=== PATIENT | female | born 1960 ===

== ENCOUNTER 2017-10-04 09:36 | Observation (INO) | payer OTHER ==
--- NOTE | 2017-10-04 10:01 | ED PDOC ---
Arrival/HPI - General Time Seen by Provider: 10/04/17 09:41 Historian: Patient - History of Present Illness Narrative History of Present Illness (Text): 10/04/17 09:56 57 year old female, whose past medical history includes angina, multiple sclerosis, fibromyalgia, diabetes, hyperlipidemia, who presents complaining of intermittent midsternal chest pain associated with nausea, vomiting that began a week ago. She reports the pain radiates to her back and is similar to her past angina symptoms. Patient states she is visiting from [place] and traveled on 09/13/2017. She reports she has relief when taking her nitroglycerin, but did not have any with her at the time. She also states she her Hgb was 7 and missed an Iron treatment. Intermittent cough. Patient reports a fever at 100, but denies any chills, shortness of breath, diarrhea, urinary symptoms, neck pain, headache, dizziness, or any other complaints. PMD: Dr. Cast in [place] Time/Duration: 1 week Symptom Onset: Gradual Symptom Course: Intermittent Activities at Onset: Light Context: Home Past Medical History - Provider Review Nursing Documentation Reviewed: Yes - Travel History Have you recently traveled outside US w/in the past 3 mons?: Yes If Yes, travel location?: From [facility] to [place] (09/13/2017) Family/Social History - Physician Review Nursing Documentation Reviewed: Yes Family/Social History: Other (Cardiac history: Brother recent open heart surgery ) Allergies/Home Meds Allergies/Adverse Reactions: Allergies levofloxacin [From Levaquin] Allergy (Verified 10/04/17 09:59) RASH iv dye Allergy (Uncoded 10/04/17 10:00) RASH Home Medications: Home Meds Medication Instructions Recorded Confirmed Aspirin [Ecotrin] 81 mg PO DAILY 10/04/17 10/04/17 Atropine/Diphenoxylate [Lonox 1 tab PO DAILY PRN 10/04/17 10/04/17 0.025 MG-2.5 MG] Clonazepam [Klonopin] 1 mg PO Q8 PRN 10/04/17 10/04/17 Insulin Human (NPH)/Regular 0 units SC AC PRN 10/04/17 10/04/17 [Novolin 70/30 (70/30 units/ml) 10 ml] Losartan/Hydrochlorothiazide 1 tab PO BID 10/04/17 10/04/17 [Losartan-Hctz 100-12.5 mg Tab] Meloxicam [Mobic] 15 mg PO DAILY 10/04/17 10/04/17 Oxycodone HCl/Acetaminophen 1 tab PO Q6 PRN 10/04/17 10/04/17 [Percocet 10-325 mg Tablet] Pantoprazole [Protonix] 40 mg PO DAILY 10/04/17 10/04/17 amLODIPine [Norvasc] 10 mg PO DAILY 10/04/17 10/04/17 Review of Systems - Physician Review All systems were reviewed & negative as marked: Yes - Review of Systems Constitutional: Fevers. absent: Other (Chills) Respiratory: Cough. absent: SOB Cardiovascular: Chest Pain Gastrointestinal: Nausea, Vomiting. absent: Diarrhea Genitourinary Female: absent: Dysuria, Frequency, Hematuria Musculoskeletal: Back Pain. absent: Neck Pain, Other (lower extremities edema) Physical Exam Vital Signs Reviewed: Yes Vital Signs Temp Pulse Resp BP Pulse Ox 10/04/17 11:36 88 18 141/98 H 98 10/04/17 09:36 98.2 F 63 18 146/76 98 Temperature: Afebrile Blood Pressure: Normal Pulse: Regular Respiratory Rate: Normal Appearance: Positive for: Well-Appearing, Non-Toxic, Comfortable Pain Distress: None Mental Status: Positive for: Alert and Oriented X 3 - Systems Exam Head: Present: Atraumatic, Normocephalic Pupils: Present: PERRL Extroacular Muscles: Present: EOMI Conjunctiva: Present: Normal Mouth: Present: Moist Mucous Membranes Neck: Present: Normal Range of Motion Respiratory/Chest: Present: Clear to Auscultation, Good Air Exchange, Other ( Right Chest wall port). No: Respiratory Distress, Accessory Muscle Use Cardiovascular: Present: Regular Rate and Rhythm, Normal S1, S2. No: Murmurs Abdomen: Present: Normal Bowel Sounds. No: Tenderness, Distention, Peritoneal Signs Back: Present: Normal Inspection Upper Extremity: Present: Normal Inspection. No: Cyanosis, Edema Lower Extremity: Present: Normal Inspection. No: Edema Neurological: Present: GCS=15, CN II-XII Intact, Speech Normal Skin: Present: Warm, Dry, Normal Color. No: Rashes Psychiatric: Present: Alert, Oriented x 3, Normal Insight, Normal Concentration Medical Decision Making ED Course and Treatment: 10/04/17 09:56 Impression: 57 year old female presents complaining of midsternal chest pain that radiates to the back associated with nausea, vomiting, and cough for the past week. Differential Diagnosis included but are not limited to: R/O ACS. Lower probability for PE Plan: -- EKG -- Labs -- Chest X-ray -- Urinalysis -- Reassess and disposition Progress Notes: EKG shows NSR at 61 BPM with low voltage. Otherwise with normal. Interpreted by me. 10/04/17 10:21 CXR Impression: As read by me, NAD. Chest pain has improved. Nitrostat and Aspirin was given on the field. PROCEDURE: Chest X-ray Dictator : Erasto Perez MD Report Date : 10/04/2017 10:55:46 IMPRESSION: No acute consolidation. There may be some minimal linear scarring left lateral lower lung field. 10/04/17 14:16 CXR nl. EKG NSR. Chest pain resolved. Case discussed with Dr. [place] who will place the patient under her service. - Lab Interpretations Lab Results: 10/04/17 10:10 10/04/17 10:10 Lab Results 10/04/17 11:25: Urine Color Yellow, Urine Appearance Slight-cloudy, Urine pH 6.0 , Ur Specific [place] 1.020, Urine Protein Trace H, Urine Glucose (UA) Negative , Urine Ketones Negative, Urine Blood Negative, Urine Nitrate Positive H, Urine Bilirubin Negative, Urine Urobilinogen 1.0 H, Ur Leukocyte Esterase Small H, Urine RBC 0 - 2, Urine WBC 5 - 10, Ur Epithelial Cells 3 - 4, Urine Bacteria Many 10/04/17 10:10: Sodium 141, Potassium 3.5 L, Chloride 107, Carbon Dioxide 26, Anion Gap 12, BUN 14, Creatinine 0.8, Est GFR ( Amer) > 60, Est GFR (Non- Af Amer) > 60, Random Glucose 81, Calcium 8.8, Magnesium 1.5 L, Total Bilirubin 0.3, AST 24, ALT 30, Alkaline Phosphatase 84, Lactate Dehydrogenase 381, Total Creatine Kinase 34 L, Troponin I < 0.01, NT-Pro-B Natriuret Pep 526 H, Total Protein 6.5, Albumin 3.3, Globulin 3.3, Albumin/Globulin Ratio 1.0 L 10/04/17 10:10: PT 12.6 H, INR 1.14 H, APTT 33.7, D-Dimer, Quantitative 856 H 10/04/17 10:10: WBC 3.3 L, RBC 3.04 L, Hgb 9.5 L, Hct 30.4 L, MCV 100.0, MCH 31.3, MCHC 31.3, RDW 14.1, Plt Count 185, MPV 11.0, Gran % 67.0, Lymph % (Auto) 24.0, [place] % (Auto) 7.8 H, Eos % (Auto) 0.9 L, Baso % (Auto) 0.3, Gran # 2.24, Lymph # 0.8 L, [place] # 0.3, Eos # 0.0, Baso # 0.01 I have reviewed the lab results: Yes - RAD Interpretation Radiology Orders: 10/04/17 10:01 CHEST PORTABLE [RAD] Stat 10/04/17 11:09 ANGIO CHEST PE PROTOCOL [CT] Stat - EKG Interpretation Interpreted by ED Physician: Yes Type: 12 lead EKG - Medication Orders Current Medication Orders: Discontinued Medications Acetaminophen (Tylenol 325mg Tab) 975 mg PO STAT STA Stop: 10/04/17 10:20 Last Admin: 10/04/17 10:36 Dose: 975 mg MAR Pain/Vitals Document 10/04/17 10:36 EWO (Rec: 10/04/17 10:36 [facility] [id number]) Pain Reassessment Is This A Pain ReAssessment? No Sleep Is patient sleeping during reassessment? No Presence of Pain Presence of Pain Yes Pain Scale Used Pain Scale Used Numeric Location Pain Location Body Risk Consulting Treasury Director Description Constant Pressure Intensity 4 Scale Used Numeric Aspirin (Aspirin) 325 mg PO STAT STA Stop: 10/04/17 10:01 Last Admin: 10/04/17 10:33 Dose: Diphenhydramine HCl (Benadryl) 50 mg IVP STAT STA Stop: 10/04/17 11:17 Last Admin: 10/04/17 12:10 Dose: 50 mg IVP Administration Document 10/04/17 12:10 EWO (Rec: 10/04/17 12:11 [facility] [id number]) Charges for Administration # of IVP Administrations 1 Ketorolac Tromethamine (Toradol) 30 mg IVP STAT STA Stop: 10/04/17 11:10 Last Admin: 10/04/17 12:10 Dose: 30 mg MAR Pain Assessment Document 10/04/17 12:10 EWO (Rec: 10/04/17 12:10 [facility] [id number]) Pain Reassessment Is this a pain reassessment? Yes Sleep Is patient sleeping during reassessment? No Presence of Pain Presence of Pain Yes Pain Scale Used Pain Scale Used Numeric Location Pain Location Body Risk Consulting Treasury Director IVP Administration Document 10/04/17 12:10 EWO (Rec: 10/04/17 12:10 [facility] [id number]) Charges for Administration # of IVP Administrations 1 Magnesium Oxide (Mag-Ox) 400 mg PO STAT STA Stop: 10/04/17 10:56 Last Admin: 10/04/17 12:09 Dose: 400 mg Nitroglycerin (Nitro-Bid 2% Oint) 1 ea TOP STAT STA Stop: 10/04/17 10:20 Last Admin: 10/04/17 10:36 Dose: 1 ea Ondansetron HCl (Zofran Inj) 4 mg IVP STAT STA Stop: 10/04/17 10:49 Last Admin: 10/04/17 12:10 Dose: 4 mg IVP Administration Document 10/04/17 12:10 EWO (Rec: 10/04/17 12:10 [facility] [id number]) Charges for Administration # of IVP Administrations 1 Potassium Chloride (K-Dur 20 Meq Er Tab) 40 meq PO STAT STA Stop: 10/04/17 10:56 Last Admin: 10/04/17 12:09 Dose: 40 meq - Scribe Statement The provider has reviewed the documentation as recorded by the Serafin Nunez Provider Scribe Attestation: All medical record entries made by the Serafin were at my direction and personally dictated by me. I have reviewed the chart and agree that the record accurately reflects my personal performance of the history, physical exam, medical decision making, and the department course for this patient. I have also personally directed, reviewed, and agree with the discharge instructions and disposition. Disposition/Present on Arrival - Present on Arrival Any Indicators Present on Arrival: No - Disposition Have Diagnosis and Disposition been Completed?: Yes Diagnosis: Chest pain Disposition Time: 14:17 Patient Plan: Observation Condition: FAIR Discharge Instructions (ExitCare): Chest Pain (ED) Referrals: Estelita Ignacio, [Primary Care Provider] - Follow up with primary
[2017-10-04] MEDS ORDERED: Nitroglycerin 2% Ointment Foilpak UD TOP STA (10:19)
[2017-10-04 10:28] LABS: BASO # 0.01 K/mm3 (0.0-2.0); BASO % 0.3 % (0.0-3.0); EOS % 0.9 % (1.5-5.0); GRAN # 2.24 (1.4-6.5); HEMATOCRIT 30.4 % (36.0-48.0); LYMPH # 0.8 (1.2-3.4); MEAN CORPUSCULAR HEMOGLOBIN 31.3 pg (25.0-35.0); MEAN CORPUSCULAR HGB CONC 31.3 g/dl (31.0-37.0); MONO # 0.3 (0.1-0.6); MONO % 7.8 % (1.0-6.0); RED CELL DISTRIBUTION WIDTH 14.1 % (11.5-14.5); WHITE BLOOD COUNT 3.3 10^3/ul (4.5-11.0)
[2017-10-04 10:39] LABS: INR 1.14 (0.93-1.08)
[2017-10-04 10:40] LABS: PARTIAL THROMBOPLASTIN TIME 33.7 Seconds (25.1-36.5)
[2017-10-04 10:54] LABS: ALKALINE PHOSPHATASE 84 U/L (38-126); ALT/SGPT 30 U/L (7-56); AST/SGOT 24 U/L (14-36); BILIRUBIN,TOTAL 0.3 mg/dL (0.2-1.3); BLOOD UREA NITROGEN 14 mg/dL (7-21); CALCIUM 8.8 mg/dL (8.4-10.5); CARBON DIOXIDE 26 mmol/L (21-33); CHLORIDE 107 mmol/L (98-107); GFR AFRICAN-AMERICAN > 60; GLUCOSE,RANDOM 81 mg/dL (70-110); MAGNESIUM 1.5 mg/dL (1.7-2.2); POTASSIUM 3.5 mmol/L (3.6-5.0); SODIUM 141 mmol/L (132-148); TOTAL PROTEIN 6.5 g/dL (5.8-8.3)
[2017-10-04] MEDS ORDERED: Potassium Chloride 20 mEq ER Tab PO STA (10:55)
[2017-10-04] MEDS ORDERED: Magnesium Oxide 400 mg Tab UD PO STA (10:55)
--- NOTE | 2017-10-04 10:57 | RAD ---
HISTORY: chest pain COMPARISON: No prior study available for comparison FINDINGS: Right IJ MediPort tip in the SVC. LUNGS: Lung wooten are free of focal consolidation though there may be some minimal linear scarring in the left lateral lower lung field. PLEURA: No significant pleural effusion identified, no pneumothorax apparent. CARDIOVASCULAR: Heart is enlarged. In situ bipolar pacemaker OSSEOUS STRUCTURES: No significant abnormalities. VISUALIZED UPPER ABDOMEN: Normal. OTHER FINDINGS: None. IMPRESSION: No acute consolidation. There may be some minimal linear scarring left lateral lower lung field.
[2017-10-04 11:06] LABS: TROPONIN I < 0.01 ng/mL
[2017-10-04] MEDS ORDERED: DiphenhydrAMINE 50 mg/ml Inj IVP STA (11:16)
[2017-10-04 11:32] LABS: URINE BILIRUBIN NEGATIVE (NEGATIVE); URINE BLOOD NEGATIVE (NEGATIVE); URINE GLUCOSE (UA) NEGATIVE (NEGATIVE); URINE KETONE NEGATIVE (NEGATIVE); URINE LEUKOCYTE ESTERASE SMALL Leu/uL (NEGATIVE); URINE PROTEIN TRACE mg/dL (<30 mg/dL)
[2017-10-04] MEDS ORDERED: Iodixanol 320 MG/ML 100 ML BOTTLE IV ONE (11:38)
[2017-10-04 11:40] LABS: URINE APPEARANCE SLIGHT-CLOUDY (CLEAR); URINE COLOR YELLOW (YELLOW)
[2017-10-04 11:46] LABS: URINE RBC 0 - 2 /hpf (0-2)
[2017-10-04 11:47] LABS: URINE BACTERIA MANY (NEG)
--- NOTE | 2017-10-04 13:49 | CT ---
PROCEDURE: CT Chest with contrast (Pulmonary Angiogram) HISTORY: The chest pain. . Elevated D dimer ; r/o PE COMPARISON: None available. TECHNIQUE: Axial computed tomography images were obtained of the chest in the pulmonary arterial phase of enhancement. Coronal and sagittal reformatted images were created and reviewed. Intravenous contrast dose: Radiation dose: Total exam DLP = 667.43 mGy-cm. This CT exam was performed using one or more of the following dose reduction techniques: Automated exposure control, adjustment of the mA and/or kV according to patient size, and/or use of iterative reconstruction technique. FINDINGS: PULMONARY ARTERIES: The visualized pulmonary trunk, right and left main, lobar, segmental and proximal subsegmental branches of the pulmonary arteries are well opacified with no definitive filling defects seen to suggest acute central pulmonary embolus. Pulmonary trunk measures approximately 3.1 cm. In situ right IJ MediPort with tip in the SVC. AORTA: No acute findings. No thoracic aortic aneurysm. Ascending thoracic aorta slightly dilated measuring approximately 3.73 cm. Descending thoracic aorta measures approximately 2.53 cm. LUNGS: Minor atelectasis/scarring changes seen in both lung bases. No focal consolidation. No parenchymal masses or obvious nodules PLEURAL SPACES: Unremarkable. No effusion or pneumothorax. HEART: Heart is borderline/mildly enlarged. No significant pericardial effusion. . In situ bipolar pacemaker LYMPH NODES: No significant mediastinal or hilar adenopathy. Note is made of fluid throughout the entire esophagus. Clinical correlation recommended to exclude dysmotility or reflux. . There is a small hiatal hernia. BONES, CHEST WALL: Mild multilevel degenerative spondylosis of the thoracic spine. There are no acute compression fractures nor retropulsed fragments. OTHER FINDINGS: The spleen appears enlarged measuring approximately 15.6 cm in AP dimension. Postoperative changes of the stomach. Clinical correlation with surgical history recommended IMPRESSION: No evidence of central pulmonary embolus. Mild splenomegaly. Postoperative changes of the stomach. Clinical correlation with surgical history.
--- NOTE | 2017-10-04 15:38 | CP.PCM.HP ---
<hSakir Singh - Last Filed: 10/04/17 19:05> History of Present Illness - History of Present Illness History of Present Illness: 57 year old female with a past medical history of multiple sclerosis, angina, Fibromyalgia, bradycardia (s/p Pacemaker), Diabetes mellitus, hyperlipidemia, colitis, obesity(s/p gastric bypass) who comes in complaining of mid-sternal chest pain associated with nausea and radiates to the back. The patient rates the pain a 7/10 in severity. The patient who is visiting from [place] also reports a headache in conjunction with the pain. The patient was recently hospitalized in [place] for the same complaint about one month ago. The patient denies any fevers, chills, vomiting, changes in vision, lightheadedness , dizziness, syncopal episodes, or any other complaints. Past medical history: See HPI Medications: Reviewed, see MAR Past surgical history: Gastric bypass, Unspecified small intestine surgery Past hospitalization: One month ago for chest pain in [place] Social history: Denies smoking or alcohol history. Denies illicit drug use. Lives with daughter. . Performs ADL's and IDL's with help of home services and walker. Expected to return to [place] October 27. PMD: Dr. Cast Wire Temperer: Dr. Velez Present on Admission - Present on Admission Any Indicators Present on Admission: No Review of Systems - Constitutional Constitutional: As Per HPI - EENT Eyes: As Per HPI Ears: As Per HPI Nose/Mouth/Throat: As Per HPI - Cardiovascular Cardiovascular: As Per HPI - Respiratory Respiratory: As Per HPI - Gastrointestinal Gastrointestinal: As Per HPI - Genitourinary Genitourinary: As Per HPI - Musculoskeletal Musculoskeletal: As Per HPI - Integumentary Integumentary: As Per HPI - Neurological Neurological: As Per HPI - Psychiatric Psychiatric: As Per HPI - Endocrine Endocrine: As Per HPI - Hematologic/Lymphatic Hematologic: As Per HPI Past Patient History - Infectious Disease Hx of Infectious Diseases: None - Past Social History Smoking Status: Unknown If Ever Smoked - CARDIAC Hx Hypertension: Yes Hx Pacemaker: Yes - ENDOCRINE/METABOLIC Hx Diabetes Mellitus Type 2: Yes - PSYCHIATRIC Hx Substance Use: No - ANESTHESIA Hx Anesthesia: No Meds Allergies/Adverse Reactions: Allergies Allergy/AdvReac Type Severity Reaction Status Date / Time levofloxacin [From Levaquin] Allergy RASH Verified 10/04/17 14:45 iv dye Allergy RASH Uncoded 10/04/17 14:45 Physical Exam - Head Exam Head Exam: ATRAUMATIC, NORMAL INSPECTION, NORMOCEPHALIC - Eye Exam Eye Exam: EOMI, Normal appearance, PERRL Pupil Exam: NORMAL ACCOMODATION, PERRL. absent: Irregular, Unequal - ENT Exam ENT Exam: Mucous Membranes Moist, Normal Exam, Normal Oropharynx - Neck Exam Neck exam: Positive for: Normal Inspection. Negative for: Lymphadenopathy, Thyromegaly - Respiratory Exam Respiratory Exam: Clear to Auscultation Bilateral, NORMAL BREATHING PATTERN. absent: Chest Wall Tenderness, Prolonged Expiratory Phase, Respiratory Distress - Cardiovascular Exam Cardiovascular Exam: REGULAR RHYTHM, RRR, +S1, +S2. absent: Gallop, Rubs - GI/Abdominal Exam GI & Abdominal Exam: Normal Bowel Sounds, Soft. absent: Organomegaly, Tenderness - Extremities Exam Extremities exam: Positive for: full ROM, normal inspection. Negative for: joint swelling, pedal edema, tenderness - Back Exam Back exam: NORMAL INSPECTION. absent: CVA tenderness (L), CVA tenderness (R), paraspinal tenderness - Neurological Exam Neurological exam: Alert, CN II-XII Intact, Oriented x3 - Psychiatric Exam Psychiatric exam: Normal Affect, Normal Mood - Skin Skin Exam: Dry, Intact, Normal Color Results - Vital Signs Recent Vital Signs: Last Vital Signs Temp 98.9 F 10/04/17 13:00 Pulse 78 10/04/17 15:00 Resp 18 10/04/17 15:00 BP 118/80 10/04/17 15:00 Pulse Ox 98 10/04/17 15:00 - Labs Result Diagrams: 10/04/17 10:10 10/04/17 10:10 Labs: Laboratory Results - last 24 hr 10/04/17 10/04/17 10/04/17 10:10 10:10 10:10 WBC 3.3 L RBC 3.04 L Hgb 9.5 L Hct 30.4 L MCV 100.0 MCH 31.3 MCHC 31.3 RDW 14.1 Plt Count 185 MPV 11.0 Gran % 67.0 Lymph % (Auto) 24.0 [place] % (Auto) 7.8 H Eos % (Auto) 0.9 L Baso % (Auto) 0.3 Gran # 2.24 Lymph # 0.8 L [place]pp # 0.3 Eos # 0.0 Baso # 0.01 PT 12.6 H INR 1.14 H APTT 33.7 D-Dimer, Quantitative 856 H Sodium 141 Potassium 3.5 L Chloride 107 Carbon Dioxide 26 Anion Gap 12 BUN 14 Creatinine 0.8 Est GFR ( Amer) > 60 Est GFR (Non-Af Amer) > 60 Random Glucose 81 Calcium 8.8 Magnesium 1.5 L Total Bilirubin 0.3 AST 24 ALT 30 Alkaline Phosphatase 84 Lactate Dehydrogenase 381 Total Creatine Kinase 34 L Troponin I < 0.01 NT-Pro-B Natriuret Pep 526 H Total Protein 6.5 Albumin 3.3 Globulin 3.3 Albumin/Globulin Ratio 1.0 L Urine Color Urine Appearance Urine pH Ur Specific [place] Urine Protein Urine Glucose (UA) Urine Ketones Urine Blood Urine Nitrate Urine Bilirubin Urine Urobilinogen Ur Leukocyte Esterase Urine RBC Urine WBC Ur Epithelial Cells Urine Bacteria 10/04/17 11:25 WBC RBC Hgb Hct MCV MCH MCHC RDW Plt Count MPV Gran % Lymph % (Auto) [place] % (Auto) Eos % (Auto) Baso % (Auto) Gran # Lymph # [place] # Eos # Baso # PT INR APTT D-Dimer, Quantitative Sodium Potassium Chloride Carbon Dioxide Anion Gap BUN Creatinine Est GFR ( Amer) Est GFR (Non-Af Amer) Random Glucose Calcium Magnesium Total Bilirubin AST ALT Alkaline Phosphatase Lactate Dehydrogenase Total Creatine Kinase Troponin I NT-Pro-B Natriuret Pep Total Protein Albumin Globulin Albumin/Globulin Ratio Urine Color Yellow Urine Appearance Slight-cloudy Urine pH 6.0 Ur Specific [place] 1.020 Urine Protein Trace H Urine Glucose (UA) Negative Urine Ketones Negative Urine Blood Negative Urine Nitrate Positive H Urine Bilirubin Negative Urine Urobilinogen 1.0 H Ur Leukocyte Esterase Small H Urine RBC 0 - 2 Urine WBC 5 - 10 Ur Epithelial Cells 3 - 4 Urine Bacteria Many Assessment & Plan - Assessment and Plan (Free Text) Assessment: 57 year old female with a past medical history of dm, hld, colitis, m.s., angina , and fibromyalgia who is being admitted for chest pain r/o acs. Plan: 1. Chest pain r/o ACS. -1 Week of Chest pain reported by patient. -Trending troponins x3. Troponin (-)x1. -Cardiology consulted. Will f/u with rec's. -Lipid panel ordered. Will f/u with results. -Aspirin 325 give in the E.D. Start 81 mg Daily. 2.history of Anemia -Hemoglobin 9.5 upon admission. Unable to trend since patient is from [place]. -Patient has Port-o-cath for IV iron treatments. -One 200 Venofer dose to be given today. -Will continue to follow up serial CBC's. 3. UTI -u/A had positive Nitrates, and many urine bacteria. -Urine cx ordered .Will f/u with results. -Rocephin 1 gm q24. 4.D.M. -hold home medications. -ISS. Accuchecks. -Diabetic diet. 5. Hyperlipidemia -lipid panel ordered. Will f/u with results. -continue home medications. 6.Fibromyalgia -continue home meds. 7. Multiple sclerosis - continue home meds. GI ppx -Protonix DVT ppx -Heparin <Kirill Montana - Last Filed: 10/05/17 12:20> Results - Vital Signs Recent Vital Signs: Last Vital Signs Temp 98.0 F 10/05/17 07:30 Pulse 60 10/05/17 07:30 Resp 18 10/05/17 07:30 BP 125/82 10/05/17 07:30 Pulse Ox 98 10/05/17 07:30 - Labs Result Diagrams: 10/05/17 07:30 10/05/17 07:30 Labs: Laboratory Results - last 24 hr 10/04/17 10/04/17 10/04/17 16:07 17:00 21:47 WBC RBC Hgb Hct MCV MCH MCHC RDW Plt Count MPV Gran % Lymph % (Auto) [place] % (Auto) Eos % (Auto) Baso % (Auto) Gran # Lymph # [place] # Eos # Baso # Sodium Potassium Chloride Carbon Dioxide Anion Gap BUN Creatinine Est GFR ( Amer) Est GFR (Non-Af Amer) POC Glucose (mg/dL) 95 116 H Random Glucose Calcium Total Bilirubin AST ALT Alkaline Phosphatase Lactate Dehydrogenase Total Creatine Kinase Troponin I < 0.01 Total Protein Albumin Globulin Albumin/Globulin Ratio 10/04/17 10/05/17 10/05/17 23:00 07:30 07:30 WBC 2.6 L* D RBC 3.12 L Hgb 9.6 L Hct 30.9 L MCV 99.0 MCH 30.8 MCHC 31.1 RDW 14.2 Plt Count 163 MPV 11.6 H Gran % 69.2 H Lymph % (Auto) 21.4 L [place] % (Auto) 7.8 H Eos % (Auto) 1.2 L Baso % (Auto) 0.4 Gran # 1.78 Lymph # 0.6 L [place]pp # 0.2 Eos # 0.0 Baso # 0.01 Sodium 142 Potassium 4.6 Chloride 105 Carbon Dioxide 28 Anion Gap 13 BUN 10 Creatinine 0.8 Est GFR ( Amer) > 60 Est GFR (Non-Af Amer) > 60 POC Glucose (mg/dL) Random Glucose 85 Calcium 9.2 Total Bilirubin 0.3 AST 26 ALT 27 Alkaline Phosphatase 87 Lactate Dehydrogenase Total Creatine Kinase Troponin I < 0.01 Total Protein 6.5 Albumin 3.4 Globulin 3.1 Albumin/Globulin Ratio 1.1 10/05/17 08:30 WBC RBC Hgb Hct MCV MCH MCHC RDW Plt Count MPV Gran % Lymph % (Auto) [place] % (Auto) Eos % (Auto) Baso % (Auto) Gran # Lymph # [place] # Eos # Baso # Sodium Potassium Chloride Carbon Dioxide Anion Gap BUN Creatinine Est GFR ( Amer) Est GFR (Non-Af Amer) POC Glucose (mg/dL) Random Glucose Calcium Total Bilirubin AST ALT Alkaline Phosphatase Lactate Dehydrogenase 429 Total Creatine Kinase 31 L Troponin I < 0.01 Total Protein Albumin Globulin Albumin/Globulin Ratio Attending/Attestation - Attestation I have personally seen and examined this patient.: Yes I have fully participated in the care of the patient.: Yes I have reviewed all pertinent clinical information: Yes Notes (Text): 10/05/17 12:17 Attending note; Patient seen and examined with resident in ER. Patient is a 57 year old female with a past medical history of multiple sclerosis, Fibromyalgia, bradycardia (s/p Pacemaker), Diabetes mellitus, hyperlipidemia, colitis, obesity(s/p gastric bypass), opiate dependency is admitted for chest pain. EKG showed no significant changes/pacer present. Cardiac enzymes [address] angios negative for pulmonary embolus. Patient was admitted in [facility] for chest pain in March. Workup negative as per patient. Does not remember stress test. Patient had remote history of cardiac cath about 10 years ago which was negative. Cardiology evaluation requested. Obesity/status post gastric bypass surgery; anemia. Started on IV iron. Hemoglobin is stable. Questionable history of MS;walks with a walker at home. also getting physical therapy at home. Chronic opiate dependency; Percocet when necessary. Patient was given Toradol. Currently denies any headache, abdominal pain. Admit to telemetry. Monitor closely. Possible discharge home tomorrow.
[2017-10-04 16:03] LABS: CHOLESTEROL 116 mg/dL (130-200)
[2017-10-04] MEDS: cefTRIAXone 1 gm 1 GM/100 ML BAG IVPB SCH (16:48)
[2017-10-04] MEDS ORDERED: Magnesium Sulfate 1 gm in D5W 1 GM/100 ML BAG IVPB ONE (17:09)
[2017-10-04] MEDS: Insulin Reg-LOW-Coverage SC SCH ×2 (17:11→23:03)
[2017-10-04] MEDS ORDERED: Non Formulary Medication (Losartan/Hydrochlorothiazide [Losartan-Hctz 100-12.5 Mg Tab] 1 T PO SCH (18:00)
[2017-10-04 19:57] VITALS: BMI 40.6
[2017-10-04] MEDS ORDERED: Pneumococcal 23-Valent Vaccine IM ONE (19:57)
[2017-10-04] MEDS ORDERED: Influenza Vaccine 60 mcg/0.5 mL SYR (4YR UP) IM ONE (19:57)
[2017-10-05] MEDS: Pantoprazole 40 mg EC Tab PO SCH (05:44)
[2017-10-05] MEDS: Insulin Reg-LOW-Coverage SC SCH ×3 (07:34→17:01)
[2017-10-05 08:11] LABS: BASO # 0.01 K/mm3 (0.0-2.0); BASO % 0.4 % (0.0-3.0); EOS % 1.2 % (1.5-5.0); GRAN # 1.78 (1.4-6.5); GRAN % 69.2 % (50.0-68.0); HEMATOCRIT 30.9 % (36.0-48.0); LYMPH # 0.6 (1.2-3.4); LYMPH % 21.4 % (22.0-35.0); MEAN CORPUSCULAR HEMOGLOBIN 30.8 pg (25.0-35.0); MEAN CORPUSCULAR HGB CONC 31.1 g/dl (31.0-37.0); MEAN PLATELET VOLUME 11.6 fl (7.0-11.0); MONO # 0.2 (0.1-0.6); MONO % 7.8 % (1.0-6.0); RED CELL DISTRIBUTION WIDTH 14.2 % (11.5-14.5)
[2017-10-05 08:17] LABS: WHITE BLOOD COUNT 2.6 10^3/ul (4.5-11.0)
[2017-10-05] MEDS ORDERED: Oxycodone/Acetaminophen 5/325 mg Tab PO PRN (08:17)
[2017-10-05 08:30] LABS: ALB/GLOB RATIO 1.1 (1.1-1.8); ALKALINE PHOSPHATASE 87 U/L (38-126); ALT/SGPT 27 U/L (7-56); AST/SGOT 26 U/L (14-36); BILIRUBIN,TOTAL 0.3 mg/dL (0.2-1.3); BLOOD UREA NITROGEN 10 mg/dL (7-21); CALCIUM 9.2 mg/dL (8.4-10.5); CARBON DIOXIDE 28 mmol/L (21-33); CHLORIDE 105 mmol/L (98-107); GFR AFRICAN-AMERICAN > 60; GLUCOSE,RANDOM 85 mg/dL (70-110); POTASSIUM 4.6 mmol/L (3.6-5.0); SODIUM 142 mmol/L (132-148); TOTAL PROTEIN 6.5 g/dL (5.8-8.3)
[2017-10-05] MEDS ORDERED: Atropine-Diphenoxylate 0.025-2.5 mg Tab PO PRN (08:44)
--- NOTE | 2017-10-05 08:46 | CARD ---
APPROVED REPORT EKG Measurement Heart [id number] <Conclusion> Normal sinus rhythm Low voltage QRS Nonspecific ST and T wave abnormality Base line artefact please repeat Abnormal ECG
[2017-10-05 09:25] LABS: TROPONIN I < 0.01 ng/mL
[2017-10-05] MEDS: cefTRIAXone 1 gm 1 GM/100 ML BAG IVPB SCH (10:00)
[2017-10-05] MEDS ORDERED: VENLAFAXINE 100 MG PO SCH (10:00)
--- NOTE | 2017-10-05 10:48 | CP.PCM.DIS ---
Provider - Provider Date of Admission: 10/04/17 14:11 Attending physician: Silvia Underwood MD Primary care physician: Estelita Profile Required Consults: Dr. Caro Cardiology Time Spent in preparation of Discharge (in minutes): 35 Hospital Course - Lab Results Lab Results: Most Recent Lab Values WBC 2.6 10^3/ul (4.5-11.0) L* D 10/05/17 07:30 RBC 3.12 10^6/uL (3.5-6.1) L 10/05/17 07:30 Hgb 9.6 g/dL (12.0-16.0) L 10/05/17 07:30 Hct 30.9 % (36.0-48.0) L 10/05/17 07:30 MCV 99.0 fl (80.0-105.0) 10/05/17 07:30 MCH 30.8 pg (25.0-35.0) 10/05/17 07:30 MCHC 31.1 g/dl (31.0-37.0) 10/05/17 07:30 RDW 14.2 % (11.5-14.5) 10/05/17 07:30 Plt Count 163 10^3/uL (120.0-450.0) 10/05/17 07:30 MPV 11.6 fl (7.0-11.0) H 10/05/17 07:30 Gran % 69.2 % (50.0-68.0) H 10/05/17 07:30 Lymph % (Auto) 21.4 % (22.0-35.0) L 10/05/17 07:30 [place] % (Auto) 7.8 % (1.0-6.0) H 10/05/17 07:30 Eos % (Auto) 1.2 % (1.5-5.0) L 10/05/17 07:30 Baso % (Auto) 0.4 % (0.0-3.0) 10/05/17 07:30 Gran # 1.78 (1.4-6.5) 10/05/17 07:30 Lymph # 0.6 (1.2-3.4) L 10/05/17 07:30 [place] # 0.2 (0.1-0.6) 10/05/17 07:30 Eos # 0.0 (0.0-0.7) 10/05/17 07:30 Baso # 0.01 K/mm3 (0.0-2.0) 10/05/17 07:30 PT 12.6 SECONDS (9.4-12.5) H 10/04/17 10:10 INR 1.14 (0.93-1.08) H 10/04/17 10:10 APTT 33.7 Seconds (25.1-36.5) 10/04/17 10:10 D-Dimer, Quantitative 856 ng/mL (0-243) H 10/04/17 10:10 Sodium 142 mmol/L (132-148) 10/05/17 07:30 Potassium 4.6 mmol/L (3.6-5.0) 10/05/17 07:30 Chloride 105 mmol/L (98-107) 10/05/17 07:30 Carbon Dioxide 28 mmol/L (21-33) 10/05/17 07:30 Anion Gap 13 (10-20) 10/05/17 07:30 BUN 10 mg/dL (7-21) 10/05/17 07:30 Creatinine 0.8 mg/dl (0.7-1.2) 10/05/17 07:30 Est GFR ( Amer) > 60 10/05/17 07:30 Est GFR (Non-Af Amer) > 60 10/05/17 07:30 POC Glucose (mg/dL) 116 mg/dL (65-110) H 10/04/17 21:47 Random Glucose 85 mg/dL (70-110) 10/05/17 07:30 Calcium 9.2 mg/dL (8.4-10.5) 10/05/17 07:30 Magnesium 1.5 mg/dL (1.7-2.2) L 10/04/17 10:10 Total Bilirubin 0.3 mg/dL (0.2-1.3) 10/05/17 07:30 AST 26 U/L (14-36) 10/05/17 07:30 ALT 27 U/L (7-56) 10/05/17 07:30 Alkaline Phosphatase 87 U/L (38-126) 10/05/17 07:30 Lactate Dehydrogenase 429 U/L (333-699) 10/05/17 08:30 Total Creatine Kinase 31 U/L (35-230) L 10/05/17 08:30 Troponin I < 0.01 ng/mL 10/05/17 08:30 NT-Pro-B Natriuret Pep 526 pg/mL (0-450) H 10/04/17 10:10 Total Protein 6.5 g/dL (5.8-8.3) 10/05/17 07:30 Albumin 3.4 g/dL (3.0-4.8) 10/05/17 07:30 Globulin 3.1 gm/dL 10/05/17 07:30 Albumin/Globulin Ratio 1.1 (1.1-1.8) 10/05/17 07:30 Triglycerides 91 mg/dL (35-160) 10/04/17 10:10 Cholesterol 116 mg/dL (130-200) L 10/04/17 10:10 LDL Cholesterol Direct 51 mg/dL (0-129) 10/04/17 10:10 HDL Cholesterol 45 mg/dL (29-60) 10/04/17 10:10 TSH 3rd Generation 0.90 mIU/mL (0.46-4.68) 10/04/17 10:10 Urine Color Yellow (YELLOW) 10/04/17 11:25 Urine Appearance Slight-cloudy (CLEAR) 10/04/17 11:25 Urine pH 6.0 (4.7-8.0) 10/04/17 11:25 Ur Specific Spencer 1.020 (1.005-1.035) 10/04/17 11:25 Urine Protein Trace mg/dL (<30 mg/dL) H 10/04/17 11:25 Urine Glucose (UA) Negative mg/dL (NEGATIVE) 10/04/17 11:25 Urine Ketones Negative mg/dL (NEGATIVE) 10/04/17 11:25 Urine Blood Negative (NEGATIVE) 10/04/17 11:25 Urine Nitrate Positive (NEGATIVE) H 10/04/17 11:25 Urine Bilirubin Negative (NEGATIVE) 10/04/17 11:25 Urine Urobilinogen 1.0 E.U./dL (<1 E.U./dL) H 10/04/17 11:25 Ur Leukocyte Esterase Small Jason/uL (NEGATIVE) H 12/09/17 11:25 Urine RBC 0 - 2 /hpf (0-2) 10/04/17 11:25 Urine WBC 5 - 10 /hpf (0-6) 10/04/17 11:25 Ur Epithelial Cells 3 - 4 /hpf (0-5) 10/04/17 11:25 Urine Bacteria Many (NEG) 10/04/17 11:25 - Hospital Course Hospital Course: 57 year female with a past medical history of MS, fibrolyalgia, bradycardia s/p pacemaker, angina, hyperlipidemia, DM II, history of gastric bypass who presents to [facility] with midsternal chest pain with radiation to the back with associated nausea. EKG, troponin x3, and chest x-ray were negative for an acute MS or acute chest syndrome. The patient was monitored on telemetry and cardiology evaluated the patient. The patient's chest pain resolved and was dsicharged with the below written instructions and prescriptions. Discharge Exam - Head Exam Head Exam: ATRAUMATIC, NORMAL INSPECTION, NORMOCEPHALIC - Eye Exam Eye Exam: EOMI, Normal appearance - ENT Exam ENT Exam: Mucous Membranes Moist, Normal Oropharynx - Neck Exam Neck exam: Normal Inspection - Respiratory Exam Respiratory Exam: Clear to PA & Lateral, NORMAL BREATHING PATTERN - Cardiovascular Exam Cardiovascular Exam: RRR, +S1, +S2 - GI/Abdominal Exam GI & Abdominal Exam: Normal Bowel Sounds. absent: Guarding, Rebound - Extremities Exam Extremities exam: normal capillary refill, normal inspection - Back Exam Back exam: NORMAL INSPECTION. absent: CVA tenderness (L), CVA tenderness (R) - Neurological Exam Neurological exam: Alert, CN II-XII Intact, Oriented x3 - Psychiatric Exam Psychiatric exam: Normal Affect, Normal Mood - Skin Skin Exam: Dry, Intact, Normal Color, Warm Discharge Plan - Discharge Medications Prescriptions: Ibuprofen [Motrin] 600 mg PO BID #12 tab - Follow Up Plan Condition: FAIR Disposition: HOME/ ROUTINE Instructions: Chest Pain (GEN), Chest Pain (DC) Additional Instructions: 1) Patient to take any medications as prescribed. 2) Patient to return to closest ED for any worsening of symptoms. 3) Patient to follow up with Primary Medical Doctor within the next 7 days. Referrals: Estelita Ignacio, [Primary Care Provider] -
--- NOTE | 2017-10-05 11:56 | CP.PCM.PN ---
<Lina Henderson - Last Filed: 10/05/17 12:30> Subjective - Date & Time of Evaluation Date of Evaluation: 10/05/17 Time of Evaluation: 09:10 - Subjective Subjective: Lina Henderson DO, PGY-1: Hospitalist Service Patient seen and examined at bedside. Patient reports chest pain with exertion and a headache for 1 week that has gradually worsening. Patient also reports one week of malaise and generalized weakness and has not taken her Copaxone (MS medication) for over 2.5 weeks given that she left it at home in [place]. Objective - Vital Signs/Intake and Output Vital Signs (last 24 hours): Temp Pulse Resp BP Pulse Ox 98.0 F 60 18 125/82 98 10/05/17 07:30 10/05/17 07:30 10/05/17 07:30 10/05/17 07:30 10/05/17 07:30 Intake and Output: 10/05/17 10/05/17 06:59 18:59 Intake Total 300 Output Total 0 Balance 300 - Medications Medications: Current Medications Acetaminophen (Tylenol 325mg Tab) 650 mg PO Q6H PRN PRN Reason: Pain, moderate (4-7) Last Admin: 10/05/17 05:48 Dose: 650 mg Aspirin (Ecotrin) 81 mg PO DAILY HERMINIO Last Admin: 10/05/17 10:00 Dose: 81 mg Clonazepam (Klonopin) 1 mg PO Q8 PRN; Protocol PRN Reason: Anxiety Last Admin: 10/05/17 05:44 Dose: 1 mg Diphenhydramine HCl (Benadryl) 25 mg PO HS PRN PRN Reason: Insomnia Last Admin: 10/05/17 10:01 Dose: 25 mg Diphenoxylate HCl/Atropine (Lomotil 0.025-2.5 Mg Tablet) 1 tab PO DAILY PRN PRN Reason: Diarrhea Hydrochlorothiazide (Microzide) 12.5 mg PO DAILY HERMINIO Last Admin: 10/05/17 10:00 Dose: 12.5 mg Ceftriaxone Sodium (Rocephin 1 Gram Ivpb (D5w)) 1 gm in 100 mls @ 100 mls/hr IVPB DAILY HERMINIO PRN Reason: Protocol Last Admin: 10/05/17 10:00 Dose: 100 mls/hr Insulin Human Regular (Humulin R Low) 0 units SC ACHS [facility] PRN Reason: Protocol Last Admin: 10/05/17 07:34 Dose: Not Given Losartan Potassium (Cozaar) 100 mg PO DAILY [facility] Last Admin: 10/05/17 10:00 Dose: 100 mg Home Med ( Venlafaxine [Effexor 50 Mg Tab] 100 Mg) 100 mg PO BID [facility] Ondansetron HCl (Zofran Inj) 4 mg IVP Q8H PRN PRN Reason: Nausea/Vomiting Last Admin: 10/05/17 11:07 Dose: 4 mg Oxycodone/Acetaminophen (Percocet 5/325 Mg Tab) 1 tab PO Q6H PRN PRN Reason: Pain, moderate (4-7) Stop: 10/08/17 08:18 Last Admin: 10/05/17 08:24 Dose: 1 tab Pantoprazole Sodium (Protonix Ec Tab) 40 mg PO 0600 [facility] Last Admin: 10/05/17 05:44 Dose: 40 mg - Labs Labs: 10/05/17 07:30 10/05/17 07:30 PT 12.6 SECONDS (9.4-12.5) H 10/04/17 10:10 INR 1.14 (0.93-1.08) H 10/04/17 10:10 APTT 33.7 Seconds (25.1-36.5) 10/04/17 10:10 - Constitutional Appears: Non-toxic, No Acute Distress, Older Than Stated Age - Head Exam Head Exam: ATRAUMATIC - Eye Exam Additional comments: left eye ptosis - ENT Exam ENT Exam: Mucous Membranes Moist, Normal Oropharynx - Neck Exam Neck Exam: Normal Inspection - Respiratory Exam Respiratory Exam: Clear to Ausculation Bilateral, NORMAL BREATHING PATTERN - Cardiovascular Exam Cardiovascular Exam: RRR, +S1, +S2 - GI/Abdominal Exam GI & Abdominal Exam: Soft, Normal Bowel Sounds - Extremities Exam Extremities Exam: Normal Inspection. absent: Pedal Edema - Back Exam Back Exam: NORMAL INSPECTION. absent: CVA tenderness (L), CVA tenderness (R) - Neurological Exam Neurological Exam: Alert, CN II-XII Intact, Oriented x3 Neuro motor strength exam: Left Upper Extremity: 4, Right Upper Extremity: 5, Left Lower Extremity: 4, Right Lower Extremity: 5 - Psychiatric Exam Psychiatric exam: Normal Affect, Normal Mood - Skin Skin Exam: Dry, Intact, Normal Color, Warm Assessment and Plan - Assessment and Plan (Free Text) Assessment: 57 year old female with a past medical history of Diabetes Mellitus, Hyperlipidemia, Multiple Sclerosis, Angina, and Fibromyalgia who is being admitted for chest pain. Prior to discharge, patient began to complain of gradually worsening headache and bilateral lower extremity pain. Plan: 1) Chest pain - ACS ruled out; troponin x3 negative, EKG showed paced rhythm with no acute ST- T wave changes. - CT angiogram of the chest was negative for pulmonary embolism. - Cardiology consulted, appreciate recommendations. -Lipid panel ordered, TG 91, cholesterol 116, LDL 51, HDL of 45 -Aspirin 325 give in the E.D. Start 81 mg Daily. 2) Subacute headache with concomitant lower extremity pain: This could represent a MS flair as patient has been without MS medication for 2.5 weeks. - CT head without contrast to rule out acute stroke or hemmorhage. - Neurology consulted 3) History of Anemia -Hemoglobin 9.5 upon admission. Unable to trend since patient is from [place]. -Patient has Port-o-cath for IV iron treatments. -One 200 Venofer dose to be given today. -Will continue to follow up serial CBC's. 4) UTI -u/A had positive Nitrates, and many urine bacteria. -Urine cx ordered .Will f/u with results. -Rocephin 1 gm q24. 4.D.M. -hold home medications. -ISS. Accuchecks. -Diabetic diet. 5. Hyperlipidemia -lipid panel ordered. Will f/u with results. -continue home medications. 6.Fibromyalgia - Effexor 75 mg PO, as 50 mg is not carried in pharmacy 7) Multiple sclerosis - Neurology consulted, for possible MS flair GI ppx -Protonix DVT ppx -Heparin <Rangasamy,Ajantha - Last Filed: 10/05/17 15:35> Objective - Vital Signs/Intake and Output Vital Signs (last 24 hours): Temp Pulse Resp BP Pulse Ox 98.4 F 65 20 145/82 98 10/05/17 12:00 10/05/17 12:00 10/05/17 12:00 10/05/17 12:00 10/05/17 07:30 Intake and Output: 10/05/17 10/05/17 06:59 18:59 Intake Total 300 Output Total 0 Balance 300 - Medications Medications: Current Medications Acetaminophen (Tylenol 325mg Tab) 650 mg PO Q6H PRN PRN Reason: Pain, moderate (4-7) Last Admin: 10/05/17 05:48 Dose: 650 mg Aspirin (Ecotrin) 81 mg PO DAILY [facility] Last Admin: 10/05/17 10:00 Dose: 81 mg Clonazepam (Klonopin) 1 mg PO Q8 PRN; Protocol PRN Reason: Anxiety Last Admin: 10/05/17 05:44 Dose: 1 mg Diphenhydramine HCl (Benadryl) 25 mg PO HS PRN PRN Reason: Insomnia Last Admin: 10/05/17 10:01 Dose: 25 mg Diphenoxylate HCl/Atropine (Lomotil 0.025-2.5 Mg Tablet) 1 tab PO DAILY PRN PRN Reason: Diarrhea Hydrochlorothiazide (Microzide) 12.5 mg PO DAILY [facility] Last Admin: 10/05/17 10:00 Dose: 12.5 mg Ceftriaxone Sodium (Rocephin 1 Gram Ivpb (D5w)) 1 gm in 100 mls @ 100 mls/hr IVPB DAILY [facility] PRN Reason: Protocol Last Admin: 10/05/17 10:00 Dose: 100 mls/hr Insulin Human Regular (Humulin R Low) 0 units SC ACHS [facility] PRN Reason: Protocol Last Admin: 10/05/17 11:55 Dose: Not Given Losartan Potassium (Cozaar) 100 mg PO DAILY [facility] Last Admin: 10/05/17 10:00 Dose: 100 mg Multivitamins/Minerals (Therapeutic-M Tab) 1 tab PO 0800 [facility] Ondansetron HCl (Zofran Inj) 4 mg IVP Q8H PRN PRN Reason: Nausea/Vomiting Last Admin: 10/05/17 11:07 Dose: 4 mg Oxycodone/Acetaminophen (Percocet 5/325 Mg Tab) 1 tab PO Q6H PRN PRN Reason: Pain, moderate (4-7) Stop: 10/08/17 08:18 Last Admin: 10/05/17 08:24 Dose: 1 tab Pantoprazole Sodium (Protonix Ec Tab) 40 mg PO 0600 [facility] Last Admin: 10/05/17 05:44 Dose: 40 mg Venlafaxine HCl (Effexor Xr) 75 mg PO DAILY [facility] Last Admin: 12/10/17 13:27 Dose: 75 mg - Labs Labs: 10/05/17 07:30 10/05/17 07:30 PT 12.6 SECONDS (9.4-12.5) H 10/04/17 10:10 INR 1.14 (0.93-1.08) H 10/04/17 10:10 APTT 33.7 Seconds (25.1-36.5) 10/04/17 10:10 Attending/Attestation - Attestation I have personally seen and examined this patient.: Yes I have fully participated in the care of the patient.: Yes I have reviewed all pertinent clinical information, including history, physical exam and plan: Yes Notes (Text): 10/05/17 15:27 Attending note; Patient seen and examined with resident. Patient is a 57 year old female with a past medical history of multiple sclerosis, Fibromyalgia, bradycardia (s/p Pacemaker), Diabetes mellitus, hyperlipidemia, colitis, obesity(s/p gastric bypass), opiate dependency is admitted for chest pain. EKG showed no significant changes/pacer present. Cardiac enzymes [address] angios negative for pulmonary embolus. cardiology evaluation with appreciated.cleared from cardiology point of view. Questionable history of MS;walks with a walker at home. also getting physical therapy at home. currently comaining of head ache; requesting Percocet and Toradol. Patient did not bring any pain medications from [place]. Opiate seeking behavior suspected. CT head ordered. multiple symptoms; rule out somatization disorder. we will Follow-up patient closely. Chronic opiate dependency; Percocet and toradol prn ordered. upon discharge the patient will follow-up with PMD in [place].
[2017-10-05 13:09] VITALS: RESP 20
[2017-10-05] MEDS: Venlafaxine 75 mg ER Cap PO SCH (13:27)
[2017-10-05] MEDS: Apap-Butalbital-Caffeine 325-50-40mg Tab PO PRN (15:49)
--- NOTE | 2017-10-05 16:24 | CT ---
PROCEDURE: CT HEAD WITHOUT CONTRAST. HISTORY: headache COMPARISON: None available. TECHNIQUE: Axial computed tomography images were obtained through the head/brain without intravenous contrast. Radiation dose: Total exam DLP = 843.77 mGy-cm. This CT exam was performed using one or more of the following dose reduction techniques: Automated exposure control, adjustment of the mA and/or kV according to patient size, and/or use of iterative reconstruction technique. FINDINGS: HEMORRHAGE: No acute parenchymal, subarachnoid or extra-axial hemorrhage. BRAIN: Significant diffuse/confluent chronic periventricular white matter ischemic changes seen extending peripherally into the deep and subcortical white matter both cerebral hemispheres. There is extension of these changes into white matter tracts of both basal nuclei. Additionally, there are chronic appearing bilateral basal nuclei lacunar type infarcts. Moderate volume loss. Minor vascular calcifications both carotid siphons VENTRICLES: Unremarkable. No hydrocephalus. CALVARIUM: Unremarkable. PARANASAL SINUSES: Visualized paranasal sinuses well-developed. No fluid levels seen to suggest acute sinusitis. Moderate mucosal thickening right maxillary antrum. Minimal mucosal thickening also seen within a few ethmoid air cells. MASTOID AIR CELLS: Unremarkable as visualized. No inflammatory changes. OTHER FINDINGS: None. IMPRESSION: Significant diffuse/ confluent chronic white matter ischemic changes which extend into the white matter tracts of both basal nuclei. There are also scattered bilateral basal nuclei lacunar type infarcts. Moderate volume loss.
--- NOTE | 2017-10-05 19:34 | CON ---
DATE: 10/05/2017 REASON FOR CONSULTATION AND FOLLOWUP: Cardiac evaluation and chest pain. HISTORY OF PRESENT ILLNESS: A 57-year-old female with a past medical history significant for multiple sclerosis, angina, fibromyalgia, bradycardia, syncope, a year and half ago; heart rate at upper 30s, status post permanent pacemaker; resident of [place], all workup was done in [place]; history of obesity, history of status post gastric bypass, hypertension, hyperlipidemia, colitis, diabetes, came in with complaint of sharp mediastinal pain that radiate into the back. Denies any chest pain, nausea or vomiting. Denies any dyspnea on exertion. The patient walks with a cane, but no chest pain on walking. The patient has a history of multiple sclerosis, weakness of the left lower extremity, so walks with a cane. The patient had cardiac catheterization 10 years ago. Currently, the patient denies any chest pain. Denies any shortness of breath. Denies any palpitation, lying flat in the bed. PAST MEDICAL HISTORY: Significant for multiple sclerosis leading to weakness of the left side and walks with a cane, history of fibromyalgia, history of bradycardia, history of syncope, status post permanent pacemaker a year and half in [place], history of diabetes, hypertension, hyperlipidemia, history of obesity, history of gastric bypass. PAST SURGICAL HISTORY: Gastric bypass, a couple of years ago; history of pacemaker, a year and half ago in [place], recently admitted in [place] with a cardiac noninvasive workup was done, which was negative according to the patient. REVIEW OF SYSTEMS: As per HPI. CURRENT MEDICATIONS: The patient is at home taking Effexor 50 mg daily, oxycodone, Percocet 10/325 every now and then, Protonix, Klonopin, insulin, aspirin, amlodipine, Losartan. ALLERGIES: ALLERGIC TO LEVAQUIN AND IV DYE. PHYSICAL EXAMINATION: VITAL SIGNS: As follows, temperature afebrile, heart rate 60, and blood pressure 125/82. HEENT: PERRLA. Extraocular muscles intact. NECK: Supple. No carotid bruits or thyromegaly. CHEST: Clear to auscultation. HEART: S1 and S2, regular. ABDOMEN: Soft. EXTREMITIES: Clubbing and cyanosis negative. LABORATORY DATA: EKG shows normal sinus rhythm at a rate of 61, low voltage nonspecific ST-T changes noted. Blood workup as follows: WBC 2.6, hemoglobin 9.6, hematocrit 30.9, platelet count 163. Chemistry shows sodium 140, potassium 4.6, chloride 105, carbon dioxide 23, anion gap of 13, BUN 10, and creatinine 0.1. Two troponin, negative. IMPRESSION: Atypical chest pain, mild tenderness on deep palpation, history of coronary artery disease to the angina; history of cardiac catheterization 10 years ago at [place], which was negative; history of recent admission to [place] and according to the patient, noninvasive workup was negative; history of permanent pacemaker, a year and half ago in [place]; a resident of [place], diabetes, hypertension, obesity, history of Port-A-Cath on right side of the chest because of the poor venous access, history of multiple sclerosis, weakness of the left lower extremity, walks with a cane, history of fibromyalgia. RECOMMENDATION: Chest pain, atypical. No evidence of acute IN. No evidence of angina or abnormal EKG. I suggest 600 mg of ibuprofen now stat, and if the patient to be in stable, okay to be discharged and follow up in [place]. Discussed with the patient in length. Thank you for providing us the opportunity in taking care of DialloGabrielaa. The patient will go back on 10/27/2017 to [place]. So far no evidence of acute IN. Chandra Caro MD
[2017-10-05] MEDS: Morphine 15 mg SR Tab PO SCH (21:11)
[2017-10-06] MEDS: Apap-Butalbital-Caffeine 325-50-40mg Tab PO PRN (05:17)
[2017-10-06] MEDS: Pantoprazole 40 mg EC Tab PO SCH (05:19)
[2017-10-06] MEDS: Insulin Reg-LOW-Coverage SC SCH ×2 (07:55→11:30)
[2017-10-06] MEDS ORDERED: Multivitamin With Minerals Tab PO SCH (08:00)
[2017-10-06 08:08] LABS: BASO # 0.01 K/mm3 (0.0-2.0); BASO % 0.3 % (0.0-3.0); EOS % 1.2 % (1.5-5.0); GRAN # 2.29 (1.4-6.5); GRAN % 68.5 % (50.0-68.0); HEMATOCRIT 31.2 % (36.0-48.0); LYMPH # 0.8 (1.2-3.4); MEAN CORPUSCULAR HEMOGLOBIN 31.1 pg (25.0-35.0); MEAN CORPUSCULAR HGB CONC 31.4 g/dl (31.0-37.0); MEAN PLATELET VOLUME 10.8 fl (7.0-11.0); MONO # 0.2 (0.1-0.6); WHITE BLOOD COUNT 3.3 10^3/ul (4.5-11.0)
[2017-10-06 08:17] VITALS: BP 145/82; PULSE 61; TEMP 98.8; O2SAT 95
[2017-10-06 08:24] LABS: ALB/GLOB RATIO 1.1 (1.1-1.8); ALKALINE PHOSPHATASE 88 U/L (38-126); ALT/SGPT 27 U/L (7-56); AST/SGOT 26 U/L (14-36); BILIRUBIN,TOTAL 0.3 mg/dL (0.2-1.3); BLOOD UREA NITROGEN 11 mg/dL (7-21); CALCIUM 8.7 mg/dL (8.4-10.5); CARBON DIOXIDE 28 mmol/L (21-33); CHLORIDE 101 mmol/L (98-107); GFR AFRICAN-AMERICAN > 60; GLUCOSE,RANDOM 86 mg/dL (70-110); MAGNESIUM 1.7 mg/dL (1.7-2.2); POTASSIUM 4.2 mmol/L (3.6-5.0); SODIUM 135 mmol/L (132-148); TOTAL PROTEIN 6.4 g/dL (5.8-8.3)
[2017-10-06] MEDS: Venlafaxine 75 mg ER Cap PO SCH (09:37)
[2017-10-06] MEDS: cefTRIAXone 1 gm 1 GM/100 ML BAG IVPB SCH (09:39)
[2017-10-06] MEDS: Morphine 15 mg SR Tab PO SCH (09:41)
--- NOTE | 2017-10-06 11:52 | CP.PCM.DIS ---
<Sascha Charlton - Last Filed: 10/08/17 17:31> Provider - Provider Date of Admission: 10/04/17 14:11 Attending physician: Kirill Montana MD Consults: Neurology: Dr. Mohr Cardiology: Dr. Caro and Dr. Soliz Time Spent in preparation of Discharge (in minutes): 30 Hospital Course - Lab Results Lab Results: Most Recent Lab Values WBC 3.3 10^3/ul (4.5-11.0) L D 10/06/17 08:00 RBC 3.15 10^6/uL (3.5-6.1) L 10/06/17 08:00 Hgb 9.8 g/dL (12.0-16.0) L 10/06/17 08:00 Hct 31.2 % (36.0-48.0) L 10/06/17 08:00 MCV 99.0 fl (80.0-105.0) 10/06/17 08:00 MCH 31.1 pg (25.0-35.0) 10/06/17 08:00 MCHC 31.4 g/dl (31.0-37.0) 10/06/17 08:00 RDW 14.0 % (11.5-14.5) 10/06/17 08:00 Plt Count 191 10^3/uL (120.0-450.0) 10/06/17 08:00 MPV 10.8 fl (7.0-11.0) 10/06/17 08:00 Gran % 68.5 % (50.0-68.0) H 10/06/17 08:00 Lymph % (Auto) 24.0 % (22.0-35.0) 10/06/17 08:00 [place] % (Auto) 6.0 % (1.0-6.0) 10/06/17 08:00 Eos % (Auto) 1.2 % (1.5-5.0) L 10/06/17 08:00 Baso % (Auto) 0.3 % (0.0-3.0) 10/06/17 08:00 Gran # 2.29 (1.4-6.5) 10/06/17 08:00 Lymph # 0.8 (1.2-3.4) L 10/06/17 08:00 [place] # 0.2 (0.1-0.6) 10/06/17 08:00 Eos # 0.0 (0.0-0.7) 10/06/17 08:00 Baso # 0.01 K/mm3 (0.0-2.0) 10/06/17 08:00 PT 12.6 SECONDS (9.4-12.5) H 10/04/17 10:10 INR 1.14 (0.93-1.08) H 10/04/17 10:10 APTT 33.7 Seconds (25.1-36.5) 10/04/17 10:10 D-Dimer, Quantitative 856 ng/mL (0-243) H 10/04/17 10:10 Sodium 135 mmol/L (132-148) 10/06/17 08:00 Potassium 4.2 mmol/L (3.6-5.0) 10/06/17 08:00 Chloride 101 mmol/L (98-107) 10/06/17 08:00 Carbon Dioxide 28 mmol/L (21-33) 10/06/17 08:00 Anion Gap 11 (10-20) 10/06/17 08:00 BUN 11 mg/dL (7-21) 10/06/17 08:00 Creatinine 0.9 mg/dl (0.7-1.2) 10/06/17 08:00 Est GFR ( Amer) > 60 10/06/17 08:00 Est GFR (Non-Af Amer) > 60 10/06/17 08:00 POC Glucose (mg/dL) 90 mg/dL (65-110) 10/06/17 07:17 Random Glucose 86 mg/dL (70-110) 10/06/17 08:00 Hemoglobin A1c 4.8 % (4.2-6.5) 10/05/17 08:30 Calcium 8.7 mg/dL (8.4-10.5) 10/06/17 08:00 Magnesium 1.7 mg/dL (1.7-2.2) 10/06/17 08:00 Total Bilirubin 0.3 mg/dL (0.2-1.3) 10/06/17 08:00 AST 26 U/L (14-36) 10/06/17 08:00 ALT 27 U/L (7-56) 10/06/17 08:00 Alkaline Phosphatase 88 U/L (38-126) 10/06/17 08:00 Lactate Dehydrogenase 429 U/L (333-699) 10/05/17 08:30 Total Creatine Kinase 31 U/L (35-230) L 10/05/17 08:30 Troponin I < 0.01 ng/mL 10/05/17 08:30 NT-Pro-B Natriuret Pep 526 pg/mL (0-450) H 10/04/17 10:10 Total Protein 6.4 g/dL (5.8-8.3) 10/06/17 08:00 Albumin 3.3 g/dL (3.0-4.8) 10/06/17 08:00 Globulin 3.1 gm/dL 10/06/17 08:00 Albumin/Globulin Ratio 1.1 (1.1-1.8) 10/06/17 08:00 Triglycerides 91 mg/dL (35-160) 10/04/17 10:10 Cholesterol 116 mg/dL (130-200) L 10/04/17 10:10 LDL Cholesterol Direct 51 mg/dL (0-129) 10/04/17 10:10 HDL Cholesterol 45 mg/dL (29-60) 10/04/17 10:10 TSH 3rd Generation 0.90 mIU/mL (0.46-4.68) 10/04/17 10:10 Urine Color Yellow (YELLOW) 10/04/17 11:25 Urine Appearance Slight-cloudy (CLEAR) 10/04/17 11:25 Urine pH 6.0 (4.7-8.0) 10/04/17 11:25 Ur Specific [place] 1.020 (1.005-1.035) 10/04/17 11:25 Urine Protein Trace mg/dL (<30 mg/dL) H 10/04/17 11:25 Urine Glucose (UA) Negative mg/dL (NEGATIVE) 10/04/17 11:25 Urine Ketones Negative mg/dL (NEGATIVE) 10/04/17 11:25 Urine Blood Negative (NEGATIVE) 10/04/17 11:25 Urine Nitrate Positive (NEGATIVE) H 10/04/17 11:25 Urine Bilirubin Negative (NEGATIVE) 10/04/17 11:25 Urine Urobilinogen 1.0 E.U./dL (<1 E.U./dL) H 10/04/17 11:25 Ur Leukocyte Esterase Small Jason/uL (NEGATIVE) H 10/04/17 11:25 Urine RBC 0 - 2 /hpf (0-2) 10/04/17 11:25 Urine WBC 5 - 10 /hpf (0-6) 10/04/17 11:25 Ur Epithelial Cells 3 - 4 /hpf (0-5) 10/04/17 11:25 Urine Bacteria Many (NEG) 10/04/17 11:25 - Hospital Course Hospital Course: Patient was admitted on 10/04/17 for mid-sternal chest pain associated with nausea that radiated to the back. Patient stated that she was visiting from [place], where she had been hospitalized a month previous for the same complaint , and that she left her Copaxone pain medications there. She also complained of a headache. The following imaging was performed while she was in the hospital: Imaging: - XR Chest 10/04: No acute consolidation; may have linear scarring in left lung field - CT Chest 10/04: No evidence of central pulmonary embolus, mild splenomegaly, postoperative changes of stomach - CT Head 10/05: Diffuse/confluent chronic white matter changes extending into white matter tracts of both basal nuclei and scattered bilateral basal nuclei lacunar infarcts Throughout the course of her stay, patient's chest pain was ruled out for acute coronary syndrome. She then started complaining of worsening headache and asked for more pain medication. Neurology was contacted at this time, given the patient's past medical history of multiple sclerosis. Dr. Mohr from neurology made the recommendations to start the patient on fioricet, and give her percocet for her pain as well as morphine. He also suggested getting an MRI of the brain, but patient has a pacemaker. Cardiology cleared her chest pain and ruled out acute coronary syndrome. The following lab values: Lipid panel ordered, TG 91, cholesterol 116, LDL 51, HDL of 45, warranted starting the patient on Aspirin 81 mg daily Patient's pain improved throughout her stay. She was deemed stable for discharge. Patient was given 15 tablets of fioricet and was advised to follow up with her primary care doctor in [place]. Discharge Exam - Head Exam Head Exam: ATRAUMATIC, NORMAL INSPECTION, NORMOCEPHALIC - Eye Exam Eye Exam: EOMI, Normal appearance, PERRL Pupil Exam: NORMAL ACCOMODATION, PERRL Additional comments: Mild Left Eye ptosis - Respiratory Exam Respiratory Exam: Clear to PA & Lateral, NORMAL BREATHING PATTERN, UNREMARKABLE. absent: Decreased Breath Sounds - Cardiovascular Exam Cardiovascular Exam: REGULAR RHYTHM, +S1, +S2. absent: Tachycardia - GI/Abdominal Exam GI & Abdominal Exam: Normal Bowel Sounds, Unremarkable - Extremities Exam Extremities exam: full ROM, normal capillary refill, normal inspection - Back Exam Back exam: FULL ROM, NORMAL INSPECTION. absent: CVA tenderness (L), CVA tenderness (R) - Neurological Exam Neurological exam: Alert, CN II-XII Intact, Normal Gait, Oriented x3, Reflexes Normal - Psychiatric Exam Psychiatric exam: Normal Affect, Normal Mood - Skin Skin Exam: Dry, Intact, Normal Color, Warm Discharge Plan - Discharge Medications Prescriptions: Acetaminophen/Butalbital/Caf [Fioricet] 1 tab PO Q8 PRN #15 tab PRN Reason: Headache Ibuprofen [Motrin] 600 mg PO BID #12 tab - Follow Up Plan Condition: FAIR Disposition: HOME/ ROUTINE Patient education suggested?: Yes Instructions: Chest Pain (GEN), Multiple Sclerosis (DC), Fibromyalgia (DC), Diabetes Mellitus Type 1 in Adults (GEN), Cholesterol and Your Health (GEN), Hypertension (GEN) Additional Instructions: 1) Patient to take any medications as prescribed. 2) Patient to return to closest ED for any worsening of symptoms. 3) Patient to follow up with Primary Medical Doctor within the next 7 days. Referrals: [facility], [Non-Staff] - <Kirill Montana - Last Filed: 10/08/17 18:00> Provider - Provider Date of Admission: 10/04/17 14:11 Attending physician: Kirill Montana MD Hospital Course - Lab Results Lab Results: Most Recent Lab Values WBC 3.3 10^3/ul (4.5-11.0) L D 10/06/17 08:00 RBC 3.15 10^6/uL (3.5-6.1) L 10/06/17 08:00 Hgb 9.8 g/dL (12.0-16.0) L 10/06/17 08:00 Hct 31.2 % (36.0-48.0) L 10/06/17 08:00 MCV 99.0 fl (80.0-105.0) 10/06/17 08:00 MCH 31.1 pg (25.0-35.0) 10/06/17 08:00 MCHC 31.4 g/dl (31.0-37.0) 10/06/17 08:00 RDW 14.0 % (11.5-14.5) 10/06/17 08:00 Plt Count 191 10^3/uL (120.0-450.0) 10/06/17 08:00 MPV 10.8 fl (7.0-11.0) 10/06/17 08:00 Gran % 68.5 % (50.0-68.0) H 10/06/17 08:00 Lymph % (Auto) 24.0 % (22.0-35.0) 10/06/17 08:00 [place] % (Auto) 6.0 % (1.0-6.0) 10/06/17 08:00 Eos % (Auto) 1.2 % (1.5-5.0) L 10/06/17 08:00 Baso % (Auto) 0.3 % (0.0-3.0) 10/06/17 08:00 Gran # 2.29 (1.4-6.5) 10/06/17 08:00 Lymph # 0.8 (1.2-3.4) L 10/06/17 08:00 [place] # 0.2 (0.1-0.6) 10/06/17 08:00 Eos # 0.0 (0.0-0.7) 10/06/17 08:00 Baso # 0.01 K/mm3 (0.0-2.0) 10/06/17 08:00 PT 12.6 SECONDS (9.4-12.5) H 10/04/17 10:10 INR 1.14 (0.93-1.08) H 10/04/17 10:10 APTT 33.7 Seconds (25.1-36.5) 10/04/17 10:10 D-Dimer, Quantitative 856 ng/mL (0-243) H 10/04/17 10:10 Sodium 135 mmol/L (132-148) 10/06/17 08:00 Potassium 4.2 mmol/L (3.6-5.0) 10/06/17 08:00 Chloride 101 mmol/L (98-107) 10/06/17 08:00 Carbon Dioxide 28 mmol/L (21-33) 10/06/17 08:00 Anion Gap 11 (10-20) 10/06/17 08:00 BUN 11 mg/dL (7-21) 10/06/17 08:00 Creatinine 0.9 mg/dl (0.7-1.2) 10/06/17 08:00 Est GFR ( Amer) > 60 10/06/17 08:00 Est GFR (Non-Af Amer) > 60 10/06/17 08:00 POC Glucose (mg/dL) 120 mg/dL (65-110) H 10/06/17 11:22 Random Glucose 86 mg/dL (70-110) 10/06/17 08:00 Hemoglobin A1c 4.8 % (4.2-6.5) 10/05/17 08:30 Calcium 8.7 mg/dL (8.4-10.5) 10/06/17 08:00 Magnesium 1.7 mg/dL (1.7-2.2) 10/06/17 08:00 Total Bilirubin 0.3 mg/dL (0.2-1.3) 10/06/17 08:00 AST 26 U/L (14-36) 10/06/17 08:00 ALT 27 U/L (7-56) 10/06/17 08:00 Alkaline Phosphatase 88 U/L (38-126) 10/06/17 08:00 Lactate Dehydrogenase 429 U/L (333-699) 10/05/17 08:30 Total Creatine Kinase 31 U/L (35-230) L 10/05/17 08:30 Troponin I < 0.01 ng/mL 10/05/17 08:30 NT-Pro-B Natriuret Pep 526 pg/mL (0-450) H 10/04/17 10:10 Total Protein 6.4 g/dL (5.8-8.3) 10/06/17 08:00 Albumin 3.3 g/dL (3.0-4.8) 10/06/17 08:00 Globulin 3.1 gm/dL 10/06/17 08:00 Albumin/Globulin Ratio 1.1 (1.1-1.8) 10/06/17 08:00 Triglycerides 91 mg/dL (35-160) 10/04/17 10:10 Cholesterol 116 mg/dL (130-200) L 10/04/17 10:10 LDL Cholesterol Direct 51 mg/dL (0-129) 10/04/17 10:10 HDL Cholesterol 45 mg/dL (29-60) 10/04/17 10:10 TSH 3rd Generation 0.90 mIU/mL (0.46-4.68) 10/04/17 10:10 Urine Color Yellow (YELLOW) 10/04/17 11:25 Urine Appearance Slight-cloudy (CLEAR) 10/04/17 11:25 Urine pH 6.0 (4.7-8.0) 10/04/17 11:25 Ur Specific [place] 1.020 (1.005-1.035) 10/04/17 11:25 Urine Protein Trace mg/dL (<30 mg/dL) H 10/04/17 11:25 Urine Glucose (UA) Negative mg/dL (NEGATIVE) 10/04/17 11:25 Urine Ketones Negative mg/dL (NEGATIVE) 10/04/17 11:25 Urine Blood Negative (NEGATIVE) 10/04/17 11:25 Urine Nitrate Positive (NEGATIVE) H 10/04/17 11:25 Urine Bilirubin Negative (NEGATIVE) 10/04/17 11:25 Urine Urobilinogen 1.0 E.U./dL (<1 E.U./dL) H 10/04/17 11:25 Ur Leukocyte Esterase Small Jason/uL (NEGATIVE) H 10/04/17 11:25 Urine RBC 0 - 2 /hpf (0-2) 10/04/17 11:25 Urine WBC 5 - 10 /hpf (0-6) 10/04/17 11:25 Ur Epithelial Cells 3 - 4 /hpf (0-5) 10/04/17 11:25 Urine Bacteria Many (NEG) 10/04/17 11:25 Attending/Attestation - Attestation I have personally seen and examined this patient.: Yes I have fully participated in the care of the patient.: Yes I have reviewed all pertinent clinical information, including history, physical exam and plan: Yes Notes (Text): 10/08/17 17:59 Attending note; Patient seen and examined with resident. Patient is a 57 year old female with a past medical history of multiple sclerosis, Fibromyalgia, bradycardia (s/p Pacemaker), Diabetes mellitus, hyperlipidemia, colitis, obesity(s/p gastric bypass), opiate dependency is admitted for chest pain. EKG showed no significant changes/pacer present. Cardiac enzymes [address] angios negative for pulmonary embolus. cardiology evaluation with appreciated.cleared from cardiology point of view. Questionable history of MS;walks with a walker at home. also getting physical therapy at home. currently comaining of head ache; requesting Percocet and Toradol. Patient did not bring any pain medications from [place]. Opiate seeking behavior suspected. CT head is negative for acute infarcts. Shows chronic microvascular changes. Neurology evaluation appreciated. multiple symptoms; rule out somatization disorder. Chronic opiate dependency; Percocet and toradol prn ordered. patient stated that she will get her prescription for Percocet faxed from [place]/from her PMD. upon discharge the patient will follow-up with PMD in [place]. diagnosis; Fibromyalgia Chronic opiate dependency Pacemaker Diabetes Obesity History of gastric bypass surgery.
--- NOTE | 2017-10-06 15:20 | PN ---
DATE: 10/06/2017 LOCATION: The patient is in room 569, bed 2. REASON FOR CONSULTATION AND FOLLOWUP: Chest pain. SUBJECTIVE: The patient states that her chest pain is relieved and she had no shortness of breath or palpitation. The patient is status post permanent pacemaker insertion. PHYSICAL EXAMINATION: VITAL SIGNS: Blood pressure is 145/82, yesterday blood pressure was 125/82, respirations 20, pulse 61, and temperature 98.8. HEENT: Head is normocephalic. Eyes; pupils are normal. Conjunctivae slightly pale. NECK: JVP is low. Carotids are equal. THORAX: AP diameter normal. LUNGS: Clear. CARDIOVASCULAR: S1 and S2. ABDOMEN: Soft. No tenderness. No organomegaly. Bowel sounds normal. EXTREMITIES: No clubbing. No cyanosis. LABORATORY DATA: WBC 3.3, hemoglobin 9.8, hematocrit 31.2, and platelet count 191. Sodium 135, potassium 4.2, BUN 11, and creatinine 0.9. Calcium, magnesium, AST, ALT normal. Total protein and albumin normal. Troponin negative. MEDICATIONS: The patient is on aspirin 81 mg daily, losartan 100 mg p.o. daily, Microzide 12.5 mg p.o. daily, Protonix 40 daily, and cefpodoxime 200 mg p.o. q.12 hours. DIAGNOSES: The patient's chest pain is atypically, it is musculoskeletal with local tenderness, which has resolved now, status post permanent pacemaker insertion, status post gastric bypass surgery, hypertension, hyperlipidemia, colitis, diabetes mellitus, and anemia. PLAN: We will continue present therapy. The patient also has multiple sclerosis and she came to visit from [place] and she will follow with her physician in [place]. We will continue present therapy. Chandra Soliz MD
--- NOTE | 2017-10-06 18:59 | CON ---
NEUROLOGY CONSULTATION DATE: REASON FOR CONSULTATION: Headaches. HISTORY OF PRESENT ILLNESS: The patient is a 57-year-old female who has been asked for evaluation of headaches. The patient was admitted with chest pain; however, started experiencing headaches since she is in the hospital. Headaches are described as pressure like. It is not associated with any photophobia or phonophobia. She does have some nausea. The patient usually does not get headaches. She was given Toradol with minimal relief in her headache symptoms. She has history of multiple sclerosis with weakness in the left side. She never lost vision in the eyes. She said she has had multiple sclerosis for 10 years and is being followed up with physician in [place]. PAST MEDICAL HISTORY: Include multiple sclerosis, hypertension, and diabetes mellitus. PAST SURGICAL HISTORY: Includes permanent pacemaker. ALLERGIES: LEVOFLOXACIN AND IV DYE. FAMILY HISTORY: Reviewed and noncontributory to the case. REVIEW OF SYSTEMS: Positive for headache, positive for chest pain. Denies any shortness of breath, abdominal pain, constipation, diarrhea, dysuria, pyuria. Positive for nausea. Denies any cough, sputum production, hallucinations, skin rash. MEDICATIONS: At home included Effexor, Percocet p.r.n., pantoprazole, Lomotil, Klonopin, insulin, amlodipine, losartan, aspirin, and acetaminophen. PHYSICAL EXAMINATION: GENERAL: The patient is a middle age female, lying on the bed, in no acute distress. VITAL SIGNS: Blood pressure is 145/82, heart rate is 61 per minute, breathing at the rate of 16 per minute, temperature is 98.8 degrees Fahrenheit. HEENT: Normocephalic and atraumatic. NECK: Supple. There are no carotid bruits. LUNGS: Clear. CVS: S1 and S2 audible. No murmurs. ABDOMEN: Soft and nontender. Bowel sounds are present. NEUROLOGY: Mental status: The patient is awake and alert. Oriented to time, place, and person. Speech is fluent. Naming and repetition normal. Memory and cognition are intact. Cranial nerve examination; pupils are 3 mm bilaterally reactive to light. Visual wooten are full. Extraocular movements are intact. There is no facial asymmetry. Palate is upgoing bilaterally and tongue is midline. Motor examination; tone is normal. Power is 5/5 bilaterally in all extremities. Reflexes are +2 and symmetrical. Plantars are downgoing bilaterally. Cerebellar examination; finger to nose shows no dysmetria. Gait is deferred. LABORATORY DATA: Labs reviewed. CT scan of the head, significant diffuse chronic white matter ischemic changes extending to the white matter tracts of both basal nuclei. WBC is 3.3, hemoglobin 9.8, hematocrit 31.2 and platelets of 191. Sodium is 135, potassium 4.2, chloride 101, carbon dioxide 28, BUN of 11, creatinine 0.9 and glucose of 86. IMPRESSION: Headaches. Possible stress related. I doubt it secondary to multiple sclerosis exacerbation. RECOMMENDATIONS: 1. The patient was started on Fioricet, which is to be stopped. 2. The patient was on Percocet at home in the past. If Tylenol does not help her pain symptoms switch to Percocet. 3. The patient also to be continued on morphine p.r.n. 4. Consider obtaining MRI of the brain with and without contrast if her pacemaker is MRI compatible. 5. Continue supportive care and treatment. Thank you for the opportunity to participate in the care of this patient. Stefan Mohr MD
[2017-10-07] MEDS ORDERED: Cefpodoxime (Vantin) 200 mg Tab PO SCH (10:00)
== END 2017-10-06 18:04 | disposition home or self-care (01) ==
LOC: ED 09:36 → ERH 14:11 → 3RSO 15:21 → 5RNO 10-05 19:15
PROVIDERS: ADMIT Internal Medicine; ATTEND Internal Medicine
DX: R07.89 Other chest pain (principal); G35 Multiple sclerosis; M79.7 Fibromyalgia; E11.9 Type 2 diabetes mellitus without complications; E78.5 Hyperlipidemia, unspecified; E66.9 Obesity, unspecified; F11.20 Opioid dependence, uncomplicated; I10 Essential (primary) hypertension; K52.9 Noninfective gastroenteritis and colitis, unspecified; Z79.1 Long term (current) use of non-steroidal anti-inflammatories (NSAID); Z79.82 Long term (current) use of aspirin; Z79.899 Other long term (current) drug therapy; Z95.0 Presence of cardiac pacemaker; Z98.84 Bariatric surgery status; Z88.1 Allergy status to other antibiotic agents; Z91.041 Radiographic dye allergy status; R40.2412 Glasgow coma scale score 13-15, at arrival to emergency department; D64.9 Anemia, unspecified; N39.0 Urinary tract infection, site not specified; B96.1 Klebsiella pneumoniae [K. pneumoniae] as the cause of diseases classified elsewhere; Z23 Encounter for immunization
CPT/HCPCS: 36415; 70450; 71010; 71275; 80053; 80061; 81001; 82550; 82948; 83036; 83615; 83735; 83880; 84443; 84484; 85025; 85378; 85610; 85730; 87086; 87181; 90471; 90732; 93005; 96365; 96366; 96375; 96376; 97116; 97161; 99285; G0378; G8978; G8979; J0696; J1200; J1756; J1885; J2405; J3475; Q9967

== ENCOUNTER 2017-10-21 15:27 | Emergency (ER) | payer OTHER ==
[2017-10-21 15:45] VITALS: BMI 27.8
[2017-10-21 15:54] VITALS: TEMP 98.7
[2017-10-21 16:39] LABS: BASO # 0.01 K/mm3 (0.0-2.0); BASO % 0.3 % (0.0-3.0); EOS % 0.8 % (1.5-5.0); GRAN # 2.6 (1.4-6.5); GRAN % 69.1 % (50.0-68.0); HEMATOCRIT 29.9 % (36.0-48.0); LYMPH # 0.9 (1.2-3.4); LYMPH % 24.5 % (22.0-35.0); MEAN CORPUSCULAR HEMOGLOBIN 31.4 pg (25.0-35.0); MEAN CORPUSCULAR HGB CONC 31.4 g/dl (31.0-37.0); MEAN PLATELET VOLUME 11.1 fl (7.0-11.0); MONO # 0.2 (0.1-0.6); MONO % 5.3 % (1.0-6.0); RED CELL DISTRIBUTION WIDTH 13.5 % (11.5-14.5); WHITE BLOOD COUNT 3.8 10^3/ul (4.5-11.0)
[2017-10-21 16:58] LABS: TROPONIN I < 0.01 ng/mL
[2017-10-21 17:12] LABS: ALB/GLOB RATIO 1.1 (1.1-1.8); ALKALINE PHOSPHATASE 82 U/L (38-126); ALT/SGPT 33 U/L (7-56); AST/SGOT 24 U/L (14-36); BILIRUBIN,TOTAL 0.2 mg/dL (0.2-1.3); BLOOD UREA NITROGEN 17 mg/dL (7-21); CALCIUM 8.7 mg/dL (8.4-10.5); CARBON DIOXIDE 25 mmol/L (21-33); CHLORIDE 110 mmol/L (98-107); GFR AFRICAN-AMERICAN > 60; GLUCOSE,RANDOM 94 mg/dL (70-110); POTASSIUM 3.8 mmol/L (3.6-5.0); SODIUM 142 mmol/L (132-148); TOTAL PROTEIN 6.7 g/dL (5.8-8.3)
[2017-10-21] MEDS ORDERED: Oxycodone/Acetaminophen 10/325 mg Tab PO STA (17:26)
--- NOTE | 2017-10-21 17:30 | ED PDOC ---
Arrival/HPI - General Historian: Patient - History of Present Illness Time/Duration: Other (Last night) Symptom Course: Unchanged Quality: Aching, Stabbing <Courtney Lowry - Last Filed: 10/22/17 02:17> <Babak Boggs - Last Filed: 10/22/17 05:34> - General Chief Complaint: Chest Pain Time Seen by Provider: 10/21/17 15:37 - History of Present Illness Narrative History of Present Illness (Text): 10/21/17 17:27 57-year-old female presents today with chest pain that started suddenly while lying in the bed last night. Patient states she has been under a lot of stress lately and she has been feeling very anxious and depressed. Patient states she was recently hospitalized for chest pain. Patient states that she is visiting from [place] and has been sleeping on the couch. Patient states she lost her and her daughter a few years ago around this time and it has been very hard for her. Patient states she has not been taking her antidepressants because she ran out of her prescription. Patient states she has intermittent thoughts of suicide. She denies shortness of breath. She denies dizziness or weakness. Patient is complaining of right knee pain status post a fall 2 weeks ago. Patient denies fevers or chills. Complaining of generalized weakness. Patient also states she's been feeling nauseous and vomited once. No other complaints (Courtney Lowry) Past Medical History - Provider Review Nursing Documentation Reviewed: Yes - Travel History Have you recently traveled outside [place] w/in the past 3 mons?: No - Infectious Disease Hx of Infectious Diseases: None - Cardiac Hx Cardiac Disorders: Yes Hx Hypertension: Yes - Pulmonary Hx Respiratory Disorders: No - Neurological Hx Neurological Disorder: Yes (MULTIPLE SCLEROSIS,FIBROMYALGIA) - HEENT Hx HEENT Disorder: No - Renal Hx Renal Disorder: No - Endocrine/Metabolic Hx Diabetes Mellitus Type 2: Yes - Hematological/Oncological Hx Blood Disorders: No - Integumentary Hx Dermatological Disorder: No - Musculoskeletal/Rheumatological Hx Musculoskeletal Disorders: Yes Hx Falls: No Hx Unsteady Gait: Yes (WALKER) - Gastrointestinal Hx Gastrointestinal Disorders: Yes (HIATAL HERNIA) - Genitourinary/Gynecological Hx Genitourinary Disorders: No - Psychiatric Hx Substance Use: No - Anesthesia Hx Anesthesia: No <Courtney Lowry - Last Filed: 10/22/17 02:17> Family/Social History - Physician Review Nursing Documentation Reviewed: Yes Family/Social History: Unknown Family HX Smoking Status: Never Smoked Hx Alcohol Use: No Hx Substance Use: No <AlenCourtney T - Last Filed: 10/22/17 02:17> Allergies/Home Meds <AlenCourtney T - Last Filed: 10/22/17 02:17> <Babak Boggs - Last Filed: 10/22/17 05:34> Allergies/Adverse Reactions: Allergies levofloxacin [From Levaquin] Allergy (Verified 10/04/17 14:45) RASH iv dye Allergy (Uncoded 10/04/17 14:45) RASH Home Medications: Home Meds Medication Instructions Recorded Confirmed Aspirin [Ecotrin] 81 mg PO DAILY 10/04/17 10/04/17 Atropine/Diphenoxylate [Lomotil 1 tab PO DAILY PRN 10/04/17 10/04/17 0.025-2.5 mg tablet] Clonazepam [Klonopin] 1 mg PO Q8 PRN 10/04/17 10/04/17 Insulin Human (NPH)/Regular 0 units SC AC PRN 10/04/17 10/04/17 [Novolin 70/30 (70/30 units/ml) 10 ml] Losartan/Hydrochlorothiazide 1 tab PO BID 10/04/17 10/04/17 [Losartan-Hctz 100-12.5 mg Tab] Oxycodone HCl/Acetaminophen 1 tab PO Q6 PRN 10/04/17 10/04/17 [Percocet 10-325 mg Tablet] Pantoprazole [Protonix EC Tab] 40 mg PO DAILY 10/04/17 10/04/17 Venlafaxine [Effexor 50 MG TAB] 100 mg PO BID 10/04/17 10/04/17 amLODIPine [Norvasc] 10 mg PO DAILY 10/04/17 10/04/17 Review of Systems - Review of Systems Constitutional: absent: Fatigue, Fevers Respiratory: absent: SOB, Cough Cardiovascular: Chest Pain. absent: Palpitations Gastrointestinal: Nausea, Vomiting. absent: Abdominal Pain Genitourinary Female: absent: Dysuria, Frequency, Hematuria Musculoskeletal: Arthralgias (Right knee pain), Myalgias (Chronic myalgias/ history of fibromyalgia). absent: Back Pain, Neck Pain Skin: absent: Rash, Pruritis Neurological: absent: Headache, Dizziness Psychiatric: Anxiety, Depression <Courtney Lowry - Last Filed: 10/22/17 02:17> Physical Exam Vital Signs Reviewed: Yes Temperature: Afebrile Blood Pressure: Normal Pulse: Regular Respiratory Rate: Normal Appearance: Positive for: Well-Appearing, Non-Toxic, Comfortable Pain Distress: None Mental Status: Positive for: Alert and Oriented X 3 - Systems Exam Head: Present: Atraumatic Mouth: Present: Moist Mucous Membranes Neck: Present: Normal Range of Motion Respiratory/Chest: Present: Clear to Auscultation, Good Air Exchange. No: Respiratory Distress, Accessory Muscle Use Cardiovascular: Present: Regular Rate and Rhythm, Normal S1, S2. No: Murmurs Abdomen: Present: Normal Bowel Sounds. No: Tenderness, Distention, Peritoneal Signs, Rebound, Guarding Back: Present: Normal Inspection. No: Midline Tenderness, Paraspinal Tenderness Upper Extremity: Present: Normal ROM Lower Extremity: Present: NORMAL PULSES, Normal ROM, Tenderness (Right knee: There is tenderness noted over the anterior aspect of the right knee. Full range of motion. No calf tenderness.), Neurovascularly Intact, Capillary Refill < 2 s. No: CALF TENDERNESS, Swelling, Erythema Neurological: Present: GCS=15, Speech Normal Skin: Present: Warm, Dry, Normal Color. No: Rashes Psychiatric: Present: Alert, Oriented x 3, Depressed Mood <Courtney Lowry - Last Filed: 10/22/17 02:17> Vital Signs Temp Pulse Resp BP Pulse Ox 10/22/17 02:28 63 18 120/69 98 10/21/17 19:20 69 18 150/83 96 10/21/17 15:28 98.7 F 64 18 139/84 100 Medical Decision Making <Courtney Lowry - Last Filed: 10/22/17 02:17> <Babak Boggs - Last Filed: 10/22/17 05:34> ED Course and Treatment: 10/21/17 17:31 57-year-old female with a history of fibromyalgia and multiple sclerosis with a history of depression and anxiety presents today with chest pain since last night. Patient very tearful in the emergency room states she's been under a lot of stress lately. c/o depression/anxiety. CBC within normal limits CMP within normal limits Troponin within normal limits Chest x-ray within normal limits EKG electronic atrial pacemaker at [address] elevations X-ray of the right knee: No fracture repeat trop: <0.01 Patient is requesting Percocet 10 mg for pain. Patient states she takes Percocet at home and ran out of her medications. pt seen and evaluated by dr. brasher. 10/21/17 21:10 pt with depression and anxiety; denies cp at present time. pt requesting anxiety medications. pt is medically cleared for PES evaluation/transfer/admission. impression; depression, anxiety 10/22/17 02:17 case signed out to dr. boggs pending Accepting physician from [facility], re- evaluation, disposition. (Courtney Lowry) 10/22/17 05:30 Pt. was seen and evaluated by CHERYL Pierce.States pt. psychiatrically cleared for discharge.States pt. denies SI/HI.She d/w psychiatrist who agrees pt. for d/c, outpt. follow up [facility] clinic.D/C instructions by PES worker as well were given. ( Babak Boggs) - Lab Interpretations Lab Results: 10/21/17 16:20 10/21/17 16:20 Lab Results 10/21/17 20:40: Troponin I < 0.01 10/21/17 17:55: Urine Opiates Screen Negative, Urine Methadone Screen Negative, Ur Barbiturates Screen Positive H, Ur Phencyclidine Scrn Negative, Ur Amphetamines Screen Negative, U Benzodiazepines Scrn Negative, U Oth Cocaine Metabols Negative, U Cannabinoids Screen Negative 10/21/17 17:20: Urine Color Yellow, Urine Appearance Clear, Urine pH 6.0, Ur Specific [place] 1.020, Urine Protein Negative, Urine Glucose (UA) Negative, Urine Ketones Negative, Urine Blood Negative, Urine Nitrate Negative, Urine Bilirubin Negative, Urine Urobilinogen 0.2, Ur Leukocyte Esterase Negative 10/21/17 16:20: Alcohol, Quantitative < 10 10/21/17 16:20: Salicylates < 1 L, Acetaminophen < 10.0 L 10/21/17 16:20: Sodium 142, Potassium 3.8, Chloride 110 H, Carbon Dioxide 25, Anion Gap 11, BUN 17, Creatinine 0.8, Est GFR ( Amer) > 60, Est GFR (Non- Af Amer) > 60, Random Glucose 94, Calcium 8.7, Total Bilirubin 0.2, AST 24, ALT 33, Alkaline Phosphatase 82, Lactate Dehydrogenase 387, Total Creatine Kinase 37 , Troponin I < 0.01, Total Protein 6.7, Albumin 3.5, Globulin 3.2, Albumin/ Globulin Ratio 1.1 10/21/17 16:20: WBC 3.8 L, RBC 2.99 L, Hgb 9.4 L, Hct 29.9 L, MCV 100.0, MCH 31.4, MCHC 31.4, RDW 13.5, Plt Count 178, MPV 11.1 H, Gran % 69.1 H, Lymph % ( Auto) 24.5, Barber % (Auto) 5.3, Eos % (Auto) 0.8 L, Baso % (Auto) 0.3, Gran # 2.60, Lymph # 0.9 L, Barber # 0.2, Eos # 0.0, Baso # 0.01 - RAD Interpretation Radiology Orders: 10/21/17 16:29 CHEST PORTABLE [RAD] Stat 10/21/17 17:26 KNEE W PATELLA RIGHT 3 VIEW [RAD] Stat - Medication Orders Current Medication Orders: Discontinued Medications Clonazepam (Klonopin) 0.5 mg PO STAT STA Stop: 10/21/17 20:14 Last Admin: 10/21/17 20:30 Dose: 0.5 mg Ibuprofen (Motrin Tab) 600 mg PO STAT STA Stop: 10/22/17 04:54 Oxycodone/Acetaminophen (Percocet 10/325 Mg Tab) 1 tab PO STAT STA Stop: 10/21/17 17:27 Last Admin: 10/21/17 17:42 Dose: 1 tab MAR Pain Assessment Document 10/21/17 17:42 LA (Rec: 10/21/17 17:42 LA [facility] [place]-[id number]) Pain Reassessment Is this a pain reassessment? Yes Sleep Is patient sleeping during reassessment? No Presence of Pain Presence of Pain Yes Pain Scale Used Pain Scale Used Numeric Location Left, Right or Bilateral Bilateral Upper or Lower Lower Pain Location Body Site Knee Description Description Intermittent Intensity of Pain at present 8 Oxycodone/Acetaminophen (Percocet 10/325 Mg Tab) 1 tab PO STAT STA Stop: 10/22/17 00:28 Last Admin: 10/22/17 00:55 Dose: 1 tab MAR Pain Assessment Document 10/22/17 00:55 YP (Rec: 10/22/17 00:55 YP [id number]) Pain Reassessment Is this a pain reassessment? Yes Sleep Is patient sleeping during reassessment? No Presence of Pain Presence of Pain Yes Disposition/Present on Arrival - Present on Arrival Any Indicators Present on Arrival: No History of DVT/PE: No History of Uncontrolled Diabetes: No Urinary Catheter: No History of Decub. Ulcer: No History Surgical Site Infection Following: None <Courtney Lowry - Last Filed: 10/22/17 02:17> - Present on Arrival Any Indicators Present on Arrival: No - Disposition Have Diagnosis and Disposition been Completed?: Yes Disposition Time: 05:29 Patient Plan: Discharge <Babak Boggs - Last Filed: 10/22/17 05:34> - Disposition Diagnosis: Depression Disposition: HOME/ ROUTINE Condition: GOOD Discharge Instructions (ExitCare): Depression (ED) Additional Instructions: Follow up out patient [facility] this week Referrals: Estelita Cisse Rejerrica, [Primary Care Provider] - Follow up with primary [facility] [Outside] - Follow up with primary Forms: [employer] (Polish)
--- NOTE | 2017-10-21 17:32 | RAD ---
HISTORY: 10/04/2017 COMPARISON: No prior. FINDINGS: LUNGS: No active pulmonary disease. PLEURA: No significant pleural effusion identified, no pneumothorax apparent. CARDIOVASCULAR: No radiographic findings to suggest acute or significant cardiovascular disease. Position/ configuration of pacemaker device: Satisfactory. Venous access catheter in stable, satisfactory position. OSSEOUS STRUCTURES: No significant abnormalities. VISUALIZED UPPER ABDOMEN: Normal. OTHER FINDINGS: None. IMPRESSION: No active disease. No significant interval change compared to the prior examination(s).
[2017-10-21 17:34] LABS: URINE BILIRUBIN NEGATIVE (NEGATIVE); URINE BLOOD NEGATIVE (NEGATIVE); URINE GLUCOSE (UA) NEGATIVE (NEGATIVE); URINE KETONE NEGATIVE (NEGATIVE); URINE LEUKOCYTE ESTERASE NEGATIVE Leu/uL (NEGATIVE); URINE PROTEIN NEGATIVE mg/dL (<30 mg/dL); URINE UROBILINOGEN 0.2 E.U./dL (<1 E.U./dL)
[2017-10-21 17:35] LABS: URINE APPEARANCE CLEAR (CLEAR); URINE COLOR YELLOW (YELLOW)
[2017-10-22] MEDS ORDERED: Oxycodone/Acetaminophen 10/325 mg Tab PO STA (00:27)
[2017-10-22 06:38] VITALS: BP 125/75; PULSE 78; RESP 16; O2SAT 99
--- NOTE | 2017-10-22 14:17 | RAD ---
PROCEDURE: Right Knee Radiographs. HISTORY: knee pain COMPARISON: None. FINDINGS: BONES: Normal. No fracture. JOINTS: Normal. No osteoarthritis. JOINT EFFUSION: None. OTHER FINDINGS: None. IMPRESSION: Normal radiographs of the right knee.
--- NOTE | 2017-10-22 17:11 | CARD ---
APPROVED REPORT EKG Measurement Heart [id number] ID [id number] <Conclusion> Electronic atrial pacemaker Nonspecific ST and T wave abnormality Abnormal ECG
== END 2017-10-22 06:38 | disposition home or self-care (01) ==
LOC: ED 15:27
DX: F32.9 Major depressive disorder, single episode, unspecified (principal); E11.9 Type 2 diabetes mellitus without complications; I10 Essential (primary) hypertension; G35 Multiple sclerosis; M79.7 Fibromyalgia
CPT/HCPCS: 71010; 73562; 80053; 81003; 82550; 83615; 84484; 85025; 90791; 93005; 99285; G0480; J2405

== ENCOUNTER 2018-03-05 20:58 | Observation (INO) | payer OTHER, MEDICAID ==
--- NOTE | 2018-03-05 21:24 | ED PDOC ---
Arrival/HPI - General Chief Complaint: Chest Pain Time Seen by Provider: 03/05/18 21:10 Historian: Patient - History of Present Illness Narrative History of Present Illness (Text): 03/05/18 21:20 A 58 year old female with a past medical history of multiple sclerosis, angina, Fibromyalgia, bradycardia (s/p Pacemaker), Diabetes mellitus, hyperlipidemia, colitis, obesity(s/p gastric bypass), presents to the emergency room complaining of intermittent, chest pressure and decreased appetite. The patient notes that she was sitting watching TV when the discomfort began today. The patient denies fevers, chills, headache, dizziness, sore throat, cough, shortness of breath, dyspnea on exertion, abdominal pain, nausea, vomiting, diarrhea, neck/back pain, urinary/bowel changes or any other complaint. PMD: None Time/Duration: Other (Today) Symptom Onset: Sudden Symptom Course: Unchanged Activities at Onset: Rest, Light Context: Home Past Medical History - Provider Review Nursing Documentation Reviewed: Yes - Infectious Disease Hx of Infectious Diseases: None - Cardiac Hx Cardiac Disorders: Yes Hx Hypertension: Yes Hx Pacemaker: Yes - Pulmonary Hx Respiratory Disorders: No - Neurological Hx Neurological Disorder: Yes (MULTIPLE SCLEROSIS,FIBROMYALGIA) - HEENT Hx HEENT Disorder: No - Renal Hx Renal Disorder: No - Endocrine/Metabolic Hx Diabetes Mellitus Type 2: Yes - Hematological/Oncological Hx Blood Disorders: No - Integumentary Hx Dermatological Disorder: No - Musculoskeletal/Rheumatological Hx Musculoskeletal Disorders: Yes Hx Falls: No Hx Unsteady Gait: Yes (WALKER) - Gastrointestinal Hx Gastrointestinal Disorders: Yes (HIATAL HERNIA) - Genitourinary/Gynecological Hx Genitourinary Disorders: No - Psychiatric Hx Substance Use: No - Anesthesia Hx Anesthesia: No Family/Social History - Physician Review Nursing Documentation Reviewed: Yes Family/Social History: No Known Family HX Smoking Status: Never Smoked Hx Alcohol Use: No Hx Substance Use: No Allergies/Home Meds Allergies/Adverse Reactions: Allergies levofloxacin [From Levaquin] Allergy (Verified 10/04/17 14:45) RASH iv dye Allergy (Uncoded 10/04/17 14:45) RASH Home Medications: Home Meds Medication Instructions Recorded Confirmed Aspirin [Ecotrin] 81 mg PO DAILY 10/04/17 03/05/18 Atropine/Diphenoxylate [Lomotil 1 tab PO DAILY PRN 10/04/17 03/05/18 0.025-2.5 mg tablet] Clonazepam [Klonopin] 1 mg PO Q8 PRN 10/04/17 03/05/18 Insulin Human (NPH)/Regular 0 units SC AC PRN 10/04/17 03/05/18 [Novolin 70/30 (70/30 units/ml) 10 ml] Losartan/Hydrochlorothiazide 1 tab PO BID 10/04/17 03/05/18 [Losartan-Hctz 100-12.5 mg Tab] Oxycodone HCl/Acetaminophen 1 tab PO Q6 PRN 10/04/17 03/05/18 [Percocet 10-325 mg Tablet] Pantoprazole [Protonix EC Tab] 40 mg PO DAILY 10/04/17 03/05/18 Venlafaxine [Effexor 50 MG TAB] 100 mg PO BID 10/04/17 03/05/18 amLODIPine [Norvasc] 10 mg PO DAILY 10/04/17 03/05/18 Review of Systems - Physician Review All systems were reviewed & negative as marked: Yes - Review of Systems Constitutional: absent: Fevers, Night Sweats ENT: absent: Sore Throat Respiratory: absent: SOB, Cough Cardiovascular: Chest Pain. absent: RIVERA Gastrointestinal: Appetite Changes (Decreased Appetite). absent: Abdominal Pain , Diarrhea, Nausea, Vomiting Genitourinary Female: absent: Urine Output Changes Musculoskeletal: absent: Back Pain, Neck Pain Neurological: absent: Headache, Dizziness Physical Exam Vital Signs Reviewed: Yes Vital Signs Temp Pulse Resp BP Pulse Ox 03/05/18 21:14 99.5 F 83 18 121/73 99 Temperature: Afebrile Blood Pressure: Normal Pulse: Regular Respiratory Rate: Normal Appearance: Positive for: Well-Appearing, Non-Toxic, Comfortable Pain Distress: None Mental Status: Positive for: Alert and Oriented X 3 - Systems Exam Head: Present: Atraumatic, Normocephalic Pupils: Present: PERRL Extroacular Muscles: Present: EOMI Conjunctiva: Present: Normal Mouth: Present: Moist Mucous Membranes Neck: Present: Normal Range of Motion Respiratory/Chest: Present: Clear to Auscultation, Good Air Exchange. No: Respiratory Distress, Accessory Muscle Use Cardiovascular: Present: Regular Rate and Rhythm, Normal S1, S2. No: Murmurs Abdomen: No: Tenderness, Distention, Peritoneal Signs Back: Present: Normal Inspection Upper Extremity: Present: Normal Inspection. No: Cyanosis, Edema Lower Extremity: Present: Normal Inspection. No: Edema Neurological: Present: GCS=15, CN II-XII Intact, Speech Normal Skin: Present: Warm, Dry, Normal Color. No: Rashes Psychiatric: Present: Alert, Oriented x 3, Normal Insight, Normal Concentration Medical Decision Making ED Course and Treatment: 03/05/18 21:24 Impression: A 58 year old female presents to the emergency room complaining of intermittent chest pressure and decreased appetite. Plan: -- EKG -- Chest X-ray -- Labs -- Reassess and disposition Prior Visits: Notes and results from previous visits were reviewed. On 10/04/2017 the patient was seen for a complaint of intermittent mid-sternal chest pain associated with nausea and vomiting. Progress Notes: 03/05/18 21:28 EKG: Ordered, reviewed, and independently interpreted the EKG. Rate : 82 BPM Rhythm : NSR with sinus arrhythmia Interpretation : Non-specific T- wave changes. 03/05/18 23:18: Chest X-Ray read and interpreted by me shows no acute processes. 03/06/18 23:28: Case discussed in detail with Dr. Baker who accepts patient to his service. - Lab Interpretations Lab Results: 03/05/18 21:51 03/05/18 21:51 Lab Results 03/05/18 21:51: WBC 7.4 D, RBC 3.31 L, Hgb 10.1 L, Hct 31.8 L, MCV 96.1 D, MCH 30.5, MCHC 31.8, RDW 14.0, Plt Count 160, MPV 10.6 03/05/18 21:51: Sodium 146, Potassium 3.9, Chloride 110 H, Carbon Dioxide 27, Anion Gap 13, BUN 17, Creatinine 0.6 L, Est GFR ( Amer) > 60, Est GFR ( Non-Af Amer) > 60, Random Glucose 97, Calcium 8.0 L, Total Bilirubin 0.2, AST 43 H D, ALT 38, Alkaline Phosphatase 120, Lactate Dehydrogenase 524, Total Creatine Kinase 34 L, Troponin I < 0.01, Total Protein 5.6 L, Albumin 2.5 L, Globulin 3.1, Albumin/Globulin Ratio 0.8 L 03/05/18 21:51: PT 12.8 H, INR 1.12 H, APTT 27.1 I have reviewed the lab results: Yes - RAD Interpretation Radiology Orders: 03/05/18 21:20 CHEST PORTABLE [RAD] Stat - EKG Interpretation Interpreted by ED Physician: Yes Type: 12 lead EKG - Medication Orders Current Medication Orders: Acetaminophen (Tylenol 325mg Tab) 650 mg PO Q6H PRN PRN Reason: Pain, moderate (4-7) Amlodipine Besylate (Norvasc) 10 mg PO DAILY HERMINIO Atorvastatin Calcium (Lipitor) 40 mg PO HS HERMINIO Clonazepam (Klonopin) 1 mg PO Q8 PRN; Protocol PRN Reason: Anxiety Diphenoxylate HCl/Atropine (Lomotil 0.025-2.5 Mg Tablet) 1 tab PO DAILY PRN PRN Reason: Diarrhea Heparin Sodium (Porcine) (Heparin) 5,000 units SC Q8 HERMINIO PRN Reason: Protocol Non-Formulary Medication (Venlafaxine [Effexor 50 Mg Tab]) 100 mg PO BID HERMINIO Oxycodone/Acetaminophen (Percocet 10/325 Mg Tab) 1 tab PO Q6 PRN PRN Reason: Pain, moderate (4-7) Pantoprazole Sodium (Protonix Inj) 40 mg IVP DAILY HERMINIO Discontinued Medications Aspirin (Aspirin Chewable) 81 mg PO ONCE STA Stop: 03/05/18 23:15 Last Admin: 03/05/18 23:25 Dose: 81 mg Nitroglycerin (Nitrostat Sl Tab) 0.4 mg SL Q5M PRN PRN Reason: chest discomfort Stop: 03/05/18 23:26 Ondansetron HCl (Zofran Inj) 4 mg IVP ONCE ONE Stop: 03/05/18 23:24 Last Admin: 03/05/18 23:25 Dose: 4 mg IVP Administration Document 03/05/18 23:25 CNR (Rec: 03/05/18 23:25 CNR [id number]) Charges for Administration # of IVP Administrations 1 - Scribe Statement The provider has reviewed the documentation as recorded by the Scribe Anisa Dickens Provider Scribe Attestation: All medical record entries made by the Scribe were at my direction and personally dictated by me. I have reviewed the chart and agree that the record accurately reflects my personal performance of the history, physical exam, medical decision making, and the department course for this patient. I have also personally directed, reviewed, and agree with the discharge instructions and disposition. Disposition/Present on Arrival - Present on Arrival Any Indicators Present on Arrival: No History of DVT/PE: No History of Uncontrolled Diabetes: No Urinary Catheter: No History of Decub. Ulcer: No History Surgical Site Infection Following: None - Disposition Have Diagnosis and Disposition been Completed?: Yes Diagnosis: Chest pain Disposition: HOSPITALIZED Disposition Time: 23:19 Patient Plan: Observation Patient Problems: Current Active Problems Problem Status Onset Chest pain Acute Condition: STABLE
[2018-03-05 21:56] LABS: HEMOGLOBIN 10.1 g/dL (12.0-16.0); MEAN CELL VOLUME 96.1 fl (80.0-105.0); MEAN CORPUSCULAR HEMOGLOBIN 30.5 pg (25.0-35.0); MEAN CORPUSCULAR HGB CONC 31.8 g/dl (31.0-37.0); MEAN PLATELET VOLUME 10.6 fl (7.0-11.0); RBC 3.31 10^6/uL (3.5-6.1); WHITE BLOOD COUNT 7.4 10^3/ul (4.5-11.0)
[2018-03-05 22:05] LABS: INR 1.12 (0.93-1.08); PARTIAL THROMBOPLASTIN TIME 27.1 Seconds (25.1-36.5); PROTHROMBIN TIME 12.8 SECONDS (9.4-12.5)
[2018-03-05 22:06] LABS: ALB/GLOB RATIO 0.8 (1.1-1.8); ALBUMIN 2.5 g/dL (3.0-4.8); ALT/SGPT 38 U/L (7-56); AST/SGOT 43 U/L (14-36); BLOOD UREA NITROGEN 17 mg/dL (7-21); GFR AFRICAN-AMERICAN > 60; GFR NON-AFRICAN AMERICAN > 60
[2018-03-05 22:18] LABS: TROPONIN I < 0.01 ng/mL
[2018-03-05] MEDS ORDERED: Atropine-Diphenoxylate 0.025-2.5 mg Tab PO PRN (23:23)
[2018-03-06] MEDS: Oxycodone/Acetaminophen 10/325 mg Tab PO PRN ×4 (01:14→20:17)
[2018-03-06 02:23] VITALS: BMI 16.0
--- NOTE | 2018-03-06 03:46 | CP.PCM.HP ---
<Francisco Corrigan - Last Filed: 03/06/18 03:39> History of Present Illness - History of Present Illness History of Present Illness: CC: Chest pain HPI: 58 year old female with past medical history MS, Angina, fibromyalgia, bradycardia s/p pacemaker, DM2, HLD, colitis, obestity s/p gastric bypass who presents with 24 hour history of chest pain. Patient is noted to be poor historian in terms of presenting symptoms. Patient when asked to describe pain states the pain is middle of her chest. Patient reports yes to questions when prompted symptoms such as nausea, vomiting, diaphoresis, radiation of pain to neck and arm. Patient has recently traveled from [place] where she spends some of her time. She was admitted to prior to coming to [place] for acute exacerbation of CHF. Patient states she has not been able to take any of her prescribed medication due to inability to fill scripts from pharmacy because she has had no time to fill them. Patient indicates headache, lower extremity edema that has since improved from admission to hospital in [place]. Patient reports chronic back pain. She denies shortness of breath, abdominal pain, diarrhea, fever, chills. Patient indicates left sided weakness due to her chronic Multiple sclerosis. She denies numbness or focal deficits. PMH: MS, Angina, fibromyalgia, bradycardia s/p pacemaker, DM2, HLD, colitis, obestity s/p gastric bypass PSH: Gastric bypass, pacemaker in 2014 SOCHx: Denies tobacco, ETOH, ID - Lives with daughter, performs ADL and IDL with help of home services, ambulates with walker [place] [facility] [place]: Levofloxacin and IV dye MEDS: Mar reviewed PMD: Dr. Cast Heme: Dr. Velez Present on Admission - Present on Admission Any Indicators Present on Admission: No Review of Systems - Review of Systems All systems: reviewed and no additional remarkable complaints except (as mentioned in HPI) Past Patient History - Infectious Disease Hx of Infectious Diseases: None - Past Social History Smoking Status: Never Smoked - CARDIAC Hx Hypercholesterolemia: Yes Hx Pacemaker: Yes - PULMONARY Hx Respiratory Disorders: No - NEUROLOGICAL Hx Neurological Disorder: Yes (MULTIPLE SCLEROSIS,FIBROMYALGIA) - HEENT Hx HEENT Problems: No - RENAL Hx Chronic Kidney Disease: No - ENDOCRINE/METABOLIC Hx Diabetes Mellitus Type 2: Yes - HEMATOLOGICAL/ONCOLOGICAL Hx Blood Disorders: No - INTEGUMENTARY Hx Dermatological Problems: No - MUSCULOSKELETAL/RHEUMATOLOGICAL Hx Falls: Yes - GASTROINTESTINAL Other/Comment: colitis - GENITOURINARY/GYNECOLOGICAL Hx Genitourinary Disorders: No - PSYCHIATRIC Hx Substance Use: No - SURGICAL HISTORY Hx Surgeries: Yes Hx Gastric Bypass Surgery: Yes - ANESTHESIA Hx Anesthesia: No Meds Allergies/Adverse Reactions: Allergies Allergy/AdvReac Type Severity Reaction Status Date / Time levofloxacin [From Levaquin] Allergy RASH Verified 10/04/17 14:45 iv dye Allergy RASH Uncoded 10/04/17 14:45 Physical Exam - Constitutional Appears: Non-toxic - Head Exam Head Exam: ATRAUMATIC, NORMAL INSPECTION, NORMOCEPHALIC - Eye Exam Eye Exam: EOMI, PERRL - ENT Exam ENT Exam: Mucous Membranes Moist - Respiratory Exam Respiratory Exam: Clear to Auscultation Bilateral, NORMAL BREATHING PATTERN. absent: Rhonchi, Wheezes - Cardiovascular Exam Cardiovascular Exam: REGULAR RHYTHM, +S1, +S2 Additional comments: midsternal pain - GI/Abdominal Exam GI & Abdominal Exam: Normal Bowel Sounds, Soft - Neurological Exam Neurological exam: Alert, Oriented x3 Additional comments: motor and sensory grossly intact, left sided lower extremity and upper extremity exhibit slight weakness with limited ability for movement against resistance, patient able to move all four extremities past midline - Psychiatric Exam Psychiatric exam: Anxious - Skin Skin Exam: Dry, Warm Results - Vital Signs Recent Vital Signs: Last Vital Signs Temp 99.2 F 03/06/18 02:16 Pulse 81 03/06/18 02:16 Resp 19 03/06/18 02:16 BP 97/55 L 03/06/18 02:16 Pulse Ox 99 03/05/18 21:14 - Labs Result Diagrams: 03/05/18 21:51 03/05/18 21:51 Assessment & Plan - Assessment and Plan (Free Text) Assessment: 58 year old female with past medical history of MS, Angina, fibromyalgia, bradycardia s/p pacemaker, DM2, HLD, colitis, obestity s/p gastric bypass who presents with chest pain. EKG showing NSR with sinus arrhythmia, non specific T wave changes , initial troponin negative. Patient to be admitted for chest pain r/o ACS Plan: Chest Pain r/o ACS - Initial troponin negative - Trend trop and serial ekg - Cardiology consult - previous lipid panel in chart - ASA, CBB, statin, nitro prn Anemia - H/H on admission 08/26.8 - Patient has Port for IV iron treatments - Venofer dose to be confirmed by day team - Monitor DM2 - ISS low - ACHS - CCD HLD - Lipitor 40mg Hx of Fibromyalgia - Continue home medications Multiple Sclerosis - Continue home medications GI PPX: Protonix DVT ppx: Heparin Case and plan discussed with attending - Date & Time Date: 03/06/18 Time: 03:48 <Zacarias Baker - Last Filed: 03/10/18 03:43> Results - Vital Signs Recent Vital Signs: Last Vital Signs Temp 98.6 F 03/07/18 12:00 Pulse 61 03/07/18 12:00 Resp 18 03/07/18 12:00 BP 94/56 L 03/07/18 12:00 Pulse Ox 97 03/07/18 00:01 - Labs Result Diagrams: 03/06/18 04:00 03/05/18 21:51 Attending/Attestation - Attestation I have personally seen and examined this patient.: Yes I have fully participated in the care of the patient.: Yes I have reviewed all pertinent clinical information: Yes Notes (Text): 03/10/18 03:42 Agree with physical examination, assessment and plan. Patient was seen when she was in the ER.
[2018-03-06 04:24] LABS: BASO # 0.01 K/mm3 (0.0-2.0); BASO % 0.1 % (0.0-3.0); EOS % 0.1 % (1.5-5.0); GRAN # 6.6 (1.4-6.5); GRAN % 73.2 % (50.0-68.0); LYMPH # 1.9 (1.2-3.4); LYMPH % 20.9 % (22.0-35.0); MEAN CELL VOLUME 96.6 fl (80.0-105.0); MEAN CORPUSCULAR HEMOGLOBIN 30.4 pg (25.0-35.0); MEAN CORPUSCULAR HGB CONC 31.5 g/dl (31.0-37.0); MONO # 0.5 (0.1-0.6); MONO % 5.7 % (1.0-6.0); RBC 2.96 10^6/uL (3.5-6.1); RED CELL DISTRIBUTION WIDTH 14.2 % (11.5-14.5)
[2018-03-06 04:33] LABS: INR 1.24 (0.93-1.08); PROTHROMBIN TIME 14.2 SECONDS (9.4-12.5)
[2018-03-06 04:46] LABS: TROPONIN I < 0.01 ng/mL
[2018-03-06 04:50] LABS: FREE T4 0.83 ng/dL (0.78-2.19)
[2018-03-06 06:36] VITALS: O2SAT 97
[2018-03-06] MEDS: Insulin Lispro (humaLOG) LOW Coverage SC SCH ×4 (08:14→22:27)
--- NOTE | 2018-03-06 08:54 | RAD ---
HISTORY: chest pain COMPARISON: 10/21/2017 FINDINGS: LUNGS: No active pulmonary disease. PLEURA: No significant pleural effusion identified, no pneumothorax apparent. CARDIOVASCULAR: Normal. OSSEOUS STRUCTURES: No significant abnormalities. VISUALIZED UPPER ABDOMEN: Normal. OTHER FINDINGS: Port-A-Cath. Pacemaker IMPRESSION: No active disease.
[2018-03-06] MEDS ORDERED: Oxycodone/Acetaminophen 10/325 mg Tab PO PRN (09:00)
[2018-03-06] MEDS: VENLAFAXINE PO SCH ×2 (09:51→17:23)
[2018-03-06] MEDS ORDERED: Magnesium Oxide 400 mg Tab UD PO ONE (10:00)
--- NOTE | 2018-03-06 10:16 | CARD ---
APPROVED REPORT EKG Measurement Heart [id number] <Conclusion> Sinus rhythm with APCs Low voltage QRS Nonspecific T wave abnormality C/W ECG 10/21/17: A. Pacing not seen on this ECG
--- NOTE | 2018-03-06 15:22 | US ---
HISTORY: abd pain COMPARISON: None. TECHNIQUE: Sonographic evaluation of the abdomen. FINDINGS: LIVER: Measures 10.7 cm. Increased echogenicity of the liver parenchyma. No mass. No intrahepatic bile duct dilatation. GALLBLADDER: Not seen COMMON BILE DUCT: Measures 12 mm. No stones. No dilatation. PANCREAS: Unremarkable as visualized. No mass. No ductal dilatation. RIGHT KIDNEY: Measures 11.1 x 3.5 x 5.2cm. Normal echogenicity. No calculus, mass, or hydronephrosis. LEFT KIDNEY: Measures 12.3 x 6.1 x 5.3cm. Normal echogenicity. No calculus, mass, or hydronephrosis. SPLEEN: Normal in size and contour. No mass. 12.7 x 5.0 x 5.7 cm AORTA: No aneurysmal dilatation. 2.2 cm IVC: Unremarkable. OTHER FINDINGS: None. IMPRESSION: Fatty infiltration of the liver. Gallbladder removed with dilatation of the common duct
--- NOTE | 2018-03-06 16:48 | CP.PCM.DIS ---
Provider - Provider Date of Admission: 03/05/18 23:18 Attending physician: Silvia Underwood MD Primary care physician: NO PRIMARY CARE PROVIDER Consults: Cardio - Dr. Soliz Time Spent in preparation of Discharge (in minutes): 30 Hospital Course - Lab Results Lab Results: Most Recent Lab Values WBC 9.0 10^3/ul (4.5-11.0) D 03/06/18 04:00 RBC 2.96 10^6/uL (3.5-6.1) L 03/06/18 04:00 Hgb 9.0 g/dL (12.0-16.0) L 03/06/18 04:00 Hct 28.6 % (36.0-48.0) L 03/06/18 04:00 MCV 96.6 fl (80.0-105.0) 03/06/18 04:00 MCH 30.4 pg (25.0-35.0) 03/06/18 04:00 MCHC 31.5 g/dl (31.0-37.0) 03/06/18 04:00 RDW 14.2 % (11.5-14.5) 03/06/18 04:00 Plt Count 139 10^3/uL (120.0-450.0) 03/06/18 04:00 MPV 11.0 fl (7.0-11.0) 03/06/18 04:00 Gran % 73.2 % (50.0-68.0) H 03/06/18 04:00 Lymph % (Auto) 20.9 % (22.0-35.0) L 03/06/18 04:00 [place] % (Auto) 5.7 % (1.0-6.0) 03/06/18 04:00 Eos % (Auto) 0.1 % (1.5-5.0) L 03/06/18 04:00 Baso % (Auto) 0.1 % (0.0-3.0) 03/06/18 04:00 Gran # 6.60 (1.4-6.5) H 03/06/18 04:00 Lymph # (Auto) 1.9 (1.2-3.4) 03/06/18 04:00 [place] # (Auto) 0.5 (0.1-0.6) 03/06/18 04:00 Eos # (Auto) 0.0 (0.0-0.7) 03/06/18 04:00 Baso # (Auto) 0.01 K/mm3 (0.0-2.0) 03/06/18 04:00 PT 14.2 SECONDS (9.4-12.5) H 03/06/18 04:00 INR 1.24 (0.93-1.08) H 03/06/18 04:00 APTT 27.0 Seconds (25.1-36.5) 03/06/18 04:00 Sodium 146 mmol/L (132-148) 03/05/18 21:51 Potassium 3.9 mmol/L (3.6-5.0) 03/05/18 21:51 Chloride 110 mmol/L (98-107) H 03/05/18 21:51 Carbon Dioxide 27 mmol/L (21-33) 03/05/18 21:51 Anion Gap 13 (10-20) 03/05/18 21:51 BUN 17 mg/dL (7-21) 03/05/18 21:51 Creatinine 0.6 mg/dl (0.7-1.2) L 03/05/18 21:51 Est GFR ( Amer) > 60 03/05/18 21:51 Est GFR (Non-Af Amer) > 60 03/05/18 21:51 POC Glucose (mg/dL) 70 mg/dL (65-110) 03/06/18 12:17 Random Glucose 97 mg/dL (70-110) 03/05/18 21:51 Calcium 8.0 mg/dL (8.4-10.5) L 03/05/18 21:51 Magnesium 1.5 mg/dL (1.7-2.2) L 03/06/18 04:00 Total Bilirubin 0.2 mg/dL (0.2-1.3) 03/05/18 21:51 AST 43 U/L (14-36) H D 03/05/18 21:51 ALT 38 U/L (7-56) 03/05/18 21:51 Alkaline Phosphatase 120 U/L (38-126) 03/05/18 21:51 Lactate Dehydrogenase 524 U/L (333-699) 03/05/18 21:51 Total Creatine Kinase 34 U/L (35-230) L 03/05/18 21:51 Troponin I 0.03 ng/mL D 03/06/18 10:06 Total Protein 5.6 g/dL (5.8-8.3) L 03/05/18 21:51 Albumin 2.5 g/dL (3.0-4.8) L 03/05/18 21:51 Globulin 3.1 gm/dL 03/05/18 21:51 Albumin/Globulin Ratio 0.8 (1.1-1.8) L 03/05/18 21:51 Free T4 0.83 ng/dL (0.78-2.19) 03/06/18 04:00 TSH 3rd Generation 1.26 mIU/mL (0.46-4.68) 03/06/18 04:00 Discharge Exam - Head Exam Head Exam: ATRAUMATIC, NORMAL INSPECTION, NORMOCEPHALIC Discharge Plan - Follow Up Plan Condition: STABLE Disposition: HOME/ ROUTINE Referrals: PCP,NO [Primary Care Provider] -
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
[2018-03-07] MEDS: Oxycodone/Acetaminophen 10/325 mg Tab PO PRN ×3 (02:10→14:12)
[2018-03-07] MEDS ORDERED: Pantoprazole 40 mg EC Tab PO SCH (07:30)
[2018-03-07] MEDS: Insulin Lispro (humaLOG) LOW Coverage SC SCH ×2 (07:58→11:51)
--- NOTE | 2018-03-07 09:22 | CARD ---
APPROVED REPORT EXAM: Two-dimensional and M-mode echocardiogram with Doppler and color Doppler. Other Information Quality : AverageRhythm : INDICATION Chest Pain 2D DIMENSIONS Left Atrium (2D)4.2 (1.6-4.0cm)IVSd1.1 (0.7-1.1cm) LVDd3.6 (3.9-5.9cm)PWd1.2 (0.7-1.1cm) LVDs2.5 (2.5-4.0cm)FS (%) 29.2 % LVEF (%)57.0 (>50%) M-Mode DIMENSIONS Aortic Root3.00 (2.2-3.7cm)Aortic Cusp Exc.1.90 (1.5-2.0cm) Aortic Valve AoV Peak Dnibknji040.0cm/s Mitral Valve MV E Rhybqapi80.3cm/sMV A Mcnudixz59.7cm/sE/A ratio0.9 TDI E/Lateral E'0.0E/Medial E'0.0 Tricuspid Valve TR Peak [id number]/sRAP [id number] Peak Gr.28mmHg [id number] LEFT VENTRICLE The left ventricle is normal size. There is normal left ventricular wall thickness. The left ventricular function is normal. The left ventricular ejection fraction is within the normal range. There is normal LV segmental wall motion. RIGHT VENTRICLE The right ventricle is normal size. ATRIA The left atrium is mildly dilated. The right atrium size is normal. The interatrial septum is intact with no evidence for an atrial septal defect. AORTIC VALVE The aortic valve is mildly sclerotic. MITRAL VALVE The mitral valve is normal in structure. TRICUSPID VALVE The tricuspid valve is normal in structure. PULMONIC VALVE The pulmonic valve is not well visualized. GREAT VESSELS The aortic root is normal in size. PERICARDIAL EFFUSION There is no pericardial effusion. <Conclusion> The left ventricle is normal size. There is normal left ventricular wall thickness. The left ventricular function is normal.
[2018-03-07] MEDS: VENLAFAXINE PO SCH (09:42)
[2018-03-07 13:19] VITALS: BP 94/56; PULSE 61; RESP 18; TEMP 98.6
--- NOTE | 2018-03-07 14:04 | CP.PCM.DIS ---
<Lindsay Domínguez - Last Filed: 03/07/18 19:34> Provider - Provider Date of Admission: 03/05/18 23:18 Attending physician: Silvia Underwood MD Primary care physician: NO PRIMARY CARE PROVIDER Consults: Gail Soliz Time Spent in preparation of Discharge (in minutes): 60 Diagnosis - Discharge Diagnosis (1) Chest pain Status: Acute Hospital Course - Lab Results Lab Results: Most Recent Lab Values WBC 9.0 10^3/ul (4.5-11.0) D 03/06/18 04:00 RBC 2.96 10^6/uL (3.5-6.1) L 03/06/18 04:00 Hgb 9.0 g/dL (12.0-16.0) L 03/06/18 04:00 Hct 28.6 % (36.0-48.0) L 03/06/18 04:00 MCV 96.6 fl (80.0-105.0) 03/06/18 04:00 MCH 30.4 pg (25.0-35.0) 03/06/18 04:00 MCHC 31.5 g/dl (31.0-37.0) 03/06/18 04:00 RDW 14.2 % (11.5-14.5) 03/06/18 04:00 Plt Count 139 10^3/uL (120.0-450.0) 03/06/18 04:00 MPV 11.0 fl (7.0-11.0) 03/06/18 04:00 Gran % 73.2 % (50.0-68.0) H 03/06/18 04:00 Lymph % (Auto) 20.9 % (22.0-35.0) L 03/06/18 04:00 [place] % (Auto) 5.7 % (1.0-6.0) 03/06/18 04:00 Eos % (Auto) 0.1 % (1.5-5.0) L 03/06/18 04:00 Baso % (Auto) 0.1 % (0.0-3.0) 03/06/18 04:00 Gran # 6.60 (1.4-6.5) H 03/06/18 04:00 Lymph # (Auto) 1.9 (1.2-3.4) 03/06/18 04:00 [place] # (Auto) 0.5 (0.1-0.6) 03/06/18 04:00 Eos # (Auto) 0.0 (0.0-0.7) 03/06/18 04:00 Baso # (Auto) 0.01 K/mm3 (0.0-2.0) 03/06/18 04:00 PT 14.2 SECONDS (9.4-12.5) H 03/06/18 04:00 INR 1.24 (0.93-1.08) H 03/06/18 04:00 APTT 27.0 Seconds (25.1-36.5) 03/06/18 04:00 Sodium 146 mmol/L (132-148) 03/05/18 21:51 Potassium 3.9 mmol/L (3.6-5.0) 03/05/18 21:51 Chloride 110 mmol/L (98-107) H 03/05/18 21:51 Carbon Dioxide 27 mmol/L (21-33) 03/05/18 21:51 Anion Gap 13 (10-20) 03/05/18 21:51 BUN 17 mg/dL (7-21) 03/05/18 21:51 Creatinine 0.6 mg/dl (0.7-1.2) L 03/05/18 21:51 Est GFR ( Amer) > 60 03/05/18 21:51 Est GFR (Non-Af Amer) > 60 03/05/18 21:51 POC Glucose (mg/dL) 93 mg/dL (65-110) 03/07/18 11:29 Random Glucose 97 mg/dL (70-110) 03/05/18 21:51 Calcium 8.0 mg/dL (8.4-10.5) L 03/05/18 21:51 Magnesium 1.5 mg/dL (1.7-2.2) L 03/06/18 04:00 Total Bilirubin 0.2 mg/dL (0.2-1.3) 03/05/18 21:51 AST 43 U/L (14-36) H D 03/05/18 21:51 ALT 38 U/L (7-56) 03/05/18 21:51 Alkaline Phosphatase 120 U/L (38-126) 03/05/18 21:51 Lactate Dehydrogenase 524 U/L (333-699) 03/05/18 21:51 Total Creatine Kinase 34 U/L (35-230) L 03/05/18 21:51 Troponin I 0.03 ng/mL D 03/06/18 10:06 Total Protein 5.6 g/dL (5.8-8.3) L 03/05/18 21:51 Albumin 2.5 g/dL (3.0-4.8) L 03/05/18 21:51 Globulin 3.1 gm/dL 03/05/18 21:51 Albumin/Globulin Ratio 0.8 (1.1-1.8) L 03/05/18 21:51 Free T4 0.83 ng/dL (0.78-2.19) 03/06/18 04:00 TSH 3rd Generation 1.26 mIU/mL (0.46-4.68) 03/06/18 04:00 - Hospital Course Hospital Course: 58 year old female with past medical history MS, Angina, fibromyalgia, bradycardia s/p pacemaker, DM2, HLD, colitis, obestity s/p gastric bypass who presents with 24 hour history of chest pain. Pt's EKG neg for ST/T wave abnormalities, trops negative x3. Echocardiogram showed normal EF, no wall motion abnormalities. Pt also found to be anemic, given a dose of IV iron. Pt to follow up with Dr Soliz for an outpatient stress test. Pt to follow up with PMD, pt understands and states to be adherent to the plan. Case seen and discussed with Dr Underwood. Lindsay Domínguez, PGY1 Discharge Exam - Head Exam Head Exam: ATRAUMATIC, NORMAL INSPECTION, NORMOCEPHALIC - Eye Exam Eye Exam: EOMI, PERRL. absent: Conjunctival injection, Nystagmus, Scleral icterus Pupil Exam: NORMAL ACCOMODATION, PERRL. absent: Irregular, Miosis, Unequal - ENT Exam ENT Exam: Mucous Membranes Moist - Neck Exam Neck exam: Full Rom - Respiratory Exam Respiratory Exam: Clear to PA & Lateral, NORMAL BREATHING PATTERN. absent: Accessory Muscle Use, Chest Wall Tenderness, Prolonged Expiratory Phase, Respiratory Distress, Stridor - Cardiovascular Exam Cardiovascular Exam: RRR, +S1, +S2. absent: Systolic Murmur - GI/Abdominal Exam GI & Abdominal Exam: Normal Bowel Sounds, Soft. absent: Distended, Firm, Guarding, Mass, Rebound, Rigid, Tenderness - Extremities Exam Extremities exam: normal inspection - Back Exam Back exam: NORMAL INSPECTION - Neurological Exam Neurological exam: Alert, Oriented x3 - Psychiatric Exam Psychiatric exam: Normal Affect, Normal Mood - Skin Skin Exam: Dry, Normal Color, Warm Discharge Plan - Discharge Medications Prescriptions: Acetaminophen/Oxycodone Hydr [Percocet 10/325 mg Tab] 1 tab PO Q6H #12 tab - Follow Up Plan Condition: STABLE Disposition: HOME/ ROUTINE Instructions: Postgastric Bypass Diet, Chronic Pain (DC), Rheumatoid Arthritis (DC), Diet to Prevent Dumping Syndrome, Chest Pain (DC), Chest Pain (GEN) Additional Instructions: 1. Patient is to follow up with her primary care physician within one week of being discharge. 2. Patient is to follow up with Cardiology, Dr. Soliz, upon discharge. 3. Patient is to have out patient stress test before following up with Dr. Soliz. 4. Patient is to follow up with GI (stomach doctor), Dr. Alcazar, for GI evaluation and possible EGD. 4. Patient has not been given any new prescriptions, please take your medications as previously prescribed. Pt given 1 script for percocet, 12 tablets. 5. If you have any new or worsening symptoms, please go to the nearest emergency room. 6. Please take care of yourself and be well. Referrals: PCP,NO [Primary Care Provider] - Jack Alcaazr MD [Staff Provider] - Chandra Soliz MD [Staff Provider] - <Silvia Underwood - Last Filed: 03/08/18 07:39> Provider - Provider Date of Admission: 03/05/18 23:18 Attending physician: Silvia Underwood MD Primary care physician: MAGI PRIMARY CARE PROVIDER Hospital Course - Lab Results Lab Results: Most Recent Lab Values WBC 9.0 10^3/ul (4.5-11.0) D 03/06/18 04:00 RBC 2.96 10^6/uL (3.5-6.1) L 03/06/18 04:00 Hgb 9.0 g/dL (12.0-16.0) L 03/06/18 04:00 Hct 28.6 % (36.0-48.0) L 03/06/18 04:00 MCV 96.6 fl (80.0-105.0) 03/06/18 04:00 MCH 30.4 pg (25.0-35.0) 03/06/18 04:00 MCHC 31.5 g/dl (31.0-37.0) 03/06/18 04:00 RDW 14.2 % (11.5-14.5) 03/06/18 04:00 Plt Count 139 10^3/uL (120.0-450.0) 03/06/18 04:00 MPV 11.0 fl (7.0-11.0) 03/06/18 04:00 Gran % 73.2 % (50.0-68.0) H 03/06/18 04:00 Lymph % (Auto) 20.9 % (22.0-35.0) L 03/06/18 04:00 [place] % (Auto) 5.7 % (1.0-6.0) 03/06/18 04:00 Eos % (Auto) 0.1 % (1.5-5.0) L 03/06/18 04:00 Baso % (Auto) 0.1 % (0.0-3.0) 03/06/18 04:00 Gran # 6.60 (1.4-6.5) H 03/06/18 04:00 Lymph # (Auto) 1.9 (1.2-3.4) 03/06/18 04:00 [place] # (Auto) 0.5 (0.1-0.6) 03/06/18 04:00 Eos # (Auto) 0.0 (0.0-0.7) 03/06/18 04:00 Baso # (Auto) 0.01 K/mm3 (0.0-2.0) 03/06/18 04:00 PT 14.2 SECONDS (9.4-12.5) H 03/06/18 04:00 INR 1.24 (0.93-1.08) H 03/06/18 04:00 APTT 27.0 Seconds (25.1-36.5) 03/06/18 04:00 Sodium 146 mmol/L (132-148) 03/05/18 21:51 Potassium 3.9 mmol/L (3.6-5.0) 03/05/18 21:51 Chloride 110 mmol/L (98-107) H 03/05/18 21:51 Carbon Dioxide 27 mmol/L (21-33) 03/05/18 21:51 Anion Gap 13 (10-20) 03/05/18 21:51 BUN 17 mg/dL (7-21) 03/05/18 21:51 Creatinine 0.6 mg/dl (0.7-1.2) L 03/05/18 21:51 Est GFR ( Amer) > 60 03/05/18 21:51 Est GFR (Non-Af Amer) > 60 03/05/18 21:51 POC Glucose (mg/dL) 93 mg/dL (65-110) 03/07/18 11:29 Random Glucose 97 mg/dL (70-110) 03/05/18 21:51 Calcium 8.0 mg/dL (8.4-10.5) L 03/05/18 21:51 Magnesium 1.5 mg/dL (1.7-2.2) L 03/06/18 04:00 Total Bilirubin 0.2 mg/dL (0.2-1.3) 03/05/18 21:51 AST 43 U/L (14-36) H D 03/05/18 21:51 ALT 38 U/L (7-56) 03/05/18 21:51 Alkaline Phosphatase 120 U/L (38-126) 03/05/18 21:51 Lactate Dehydrogenase 524 U/L (333-699) 03/05/18 21:51 Total Creatine Kinase 34 U/L (35-230) L 03/05/18 21:51 Troponin I 0.03 ng/mL D 03/06/18 10:06 Total Protein 5.6 g/dL (5.8-8.3) L 03/05/18 21:51 Albumin 2.5 g/dL (3.0-4.8) L 03/05/18 21:51 Globulin 3.1 gm/dL 03/05/18 21:51 Albumin/Globulin Ratio 0.8 (1.1-1.8) L 03/05/18 21:51 Free T4 0.83 ng/dL (0.78-2.19) 03/06/18 04:00 TSH 3rd Generation 1.26 mIU/mL (0.46-4.68) 03/06/18 04:00 Attending/Attestation - Attestation I have personally seen and examined this patient.: Yes I have fully participated in the care of the patient.: Yes I have reviewed all pertinent clinical information, including history, physical exam and plan: Yes Notes (Text): 03/07/18 58 year old female with past medical history of MS, fibromyalgia, bradycardia s/ p pacemaker, diabetes, dyslipidemia, and obesity s/p gastric bypass who presented with complaint of chest pain and abdominal pain. Serial cardiac enzymes were negative and ACS was ruled out. Echocardiogram was reviewed as above. Abdominal US was also obtained which was negative for acute findings. She was seen by cardiology who recommended outpatient stress test. She is on iron for chronic anemia. Overall her symptoms have improved. Patient is discharged home to follow up with her pmd. Follow up with cardiology for outpatient stress test. Recommend to follow up with GI as outpatient. Counselled on limiting NSAID use. Silvia Underwood MD Hospitalist.
== END 2018-03-07 15:10 | disposition home or self-care (01) ==
LOC: ED 20:58 → ERH 23:18 → 2RSO 03-06 00:54
PROVIDERS: ADMIT Internal Medicine; ATTEND Internal Medicine
DX: R07.9 Chest pain, unspecified (principal); G35 Multiple sclerosis; E78.5 Hyperlipidemia, unspecified; E11.9 Type 2 diabetes mellitus without complications; D64.9 Anemia, unspecified; M79.7 Fibromyalgia; J44.9 Chronic obstructive pulmonary disease, unspecified; I10 Essential (primary) hypertension; E66.9 Obesity, unspecified; Z98.84 Bariatric surgery status; Z95.0 Presence of cardiac pacemaker
CPT/HCPCS: 36415; 71045; 76700; 80053; 82550; 82948; 83615; 83735; 84439; 84443; 84484; 85025; 85027; 85610; 85730; 93005; 93306; 96365; 96372; 96375; 96376; 97116; 97161; 99285; C9113; G0378; G8978; G8979; J1644; J1756; J2405

== ENCOUNTER 2018-04-11 17:33 | Inpatient (IN) | payer OTHER ==
[2018-04-11 17:45] VITALS: BMI 36.5
[2018-04-11] MEDS ORDERED: Nitroglycerin 2% Ointment Foilpak UD TOP STA (18:04)
--- NOTE | 2018-04-11 18:12 | ED PDOC ---
Arrival/HPI - General Chief Complaint: Anxiety Time Seen by Provider: 04/11/18 17:39 Historian: Patient - History of Present Illness Narrative History of Present Illness (Text): 04/11/18 18:00 pt p/w + 2 days onset of substernal chest pain, non-radiating, + left arm numbness, + weakness, + diaphoretic, + sob; NON-pleuritic chest pain; at most pain is 10/10; pt states pain wax and wanes and felt that the pain is similar to her prior hx of chest pain; pt also has chest pain when she has MS flare, including gait imbalance; pt states 1 week ago, she fell 3 times and was diagnosed with left rib fx but was subsequently discharged; pt states she fell again yesterday but did not strike anything; pt states no fever/chills, no palpitations, no abd pain, + nausea, no vomiting, no appetite; pt denied urinary /bowel changes, no incontinence; pt states she also had an argument with her daughter today, just prior to Emergency department arrival and states her chest pain became severe and decided to come to Emergency department for further eval ; pt states she has been very depressed lately, no SI/HI, no hallucinations - visual/tactile/auditory; pt states she misses her monthly psych evaluation that she typically receives while down in [place]; pt splits her time between [place] and [place]; pt states she just came up to [place] ~ 1 month ago; pt has a neurologists in [place] but not in [place]; pt states she stopped taking her MS medication ~ 1 month ago as well (b/c insurance is not covering it). pt also did not obtain a stress test for herself over the last [address] Soliz, when she was admitted few weeks ago, pt expressed fear of stress tests. Pt arrived to Emergency department for further eval, pt's without other complaints. PCP: Dr Peng Jacome? (MAY) cards: Dr Soliz Time/Duration: < week (2 days) Symptom Onset: Sudden Symptom Course: Worsening Quality: Tightness, Cramping Severity Level: 7, Severe Activities at Onset: Rest Context: Home Past Medical History - Provider Review Nursing Documentation Reviewed: Yes - Travel History Have you recently traveled outside [place] w/in the past 3 mons?: No - Past History Past History: Non-Contributing - Infectious Disease Hx of Infectious Diseases: None - Reproductive Menopause: Yes Currently : No - Cardiac Hx Hypertension: Yes - Pulmonary Hx Respiratory Disorders: No - Neurological Hx Neurological Disorder: Yes (MULTIPLE SCLEROSIS,FIBROMYALGIA) - HEENT Hx HEENT Disorder: No - Renal Hx Renal Disorder: No - Endocrine/Metabolic Hx Diabetes Mellitus Type 2: Yes - Hematological/Oncological Hx Blood Disorders: No - Integumentary Hx Dermatological Disorder: No - Musculoskeletal/Rheumatological Hx Back Pain: Yes Hx Falls: Yes - Gastrointestinal Other/Comment: colitis - Genitourinary/Gynecological Hx Genitourinary Disorders: No - Psychiatric Hx Substance Use: No - Surgical History Hx Gastric Bypass Surgery: Yes Other/Comment: pacemaker - Anesthesia Hx Anesthesia: No Family/Social History - Physician Review Nursing Documentation Reviewed: Yes Family/Social History: No Known Family HX Smoking Status: Never Smoked Hx Alcohol Use: No Hx Substance Use: No Hx Substance Use Treatment: No Allergies/Home Meds Allergies/Adverse Reactions: Allergies levofloxacin [From Levaquin] Allergy (Verified 10/04/17 14:45) RASH iv dye Allergy (Uncoded 10/04/17 14:45) RASH Home Medications: Home Meds Medication Instructions Recorded Confirmed Aspirin [Ecotrin] 81 mg PO DAILY 10/04/17 04/11/18 Atropine/Diphenoxylate [Lomotil 1 tab PO DAILY PRN 10/04/17 04/11/18 0.025-2.5 mg tablet] Clonazepam [Klonopin] 1 mg PO Q8 PRN 10/04/17 04/11/18 Insulin Human (NPH)/Regular 0 units SC AC PRN 10/04/17 04/11/18 [Novolin 70/30 (70/30 units/ml) 10 ml] Oxycodone HCl/Acetaminophen 1 tab PO Q6 PRN 10/04/17 04/11/18 [Percocet 10-325 mg Tablet] Pantoprazole [Protonix EC Tab] 40 mg PO DAILY 10/04/17 04/11/18 Venlafaxine [Effexor 50 MG TAB] 100 mg PO BID 10/04/17 04/11/18 amLODIPine [Norvasc] 10 mg PO DAILY 10/04/17 04/11/18 Acetaminophen/Butalbital/Caf 1 tab PO Q4H PRN 04/11/18 04/11/18 [Fioricet] Cyclobenzaprine [Flexeril] 1 tab PO TID PRN 04/11/18 04/11/18 Lidocaine 5% [Lidocaine 5%] 1 g TOP DAILY 04/11/18 04/11/18 Loperamide [Imodium] 1 tab PO PRN PRN 04/11/18 04/11/18 Ondansetron [Zofran Tab] 1 tab PO BID 04/11/18 04/11/18 hydroCHLOROthiazide [Hydrodiuril] 1 tab PO DAILY 04/11/18 04/11/18 Review of Systems - Review of Systems Constitutional: Fatigue Eyes: Normal ENT: Normal Respiratory: SOB. absent: Cough Cardiovascular: Chest Pain. absent: Palpitations Gastrointestinal: Nausea. absent: Abdominal Pain, Vomiting Genitourinary Female: Normal Musculoskeletal: Normal Skin: Normal Neurological: Headache, Dizziness. absent: Focal Weakness Endocrine: Diaphoresis Hemo/Lymphatic: Normal Psychiatric: Anxiety, Depression. absent: Suicidal Ideation Physical Exam - Physical Exam Narrative Physical Exam (Text): 04/11/18 18:05 General: alert/awake, GCS = 15, oriented x 3, resting in bed, uncomfortable, cooperative, interactive; NAD; tearful at times Head: NC/AT EYE: PERRLA, EOMI, sclera anicteric, no nystagmus, no photophobia; visual field intact b/l Facial: WNL Oral: uvula/tongue are midline, no exudate/lesions, no drooling/stridor, no dysphonia; intact dentitions; moist oral mucosa NECK: intact ROM, no midline tenderness, no nuchal rigidity, no meningeal signs ; no step off Chest: CTA b/l, no w/r/r; no tachypenia, no accessory muscle use noted CHEST wall: + right chest wall port-a-cath; no skin wounds noted Cardiac: +S1, +S2, no m/r/r, no tachycardia Abdominal: +BS, soft/nd/nt, well nourished patient; no masses/rebound/guarding/ rigidity; no rodrigez's sign, no mcburney's point tenderness Extremities: intact ROM, strength 5/5 grossly intact in all limbs, neurovasc intact b/l; + ambulatory; reflex +2/2 BACK: no step off, no midline tenderness, NO crepitus, no gross deformities noted; Intact ROM SKIN: cap refill < 1 sec, no ulcerations, no petechiae, no rashes NEURO: CNII-XII WNL, no facial asymmetries, no slurr speech, oriented x 3 NIH stroke scale ~ 0 Psych: normal insight, depressed/flat affect; + crying, follows command with ease Vital Signs Reviewed: Yes Vital Signs Temp Pulse Resp BP Pulse Ox 04/11/18 21:17 68 18 118/82 97 04/11/18 17:57 98.5 F 90 18 117/69 100 Temperature: Afebrile Blood Pressure: Normal Pulse: Regular Respiratory Rate: Normal Appearance: Positive for: Well-Appearing, Uncomfortable. No: Non-Toxic, Ill- Appearing Pain Distress: Mild Mental Status: Positive for: Alert and Oriented X 3 - Systems Exam Head: Present: Atraumatic, Normocephalic Medical Decision Making ED Course and Treatment: 04/11/18 18:10 Impression: 1) depression; 2) chest pain, r/o acs; 3) possible MS flare; 4) medication non-compliance i have consider all the differential diagnosis regarding pt's chief medical complaints/clinical findings, including but are not limited to: 1) depression; 2 ) chest pain, r/o acs; 3) possible MS flare; 4) medication non-compliance A/P: 1) depression; 2) chest pain, r/o acs; 3) possible MS flare; 4) medication non-compliance - labs - iv - acs eval - xray - supportive care - observe/reevaluation 1900 given pt's medical complaints and complexities of her medical history, will recommend patient for admission pt agrees 04/11/18 19:24 pt is doing well currently pt is much more comfortable pt is made aware of her medical results and agrees with admission I spoke to medicine team rehabilitation aide, made aware, will see patient paged rehabilitation aide hospitalists, Dr Baker, made aware, agrees with admission Re-evaluation Time: 19:19 Reassessment Condition: Improving,but remains with symptoms - Lab Interpretations Microbiology Results: Microbiology Results 04/11/18 19:00 Urine,Clean Catch Urine Culture - Final 50-100,000 CFU/ML. MULTIPLE SPECIES. SUGGEST REPEAT SPECIMEN. Lab Results: 04/11/18 18:39 04/11/18 18:39 Lab Results 04/11/18 18:39: ESR 55 H 04/11/18 18:39: Alcohol, Quantitative < 10 04/11/18 18:39: Salicylates 2, Acetaminophen < 10.0 L 04/11/18 18:39: Sodium 143, Potassium 4.0, Chloride 108 H, Carbon Dioxide 26, Anion Gap 13, BUN 12, Creatinine 0.8, Est GFR ( Amer) > 60, Est GFR (Non- Af Amer) > 60, Random Glucose 80, Calcium 8.3 L, Magnesium 2.1, Total Bilirubin 0.2, AST 55 H D, ALT 36, Alkaline Phosphatase 111, Lactate Dehydrogenase 528, Total Creatine Kinase 45, Troponin I < 0.01 D, NT-Pro-B Natriuret Pep 93.9, Total Protein 6.9, Albumin 3.4, Globulin 3.5, Albumin/Globulin Ratio 1.0 L 04/11/18 18:39: PT 11.3, INR 0.99, APTT 31.3 04/11/18 18:39: WBC 1.9 L* D, RBC 3.32 L, Hgb 9.9 L, Hct 31.3 L, MCV 94.3, MCH 29.8, MCHC 31.6, RDW 13.8, Plt Count 159, MPV 11.1 H, Gran % 24.7 L, Lymph % ( Auto) 68.3 H, Banks % (Auto) 6.5 H, Eos % (Auto) 0.5 L, Baso % (Auto) 0.0, Gran # 0.46 L, Lymph # (Auto) 1.3, Banks # (Auto) 0.1, Eos # (Auto) 0.0, Baso # (Auto ) 0.00 04/11/18 18:28: Urine Opiates Screen Negative, Urine Methadone Screen Negative, Ur Barbiturates Screen Positive H, Ur Phencyclidine Scrn Negative, Ur Amphetamines Screen Negative, U Benzodiazepines Scrn Negative, U Oth Cocaine Metabols Negative, U Cannabinoids Screen Negative 04/11/18 18:28: Urine Color Yellow, Urine Appearance Sl cloudy, Urine pH 6.0, Ur Specific [place] 1.020, Urine Protein Negative, Urine Glucose (UA) Negative, Urine Ketones Negative, Urine Blood Negative, Urine Nitrate Positive H, Urine Bilirubin Negative, Urine Urobilinogen 0.2, Ur Leukocyte Esterase Moderate H, Urine RBC 2 - 5, Urine WBC 20 - 25, Ur Epithelial Cells 10 - 12, Urine Bacteria Large I have reviewed the lab results: Yes Interpretation: Abnormal lab values (+ UTI; low WBCs) - RAD Interpretation Narrative RAD Interpretations (Text): 04/15/18 08:14 HISTORY: Chest pain COMPARISON: 03/05/2018 TECHNIQUE: Chest PA and lateral FINDINGS: LUNGS: No active pulmonary disease. PLEURA: No significant pleural effusion identified. No pneumothorax apparent. CARDIOVASCULAR: No radiographic findings to suggest acute or significant cardiovascular disease. Position/ configuration of pacemaker\AICD device: Satisfactory. Venous access catheter in stable, satisfactory position. OSSEOUS STRUCTURES: No significant abnormalities. VISUALIZED UPPER ABDOMEN: Normal. OTHER FINDINGS: None. IMPRESSION: No active disease. No significant interval change compared to the prior examination(s). Radiology Orders: 04/11/18 18:04 CHEST TWO VIEWS (PA/LAT) [RAD] Stat Publicity Manager: Radiologist - EKG Interpretation EKG Interpretation (Text): 04/11/18 18:17 Sinus rhythm at 75 bpm, with ectopy, normal axis, diffuse low voltage, non- specific T changes, ABNL EKG; unchanged compare with old ekg 02/2018 Interpreted by ED Physician: Yes Type: 12 lead EKG Comparison: Similar to previous EKG - Medication Orders Current Medication Orders: Acetaminophen (Tylenol 325mg Tab) 650 mg PO Q6H PRN PRN Reason: Pain, moderate (4-7) Last Admin: 04/13/18 13:12 Dose: 650 mg [facility] Pain/Vitals Document 04/13/18 13:12 (Rec: 04/13/18 13:13 [id number] Pain Reassessment Is This A Pain ReAssessment? Yes Presence of Pain Presence of Pain Yes Location Pain Location Body Underwriting Service Representative Alleviating Factors Medication Re-Assess: [facility] Pain/Vitals Document 04/13/18 14:12 (Rec: 04/13/18 18:05 [id number] Pain Reassessment Is This A Pain ReAssessment? Yes Sleep Is patient sleeping during reassessment? Yes Acetaminophen/Butalbital/Caffeine (Fioricet) 1 tab PO Q4H PRN PRN Reason: Pain, moderate (4-7) Last Admin: 04/13/18 20:44 Dose: 1 tab [facility] Pain Assessment Document 04/13/18 20:44 OLIVD (Rec: 04/13/18 20:45 OLIVD [id number]) Pain Reassessment Is this a pain reassessment? No Presence of Pain Presence of Pain Yes Pain Scale Used Pain Scale Used Numeric Location Pain Location Body Underwriting Service Representative Description Description Constant Intensity of Pain at present 9 Pain Behavior Restlessness Re-Assess: [facility] Pain Assessment Document 04/13/18 21:44 OLIVD (Rec: 04/13/18 22:17 OLIVD [id number]) Pain Reassessment Is this a pain reassessment? Yes Presence of Pain Presence of Pain Yes Pain Scale Used Pain Scale Used Numeric Location Pain Location Body Underwriting Service Representative Description Description Constant Intensity of Pain at present 8 Pain Behavior Moaning Restlessness Pain not relieved and LIP/MD was Yes notified Acetylcysteine (Acetylcysteine 20%) 4 ml IH [id number] REPLACED BY [facility] Last Admin: 04/15/18 07:21 Dose: 4 ml Albuterol/Ipratropium (Duoneb 3 Mg/0.5 Mg (3 Ml) Ud) 3 ml IH [id number] REPLACED BY [facility] Last Admin: 04/15/18 07:21 Dose: 3 ml Amlodipine Besylate (Norvasc) 10 mg PO DAILY REPLACED BY [facility] Last Admin: 04/14/18 09:34 Dose: 10 mg [facility] Blood Pressure Document 04/14/18 09:34 ML (Rec: 04/14/18 09:35 ML [email or web address]) Blood Pressure Blood Pressure (100/60-150/90) 156/78 Aspirin (Ecotrin) 81 mg PO DAILY REPLACED BY [facility] Last Admin: 04/14/18 09:34 Dose: 81 mg Clonazepam (Klonopin) 1 mg PO Q8 PRN; Protocol PRN Reason: Anxiety Last Admin: 04/14/18 09:43 Dose: 1 mg Behavioural Document 04/14/18 09:43 ML (Rec: 04/14/18 09:43 ML [email or web address]) Maintenance Maintenance Dose Yes Re-Assess: Reassess Psych Meds Document 04/14/18 10:43 ML (Rec: 04/14/18 10:44 ML [email or web address]) Reassess Psych Med Effective Cyclobenzaprine HCl (Flexeril) 5 mg PO TID PRN PRN Reason: Pain, moderate (4-7) Last Admin: 04/14/18 06:07 Dose: 5 mg Diphenoxylate HCl/Atropine (Lomotil 0.025-2.5 Mg Tablet) 1 tab PO DAILY PRN PRN Reason: Diarrhea Folic Acid (Folic Acid) 1 mg PO DAILY REPLACED BY [facility] Last Admin: 04/14/18 09:34 Dose: 1 mg Guaifenesin/Dextromethorphan (Robitussin Dm) 10 ml PO Q4H PRN PRN Reason: Cough Hydrochlorothiazide (Hydrodiuril) 25 mg PO DAILY REPLACED BY [facility] Last Admin: 04/14/18 09:34 Dose: 25 mg Ceftriaxone Sodium (Rocephin 2 Gm Ivpb) 2 gm in 100 mls @ 100 mls/hr IVPB DAILY REPLACED BY [facility] PRN Reason: Protocol Last Admin: 04/14/18 09:35 Dose: 100 mls/hr eMAR Start Stop Document 04/14/18 09:35 ML (Rec: 04/14/18 09:35 ML [email or web address]) Intravenous Solution Start Date 04/14/18 Start Time 09:35 End Date 04/14/18 End time 10:35 Total Infusion Time 60 Methylprednisolone 1 gm/ (Sodium Chloride) 250 mls @ 500 mls/hr IV DAILY REPLACED BY [facility] Stop: 04/15/18 14:00 Last Admin: 04/14/18 09:35 Dose: 500 mls/hr eMAR Start Stop Document 04/14/18 09:35 ML (Rec: 04/14/18 09:36 ML [email or web address]) Intravenous Solution Start Date 04/14/18 Start Time 09:35 End Date 04/14/18 End time 10:45 Total Infusion Time 70 Ibuprofen (Motrin Tab) 600 mg PO BID REPLACED BY [facility] Last Admin: 04/14/18 17:02 Dose: 600 mg Re-Assess: MAR Pain/Vitals Document 04/14/18 18:02 ML (Rec: 04/14/18 18:08 ML [email or web address]) Pain Reassessment Is This A Pain ReAssessment? Yes Presence of Pain Presence of Pain No Insulin Human Regular (Humulin R Med) 0 units SC ACHS REPLACED BY [facility] PRN Reason: Protocol Last Admin: 04/14/18 23:12 Dose: Not Given Non-Admin Reason: Blood Sugar Parameter MAR Blood Glucose Document 04/14/18 23:12 OLIVD (Rec: 04/14/18 23:13 OLIVD [id number]) Blood Glucose Finger Stick Blood Glucose (70-120) 151 Lidocaine (Lidocaine 5%) 0 gm TOP DAILY REPLACED BY [facility] Last Admin: 04/14/18 09:36 Dose: Not Given Non-Admin Reason: Patient Refused Loperamide HCl (Imodium) 2 mg PO DAILY REPLACED BY [facility] Last Admin: 04/14/18 09:59 Dose: Non-Formulary Medication (Venlafaxine [Effexor 50 Mg Tab]) 100 mg PO BID REPLACED BY [facility] Last Admin: 04/14/18 17:53 Dose: Ondansetron HCl (Zofran Inj) 4 mg IVP Q6H PRN PRN Reason: Migraine headache Last Admin: 04/15/18 01:18 Dose: 4 mg IVP Administration Document 04/15/18 01:18 MV (Rec: 04/15/18 01:19 MV [id number]) Charges for Administration # of IVP Administrations 1 Oxycodone/Acetaminophen (Percocet 10/325 Mg Tab) 1 tab PO Q6H PRN PRN Reason: Pain, moderate (4-7) Last Admin: 04/14/18 18:02 Dose: 1 tab MAR Pain Assessment Document 04/14/18 18:02 ML (Rec: 04/14/18 18:02 ML [email or web address]) Pain Reassessment Is this a pain reassessment? No Presence of Pain Presence of Pain Yes Pantoprazole Sodium (Protonix Ec Tab) 40 mg PO 0600 REPLACED BY [facility] Last Admin: 04/15/18 05:48 Dose: 40 mg Discontinued Medications Albuterol/Ipratropium (Duoneb 3 Mg/0.5 Mg (3 Ml) Ud) 3 ml IH [id number] REPLACED BY [facility] Last Admin: 04/14/18 01:22 Dose: Not Given Non-Admin Reason: Patient Refused Diphenhydramine HCl (Benadryl) 25 mg PO ONCE ONE Stop: 04/13/18 11:25 Last Admin: 04/13/18 11:40 Dose: 25 mg Famotidine (Pepcid) 20 mg PO STAT STA Stop: 04/13/18 11:27 Last Admin: 04/13/18 11:40 Dose: 20 mg Loperamide HCl (Imodium) 2 mg PO ONCE STA Stop: 04/13/18 11:28 Last Admin: 04/13/18 11:40 Dose: 2 mg Lorazepam (Ativan) 2 mg IVP ONCE ONE PRN Reason: Protocol Stop: 04/11/18 18:06 Last Admin: 04/11/18 18:48 Dose: 2 mg IVP Administration Document 04/11/18 18:48 GMD (Rec: 04/11/18 18:48 GMD [id number]) Charges for Administration # of IVP Administrations 1 Nitrofurantoin Macrocrystals (Macrobid) 100 mg PO ONCE ONE PRN Reason: Protocol Stop: 04/11/18 18:51 Last Admin: 04/11/18 19:48 Dose: 100 mg Nitroglycerin (Nitro-Bid 2% Oint) 1 ea TOP STAT STA Stop: 04/11/18 18:05 Last Admin: 04/11/18 18:48 Dose: 1 ea Ondansetron HCl (Zofran Inj) 4 mg IVP ONCE ONE Stop: 04/14/18 12:43 Last Admin: 04/14/18 12:59 Dose: 4 mg IVP Administration Document 04/14/18 12:59 ML (Rec: 04/14/18 12:59 ML [email or web address]) Charges for Administration # of IVP Administrations 1 Disposition/Present on Arrival - Present on Arrival Any Indicators Present on Arrival: No History of DVT/PE: No History of Uncontrolled Diabetes: Yes Urinary Catheter: No History of Decub. Ulcer: No History Surgical Site Infection Following: None - Disposition Have Diagnosis and Disposition been Completed?: Yes Diagnosis: Chest pain with minimal risk for cardiac etiology, Multiple sclerosis exacerbation, Depression, UTI (urinary tract infection), Weakness, Leukopenia Disposition: HOSPITALIZED Disposition Time: 19:15 Patient Plan: Admission, Telemetry Patient Problems: Current Active Problems Problem Status Onset Chest pain with minimal risk for cardiac etiology Acute Multiple sclerosis exacerbation Acute Depression Acute UTI (urinary tract infection) Acute Weakness Acute Pancytopenia Acute Condition: STABLE
[2018-04-11 18:37] LABS: URINE BILIRUBIN NEGATIVE (NEGATIVE); URINE BLOOD NEGATIVE (NEGATIVE); URINE GLUCOSE (UA) NEGATIVE (NEGATIVE); URINE LEUKOCYTE ESTERASE MODERATE Leu/uL (NEGATIVE); URINE PROTEIN NEGATIVE mg/dL (<30 mg/dL); URINE UROBILINOGEN 0.2 E.U./dL (<1 E.U./dL)
[2018-04-11 18:39] LABS: URINE APPEARANCE SL CLOUDY (CLEAR); URINE COLOR YELLOW (YELLOW)
[2018-04-11 18:51] LABS: EOS % 0.5 % (1.5-5.0); GRAN # 0.46 (1.4-6.5); GRAN % 24.7 % (50.0-68.0); HEMOGLOBIN 9.9 g/dL (12.0-16.0); LYMPH # 1.3 (1.2-3.4); LYMPH % 68.3 % (22.0-35.0); MEAN CELL VOLUME 94.3 fl (80.0-105.0); MEAN CORPUSCULAR HEMOGLOBIN 29.8 pg (25.0-35.0); MEAN CORPUSCULAR HGB CONC 31.6 g/dl (31.0-37.0); MEAN PLATELET VOLUME 11.1 fl (7.0-11.0); MONO # 0.1 (0.1-0.6); MONO % 6.5 % (1.0-6.0); RBC 3.32 10^6/uL (3.5-6.1); RED CELL DISTRIBUTION WIDTH 13.8 % (11.5-14.5)
[2018-04-11 19:03] LABS: URINE BACTERIA LARGE (NEG); URINE WBC 20 - 25 /hpf (0-6)
[2018-04-11 19:05] LABS: INR 0.99 (0.93-1.08); PARTIAL THROMBOPLASTIN TIME 31.3 Seconds (25.1-36.5); PROTHROMBIN TIME 11.3 SECONDS (9.4-12.5)
[2018-04-11 19:06] LABS: ACETAMINOPHEN < 10.0 ug/ml (10.0-20.0); SALICYLATE 2 mg/dL (2.0-20.0)
[2018-04-11 19:08] LABS: ALBUMIN 3.4 g/dL (3.0-4.8); ALT/SGPT 36 U/L (7-56); AST/SGOT 55 U/L (14-36); BLOOD UREA NITROGEN 12 mg/dL (7-21); CALCIUM 8.3 mg/dL (8.4-10.5); GFR AFRICAN-AMERICAN > 60; GFR NON-AFRICAN AMERICAN > 60
[2018-04-11 19:10] LABS: WHITE BLOOD COUNT 1.9 10^3/ul (4.5-11.0)
[2018-04-11 19:18] LABS: BENZODIAZEPINES, UR NEGATIVE (NEGATIVE)
[2018-04-11 19:29] LABS: B-TYPE NATRIURETIC PEPTIDE 93.9 pg/mL (0-450); TROPONIN I < 0.01 ng/mL
[2018-04-11 19:34] LABS: BARBITURATES, UR POSITIVE (NEGATIVE); OPIATES, UR NEGATIVE (NEGATIVE); PHENCYCLIDINE, UR NEGATIVE (NEGATIVE)
[2018-04-11] MEDS ORDERED: Atropine-Diphenoxylate 0.025-2.5 mg Tab PO PRN (21:36)
[2018-04-11] MEDS ORDERED: Apap-Butalbital-Caffeine 325-50-40mg Tab PO PRN (21:36)
--- NOTE | 2018-04-11 22:07 | CP.PCM.HP ---
<Ascencion Jarquin - Last Filed: 04/11/18 22:12> History of Present Illness - History of Present Illness History of Present Illness: Ascencion Jarquin D.O. PGY 2, Internal Medicine Resident, History and Physical 58-year-old female with a past medical history multiple sclerosis, fibromyalgia , bradycardia s/p AICD placement, hypertension, obesity, diabetes, chronic anemia who presented to the [facility] emergency room with complaints of 2 days worth of substernal chest pain. Patient describes the pain as 10 out of 10, substernal, associated with left arm numbness, diaphoresis, shortness of breath , weakness, does state that she has associated left hand paresthesias/numbness although she does have a hard time discerning the symptoms given the fact that she has multiple sclerosis. Patient is originally from [place] and was considering moving appears of as how she has been here over the past month. However the patient has not been taking her medications for multiple sclerosis, Copaxone, for about a month. Patient states that she comes to [place] every now and again for visiting family. Otherwise no recent travel, sick contacts, or any other extraneous factors. 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 Past medical history: As above Past surgical history: AICD placement, right chest wall port placement, gastric bypass, small bowel resection Social history: Denies smoking, denies alcohol, denies illicits Family history: Noncontributory Medications: Reviewed Allergies: Levofloxacin Present on Admission - Present on Admission Any Indicators Present on Admission: No Review of Systems - Review of Systems All systems: reviewed and no additional remarkable complaints except - Cardiovascular Cardiovascular: Chest Pain - Gastrointestinal Gastrointestinal: Diarrhea - Musculoskeletal Musculoskeletal: Numbness Past Patient History - Infectious Disease Hx of Infectious Diseases: None - Past Social History Smoking Status: Never Smoked - CARDIAC Hx Hypertension: Yes - PULMONARY Hx Respiratory Disorders: No - NEUROLOGICAL Hx Neurological Disorder: Yes (MULTIPLE SCLEROSIS,FIBROMYALGIA) - HEENT Hx HEENT Problems: No - RENAL Hx Chronic Kidney Disease: No - ENDOCRINE/METABOLIC Hx Diabetes Mellitus Type 2: Yes - HEMATOLOGICAL/ONCOLOGICAL Hx Blood Disorders: No - INTEGUMENTARY Hx Dermatological Problems: No - MUSCULOSKELETAL/RHEUMATOLOGICAL Hx Back Pain: Yes Hx Falls: Yes - GASTROINTESTINAL Other/Comment: colitis - GENITOURINARY/GYNECOLOGICAL Hx Genitourinary Disorders: No - PSYCHIATRIC Hx Substance Use: No - SURGICAL HISTORY Hx Gastric Bypass Surgery: Yes Other/Comment: pacemaker - ANESTHESIA Hx Anesthesia: No Meds Allergies/Adverse Reactions: Allergies Allergy/AdvReac Type Severity Reaction Status Date / Time levofloxacin [From Levaquin] Allergy RASH Verified 10/04/17 14:45 iv dye Allergy RASH Uncoded 10/04/17 14:45 Physical Exam - Constitutional Appears: Non-toxic, No Acute Distress, Chronically Ill - Head Exam Head Exam: ATRAUMATIC, NORMOCEPHALIC - Eye Exam Eye Exam: EOMI, PERRL. absent: Scleral icterus - ENT Exam ENT Exam: Mucous Membranes Moist - Neck Exam Neck exam: Positive for: Normal Inspection. Negative for: Lymphadenopathy - Respiratory Exam Respiratory Exam: Clear to Auscultation Bilateral. absent: Rhonchi, Wheezes - Cardiovascular Exam Cardiovascular Exam: RRR, +S1, +S2. absent: Gallop, Rubs - GI/Abdominal Exam GI & Abdominal Exam: Normal Bowel Sounds, Soft. absent: Distended, Firm - Neurological Exam Neurological exam: Alert, CN II-XII Intact, Oriented x3 Additional comments: 4/5 L BI/TRI/DELT, otherwise all other areas 5/5, sensory deficit over right outer thigh and some numbness of left hand - Psychiatric Exam Psychiatric exam: Normal Affect, Normal Mood - Skin Skin Exam: Dry, Intact, Warm Results - Vital Signs Recent Vital Signs: Last Vital Signs Temp 98.5 F 04/11/18 17:57 Pulse 68 04/11/18 21:17 Resp 18 04/11/18 21:17 BP 118/82 04/11/18 21:17 Pulse Ox 97 04/11/18 21:17 - Labs Result Diagrams: 04/11/18 18:39 04/11/18 18:39 Labs: Laboratory Results - last 24 hr 04/11/18 21:55 POC Glucose (mg/dL) 77 Assessment & Plan - Assessment and Plan (Free Text) Assessment: 58-year-old female with a past medical history multiple sclerosis, fibromyalgia , bradycardia s/p AICD placement, hypertension, obesity, diabetes, chronic anemia who presented to the [facility] emergency room with complaints of 2 days worth of substernal chest pain. Plan: 1. Chest pain rule out ACS Admit to telemetry First troponin is negative, will trend another 2 Does have a history of bradycardia and has an AICD Cardiology consulted We will order a TSH Vitals every 4 Had about 30 Repeat EKG in the a.m. 2. Neutropenia Etiology unclear Could be due to the Copaxone that she was previously taking, patient has admits that she follows with a hand cloth cutter for anemia and may have had low white blood cells as well Urine shows possible urinary tract infection, will repeat to get a clean-catch but at this time given her neutropenia we will start her on ceftriaxone 2 g daily We will also test CRP, hepatitis panel, HIV, TSH, screen with reflex and obtain a peripheral smear to workup possible causes Neutropenic precautions Low microbial food Chest x-ray reviewed, possible infiltrate versus consolidation of the left lower lobe region, as mentioned will continue with ceftriaxone and follow-up radiologist official read 3. Anemia, chronic Given her symptomatology, we will order a B12 as well as a folate Repeat CBC in the morning No active bleeding noted Hemodynamically stable Hematology consulted 4. History of multiple sclerosis and fibromyalgia Noncompliant with medications Patient previously on Copaxone Difficult to ascertain whether some of her symptoms may be due to multiple sclerosis flare versus coronary disease We will start on Solu-Medrol 60 every 12 and evaluate for symptom changes Neurology consulted Given that she has a history of depression as well, will consult psychiatry Continue home medications Flexeril, Klonopin, venlafaxine, oxycodone PT ordered 5. Chronic diarrhea Continue home Imodium DVT/GI prophylaxis: SCDs, Protonix Patient was seen and examined and case was discussed at length with attending physician. - Date & Time Date: 04/11/18 Time: 21:45 <Karoline HSU,Toy - Last Filed: 04/12/18 02:35> Results - Vital Signs Recent Vital Signs: Last Vital Signs Temp 98.0 F 04/12/18 00:01 Pulse 67 04/12/18 02:00 Resp 19 04/12/18 00:01 BP 143/78 04/12/18 00:01 Pulse Ox 99 04/12/18 00:01 - Labs Result Diagrams: 04/11/18 18:39 04/11/18 18:39 Labs: Laboratory Results - last 24 hr 04/11/18 04/11/18 04/11/18 21:55 23:02 23:50 POC Glucose (mg/dL) 77 103 Troponin I < 0.01 Attending/Attestation - Attestation I have personally seen and examined this patient.: Yes I have fully participated in the care of the patient.: Yes I have reviewed all pertinent clinical information: Yes Notes (Text): -I agree with the above H&P completed by the resident physician with the following additions and/or changes: -The patient is a 58 year old woman with a history of multiple sclerosis, fibromyalgia, depression, bradycardia (s/p AICD), HTN, obesity, IDDM and chronic anemia, who presents with chest pain (with some typical features) and neutropenia of unclear etiology. The differential diagnosis for her neutropenia is broad and includes: Infection vs Medications vs Nutritional Deficiencies (i.e - B12 or folate) vs Primary Hematological Disease vs Malignancy. We will check serial trops and EKGs, HgA1c, lipids and a TSH. Also, daily ASA and a cardiology consult ordered. In addition, for work-up of her neutropenia, the following labs have been ordered: peripheral blood smear, , B12, folate, HIV , Hepatitis panel, ESR and CRP. Empiric IV Ceftriaxone for treatment of her UTI. Neutropenic precautions and diet as well as a hematology consult have all been requested.
[2018-04-11] MEDS: Insulin Reg-MEDIUM-Coverage SC SCH (23:05)
[2018-04-11] MEDS: Oxycodone/Acetaminophen 10/325 mg Tab PO PRN (23:46)
--- NOTE | 2018-04-12 00:46 | CP.PCM.PN ---
Subjective - Date & Time of Evaluation Date of Evaluation: 04/12/18 Time of Evaluation: 00:46 - Subjective Subjective: Seen by medical pathologist and . Objective - Vital Signs/Intake and Output Vital Signs (last 24 hours): Temp Pulse Resp BP Pulse Ox 98.5 F 68 18 118/82 97 04/11/18 17:57 04/11/18 21:17 04/11/18 21:17 04/11/18 21:17 04/11/18 21:17 - Medications Medications: Current Medications Acetaminophen (Tylenol 325mg Tab) 650 mg PO Q6H PRN PRN Reason: Pain, moderate (4-7) Acetaminophen/Butalbital/Caffeine (Fioricet) 1 tab PO Q4H PRN PRN Reason: Pain, moderate (4-7) Amlodipine Besylate (Norvasc) 10 mg PO DAILY [facility] Aspirin (Ecotrin) 81 mg PO DAILY [facility] Clonazepam (Klonopin) 1 mg PO Q8 PRN; Protocol PRN Reason: Anxiety Cyclobenzaprine HCl (Flexeril) 5 mg PO TID PRN PRN Reason: Pain, moderate (4-7) Diphenoxylate HCl/Atropine (Lomotil 0.025-2.5 Mg Tablet) 1 tab PO DAILY PRN PRN Reason: Diarrhea Hydrochlorothiazide (Hydrodiuril) 25 mg PO DAILY [facility] Ceftriaxone Sodium (Rocephin 2 Gm Ivpb) 2 gm in 100 mls @ 100 mls/hr IVPB DAILY [facility] PRN Reason: Protocol Ibuprofen (Motrin Tab) 600 mg PO BID [facility] Insulin Human Regular (Humulin R Med) 0 units SC ACHS [facility] PRN Reason: Protocol Last Admin: 04/11/18 23:05 Dose: Not Given Lidocaine (Lidocaine 5%) 0 gm TOP DAILY [facility] Loperamide HCl (Imodium) 2 mg PO QID PRN PRN Reason: Diarrhea Non-Formulary Medication (Venlafaxine [Effexor 50 Mg Tab]) 100 mg PO BID [facility] Oxycodone/Acetaminophen (Percocet 10/325 Mg Tab) 1 tab PO Q6H PRN PRN Reason: Pain, moderate (4-7) Last Admin: 04/11/18 23:46 Dose: 1 tab Pantoprazole Sodium (Protonix Ec Tab) 40 mg PO 0600 [facility] - Labs Labs: PT 11.3 SECONDS (9.4-12.5) 04/11/18 18:39 INR 0.99 (0.93-1.08) 04/11/18 18:39 APTT 31.3 Seconds (25.1-36.5) 04/11/18 18:39
[2018-04-12] MEDS: Pantoprazole 40 mg EC Tab PO SCH (06:16)
[2018-04-12 06:54] LABS: EOS % 1.2 % (1.5-5.0); GRAN # 0.51 (1.4-6.5); GRAN % 30.4 % (50.0-68.0); HEMOGLOBIN 9.2 g/dL (12.0-16.0); LYMPH % 61.9 % (22.0-35.0); MEAN CELL VOLUME 94.2 fl (80.0-105.0); MEAN CORPUSCULAR HEMOGLOBIN 29.6 pg (25.0-35.0); MEAN CORPUSCULAR HGB CONC 31.4 g/dl (31.0-37.0); MONO # 0.1 (0.1-0.6); MONO % 6.5 % (1.0-6.0); RBC 3.11 10^6/uL (3.5-6.1); RED CELL DISTRIBUTION WIDTH 13.8 % (11.5-14.5)
[2018-04-12 06:57] LABS: ALB/GLOB RATIO 0.9 (1.1-1.8); ALBUMIN 2.9 g/dL (3.0-4.8); ALT/SGPT 32 U/L (7-56); AST/SGOT 39 U/L (14-36); BLOOD UREA NITROGEN 11 mg/dL (7-21); CALCIUM 8.1 mg/dL (8.4-10.5); GFR AFRICAN-AMERICAN > 60; GFR NON-AFRICAN AMERICAN > 60
[2018-04-12 06:58] LABS: WHITE BLOOD COUNT 1.7 10^3/ul (4.5-11.0)
[2018-04-12 07:05] LABS: TROPONIN I < 0.01 ng/mL
--- NOTE | 2018-04-12 07:21 | RAD ---
HISTORY: Chest pain COMPARISON: 03/05/2018 TECHNIQUE: Chest PA and lateral FINDINGS: LUNGS: No active pulmonary disease. PLEURA: No significant pleural effusion identified. No pneumothorax apparent. CARDIOVASCULAR: No radiographic findings to suggest acute or significant cardiovascular disease. Position/ configuration of pacemaker device: Satisfactory. Venous access catheter in stable, satisfactory position. OSSEOUS STRUCTURES: No significant abnormalities. VISUALIZED UPPER ABDOMEN: Normal. OTHER FINDINGS: None. IMPRESSION: No active disease. No significant interval change compared to the prior examination(s).
[2018-04-12] MEDS: Insulin Reg-MEDIUM-Coverage SC SCH ×4 (07:45→22:21)
[2018-04-12] MEDS: Oxycodone/Acetaminophen 10/325 mg Tab PO PRN ×3 (08:02→21:28)
[2018-04-12 09:38] LABS: IRON 64 ug/dL (45-180)
[2018-04-12 09:47] LABS: % IRON SATURATION 31 % (20-55); TOTAL IRON BINDING CAPACITY 203 ug/dL (265-497)
--- NOTE | 2018-04-12 10:06 | CP.PCM.CON ---
History of Present Illness - History of Present Illness History of Present Illness: Neurology Consultation Note: Mrs. Diallo is a 58-year-old left-handed woman with a past medical history multiple sclerosis (stopped copaxone one month ago), fibromyalgia, bradycardia s /p AICD placement, hypertension, obesity, diabetes, chronic anemia who presented to the [facility] ED complaining of severe chest pain and left arm numbness/ weakness and paresthesias. MRI of the brain is difficult to obtain due to her AICD. The patient has had several MS flares in the past and currently has the numbness/weakness of the left hand and right leg numbness. Review of Systems - Review of Systems All systems: reviewed and no additional remarkable complaints except Past Patient History - Infectious Disease Hx of Infectious Diseases: None - Past Social History Smoking Status: Never Smoked - CARDIAC Hx Cardiac Disorders: Yes Hx Cardia Arrhythmia: Yes (BRADYCARDIA) Hx Hypercholesterolemia: Yes Hx Hypertension: Yes Hx Pacemaker: Yes - PULMONARY Hx Respiratory Disorders: No - NEUROLOGICAL Hx Neurological Disorder: Yes (MULTIPLE SCLEROSIS) Hx Migraine: Yes - HEENT Hx HEENT Problems: No - RENAL Hx Chronic Kidney Disease: No Hx Kidney Stones: Yes - ENDOCRINE/METABOLIC Hx Endocrine Disorders: Yes Hx Diabetes Mellitus Type 2: Yes - HEMATOLOGICAL/ONCOLOGICAL Hx Blood Disorders: Yes Hx Anemia: Yes - INTEGUMENTARY Hx Dermatological Problems: No - MUSCULOSKELETAL/RHEUMATOLOGICAL Hx Musculoskeletal Disorders: Yes Hx Arthritis: Yes Hx Back Pain: Yes Hx Falls: Yes Hx Fractures: Yes (L RIB) Hx Unsteady Gait: Yes - GASTROINTESTINAL Hx Gastrointestinal Disorders: Yes (COLITIS) Hx Gastroesophageal Reflux: Yes - GENITOURINARY/GYNECOLOGICAL Hx Genitourinary Disorders: No Hx Urinary Tract Infection: Yes - PSYCHIATRIC Hx Psychophysiologic Disorder: Yes Hx Anxiety: Yes Hx Bipolar Disorder: Yes Hx Depression: Yes Hx Substance Use: No - SURGICAL HISTORY Hx Surgeries: Yes (TONSILLECTOMY) Hx Gastric Bypass Surgery: Yes - ANESTHESIA Hx Anesthesia: No Meds Allergies/Adverse Reactions: Allergies Allergy/AdvReac Type Severity Reaction Status Date / Time levofloxacin [From Levaquin] Allergy RASH Verified 10/04/17 14:45 iv dye Allergy RASH Uncoded 10/04/17 14:45 - Medications Medications: Current Medications Acetaminophen (Tylenol 325mg Tab) 650 mg PO Q6H PRN PRN Reason: Pain, moderate (4-7) Acetaminophen/Butalbital/Caffeine (Fioricet) 1 tab PO Q4H PRN PRN Reason: Pain, moderate (4-7) Albuterol/Ipratropium (Duoneb 3 Mg/0.5 Mg (3 Ml) Ud) 3 ml IH [id number] [facility] Amlodipine Besylate (Norvasc) 10 mg PO DAILY [facility] Aspirin (Ecotrin) 81 mg PO DAILY [facility] Clonazepam (Klonopin) 1 mg PO Q8 PRN; Protocol PRN Reason: Anxiety Cyclobenzaprine HCl (Flexeril) 5 mg PO TID PRN PRN Reason: Pain, moderate (4-7) Diphenoxylate HCl/Atropine (Lomotil 0.025-2.5 Mg Tablet) 1 tab PO DAILY PRN PRN Reason: Diarrhea Hydrochlorothiazide (Hydrodiuril) 25 mg PO DAILY [facility] Ceftriaxone Sodium (Rocephin 2 Gm Ivpb) 2 gm in 100 mls @ 100 mls/hr IVPB DAILY [facility] PRN Reason: Protocol Ibuprofen (Motrin Tab) 600 mg PO BID [facility] Insulin Human Regular (Humulin R Med) 0 units SC ACHS [facility] PRN Reason: Protocol Last Admin: 04/12/18 07:45 Dose: Not Given Lidocaine (Lidocaine 5%) 0 gm TOP DAILY [facility] Loperamide HCl (Imodium) 2 mg PO QID PRN PRN Reason: Diarrhea Non-Formulary Medication (Venlafaxine [Effexor 50 Mg Tab]) 100 mg PO BID [facility] Oxycodone/Acetaminophen (Percocet 10/325 Mg Tab) 1 tab PO Q6H PRN PRN Reason: Pain, moderate (4-7) Last Admin: 04/12/18 08:02 Dose: 1 tab Pantoprazole Sodium (Protonix Ec Tab) 40 mg PO 0600 [facility] Last Admin: 04/12/18 06:16 Dose: 40 mg Physical Exam - Neurological Exam Neurological exam: Abnormal Gait, Alert, CN II-XII Intact, Oriented x3, Reflexes Normal Additional comments: Brisk reflexes, decreased fine motor movements on the left. Decreased sensation of the left arm as compared with the right. Results - Vital Signs Recent Vital Signs: Last Vital Signs Temp 98.3 F 04/12/18 06:00 Pulse 66 04/12/18 06:00 Resp 20 04/12/18 06:00 BP 111/67 04/12/18 06:00 Pulse Ox 96 04/12/18 06:00 - Labs Result Diagrams: 04/12/18 06:15 04/12/18 06:15 Labs: Laboratory Results - last 24 hr 04/11/18 04/11/18 04/11/18 21:55 23:02 23:50 WBC RBC Hgb Hct MCV MCH MCHC RDW Plt Count MPV Gran % Lymph % (Auto) [place] % (Auto) Eos % (Auto) Baso % (Auto) Gran # Lymph # (Auto) [place] # (Auto) Eos # (Auto) Baso # (Auto) Sodium Potassium Chloride Carbon Dioxide Anion Gap BUN Creatinine Est GFR ( Amer) Est GFR (Non-Af Amer) POC Glucose (mg/dL) 77 103 Random Glucose Calcium Iron TIBC % Saturation Total Bilirubin AST ALT Alkaline Phosphatase Troponin I < 0.01 Total Protein Albumin Globulin Albumin/Globulin Ratio TSH 3rd Generation 04/12/18 04/12/18 04/12/18 06:15 06:15 06:15 WBC 1.7 L* RBC 3.11 L Hgb 9.2 L Hct 29.3 L MCV 94.2 MCH 29.6 MCHC 31.4 RDW 13.8 Plt Count 121 MPV 11.0 Gran % 30.4 L Lymph % (Auto) 61.9 H [place] % (Auto) 6.5 H Eos % (Auto) 1.2 L Baso % (Auto) 0.0 Gran # 0.51 L Lymph # (Auto) 1.0 L [place] # (Auto) 0.1 Eos # (Auto) 0.0 Baso # (Auto) 0.00 Sodium 140 Potassium 4.2 Chloride 105 Carbon Dioxide 28 Anion Gap 11 BUN 11 Creatinine 0.8 Est GFR ( Amer) > 60 Est GFR (Non-Af Amer) > 60 POC Glucose (mg/dL) Random Glucose 86 Calcium 8.1 L Iron TIBC % Saturation Total Bilirubin 0.1 L AST 39 H D ALT 32 Alkaline Phosphatase 101 Troponin I < 0.01 Total Protein 6.0 Albumin 2.9 L Globulin 3.1 Albumin/Globulin Ratio 0.9 L TSH 3rd Generation 2.58 04/12/18 04/12/18 04/12/18 07:35 08:45 09:00 WBC RBC Hgb Hct MCV MCH MCHC RDW Plt Count MPV Gran % Lymph % (Auto) [place] % (Auto) Eos % (Auto) Baso % (Auto) Gran # Lymph # (Auto) [place] # (Auto) Eos # (Auto) Baso # (Auto) Sodium Potassium Chloride Carbon Dioxide Anion Gap BUN Creatinine Est GFR ( Amer) Est GFR (Non-Af Amer) POC Glucose (mg/dL) 70 76 Random Glucose Calcium Iron 64 TIBC 203 L % Saturation 31 Total Bilirubin AST ALT Alkaline Phosphatase Troponin I Total Protein Albumin Globulin Albumin/Globulin Ratio TSH 3rd Generation Assessment & Plan (1) Multiple sclerosis exacerbation Assessment and Plan: I recommend starting the patient on IV solumedrol 1000 mg once a day for 3 days (3 total treatments). This should be discussed with ID and hematology since the patient is high risk for infection and she is neutropenic. She will need to be closely monitored. Thank you. Status: Acute Priority: High
[2018-04-12] MEDS: cefTRIAXone 2 GM IN NS 2 GM/100 ML BAG IVPB SCH (10:16)
[2018-04-12] MEDS: Lidocaine 5% Oint(35 gm) TOP SCH (10:19)
--- NOTE | 2018-04-12 11:09 | CT ---
PROCEDURE: CT HEAD WITHOUT CONTRAST. HISTORY: left arm numbness/weakness COMPARISON: 10/05/2017 TECHNIQUE: Axial computed tomography images were obtained through the head/brain without intravenous contrast. Coronal and sagittal reconstructed images. Radiation dose: Total exam DLP = 768.95 mGy-cm. This CT exam was performed using one or more of the following dose reduction techniques: Automated exposure control, adjustment of the mA and/or kV according to patient size, and/or use of iterative reconstruction technique. FINDINGS: HEMORRHAGE: No intracranial hemorrhage. BRAIN: No mass effect or edema. Cortical atrophy, periventricular small vessel disease. Multiple lacune or infarcts again identified bilaterally. VENTRICLES: Unremarkable. No hydrocephalus. CALVARIUM: Unremarkable. PARANASAL SINUSES: Unremarkable as visualized. No significant inflammatory changes. MASTOID AIR CELLS: Unremarkable as visualized. No inflammatory changes. OTHER FINDINGS: None. IMPRESSION: No acute intracranial abnormalities. No significant findings to account for the clinical presentation. No significant interval change compared to the prior examination(s).
[2018-04-12 12:15] LABS: URINE BILIRUBIN NEGATIVE (NEGATIVE); URINE BLOOD NEGATIVE (NEGATIVE); URINE GLUCOSE (UA) NEGATIVE (NEGATIVE); URINE LEUKOCYTE ESTERASE TRACE Leu/uL (NEGATIVE); URINE PROTEIN NEGATIVE mg/dL (<30 mg/dL); URINE UROBILINOGEN 0.2 E.U./dL (<1 E.U./dL)
[2018-04-12 12:16] LABS: URINE APPEARANCE SL CLOUDY (CLEAR); URINE COLOR LIGHT YELLOW (YELLOW)
--- NOTE | 2018-04-12 12:24 | CP.PCM.CON ---
History of Present Illness - History of Present Illness History of Present Illness: 58 yo woman who is currently visiting from [place], admitted with chest pain and numbness of arm, currently being worked up fro neuro and cardio standpoint. She was found to have pancytopenia, asymptomatic without fever, SOb. She has an extensive PMHx of multiple sclerosis, D.M, HTN, gastric bypass surgery, AICD placement. Past Patient History - Infectious Disease Hx of Infectious Diseases: None - Past Social History Smoking Status: Never Smoked - CARDIAC Hx Cardiac Disorders: Yes Hx Cardia Arrhythmia: Yes (BRADYCARDIA) Hx Hypercholesterolemia: Yes Hx Hypertension: Yes Hx Pacemaker: Yes - PULMONARY Hx Respiratory Disorders: No - NEUROLOGICAL Hx Neurological Disorder: Yes (MULTIPLE SCLEROSIS) Hx Migraine: Yes - HEENT Hx HEENT Problems: No - RENAL Hx Chronic Kidney Disease: No Hx Kidney Stones: Yes - ENDOCRINE/METABOLIC Hx Endocrine Disorders: Yes Hx Diabetes Mellitus Type 2: Yes - HEMATOLOGICAL/ONCOLOGICAL Hx Blood Disorders: Yes Hx Anemia: Yes - INTEGUMENTARY Hx Dermatological Problems: No - MUSCULOSKELETAL/RHEUMATOLOGICAL Hx Musculoskeletal Disorders: Yes Hx Arthritis: Yes Hx Back Pain: Yes Hx Falls: Yes Hx Fractures: Yes (L RIB) Hx Unsteady Gait: Yes - GASTROINTESTINAL Hx Gastrointestinal Disorders: Yes (COLITIS) Hx Gastroesophageal Reflux: Yes - GENITOURINARY/GYNECOLOGICAL Hx Genitourinary Disorders: No Hx Urinary Tract Infection: Yes - PSYCHIATRIC Hx Psychophysiologic Disorder: Yes Hx Anxiety: Yes Hx Bipolar Disorder: Yes Hx Depression: Yes Hx Substance Use: No - SURGICAL HISTORY Hx Surgeries: Yes (TONSILLECTOMY) Hx Gastric Bypass Surgery: Yes - ANESTHESIA Hx Anesthesia: No Meds Allergies/Adverse Reactions: Allergies Allergy/AdvReac Type Severity Reaction Status Date / Time levofloxacin [From Levaquin] Allergy RASH Verified 10/04/17 14:45 iv dye Allergy RASH Uncoded 10/04/17 14:45 - Medications Medications: Current Medications Acetaminophen (Tylenol 325mg Tab) 650 mg PO Q6H PRN PRN Reason: Pain, moderate (4-7) Acetaminophen/Butalbital/Caffeine (Fioricet) 1 tab PO Q4H PRN PRN Reason: Pain, moderate (4-7) Albuterol/Ipratropium (Duoneb 3 Mg/0.5 Mg (3 Ml) Ud) 3 ml IH [id number] [facility] Amlodipine Besylate (Norvasc) 10 mg PO DAILY [facility] Last Admin: 04/12/18 10:16 Dose: 10 mg Aspirin (Ecotrin) 81 mg PO DAILY [facility] Last Admin: 04/12/18 10:16 Dose: 81 mg Clonazepam (Klonopin) 1 mg PO Q8 PRN; Protocol PRN Reason: Anxiety Last Admin: 04/12/18 12:18 Dose: 1 mg Cyclobenzaprine HCl (Flexeril) 5 mg PO TID PRN PRN Reason: Pain, moderate (4-7) Diphenoxylate HCl/Atropine (Lomotil 0.025-2.5 Mg Tablet) 1 tab PO DAILY PRN PRN Reason: Diarrhea Folic Acid (Folic Acid) 1 mg PO DAILY [facility] Hydrochlorothiazide (Hydrodiuril) 25 mg PO DAILY [facility] Last Admin: 04/12/18 10:16 Dose: 25 mg Ceftriaxone Sodium (Rocephin 2 Gm Ivpb) 2 gm in 100 mls @ 100 mls/hr IVPB DAILY [facility] PRN Reason: Protocol Last Admin: 04/12/18 10:16 Dose: 100 mls/hr Ibuprofen (Motrin Tab) 600 mg PO BID [facility] Last Admin: 04/12/18 10:16 Dose: 600 mg Insulin Human Regular (Humulin R Med) 0 units SC ACHS [facility] PRN Reason: Protocol Last Admin: 04/12/18 12:20 Dose: Not Given Lidocaine (Lidocaine 5%) 0 gm TOP DAILY [facility] Last Admin: 04/12/18 10:19 Dose: 1 applic Loperamide HCl (Imodium) 2 mg PO QID PRN PRN Reason: Diarrhea Non-Formulary Medication (Venlafaxine [Effexor 50 Mg Tab]) 100 mg PO BID [facility] Oxycodone/Acetaminophen (Percocet 10/325 Mg Tab) 1 tab PO Q6H PRN PRN Reason: Pain, moderate (4-7) Last Admin: 04/12/18 08:02 Dose: 1 tab Pantoprazole Sodium (Protonix Ec Tab) 40 mg PO 0600 [facility] Last Admin: 04/12/18 06:16 Dose: 40 mg Results - Vital Signs Recent Vital Signs: Last Vital Signs Temp 98.7 F 04/12/18 12:00 Pulse 80 04/12/18 12:00 Resp 19 04/12/18 12:00 BP 132/92 H 04/12/18 12:00 Pulse Ox 96 04/12/18 06:00 - Labs Result Diagrams: 04/12/18 06:15 04/12/18 06:15 Labs: Laboratory Results - last 24 hr 04/11/18 04/11/18 04/11/18 21:55 23:02 23:50 WBC RBC Hgb Hct MCV MCH MCHC RDW Plt Count MPV Gran % Lymph % (Auto) [place] % (Auto) Eos % (Auto) Baso % (Auto) Gran # Lymph # (Auto) [place] # (Auto) Eos # (Auto) Baso # (Auto) Sodium Potassium Chloride Carbon Dioxide Anion Gap BUN Creatinine Est GFR ( Amer) Est GFR (Non-Af Amer) POC Glucose (mg/dL) 77 103 Random Glucose Calcium Iron TIBC % Saturation Total Bilirubin AST ALT Alkaline Phosphatase Troponin I < 0.01 C-React Prot High Sens Total Protein Albumin Globulin Albumin/Globulin Ratio TSH 3rd Generation Urine Color Urine Appearance Urine pH Ur Specific [place] Urine Protein Urine Glucose (UA) Urine Ketones Urine Blood Urine Nitrate Urine Bilirubin Urine Urobilinogen Ur Leukocyte Esterase 04/12/18 04/12/18 04/12/18 06:15 06:15 06:15 WBC 1.7 L* RBC 3.11 L Hgb 9.2 L Hct 29.3 L MCV 94.2 MCH 29.6 MCHC 31.4 RDW 13.8 Plt Count 121 MPV 11.0 Gran % 30.4 L Lymph % (Auto) 61.9 H [place] % (Auto) 6.5 H Eos % (Auto) 1.2 L Baso % (Auto) 0.0 Gran # 0.51 L Lymph # (Auto) 1.0 L [place] # (Auto) 0.1 Eos # (Auto) 0.0 Baso # (Auto) 0.00 Sodium 140 Potassium 4.2 Chloride 105 Carbon Dioxide 28 Anion Gap 11 BUN 11 Creatinine 0.8 Est GFR ( Amer) > 60 Est GFR (Non-Af Amer) > 60 POC Glucose (mg/dL) Random Glucose 86 Calcium 8.1 L Iron TIBC % Saturation Total Bilirubin 0.1 L AST 39 H D ALT 32 Alkaline Phosphatase 101 Troponin I < 0.01 C-React Prot High Sens 5.10 H Total Protein 6.0 Albumin 2.9 L Globulin 3.1 Albumin/Globulin Ratio 0.9 L TSH 3rd Generation 2.58 Urine Color Urine Appearance Urine pH Ur Specific [place] Urine Protein Urine Glucose (UA) Urine Ketones Urine Blood Urine Nitrate Urine Bilirubin Urine Urobilinogen Ur Leukocyte Esterase 04/12/18 04/12/18 04/12/18 07:35 08:45 09:00 WBC RBC Hgb Hct MCV MCH MCHC RDW Plt Count MPV Gran % Lymph % (Auto) [place] % (Auto) Eos % (Auto) Baso % (Auto) Gran # Lymph # (Auto) [place] # (Auto) Eos # (Auto) Baso # (Auto) Sodium Potassium Chloride Carbon Dioxide Anion Gap BUN Creatinine Est GFR ( Amer) Est GFR (Non-Af Amer) POC Glucose (mg/dL) 70 76 Random Glucose Calcium Iron 64 TIBC 203 L % Saturation 31 Total Bilirubin AST ALT Alkaline Phosphatase Troponin I C-React Prot High Sens Total Protein Albumin Globulin Albumin/Globulin Ratio TSH 3rd Generation Urine Color Urine Appearance Urine pH Ur Specific [place] Urine Protein Urine Glucose (UA) Urine Ketones Urine Blood Urine Nitrate Urine Bilirubin Urine Urobilinogen Ur Leukocyte Esterase 04/12/18 04/12/18 11:36 11:45 WBC RBC Hgb Hct MCV MCH MCHC RDW Plt Count MPV Gran % Lymph % (Auto) [place] % (Auto) Eos % (Auto) Baso % (Auto) Gran # Lymph # (Auto) [place] # (Auto) Eos # (Auto) Baso # (Auto) Sodium Potassium Chloride Carbon Dioxide Anion Gap BUN Creatinine Est GFR ( Amer) Est GFR (Non-Af Amer) POC Glucose (mg/dL) 69 Random Glucose Calcium Iron TIBC % Saturation Total Bilirubin AST ALT Alkaline Phosphatase Troponin I C-React Prot High Sens Total Protein Albumin Globulin Albumin/Globulin Ratio TSH 3rd Generation Urine Color Light yellow Urine Appearance Sl cloudy Urine pH 8.0 Ur Specific [place] 1.015 Urine Protein Negative Urine Glucose (UA) Negative Urine Ketones Negative Urine Blood Negative Urine Nitrate Positive H Urine Bilirubin Negative Urine Urobilinogen 0.2 Ur Leukocyte Esterase Trace H Assessment & Plan (1) Pancytopenia Assessment and Plan: 58 yo woman with multiple sclerosis, neutropenia and anemia, relatively asymptomatic, without any fever, labs not consistent with iron deficiency, noirmal LDH, no evidence of any abnormal WBCs in periphery, as per patient she has had low WBC counts before and was seen by an oncologist in [place], did not have a bone marrow biopsy and did not require any treatment. Will give one dose of Granix, just in case of infectious diarrhea, add po folic acid. get ultrasound of the abdomen to evaluate spleen size and check isael and hepatitis profiles Status: Acute
[2018-04-12 12:27] LABS: URINE EPITHELIAL CELLS 0 - 2 /hpf (0-5); URINE RBC NEGATIVE /hpf (0-2)
[2018-04-12 12:28] LABS: URINE BACTERIA MANY (NEG)
[2018-04-12 12:42] LABS: HEPATITIS B SURFACE AG Negative (NEGATIVE)
[2018-04-12 12:48] LABS: HEPATITIS A IGM NEGATIVE (NEGATIVE); HEPATITIS B CORE AB NEGATIVE (NEGATIVE)
--- NOTE | 2018-04-12 12:48 | CARD ---
APPROVED REPORT EKG Measurement Heart [id number] <Conclusion> Sinus rhythm with premature atrial complexes Low voltage QRS Nonspecific T wave abnormality Prolonged QT Abnormal ECG
[2018-04-12 13:00] LABS: HEPATITIS C ANTIBODY NEGATIVE (NEGATIVE)
--- NOTE | 2018-04-12 13:04 | CARD ---
APPROVED REPORT EKG Measurement Heart [id number] <Conclusion> Sinus rhythm with marked sinus arrhythmia Low voltage QRS Nonspecific T wave abnormality Prolonged QT Abnormal ECG
[2018-04-12] MEDS: Albuterol-Ipratrop 3 mg / 0.5 (3 ml) UD IH SCH ×2 (13:13→19:24)
[2018-04-12 13:19] LABS: FOLATE > 20.0 ng/mL
--- NOTE | 2018-04-12 15:18 | CON ---
HISTORY OF PRESENT ILLNESS: The patient is a 58-year-old female with a psychiatric history of depression and anxiety as well as extensive medical history including multiple sclerosis (please refer to medical note for further details and history and ), who is being worked up on the medical floor after presenting with chest pain, upper extremity numbness and weakness. Psychiatrist consulted this patient during her presentation in the ER. I reviewed recent notes and met with patient at bedside. She is cooperative, alert, and well oriented to month, year, location, and circumstances. Patient indicates that she has been depressed and she has a lifelong history of depression with numerous medication trials; however, has felt recently improved in the last couple of years after she started Effexor. Recently, she has been stressed and overwhelmed because of her medical issues and recent move from [place] to [place] a month ago to be with her 39-year-old daughter, Danita. Patient indicates that she is not happy with the move and then she felt that it would be a little bit more different, a little bit more harmonious; however, it has been stressful because of her daughter is overwhelmed with her 5 children and her daughter . Patient also indicates feeling overwhelmed with her medical issues as well. However, she is hopeful, she has never been hopeless. She is not suicidal and she indicated that she is not feeling worse. She usually is as this is the stress that she can deal with. She reported that she is taking Effexor twice daily and feels that this medication has been very beneficial for her depression after trying many other medications that failed. Indicated that her cousin is the one that has prescribed to her. The patient's anxiety is up and down, but generally under control right now and I discussed different treatment options and patient defers on any changes to her doses of Effexor, which she indicated as 100 mg twice daily. She is coherent, consistent with her responses, and denies any perceptual disturbance or history of perceptual disturbance. Generally has been in control on the unit and is compliant with staff request. Her affect is congruent with her reported mood and shows some reactivity and range during my questioning. PSYCHIATRIC HISTORY: Patient indicates two prior psychiatric hospitalizations only in [place]. Last time was a year ago, in which she was very depressed. Patient reports that she has been prescribed Effexor 100 mg twice a day by her cousin who also benefits from this medication apparently. Patient denies any suicide attempts as noted. She is not on any current psychiatric outpatient treatment. Patient also reports long history of medication trial and would like to continue with Effexor. SOCIAL HISTORY: Patient is born and raised in the [place]. She has been for the last 3 years after a 35-year marriage. Her of complications from diabetes. She has 3 adult daughters and she is residing with her 39-year-old daughter, Danita and her 5 kids. Patient had been living in [place] up until a month ago and decided to move to [place] with Danita. Patient at this time wants to return back to [place] where she feels much more comfortable. She denies any drug or alcohol issues in the past. She graduated high school. She is not employed and she on disability. Vital signs and labs were reviewed by this provider. RELEVANT PSYCHIATRIC MEDICATIONS: Klonopin 1 mg p.o. every 8 hours p.r.n., in which the patient received 1 dose today at noon; however, it does not appear that Effexor has been restarted per patient. IMPRESSION: Major depressive disorder, mild to moderate at this time, without any psychiatric symptoms; constipation of adjustment disorder with anxiety and depression as patient has recently moved to [place] from [place] about a month ago, contributing to her mood symptoms. Patient also has an anxiety disorder. She is not psychotic. RECOMMENDATIONS: I discussed the options about increasing her Effexor dose right now; however, patient defers, feels that this current dose is effective and does not believe that she needs any alterations to her regimen at this time. Patient is agreeable to follow up with Psychiatry to ensure that she remains stable on the medical floor; however, she adamantly denies any need for psychiatric admission and again, she defers on any medications at this time. Psychiatry will follow up with patient tomorrow, 04/13/2018, to check on patient's status. Patient is being prescribed Effexor as non-formulary 100 mg p.o. b.i.d. while being treated on the medical floor. Blair Newman MD [facility] # [id number]
--- NOTE | 2018-04-12 17:53 | CP.PCM.PN ---
<Yandel Roach - Last Filed: 04/12/18 17:46> Subjective - Date & Time of Evaluation Date of Evaluation: 04/12/18 Time of Evaluation: 08:15 - Subjective Subjective: Patient seen and examined at bedside stating that she had chest pain that lasted for two days. Patient admits to chest pain, episodes of diarrhea, and cough. Patient denies shortness of breath, nausea, vomiting, headache. Objective - Vital Signs/Intake and Output Vital Signs (last 24 hours): Temp Pulse Resp BP Pulse Ox 98.5 F 84 18 100/55 L 98 04/12/18 17:20 04/12/18 17:20 04/12/18 17:20 04/12/18 17:20 04/12/18 17:20 Intake and Output: 04/12/18 04/12/18 06:59 18:59 Intake Total 240 900 Output Total 1650 Balance 240 -750 - Medications Medications: Current Medications Acetaminophen (Tylenol 325mg Tab) 650 mg PO Q6H PRN PRN Reason: Pain, moderate (4-7) Acetaminophen/Butalbital/Caffeine (Fioricet) 1 tab PO Q4H PRN PRN Reason: Pain, moderate (4-7) Albuterol/Ipratropium (Duoneb 3 Mg/0.5 Mg (3 Ml) Ud) 3 ml IH [id number] [facility] Last Admin: 04/12/18 13:13 Dose: 3 ml Amlodipine Besylate (Norvasc) 10 mg PO DAILY [facility] Last Admin: 04/12/18 10:16 Dose: 10 mg Aspirin (Ecotrin) 81 mg PO DAILY [facility] Last Admin: 04/12/18 10:16 Dose: 81 mg Clonazepam (Klonopin) 1 mg PO Q8 PRN; Protocol PRN Reason: Anxiety Last Admin: 04/12/18 12:18 Dose: 1 mg Cyclobenzaprine HCl (Flexeril) 5 mg PO TID PRN PRN Reason: Pain, moderate (4-7) Diphenoxylate HCl/Atropine (Lomotil 0.025-2.5 Mg Tablet) 1 tab PO DAILY PRN PRN Reason: Diarrhea Folic Acid (Folic Acid) 1 mg PO DAILY [facility] Last Admin: 04/12/18 13:01 Dose: 1 mg Hydrochlorothiazide (Hydrodiuril) 25 mg PO DAILY [facility] Last Admin: 04/12/18 10:16 Dose: 25 mg Ceftriaxone Sodium (Rocephin 2 Gm Ivpb) 2 gm in 100 mls @ 100 mls/hr IVPB DAILY [facility] PRN Reason: Protocol Last Admin: 04/12/18 10:16 Dose: 100 mls/hr Ibuprofen (Motrin Tab) 600 mg PO BID [facility] Last Admin: 04/12/18 10:16 Dose: 600 mg Insulin Human Regular (Humulin R Med) 0 units SC ACHS [facility] PRN Reason: Protocol Last Admin: 04/12/18 16:50 Dose: Not Given Lidocaine (Lidocaine 5%) 0 gm TOP DAILY [facility] Last Admin: 04/12/18 10:19 Dose: 1 applic Loperamide HCl (Imodium) 2 mg PO QID PRN PRN Reason: Diarrhea Non-Formulary Medication (Venlafaxine [Effexor 50 Mg Tab]) 100 mg PO BID [facility] Oxycodone/Acetaminophen (Percocet 10/325 Mg Tab) 1 tab PO Q6H PRN PRN Reason: Pain, moderate (4-7) Last Admin: 04/12/18 14:25 Dose: 1 tab Pantoprazole Sodium (Protonix Ec Tab) 40 mg PO 0600 [facility] Last Admin: 04/12/18 06:16 Dose: 40 mg - Labs Labs: 04/12/18 06:15 04/12/18 06:15 PT 11.3 SECONDS (9.4-12.5) 04/11/18 18:39 INR 0.99 (0.93-1.08) 04/11/18 18:39 APTT 31.3 Seconds (25.1-36.5) 04/11/18 18:39 - Head Exam Head Exam: ATRAUMATIC, NORMAL INSPECTION, NORMOCEPHALIC - Eye Exam Eye Exam: EOMI, Normal appearance - ENT Exam ENT Exam: Mucous Membranes Moist - Neck Exam Neck Exam: Full ROM - Respiratory Exam Respiratory Exam: Clear to Ausculation Bilateral, NORMAL BREATHING PATTERN. absent: Rhonchi, Wheezes - Cardiovascular Exam Cardiovascular Exam: REGULAR RHYTHM, +S1, +S2 Additional comments: chest wall tenderness - GI/Abdominal Exam GI & Abdominal Exam: Soft, Normal Bowel Sounds - Extremities Exam Extremities Exam: Full ROM - Back Exam Back Exam: NORMAL INSPECTION - Neurological Exam Neurological Exam: Alert, Awake, Oriented x3 - Psychiatric Exam Psychiatric exam: Normal Affect, Normal Mood - Skin Skin Exam: Intact, Normal Color, Warm Assessment and Plan - Assessment and Plan (Free Text) Assessment: 58-year-old female with a past medical history multiple sclerosis, fibromyalgia , bradycardia s/p AICD placement, hypertension, obesity, diabetes, chronic anemia who [place] [facility] [place] with complaints of 2 days worth of substernal chest pain. Plan: 1. Chest pain rule out ACS Admit to telemetry Troponin is negative x 3 Does have a history of bradycardia and has an AICD Cardiology consulted TSH within normal limits Vitals every 4 Head above bed 30 2. 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 Anemia, chronic Due to her symptoms, B12 was ordered which was low, Folate was normal No active bleeding noted Hemodynamically stable Hematology consulted 4. History of multiple sclerosis and fibromyalgia Noncompliant with medications Patient previously on Copaxone Difficult to ascertain whether some of her symptoms may be due to multiple sclerosis flare versus coronary disease Neurology consulted Given that she has a history of depression as well, will consult psychiatry; recs appreciated Continue home medications Flexeril, Klonopin, venlafaxine, oxycodone PT ordered 5. Chronic diarrhea Continue home Imodium if stool cultures return negative DVT/GI prophylaxis: SCDs, Protonix Patient was seen and examined and case was discussed at length with attending physician. <Chandra Corado - Last Filed: 04/12/18 18:38> Objective - Vital Signs/Intake and Output Vital Signs (last 24 hours): Temp Pulse Resp BP Pulse Ox 98.5 F 84 18 100/55 L 98 04/12/18 17:20 04/12/18 17:20 04/12/18 17:20 04/12/18 17:20 04/12/18 17:20 Intake and Output: 04/12/18 04/12/18 06:59 18:59 Intake Total 240 900 Output Total 1650 Balance 240 -750 - Medications Medications: Current Medications Acetaminophen (Tylenol 325mg Tab) 650 mg PO Q6H PRN PRN Reason: Pain, moderate (4-7) Acetaminophen/Butalbital/Caffeine (Fioricet) 1 tab PO Q4H PRN PRN Reason: Pain, moderate (4-7) Albuterol/Ipratropium (Duoneb 3 Mg/0.5 Mg (3 Ml) Ud) 3 ml IH [id number] [facility] Last Admin: 04/12/18 13:13 Dose: 3 ml Amlodipine Besylate (Norvasc) 10 mg PO DAILY [facility] Last Admin: 04/12/18 10:16 Dose: 10 mg Aspirin (Ecotrin) 81 mg PO DAILY [facility] Last Admin: 04/12/18 10:16 Dose: 81 mg Clonazepam (Klonopin) 1 mg PO Q8 PRN; Protocol PRN Reason: Anxiety Last Admin: 04/12/18 12:18 Dose: 1 mg Cyclobenzaprine HCl (Flexeril) 5 mg PO TID PRN PRN Reason: Pain, moderate (4-7) Diphenoxylate HCl/Atropine (Lomotil 0.025-2.5 Mg Tablet) 1 tab PO DAILY PRN PRN Reason: Diarrhea Folic Acid (Folic Acid) 1 mg PO DAILY [facility] Last Admin: 04/12/18 13:01 Dose: 1 mg Hydrochlorothiazide (Hydrodiuril) 25 mg PO DAILY [facility] Last Admin: 04/12/18 10:16 Dose: 25 mg Ceftriaxone Sodium (Rocephin 2 Gm Ivpb) 2 gm in 100 mls @ 100 mls/hr IVPB DAILY [facility] PRN Reason: Protocol Last Admin: 04/12/18 10:16 Dose: 100 mls/hr Ibuprofen (Motrin Tab) 600 mg PO BID [facility] Last Admin: 04/12/18 17:56 Dose: 600 mg Insulin Human Regular (Humulin R Med) 0 units SC ACHS [facility] PRN Reason: Protocol Last Admin: 04/12/18 16:50 Dose: Not Given Lidocaine (Lidocaine 5%) 0 gm TOP DAILY [facility] Last Admin: 04/12/18 10:19 Dose: 1 applic Non-Formulary Medication (Venlafaxine [Effexor 50 Mg Tab]) 100 mg PO BID [facility] Oxycodone/Acetaminophen (Percocet 10/325 Mg Tab) 1 tab PO Q6H PRN PRN Reason: Pain, moderate (4-7) Last Admin: 04/12/18 14:25 Dose: 1 tab Pantoprazole Sodium (Protonix Ec Tab) 40 mg PO 0600 [facility] Last Admin: 04/12/18 06:16 Dose: 40 mg - Labs Labs: 04/12/18 06:15 04/12/18 06:15 PT 11.3 SECONDS (9.4-12.5) 04/11/18 18:39 INR 0.99 (0.93-1.08) 04/11/18 18:39 APTT 31.3 Seconds (25.1-36.5) 04/11/18 18:39 Attending/Attestation - Attestation I have personally seen and examined this patient.: Yes I have fully participated in the care of the patient.: Yes I have reviewed all pertinent clinical information, including history, physical exam and plan: Yes Notes (Text): 04/12/18 18:34 Medical record note made by the resident after discussion with my direction and input after the patient was personally seen and examined by me. I have reviewed the chart and agree that the record accurately reflects by personal performance of the history, physical exam, data review, and medical decision-making, in the course for the patient. I have also personally directed the plan of care. 58-year-old female with PMH of multiple sclerosis, fibromyalgia,Gastric Bypass surgery, bradycardia s/p AICD placement, hypertension, obesity, diabetes, chronic anemia was admitted with atypical chest pain and H/O numbness in upper limb. Chest pain is atypical, patient has chest wall tenderness, serial troponins are normal. Possible Multiple Sclerosis exacerbation, started on steroid by Neurology. Neutropenia is chronic, Patient is afebrile, we will monitor Management plan was discussed in detail with patient and family. Education was provided. 04/12/18 18:35
[2018-04-13] MEDS: Albuterol-Ipratrop 3 mg / 0.5 (3 ml) UD IH SCH ×4 (01:20→20:24)
[2018-04-13] MEDS: Pantoprazole 40 mg EC Tab PO SCH (06:23)
[2018-04-13 07:06] LABS: BASO # 0.01 K/mm3 (0.0-2.0); BASO % 0.1 % (0.0-3.0); EOS % 0.4 % (1.5-5.0); GRAN # 9.53 (1.4-6.5); GRAN % 84.7 % (50.0-68.0); HEMOGLOBIN 9.9 g/dL (12.0-16.0); LYMPH # 1.3 (1.2-3.4); LYMPH % 11.9 % (22.0-35.0); MEAN CORPUSCULAR HEMOGLOBIN 29.7 pg (25.0-35.0); MEAN CORPUSCULAR HGB CONC 31.6 g/dl (31.0-37.0); MEAN PLATELET VOLUME 11.1 fl (7.0-11.0); MONO # 0.3 (0.1-0.6); MONO % 2.9 % (1.0-6.0); RBC 3.33 10^6/uL (3.5-6.1); RED CELL DISTRIBUTION WIDTH 13.7 % (11.5-14.5)
[2018-04-13 07:16] LABS: ALB/GLOB RATIO 0.9 (1.1-1.8); ALT/SGPT 35 U/L (7-56); AST/SGOT 40 U/L (14-36); BLOOD UREA NITROGEN 15 mg/dL (7-21); CALCIUM 8.4 mg/dL (8.4-10.5); GFR AFRICAN-AMERICAN > 60; GFR NON-AFRICAN AMERICAN > 60
[2018-04-13 07:29] LABS: WHITE BLOOD COUNT 11.3 10^3/ul (4.5-11.0)
[2018-04-13] MEDS: Insulin Reg-MEDIUM-Coverage SC SCH ×4 (08:34→22:16)
[2018-04-13] MEDS: cefTRIAXone 2 GM IN NS 2 GM/100 ML BAG IVPB SCH (09:43)
[2018-04-13] MEDS: Lidocaine 5% Oint(35 gm) TOP SCH (09:53)
[2018-04-13] MEDS: Oxycodone/Acetaminophen 10/325 mg Tab PO PRN ×2 (09:55→15:41)
[2018-04-13] MEDS: VENLAFAXINE 100 MG PO SCH ×2 (10:00→18:05)
--- NOTE | 2018-04-13 11:32 | CP.PCM.PN ---
Subjective - Date & Time of Evaluation Date of Evaluation: 04/13/18 Time of Evaluation: 06:45 - Subjective Subjective: Patient seen and examined at bedside stating overnight she used a facial cream which causes her to have itchiness in her face. Patient also states she continues to have a non productive cough. Numbness in her extremities is still presents on a waxing and waning basis. Also endorses diarrhea. Denies nausea, vomiting, abdominal pain. Objective - Vital Signs/Intake and Output Vital Signs (last 24 hours): Temp Pulse Resp BP Pulse Ox 98.3 F 69 20 126/64 98 04/13/18 06:00 04/13/18 06:00 04/13/18 06:00 04/13/18 09:53 04/13/18 06:00 Intake and Output: 04/13/18 04/13/18 06:59 18:59 Intake Total 300 Balance 300 - Medications Medications: Current Medications Acetaminophen (Tylenol 325mg Tab) 650 mg PO Q6H PRN PRN Reason: Pain, moderate (4-7) Last Admin: 04/13/18 01:49 Dose: 650 mg Acetaminophen/Butalbital/Caffeine (Fioricet) 1 tab PO Q4H PRN PRN Reason: Pain, moderate (4-7) Albuterol/Ipratropium (Duoneb 3 Mg/0.5 Mg (3 Ml) Ud) 3 ml IH [id number] [facility] Last Admin: 04/13/18 09:09 Dose: 3 ml Amlodipine Besylate (Norvasc) 10 mg PO DAILY [facility] Last Admin: 04/13/18 09:53 Dose: 10 mg Aspirin (Ecotrin) 81 mg PO DAILY [facility] Last Admin: 04/13/18 09:34 Dose: 81 mg Clonazepam (Klonopin) 1 mg PO Q8 PRN; Protocol PRN Reason: Anxiety Last Admin: 04/12/18 12:18 Dose: 1 mg Cyclobenzaprine HCl (Flexeril) 5 mg PO TID PRN PRN Reason: Pain, moderate (4-7) Diphenhydramine HCl (Benadryl) 25 mg PO ONCE ONE Stop: 04/13/18 11:25 Diphenoxylate HCl/Atropine (Lomotil 0.025-2.5 Mg Tablet) 1 tab PO DAILY PRN PRN Reason: Diarrhea Famotidine (Pepcid) 20 mg PO STAT STA Stop: 04/13/18 11:27 Folic Acid (Folic Acid) 1 mg PO DAILY [facility] Last Admin: 04/13/18 09:34 Dose: 1 mg Hydrochlorothiazide (Hydrodiuril) 25 mg PO DAILY [facility] Last Admin: 04/13/18 09:35 Dose: 25 mg Ceftriaxone Sodium (Rocephin 2 Gm Ivpb) 2 gm in 100 mls @ 100 mls/hr IVPB DAILY [facility] PRN Reason: Protocol Last Admin: 04/13/18 09:43 Dose: 100 mls/hr Ibuprofen (Motrin Tab) 600 mg PO BID [facility] Last Admin: 04/13/18 09:35 Dose: Not Given Insulin Human Regular (Humulin R Med) 0 units SC ACHS [facility] PRN Reason: Protocol Last Admin: 04/13/18 08:34 Dose: Not Given Lidocaine (Lidocaine 5%) 0 gm TOP DAILY [facility] Last Admin: 04/13/18 09:53 Dose: Not Given Non-Formulary Medication (Venlafaxine [Effexor 50 Mg Tab]) 100 mg PO BID [facility] Oxycodone/Acetaminophen (Percocet 10/325 Mg Tab) 1 tab PO Q6H PRN PRN Reason: Pain, moderate (4-7) Last Admin: 04/13/18 09:55 Dose: 1 tab Pantoprazole Sodium (Protonix Ec Tab) 40 mg PO 0600 [facility] Last Admin: 04/13/18 06:23 Dose: 40 mg - Labs Labs: 04/13/18 06:30 04/13/18 06:30 PT 11.3 SECONDS (9.4-12.5) 04/11/18 18:39 INR 0.99 (0.93-1.08) 04/11/18 18:39 APTT 31.3 Seconds (25.1-36.5) 04/11/18 18:39 - Head Exam Head Exam: ATRAUMATIC, NORMAL INSPECTION, NORMOCEPHALIC - Eye Exam Eye Exam: EOMI - ENT Exam ENT Exam: Mucous Membranes Moist, Normal Exam - Respiratory Exam Respiratory Exam: Clear to Ausculation Bilateral, NORMAL BREATHING PATTERN. absent: Rhonchi, Wheezes - Cardiovascular Exam Cardiovascular Exam: REGULAR RHYTHM, +S1, +S2 - GI/Abdominal Exam GI & Abdominal Exam: Soft, Normal Bowel Sounds - Extremities Exam Extremities Exam: Normal Inspection - Neurological Exam Neurological Exam: Alert, Awake, Oriented x3 - Psychiatric Exam Psychiatric exam: Normal Affect, Normal Mood - Skin Skin Exam: Erythema (facial), Warm Assessment and Plan - Assessment and Plan (Free Text) Assessment: 58-year-old female with a past medical history multiple sclerosis, fibromyalgia , bradycardia s/p AICD placement, hypertension, obesity, diabetes, chronic anemia who presented to the [facility] emergency room with complaints of 2 days worth of substernal chest pain. Plan: 1. Chest pain rule out ACS D/C telemetry Troponin is negative x 3 Does have a history of bradycardia and has an AICD Cardiology consulted TSH within normal limits Head above bed 30 2. Neutropenia Resolved Hematology on consult Etiology unclear; granix started on patient by prop attendant. WBC 11.3 today Could be due to the Copaxone that she was previously taking, patient has admits that she follows with a prop attendant for anemia and may have had low white blood cells as well Urine shows possible urinary tract infection, will continue with Rocephin CRP >5, hepatitis panel negative, HIV and screen with reflex still pending Neutropenic precautions discontinued Low microbial food Chest x-ray official read states no active disease 3. Anemia, chronic Due to her symptoms, B12 was ordered which was low, Folate was normal No active bleeding noted Hemodynamically stable Hematology consulted 4. History of multiple sclerosis and fibromyalgia Noncompliant with medications Patient previously on Copaxone Difficult to ascertain whether some of her symptoms may be due to multiple sclerosis flare versus coronary disease Neurology consulted; will begin steroid therapy Given that she has a history of depression as well, psychiatry was consulted: patient stable from a psych standpoint and will sign off. Continue home medications Flexeril, Klonopin, venlafaxine, oxycodone PT ordered 5. Chronic diarrhea Continue home Imodium since C. diff negative DVT/GI prophylaxis: SCDs, Protonix Patient was seen and examined and case was discussed at length with attending physician.
--- NOTE | 2018-04-13 12:09 | CP.PCM.PN ---
Subjective - Date & Time of Evaluation Date of Evaluation: 04/13/18 Time of Evaluation: 12:07 - Subjective Subjective: Ms. Diallo was seen and examined at the bedside. She is alert, oriented x3. She complains of moderate to severe itchiness in her bilateral cheeks, warm to touch. She further claims of her cheeks are swollen. She also mention that it started after applying face cream. She is able to follow simple commands. She was on neutopenic precautions yesterday, today neutropenic precautions is discontinued. Latest WBC is 11.7. There was no untoward events overnight. Objective - Vital Signs/Intake and Output Vital Signs (last 24 hours): Temp Pulse Resp BP Pulse Ox 98.1 F 79 18 100/57 L 98 04/13/18 12:00 04/13/18 12:00 04/13/18 12:00 04/13/18 12:00 04/13/18 06:00 Intake and Output: 04/13/18 04/13/18 06:59 18:59 Intake Total 300 Balance 300 - Medications Medications: Current Medications Acetaminophen (Tylenol 325mg Tab) 650 mg PO Q6H PRN PRN Reason: Pain, moderate (4-7) Last Admin: 04/13/18 01:49 Dose: 650 mg Acetaminophen/Butalbital/Caffeine (Fioricet) 1 tab PO Q4H PRN PRN Reason: Pain, moderate (4-7) Albuterol/Ipratropium (Duoneb 3 Mg/0.5 Mg (3 Ml) Ud) 3 ml IH [id number] [facility] Last Admin: 04/13/18 09:09 Dose: 3 ml Amlodipine Besylate (Norvasc) 10 mg PO DAILY [facility] Last Admin: 04/13/18 09:53 Dose: 10 mg Aspirin (Ecotrin) 81 mg PO DAILY [facility] Last Admin: 04/13/18 09:34 Dose: 81 mg Clonazepam (Klonopin) 1 mg PO Q8 PRN; Protocol PRN Reason: Anxiety Last Admin: 04/12/18 12:18 Dose: 1 mg Cyclobenzaprine HCl (Flexeril) 5 mg PO TID PRN PRN Reason: Pain, moderate (4-7) Diphenoxylate HCl/Atropine (Lomotil 0.025-2.5 Mg Tablet) 1 tab PO DAILY PRN PRN Reason: Diarrhea Folic Acid (Folic Acid) 1 mg PO DAILY [facility] Last Admin: 04/13/18 09:34 Dose: 1 mg Hydrochlorothiazide (Hydrodiuril) 25 mg PO DAILY [facility] Last Admin: 04/13/18 09:35 Dose: 25 mg Ceftriaxone Sodium (Rocephin 2 Gm Ivpb) 2 gm in 100 mls @ 100 mls/hr IVPB DAILY [facility] PRN Reason: Protocol Last Admin: 04/13/18 09:43 Dose: 100 mls/hr Methylprednisolone 1 gm/ (Sodium Chloride) 250 mls @ 500 mls/hr IV DAILY [facility] Stop: 04/15/18 14:00 Ibuprofen (Motrin Tab) 600 mg PO BID [facility] Last Admin: 04/13/18 09:35 Dose: Not Given Insulin Human Regular (Humulin R Med) 0 units SC ACHS [facility] PRN Reason: Protocol Last Admin: 04/13/18 11:33 Dose: Not Given Lidocaine (Lidocaine 5%) 0 gm TOP DAILY [facility] Last Admin: 04/13/18 09:53 Dose: Not Given Non-Formulary Medication (Venlafaxine [Effexor 50 Mg Tab]) 100 mg PO BID [facility] Oxycodone/Acetaminophen (Percocet 10/325 Mg Tab) 1 tab PO Q6H PRN PRN Reason: Pain, moderate (4-7) Last Admin: 04/13/18 09:55 Dose: 1 tab Pantoprazole Sodium (Protonix Ec Tab) 40 mg PO 0600 [facility] Last Admin: 04/13/18 06:23 Dose: 40 mg - Labs Labs: 04/13/18 06:30 04/13/18 06:30 PT 11.3 SECONDS (9.4-12.5) 04/11/18 18:39 INR 0.99 (0.93-1.08) 04/11/18 18:39 APTT 31.3 Seconds (25.1-36.5) 04/11/18 18:39 - Constitutional Appears: No Acute Distress - Head Exam Head Exam: NORMAL INSPECTION - Eye Exam Pupil Exam: PERRL - Neurological Exam Neurological Exam: Alert, Awake, Oriented x3 Neuro motor strength exam: Left Upper Extremity: 5, Right Upper Extremity: 5, Left Lower Extremity: 5, Right Lower Extremity: 5 Additional comments: alert, oriented follows commands, sensation is intact. Assessment and Plan (1) Multiple sclerosis exacerbation Assessment & Plan: Case discussed with Dr. Brooks, continue all current medical regimen. Recommend Solumendrol 1000 mg IVPB daily for 3 days only. Recommend to follow up with her own neurologist upon discharge. Status: Acute
[2018-04-13] MEDS: methylPREDNISolone 1 GM in Sodium Chloride 0.9% 250 ML IV SCH (13:13)
[2018-04-13] MEDS ORDERED: guaiFENesin DM 200 mg-20 mg/10 ml UD PO PRN (14:00)
--- NOTE | 2018-04-13 15:27 | PN ---
DATE: 04/13/2018 FOLLOWUP NOTE SUBJECTIVE: The patient was followed up. The patient was admitted on the medical site for chest pain and numbness of her upper extremities. Psychiatry consult was called for evaluation of mood symptoms as well as anxiety and the patient is on psychotropic medication. The patient initially was seen by Dr. Newman over the weekend. This justowriter operator is taking over. The patient was followed up. As per nursing report, the patient is doing relatively well and compliant with the medications. At the same time, the patient complained of the back pain and constantly asking for pain medication. Besides that, there is no acute agitation, no aggression. The patient is compliant with her treatment and medications. The patient was followed up today. The patient presented to be alert. The patient is on breathing treatment. The patient said that she feels fine, but complained of the pain in her back. The patient reported that she moved from the [place] and she is happy with her move. The patient is staying with her daughter. The patient described her relationship with her daughter as very good. The patient denied feeling of hopelessness or helplessness. The patient reported that she tolerates medications well, denied any side effects. The patient wants to continue the same regimen. The patient denied suicidal or homicidal ideation. The patient does not present to be psychotic. PHYSICAL EXAMINATION VITAL SIGNS: This justowriter operator reviewed vital signs, it seems to be stable. Temperature 98.3, pulse of 69, blood pressure 101/49, respiration 20 and oxygen saturation is 98%. MEDICATIONS: Medications reviewed. The patient is on Tylenol, Fioricet, DuoNeb, Norvasc, aspirin, Rocephin, Klonopin 1 mg p.o. every 8 hours p.r.n., most recently was given yesterday at 12:18 p.m. The patient is on Flexeril, Lomotil, folic acid, hydrochlorothiazide, Motrin, Humulin, lidocaine. The patient is on Effexor 100 mg twice a day, Percocet, Protonix. LABORATORY DATA: Labs reviewed. WBC 11.3, hemoglobin and hematocrit 9.9 and 31.3 respectively. Chemistry reviewed. AST is 40. Urinalysis showed leukocyte esterase moderate. Toxicology was positive for barbiturate, but the patient is on Fioricet. Serology negative for any hepatitis. Reports reviewed. The patient had CT scan of the head, which showed no acute intracranial abnormalities. No significant findings to account of the clinical presentation, no significant interval changes compared to the prior examination. MENTAL STATUS EXAMINATION: The patient appears to be alert, mildly anxious, having breathing treatment during the interview. Good eye contact. Speech was underproductive, but normal rate, tone, quality and quantity. Mood described as "I do not feel good from my medical issues." Affect was constricted. Thought process coherent and goal directed. Thought content: The patient denied visual, auditory, tactile hallucinations. Denied paranoid ideation. The patient does not present to be psychotic. Insight and judgment seems to be fair. Impulses are well controlled. IMPRESSION: Anxiety and depression. As per history, rule out anxiety and depression due to general medical condition. PLAN: Continue current management. Continue current medication. The patient was advised to call back if she has any worsening of anxiety or depression. The patient contracted for safety. The patient denied any suicidal or homicidal ideation. The patient is not psychotic. At the present moment, the patient is no imminent danger to self or others. This justowriter operator will sign off. Should you have any questions, give me a call. Romina Dockery MD
[2018-04-14] MEDS: Albuterol-Ipratrop 3 mg / 0.5 (3 ml) UD IH SCH ×4 (01:22→19:42)
[2018-04-14] MEDS: Oxycodone/Acetaminophen 10/325 mg Tab PO PRN ×3 (01:41→18:02)
--- NOTE | 2018-04-14 04:46 | CON ---
DATE: 04/13/2018 LOCATION: Patient in room 275, bed 1. REASON FOR CONSULTATION: Chest pain. HISTORY OF PRESENT ILLNESS: The patient is a [id number] female who was admitted to [facility] on 03/05/2018 also for chest pain, now is again admitted with chest pain, when she said that she is getting episodes of sharp chest pain at one localized point in the chest. Mostly it comes lying down, and when she sits up, it goes away. Also sometimes in change of positions, she feels pain. Other times, she does not feel pain. Pain is sharp in nature, lasts 10 minutes to an hour. Also she had some pain in the left upper arm, both places she had tenderness, the arm and in the chest, and the same point where the pain is, and this pain has no relation with exertion. The patient is known to have multiple sclerosis, fibromyalgia, hyperlipidemia, colitis, obesity, diabetes, hypertension. She states that she lives in [place] and she comes here for visits, and the same thing was when she was in 02/2018 when she was admitted, at that time also she was visiting here, and she was told to have stress test as an outpatient with her supplier specialist at [place], that is what she wanted to do, but apparently she did not do that yet. PAST MEDICAL HISTORY: Positive for multiple sclerosis, fibromyalgia, hyperlipidemia, colitis, obesity, status post bariatric surgery for obesity, status post pacemaker insertion, diabetes mellitus, hypertension, asthma, COPD. She also has history of a fall and she uses walker. SOCIAL HISTORY: She denies smoking, denies drinking. ALLERGIES: THE PATIENT STATES THAT SHE IS ALLERGIC TO LEVAQUIN. FAMILY HISTORY: Mother has coronary artery disease, one brother also had coronary artery disease and he had bypass surgery. PAST SURGICAL HISTORY: The patient's past surgical history is positive for gastric bypass surgery 10 years ago and also she had a small intestinal perforation for which she had surgery. REVIEW OF SYSTEMS: All the systems reviewed and positive mentioned in the history, others were negative. HOME MEDICATIONS: The patient's home medications included Klonopin, Imodium, Zofran, Flexeril, HydroDIURIL, Effexor, amlodipine, aspirin, insulin, oxycodone, Protonix, Tylenol. PHYSICAL EXAMINATION: VITAL SIGNS: Blood pressure 100/57, respirations 18, pulse 79, temperature 98.1. HEENT: Head: Normocephalic. Eyes: Pupil normal. Conjunctivae slightly pale. NECK: JVP low. Carotids equal. THORAX: AP diameter normal. LUNGS: Clear. CARDIOVASCULAR: S1 and S2. The patient has marked tenderness at the area where she complains of chest pain and she has also some tenderness on the left upper arm that is where she says the pain was, the both places where she has had pain, both places has tenderness, it is musculoskeletal type of pain. ABDOMEN: Soft. No tenderness. No organomegaly. Bowel sound normal. EXTREMITIES: No clubbing. No cyanosis. LABORATORY DATA: Initially on 04/11/2018, WBC was 1.9, and 04/12/2018, it was 1.7, but today it is 11.3. Hemoglobin 9.9, hematocrit 31.3, platelets 142. Sodium 139, potassium 4.7, BUN 15, creatinine 0.7, sugar 73. Calcium, phosphorus, magnesium normal. AST 40, ALT 35, total protein 6.3, albumin 3, globulin 3.3. Chest x-ray, no acute pulmonary disease. EKG shows sinus rhythm with premature atrial complexes, low voltage QRS, nonspecific T-wave abnormality. The patient had echo on 03/06/2018 which showed left ventricle size is normal, normal left ventricle wall thickness. Left ventricular systolic function is normal. RVSP 38 mmHg. LV ejection fraction 57%. No significant regurgitation noted. DIAGNOSES: Chest pain, musculoskeletal; status post pacemaker insertion, history of multiple sclerosis, fibromyalgia, hypertension, diabetes mellitus, hyperlipidemia, colitis, obesity, status post bariatric surgery for loss of weight, history of asthma, chronic obstructive pulmonary disease, respiratory tract infection. PLAN: To continue DuoNeb hand nebulizer therapy, folic acid 1 mg daily, insulin as ordered, hydrochlorothiazide 25 mg daily, Klonopin 1 mg p.o. every 8 hours p.r.n., Motrin 600 mg b.i.d., amlodipine 10 mg daily, Protonix 40 daily, ceftriaxone 2 g IV daily, methylprednisolone 1 g IV daily. The patient states that she will do stress test as outpatient when she gets better. Also right now we will treat chest pain symptomatically, patient's chest pain is musculoskeletal and we will follow with you. Chandra Soliz MD
[2018-04-14] MEDS: Pantoprazole 40 mg EC Tab PO SCH (06:07)
--- NOTE | 2018-04-14 07:13 | CP.PCM.PN ---
Subjective - Date & Time of Evaluation Date of Evaluation: 04/14/18 Time of Evaluation: 06:15 - Subjective Subjective: Lying in bed, complaining of headache, no distress,denies chest pain Reason for consultation and follow up: Cardiac evaluation for chest pain more muskuloskeletal than cardiac, history of multiple sclerosis, fibromyalgia, bradycardia s/p AICD placement, hypertension, obesity, diabetes, chronic anemia Seen and examined by me and Dr. Caro Objective - Vital Signs/Intake and Output Vital Signs (last 24 hours): Temp Pulse Resp BP Pulse Ox 98.9 F 105 H 20 143/98 H 98 04/13/18 18:25 04/13/18 18:25 04/13/18 18:25 04/13/18 18:25 04/13/18 18:25 Intake and Output: 04/14/18 04/14/18 06:59 18:59 Intake Total 840 Balance 840 - Medications Medications: Current Medications Acetaminophen (Tylenol 325mg Tab) 650 mg PO Q6H PRN PRN Reason: Pain, moderate (4-7) Last Admin: 04/13/18 13:12 Dose: 650 mg Acetaminophen/Butalbital/Caffeine (Fioricet) 1 tab PO Q4H PRN PRN Reason: Pain, moderate (4-7) Last Admin: 04/13/18 20:44 Dose: 1 tab Albuterol/Ipratropium (Duoneb 3 Mg/0.5 Mg (3 Ml) Ud) 3 ml IH [id number] [facility] Last Admin: 04/14/18 01:22 Dose: Not Given Amlodipine Besylate (Norvasc) 10 mg PO DAILY [facility] Last Admin: 04/13/18 09:53 Dose: 10 mg Aspirin (Ecotrin) 81 mg PO DAILY [facility] Last Admin: 04/13/18 09:34 Dose: 81 mg Clonazepam (Klonopin) 1 mg PO Q8 PRN; Protocol PRN Reason: Anxiety Last Admin: 04/12/18 12:18 Dose: 1 mg Cyclobenzaprine HCl (Flexeril) 5 mg PO TID PRN PRN Reason: Pain, moderate (4-7) Last Admin: 04/14/18 06:07 Dose: 5 mg Diphenoxylate HCl/Atropine (Lomotil 0.025-2.5 Mg Tablet) 1 tab PO DAILY PRN PRN Reason: Diarrhea Folic Acid (Folic Acid) 1 mg PO DAILY [facility] Last Admin: 04/13/18 09:34 Dose: 1 mg Guaifenesin/Dextromethorphan (Robitussin Dm) 10 ml PO Q4H PRN PRN Reason: Cough Hydrochlorothiazide (Hydrodiuril) 25 mg PO DAILY [facility] Last Admin: 04/13/18 09:35 Dose: 25 mg Ceftriaxone Sodium (Rocephin 2 Gm Ivpb) 2 gm in 100 mls @ 100 mls/hr IVPB DAILY [facility] PRN Reason: Protocol Last Admin: 04/13/18 09:43 Dose: 100 mls/hr Methylprednisolone 1 gm/ (Sodium Chloride) 250 mls @ 500 mls/hr IV DAILY [facility] Stop: 04/15/18 14:00 Last Admin: 04/13/18 13:13 Dose: 500 mls/hr Ibuprofen (Motrin Tab) 600 mg PO BID [facility] Last Admin: 04/13/18 18:04 Dose: 600 mg Insulin Human Regular (Humulin R Med) 0 units SC ACHS [facility] PRN Reason: Protocol Last Admin: 04/13/18 22:16 Dose: Not Given Lidocaine (Lidocaine 5%) 0 gm TOP DAILY [facility] Last Admin: 04/13/18 09:53 Dose: Not Given Non-Formulary Medication (Venlafaxine [Effexor 50 Mg Tab]) 100 mg PO BID [facility] Last Admin: 04/13/18 18:05 Dose: Not Given Oxycodone/Acetaminophen (Percocet 10/325 Mg Tab) 1 tab PO Q6H PRN PRN Reason: Pain, moderate (4-7) Last Admin: 04/14/18 01:41 Dose: 1 tab Pantoprazole Sodium (Protonix Ec Tab) 40 mg PO 0600 [facility] Last Admin: 04/14/18 06:07 Dose: 40 mg - Labs Labs: 04/13/18 06:30 04/13/18 06:30 PT 11.3 SECONDS (9.4-12.5) 04/11/18 18:39 INR 0.99 (0.93-1.08) 04/11/18 18:39 APTT 31.3 Seconds (25.1-36.5) 04/11/18 18:39 - Constitutional Appears: No Acute Distress - Head Exam Head Exam: NORMOCEPHALIC Additional comments: headache - Eye Exam Eye Exam: Normal appearance - ENT Exam ENT Exam: Mucous Membranes Moist - Respiratory Exam Respiratory Exam: Clear to Ausculation Bilateral, NORMAL BREATHING PATTERN - Cardiovascular Exam Cardiovascular Exam: +S1, +S2 Additional comments: AICD/PPM - GI/Abdominal Exam GI & Abdominal Exam: Soft, Normal Bowel Sounds - Extremities Exam Extremities Exam: Normal Capillary Refill - Neurological Exam Neurological Exam: Alert, Awake, Oriented x3 - Psychiatric Exam Psychiatric exam: Anxious - Skin Skin Exam: Intact, Normal Color, Warm Assessment and Plan - Assessment and Plan (Free Text) Assessment: A 58-year-old female who came in to the ER due to left chest pain associated with left arm numbness for 2 days. upon evaluation by Martínez Gill, chest pain more musculoskeletal than cardiac. positive tenderness as site. History of multiple sclerosis, fibromyalgia, bradycardia s/p AICD/PPM placement, hypertension, obesity, diabetes, chronic anemia, gastric bypass,small bowel resection, depression,anxiety. Plan: Complaining of severe headache, RN gave Flexeril Some tenderness on left side of chest otherwise denies chest pain Continue Motrin 600 mg BID Cardiac status stable Heart rate and blood pressure controlled On Norvasc 10 mg daily,Hydrodiuril 25 mg daily Continue other medications Continue current treatment Work up in progress for low WBC. Will follow up Plan and treatment discussed with Dr. Caro
[2018-04-14] MEDS: Acetylcysteine 20% Inhal Soln (4ml) IH SCH ×3 (07:38→19:42)
--- NOTE | 2018-04-14 07:46 | CP.PCM.PN ---
Subjective - Date & Time of Evaluation Date of Evaluation: 04/14/18 Time of Evaluation: 05:30 - Subjective Subjective: Patient seen and examined at bedside, stating she couldn't sleep all night due to her headache which started yesterday. Rates the pain 8/10 describing it as a tight band wrapping around her forehead radiating down to her neck. Patient also complains of leg pain which is chronic. States she has associated nausea, vision changes, dizziness and requests dilaudid. Also admits to coughing and not being able to expectorate. Objective - Vital Signs/Intake and Output Vital Signs (last 24 hours): Temp Pulse Resp BP Pulse Ox 98.9 F 105 H 20 143/98 H 98 04/13/18 18:25 04/13/18 18:25 04/13/18 18:25 04/13/18 18:25 04/13/18 18:25 Intake and Output: 04/14/18 04/14/18 06:59 18:59 Intake Total 840 Balance 840 - Medications Medications: Current Medications Acetaminophen (Tylenol 325mg Tab) 650 mg PO Q6H PRN PRN Reason: Pain, moderate (4-7) Last Admin: 04/13/18 13:12 Dose: 650 mg Acetaminophen/Butalbital/Caffeine (Fioricet) 1 tab PO Q4H PRN PRN Reason: Pain, moderate (4-7) Last Admin: 04/13/18 20:44 Dose: 1 tab Acetylcysteine (Acetylcysteine 20%) 4 ml IH [id number] [facility] Last Admin: 04/14/18 07:38 Dose: 4 ml Albuterol/Ipratropium (Duoneb 3 Mg/0.5 Mg (3 Ml) Ud) 3 ml IH [id number] [facility] Last Admin: 04/14/18 07:38 Dose: 3 ml Amlodipine Besylate (Norvasc) 10 mg PO DAILY [facility] Last Admin: 04/13/18 09:53 Dose: 10 mg Aspirin (Ecotrin) 81 mg PO DAILY [facility] Last Admin: 04/13/18 09:34 Dose: 81 mg Clonazepam (Klonopin) 1 mg PO Q8 PRN; Protocol PRN Reason: Anxiety Last Admin: 04/12/18 12:18 Dose: 1 mg Cyclobenzaprine HCl (Flexeril) 5 mg PO TID PRN PRN Reason: Pain, moderate (4-7) Last Admin: 04/14/18 06:07 Dose: 5 mg Diphenoxylate HCl/Atropine (Lomotil 0.025-2.5 Mg Tablet) 1 tab PO DAILY PRN PRN Reason: Diarrhea Folic Acid (Folic Acid) 1 mg PO DAILY [facility] Last Admin: 04/13/18 09:34 Dose: 1 mg Guaifenesin/Dextromethorphan (Robitussin Dm) 10 ml PO Q4H PRN PRN Reason: Cough Hydrochlorothiazide (Hydrodiuril) 25 mg PO DAILY [facility] Last Admin: 04/13/18 09:35 Dose: 25 mg Ceftriaxone Sodium (Rocephin 2 Gm Ivpb) 2 gm in 100 mls @ 100 mls/hr IVPB DAILY [facility] PRN Reason: Protocol Last Admin: 04/13/18 09:43 Dose: 100 mls/hr Methylprednisolone 1 gm/ (Sodium Chloride) 250 mls @ 500 mls/hr IV DAILY [facility] Stop: 04/15/18 14:00 Last Admin: 04/13/18 13:13 Dose: 500 mls/hr Ibuprofen (Motrin Tab) 600 mg PO BID [facility] Last Admin: 04/13/18 18:04 Dose: 600 mg Insulin Human Regular (Humulin R Med) 0 units SC ACHS [facility] PRN Reason: Protocol Last Admin: 04/13/18 22:16 Dose: Not Given Lidocaine (Lidocaine 5%) 0 gm TOP DAILY [facility] Last Admin: 04/13/18 09:53 Dose: Not Given Non-Formulary Medication (Venlafaxine [Effexor 50 Mg Tab]) 100 mg PO BID [facility] Last Admin: 04/13/18 18:05 Dose: Not Given Oxycodone/Acetaminophen (Percocet 10/325 Mg Tab) 1 tab PO Q6H PRN PRN Reason: Pain, moderate (4-7) Last Admin: 04/14/18 01:41 Dose: 1 tab Pantoprazole Sodium (Protonix Ec Tab) 40 mg PO 0600 [facility] Last Admin: 04/14/18 06:07 Dose: 40 mg - Labs Labs: 04/13/18 06:30 04/13/18 06:30 PT 11.3 SECONDS (9.4-12.5) 04/11/18 18:39 INR 0.99 (0.93-1.08) 04/11/18 18:39 APTT 31.3 Seconds (25.1-36.5) 04/11/18 18:39 - Head Exam Head Exam: ATRAUMATIC, NORMAL INSPECTION, NORMOCEPHALIC - Eye Exam Eye Exam: EOMI, Normal appearance - ENT Exam ENT Exam: Mucous Membranes Moist, Normal Exam - Respiratory Exam Respiratory Exam: Rhonchi (lower lobes), NORMAL BREATHING PATTERN - Cardiovascular Exam Cardiovascular Exam: REGULAR RHYTHM, +S1, +S2 - GI/Abdominal Exam GI & Abdominal Exam: Soft, Normal Bowel Sounds - Extremities Exam Extremities Exam: Normal Inspection, Tenderness - Back Exam Back Exam: NORMAL INSPECTION - Neurological Exam Neurological Exam: Alert, Awake, Oriented x3 - Psychiatric Exam Psychiatric exam: Normal Affect, Normal Mood - Skin Skin Exam: Normal Color, Warm Assessment and Plan - Assessment and Plan (Free Text) Assessment: 58-year-old female with a past medical history multiple sclerosis, fibromyalgia , bradycardia s/p AICD placement, hypertension, obesity, diabetes, chronic anemia who presented to the [facility] emergency room with complaints of 2 days worth of substernal chest pain. Plan: 1. Chest pain rule out ACS D/C telemetry Troponin was negative x 3 Does have a history of bradycardia and has an AICD Cardiology consulted; patient's chest pain is musculoskeletal in nature TSH within normal limits Head above bed 30 2. Neutropenia Resolved Hematology on consult Etiology was unclear; granix given by drop hammer operator helper and count corrected. WBC 14.8 today Could be due to the Copaxone that she was previously taking, patient has admits that she follows with a drop hammer operator helper for anemia and may have had low white blood cells as well Urine shows possible urinary tract infection, will continue with Rocephin CRP >5, hepatitis panel negative, HIV and screen with reflex still pending Neutropenic precautions discontinued Low microbial food Chest x-ray official read states no active disease 3. Anemia, chronic Due to her symptoms, B12 was ordered which was low, Folate was normal No active bleeding noted Hemodynamically stable Hematology consulted 4. Multiple Sclerosis Flare Noncompliant with medications Patient previously on Copaxone Difficult to ascertain whether some of her symptoms may be due to multiple sclerosis flare versus coronary disease Neurology consulted; steroid therapy day #2, final day of steroids tomorrow for MS flare Given that she has a history of depression as well, psychiatry was consulted: patient stable from a psych standpoint and will sign off. Continue home medications Flexeril, Klonopin, venlafaxine, oxycodone PT evaluated and recommends home with services 5. Chronic diarrhea C. diff negative Continue home Imodium only if patient is having 3-4 loose BMs 6. Headache -Patient states not relieved with percocet, flexeril, or fioricet. Requested dilaudid initially then morphine. Patient was noted to be up and talking on phone and eating not showing any signs of pain when assessed. -Will give zofran and re-assess DVT/GI prophylaxis: SCDs, Protonix Patient was seen and examined and case was discussed at length with attending physician.
[2018-04-14 08:23] LABS: GRAN # 13.13 (1.4-6.5); GRAN % 88.8 % (50.0-68.0); HEMOGLOBIN 10.2 g/dL (12.0-16.0); LYMPH # 1.3 (1.2-3.4); LYMPH % 8.9 % (22.0-35.0); MEAN CELL VOLUME 92.4 fl (80.0-105.0); MEAN CORPUSCULAR HEMOGLOBIN 29.8 pg (25.0-35.0); MEAN CORPUSCULAR HGB CONC 32.3 g/dl (31.0-37.0); MEAN PLATELET VOLUME 11.5 fl (7.0-11.0); MONO # 0.3 (0.1-0.6); MONO % 2.3 % (1.0-6.0); RBC 3.42 10^6/uL (3.5-6.1); RED CELL DISTRIBUTION WIDTH 13.5 % (11.5-14.5); WHITE BLOOD COUNT 14.8 10^3/ul (4.5-11.0)
[2018-04-14] MEDS: Insulin Reg-MEDIUM-Coverage SC SCH ×4 (08:26→23:12)
[2018-04-14 08:37] LABS: ALBUMIN 3.3 g/dL (3.0-4.8); ALT/SGPT 32 U/L (7-56); AST/SGOT 28 U/L (14-36); BLOOD UREA NITROGEN 16 mg/dL (7-21); CALCIUM 8.9 mg/dL (8.4-10.5); GFR AFRICAN-AMERICAN > 60; GFR NON-AFRICAN AMERICAN > 60
[2018-04-14] MEDS: cefTRIAXone 2 GM IN NS 2 GM/100 ML BAG IVPB SCH (09:35)
[2018-04-14] MEDS: methylPREDNISolone 1 GM in Sodium Chloride 0.9% 250 ML IV SCH (09:35)
[2018-04-14] MEDS: Lidocaine 5% Oint(35 gm) TOP SCH (09:36)
[2018-04-14] MEDS: VENLAFAXINE 100 MG PO SCH ×2 (09:36→17:53)
[2018-04-14 19:25] VITALS: RESP 19
[2018-04-15] MEDS: Albuterol-Ipratrop 3 mg / 0.5 (3 ml) UD IH SCH ×3 (01:35→13:41)
[2018-04-15] MEDS: Acetylcysteine 20% Inhal Soln (4ml) IH SCH ×3 (01:35→13:40)
[2018-04-15] MEDS: Pantoprazole 40 mg EC Tab PO SCH (05:48)
--- NOTE | 2018-04-15 06:43 | CP.PCM.PN ---
Subjective - Date & Time of Evaluation Date of Evaluation: 04/15/18 Time of Evaluation: 06:20 - Subjective Subjective: Sleeping but easily awaken,Lying in bed, no distress,denies chest pain Reason for consultation and follow up: Cardiac evaluation for chest pain more muskuloskeletal than cardiac, history of multiple sclerosis, fibromyalgia, bradycardia s/p AICD placement, hypertension, obesity, diabetes, chronic anemia Seen and examined by me and Dr. Caro Objective - Vital Signs/Intake and Output Vital Signs (last 24 hours): Temp Pulse Resp BP Pulse Ox 98.2 F 81 19 135/88 99 04/14/18 18:00 04/14/18 18:00 04/14/18 18:00 04/14/18 18:00 04/14/18 18:00 Intake and Output: 04/14/18 04/15/18 18:59 06:59 Intake Total 725 480 Balance 725 480 - Medications Medications: Current Medications Acetaminophen (Tylenol 325mg Tab) 650 mg PO Q6H PRN PRN Reason: Pain, moderate (4-7) Last Admin: 04/13/18 13:12 Dose: 650 mg Acetaminophen/Butalbital/Caffeine (Fioricet) 1 tab PO Q4H PRN PRN Reason: Pain, moderate (4-7) Last Admin: 04/13/18 20:44 Dose: 1 tab Acetylcysteine (Acetylcysteine 20%) 4 ml IH [id number] [facility] Last Admin: 04/15/18 01:35 Dose: Not Given Albuterol/Ipratropium (Duoneb 3 Mg/0.5 Mg (3 Ml) Ud) 3 ml IH [id number] [facility] Last Admin: 04/15/18 01:35 Dose: Not Given Amlodipine Besylate (Norvasc) 10 mg PO DAILY [facility] Last Admin: 04/14/18 09:34 Dose: 10 mg Aspirin (Ecotrin) 81 mg PO DAILY [facility] Last Admin: 04/14/18 09:34 Dose: 81 mg Clonazepam (Klonopin) 1 mg PO Q8 PRN; Protocol PRN Reason: Anxiety Last Admin: 04/14/18 09:43 Dose: 1 mg Cyclobenzaprine HCl (Flexeril) 5 mg PO TID PRN PRN Reason: Pain, moderate (4-7) Last Admin: 04/14/18 06:07 Dose: 5 mg Diphenoxylate HCl/Atropine (Lomotil 0.025-2.5 Mg Tablet) 1 tab PO DAILY PRN PRN Reason: Diarrhea Folic Acid (Folic Acid) 1 mg PO DAILY [facility] Last Admin: 04/14/18 09:34 Dose: 1 mg Guaifenesin/Dextromethorphan (Robitussin Dm) 10 ml PO Q4H PRN PRN Reason: Cough Hydrochlorothiazide (Hydrodiuril) 25 mg PO DAILY [facility] Last Admin: 04/14/18 09:34 Dose: 25 mg Ceftriaxone Sodium (Rocephin 2 Gm Ivpb) 2 gm in 100 mls @ 100 mls/hr IVPB DAILY [facility] PRN Reason: Protocol Last Admin: 04/14/18 09:35 Dose: 100 mls/hr Methylprednisolone 1 gm/ (Sodium Chloride) 250 mls @ 500 mls/hr IV DAILY [facility] Stop: 04/15/18 14:00 Last Admin: 04/14/18 09:35 Dose: 500 mls/hr Ibuprofen (Motrin Tab) 600 mg PO BID [facility] Last Admin: 04/14/18 17:02 Dose: 600 mg Insulin Human Regular (Humulin R Med) 0 units SC ACHS [facility] PRN Reason: Protocol Last Admin: 04/14/18 23:12 Dose: Not Given Lidocaine (Lidocaine 5%) 0 gm TOP DAILY [facility] Last Admin: 04/14/18 09:36 Dose: Not Given Loperamide HCl (Imodium) 2 mg PO DAILY [facility] Last Admin: 04/14/18 09:59 Dose: Not Given Non-Formulary Medication (Venlafaxine [Effexor 50 Mg Tab]) 100 mg PO BID [facility] Last Admin: 04/14/18 17:53 Dose: Not Given Ondansetron HCl (Zofran Inj) 4 mg IVP Q6H PRN PRN Reason: Migraine headache Last Admin: 04/15/18 01:18 Dose: 4 mg Oxycodone/Acetaminophen (Percocet 10/325 Mg Tab) 1 tab PO Q6H PRN PRN Reason: Pain, moderate (4-7) Last Admin: 04/14/18 18:02 Dose: 1 tab Pantoprazole Sodium (Protonix Ec Tab) 40 mg PO 0600 [facility] Last Admin: 04/15/18 05:48 Dose: 40 mg - Labs Labs: 04/14/18 07:40 04/14/18 07:40 PT 11.3 SECONDS (9.4-12.5) 04/11/18 18:39 INR 0.99 (0.93-1.08) 04/11/18 18:39 APTT 31.3 Seconds (25.1-36.5) 04/11/18 18:39 - Constitutional Appears: No Acute Distress - Head Exam Head Exam: NORMOCEPHALIC - Eye Exam Eye Exam: Normal appearance - ENT Exam ENT Exam: Mucous Membranes Moist - Respiratory Exam Respiratory Exam: Clear to Ausculation Bilateral, NORMAL BREATHING PATTERN - Cardiovascular Exam Cardiovascular Exam: +S1, +S2 Additional comments: AICD/PPM right subclavian port. - GI/Abdominal Exam GI & Abdominal Exam: Soft, Normal Bowel Sounds - Extremities Exam Extremities Exam: Normal Capillary Refill - Neurological Exam Neurological Exam: Alert, Awake, Oriented x3 - Psychiatric Exam Psychiatric exam: Normal Affect, Normal Mood - Skin Skin Exam: Intact, Normal Color, Warm Assessment and Plan - Assessment and Plan (Free Text) Assessment: A 58-year-old female who came in to the ER due to left chest pain associated with left arm numbness for 2 days. upon evaluation by Martínez Gill, chest pain more musculoskeletal than cardiac. positive tenderness as site. History of multiple sclerosis, fibromyalgia, bradycardia s/p AICD/PPM placement, hypertension, obesity, diabetes, chronic anemia, gastric bypass,small bowel resection, depression,anxiety. Plan: Recommended stress test however refused and she will have it done in [place] with her Knit Tubing Dyer Comfortable this morning Denies chest pain,chest tenderness Continue Motrin 600 mg BID Cardiac status stable Heart rate and blood pressure controlled On Norvasc 10 mg daily,Hydrodiuril 25 mg daily Continue other medications Continue current treatment Will follow up Plan and treatment discussed with Dr. Caro
[2018-04-15 06:48] LABS: GRAN # 7.67 (1.4-6.5); GRAN % 85.3 % (50.0-68.0); HEMOGLOBIN 10.2 g/dL (12.0-16.0); LYMPH % 11.3 % (22.0-35.0); MEAN CELL VOLUME 92.6 fl (80.0-105.0); MEAN CORPUSCULAR HEMOGLOBIN 30.3 pg (25.0-35.0); MEAN CORPUSCULAR HGB CONC 32.7 g/dl (31.0-37.0); MEAN PLATELET VOLUME 11.8 fl (7.0-11.0); MONO # 0.3 (0.1-0.6); MONO % 3.4 % (1.0-6.0); RBC 3.37 10^6/uL (3.5-6.1); RED CELL DISTRIBUTION WIDTH 13.6 % (11.5-14.5)
[2018-04-15 07:04] LABS: ALBUMIN 3.4 g/dL (3.0-4.8); ALT/SGPT 28 U/L (7-56); AST/SGOT 28 U/L (14-36); BLOOD UREA NITROGEN 18 mg/dL (7-21); GFR AFRICAN-AMERICAN > 60; GFR NON-AFRICAN AMERICAN > 60
[2018-04-15] MEDS: Insulin Reg-MEDIUM-Coverage SC SCH ×2 (08:10→11:36)
[2018-04-15 08:22] VITALS: BP 110/67; PULSE 61; TEMP 97.1; O2SAT 96
--- NOTE | 2018-04-15 08:37 | PN ---
DATE: 04/14/2018 REASON FOR DICTATION: Addendum to the initial progress note dictated by our nurse practitioner, Rhonda Simmons. REASON FOR ADDENDUM: The patient's chest pain was atypical. No evidence of acute IN. Significant improvement with Motrin and nonsteroidal antiinflammatory. The patient had pacemaker AICD 2 years, being followed by in [place]. The patient saw before she coming in and advised to go back and follow up upon reaching [place]. The patient is going back to [place] on 04/28/2018, and suggest for the risk stratification with a stress test there. The patient's stress test 2 years ago was normal. 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 Chandra Caro MD
[2018-04-15] MEDS: cefTRIAXone 2 GM IN NS 2 GM/100 ML BAG IVPB SCH (09:13)
[2018-04-15] MEDS: VENLAFAXINE 100 MG PO SCH (09:16)
[2018-04-15] MEDS: Lidocaine 5% Oint(35 gm) TOP SCH (09:16)
[2018-04-15] MEDS ORDERED: Cefpodoxime (Vantin) 200 mg Tab PO SCH (10:00)
[2018-04-15] MEDS: methylPREDNISolone 1 GM in Sodium Chloride 0.9% 250 ML IV SCH (10:16)
--- NOTE | 2018-04-15 11:52 | CP.PCM.PN ---
Subjective - Date & Time of Evaluation Date of Evaluation: 04/15/18 Time of Evaluation: 11:49 - Subjective Subjective: Ms. Diallo was seen and examined at the bedside. She remains alert, oriented in all spheres. She denies any headache, lightheadedness,nausea, or vomiting. She is able to follow simple commands. She is able to tolerate IV solumedrol and last dose today.There was no untoward events overnight. Objective - Vital Signs/Intake and Output Vital Signs (last 24 hours): Temp Pulse Resp BP Pulse Ox 97.1 F L 61 19 110/67 96 04/15/18 08:20 04/15/18 08:20 04/15/18 08:20 04/15/18 09:11 04/15/18 08:20 Intake and Output: 04/15/18 04/15/18 06:59 18:59 Intake Total 480 240 Balance 480 240 - Medications Medications: Current Medications Acetaminophen (Tylenol 325mg Tab) 650 mg PO Q6H PRN PRN Reason: Pain, moderate (4-7) Last Admin: 04/13/18 13:12 Dose: 650 mg Acetaminophen/Butalbital/Caffeine (Fioricet) 1 tab PO Q4H PRN PRN Reason: Pain, moderate (4-7) Last Admin: 04/13/18 20:44 Dose: 1 tab Acetylcysteine (Acetylcysteine 20%) 4 ml IH [id number] [facility] Last Admin: 04/15/18 07:21 Dose: 4 ml Albuterol/Ipratropium (Duoneb 3 Mg/0.5 Mg (3 Ml) Ud) 3 ml IH [id number] [facility] Last Admin: 04/15/18 07:21 Dose: 3 ml Amlodipine Besylate (Norvasc) 10 mg PO DAILY [facility] Last Admin: 04/15/18 09:11 Dose: 10 mg Aspirin (Ecotrin) 81 mg PO DAILY [facility] Last Admin: 04/15/18 09:12 Dose: 81 mg Cefpodoxime Proxetil (Vantin) 200 mg PO Q12 [facility] Stop: 04/17/18 22:01 Clonazepam (Klonopin) 1 mg PO Q8 PRN; Protocol PRN Reason: Anxiety Last Admin: 04/15/18 09:11 Dose: 1 mg Cyclobenzaprine HCl (Flexeril) 5 mg PO TID PRN PRN Reason: Pain, moderate (4-7) Last Admin: 04/14/18 06:07 Dose: 5 mg Diphenoxylate HCl/Atropine (Lomotil 0.025-2.5 Mg Tablet) 1 tab PO DAILY PRN PRN Reason: Diarrhea Folic Acid (Folic Acid) 1 mg PO DAILY [facility] Last Admin: 04/15/18 09:12 Dose: 1 mg Guaifenesin/Dextromethorphan (Robitussin Dm) 10 ml PO Q4H PRN PRN Reason: Cough Hydrochlorothiazide (Hydrodiuril) 25 mg PO DAILY [facility] Last Admin: 04/15/18 09:12 Dose: 25 mg Methylprednisolone 1 gm/ (Sodium Chloride) 250 mls @ 500 mls/hr IV DAILY [facility] Stop: 04/15/18 14:00 Last Admin: 04/15/18 10:16 Dose: 500 mls/hr Ibuprofen (Motrin Tab) 600 mg PO BID [facility] Last Admin: 04/15/18 09:12 Dose: 600 mg Insulin Human Regular (Humulin R Med) 0 units SC ACHS [facility] PRN Reason: Protocol Last Admin: 04/15/18 11:36 Dose: Not Given Lidocaine (Lidocaine 5%) 0 gm TOP DAILY [facility] Last Admin: 04/15/18 09:16 Dose: Not Given Loperamide HCl (Imodium) 2 mg PO DAILY [facility] Last Admin: 04/15/18 09:12 Dose: 2 mg Non-Formulary Medication (Venlafaxine [Effexor 50 Mg Tab]) 100 mg PO BID [facility] Last Admin: 04/15/18 09:16 Dose: Not Given Ondansetron HCl (Zofran Inj) 4 mg IVP Q6H PRN PRN Reason: Migraine headache Last Admin: 04/15/18 09:13 Dose: 4 mg Oxycodone/Acetaminophen (Percocet 10/325 Mg Tab) 1 tab PO Q6H PRN PRN Reason: Pain, moderate (4-7) Last Admin: 04/14/18 18:02 Dose: 1 tab Pantoprazole Sodium (Protonix Ec Tab) 40 mg PO 0600 [facility] Last Admin: 04/15/18 05:48 Dose: 40 mg - Labs Labs: 04/15/18 05:30 04/15/18 05:30 PT 11.3 SECONDS (9.4-12.5) 04/11/18 18:39 INR 0.99 (0.93-1.08) 04/11/18 18:39 APTT 31.3 Seconds (25.1-36.5) 04/11/18 18:39 - Constitutional Appears: No Acute Distress - Head Exam Head Exam: NORMAL INSPECTION - Eye Exam Eye Exam: EOMI Pupil Exam: PERRL - Neck Exam Neck Exam: Full ROM - Neurological Exam Neurological Exam: Alert, Awake, Oriented x3 Neuro motor strength exam: Left Upper Extremity: 5, Right Upper Extremity: 5, Left Lower Extremity: 4, Right Lower Extremity: 4 Assessment and Plan (1) Multiple sclerosis exacerbation Assessment & Plan: Case discussed with Dr. Brooks, continue all current medical regimen. May discharge patient pending clearance from primary team.Recommend to follow up with her own private neurologist in [place] and if the patient will stay in [place] to follow up with Dr. Luan Mata, encourage hydration. Status: Acute
--- NOTE | 2018-04-15 15:59 | CP.PCM.DIS ---
Provider - Provider Date of Admission: 04/11/18 19:11 Attending physician: Chandra Corado MD Primary care physician: [facility] Course - Lab Results Lab Results: Micro Results 04/15/18 09:44 Stool C. difficile Antigen & Toxin A,B (M - Final 04/13/18 22:13 Urine Urine Culture - Final 10-50,000 CFU/ML. MULTIPLE SPECIES. PROBABLE CONTAMINATION. 04/11/18 22:45 Blood-Venous Blood Culture - Preliminary NO GROWTH AFTER 3 DAYS 04/11/18 22:10 Blood-Venous Blood Culture - Preliminary NO GROWTH AFTER 3 DAYS 04/12/18 11:45 Stool C. difficile Antigen & Toxin A,B (M - Final Most Recent Lab Values WBC 9.0 10^3/ul (4.5-11.0) D 04/15/18 05:30 RBC 3.37 10^6/uL (3.5-6.1) L 04/15/18 05:30 Hgb 10.2 g/dL (12.0-16.0) L 04/15/18 05:30 Hct 31.2 % (36.0-48.0) L 04/15/18 05:30 MCV 92.6 fl (80.0-105.0) 04/15/18 05:30 MCH 30.3 pg (25.0-35.0) 04/15/18 05:30 MCHC 32.7 g/dl (31.0-37.0) 04/15/18 05:30 RDW 13.6 % (11.5-14.5) 04/15/18 05:30 Plt Count 159 10^3/uL (120.0-450.0) 04/15/18 05:30 MPV 11.8 fl (7.0-11.0) H 04/15/18 05:30 Gran % 85.3 % (50.0-68.0) H 04/15/18 05:30 Lymph % (Auto) 11.3 % (22.0-35.0) L 04/15/18 05:30 [place]undy % (Auto) 3.4 % (1.0-6.0) 04/15/18 05:30 Eos % (Auto) 0.0 % (1.5-5.0) L 04/15/18 05:30 Baso % (Auto) 0.0 % (0.0-3.0) 04/15/18 05:30 Gran # 7.67 (1.4-6.5) H 04/15/18 05:30 Lymph # (Auto) 1.0 (1.2-3.4) L 04/15/18 05:30 [place] # (Auto) 0.3 (0.1-0.6) 04/15/18 05:30 Eos # (Auto) 0.0 (0.0-0.7) 04/15/18 05:30 Baso # (Auto) 0.00 K/mm3 (0.0-2.0) 04/15/18 05:30 Differential Comment See pathology report 04/11/18 22:00 ESR 55 mm/hr (0.0-20.0) H 04/11/18 18:39 PT 11.3 SECONDS (9.4-12.5) 04/11/18 18:39 INR 0.99 (0.93-1.08) 04/11/18 18:39 APTT 31.3 Seconds (25.1-36.5) 04/11/18 18:39 Sodium 141 mmol/L (132-148) 04/15/18 05:30 Potassium 4.3 mmol/L (3.6-5.0) 04/15/18 05:30 Chloride 105 mmol/L (98-107) 04/15/18 05:30 Carbon Dioxide 26 mmol/L (21-33) 04/15/18 05:30 Anion Gap 14 (10-20) 04/15/18 05:30 BUN 18 mg/dL (7-21) 04/15/18 05:30 Creatinine 0.8 mg/dl (0.7-1.2) 04/15/18 05:30 Est GFR ( Amer) > 60 04/15/18 05:30 Est GFR (Non-Af Amer) > 60 04/15/18 05:30 POC Glucose (mg/dL) 107 mg/dL (65-110) 04/15/18 11:18 Random Glucose 116 mg/dL (70-110) H 04/15/18 05:30 Calcium 9.0 mg/dL (8.4-10.5) 04/15/18 05:30 Phosphorus 4.5 mg/dL (2.5-4.5) 04/13/18 06:30 Magnesium 1.8 mg/dL (1.7-2.2) 04/13/18 06:30 Iron 64 ug/dL (45-180) 04/12/18 09:00 TIBC 203 ug/dL (265-497) L 04/12/18 09:00 % Saturation 31 % (20-55) 04/12/18 09:00 Ferritin 289.0 ng/mL 04/12/18 09:00 Total Bilirubin < 0.1 mg/dL (0.2-1.3) L 04/15/18 05:30 AST 28 U/L (14-36) 04/15/18 05:30 ALT 28 U/L (7-56) 04/15/18 05:30 Alkaline Phosphatase 132 U/L (38-126) H 04/15/18 05:30 Lactate Dehydrogenase 528 U/L (333-699) 04/11/18 18:39 Total Creatine Kinase 45 U/L (35-230) 04/11/18 18:39 Troponin I < 0.01 ng/mL 04/12/18 06:15 C-React Prot High Sens 5.10 mg/L (1.00-3.00) H 04/12/18 06:15 NT-Pro-B Natriuret Pep 93.9 pg/mL (0-450) 04/11/18 18:39 Total Protein 6.8 g/dL (5.8-8.3) 04/15/18 05:30 Albumin 3.4 g/dL (3.0-4.8) 04/15/18 05:30 Globulin 3.4 gm/dL 04/15/18 05:30 Albumin/Globulin Ratio 1.0 (1.1-1.8) L 04/15/18 05:30 Vitamin B12 204 pg/mL (239-931) L 04/12/18 06:15 Folate > 20.0 ng/mL 04/12/18 06:15 Procalcitonin < 0.05 NG/ML (0.19-0.49) L 04/12/18 06:15 TSH 3rd Generation 2.58 mIU/mL (0.46-4.68) 04/12/18 06:15 Urine Color Light yellow (YELLOW) 04/12/18 11:45 Urine Appearance Sl cloudy (CLEAR) 04/12/18 11:45 Urine pH 8.0 (4.7-8.0) 04/12/18 11:45 Ur Specific Hudson 1.015 (1.005-1.035) 04/12/18 11:45 Urine Protein Negative mg/dL (<30 mg/dL) 04/12/18 11:45 Urine Glucose (UA) Negative mg/dL (NEGATIVE) 04/12/18 11:45 Urine Ketones Negative mg/dL (NEGATIVE) 04/12/18 11:45 Urine Blood Negative (NEGATIVE) 04/12/18 11:45 Urine Nitrate Positive (NEGATIVE) H 04/12/18 11:45 Urine Bilirubin Negative (NEGATIVE) 04/12/18 11:45 Urine Urobilinogen 0.2 E.U./dL (<1 E.U./dL) 04/12/18 11:45 Ur Leukocyte Esterase Trace Jason/uL (NEGATIVE) H 04/12/18 11:45 Urine RBC Negative /hpf (0-2) 04/12/18 11:45 Urine WBC 2 - 5 /hpf (0-6) 04/12/18 11:45 Ur Epithelial Cells 0 - 2 /hpf (0-5) 04/12/18 11:45 Urine Bacteria Many (NEG) 04/12/18 11:45 Salicylates 2 mg/dL (2.0-20.0) 04/11/18 18:39 Urine Opiates Screen Negative (NEGATIVE) 04/11/18 18:28 Urine Methadone Screen Negative (NEGATIVE) 04/11/18 18:28 Acetaminophen < 10.0 ug/ml (10.0-20.0) L 04/11/18 18:39 Ur Barbiturates Screen Positive (NEGATIVE) H 04/11/18 18:28 Ur Phencyclidine Scrn Negative (NEGATIVE) 04/11/18 18:28 Ur Amphetamines Screen Negative (NEGATIVE) 04/11/18 18:28 U Benzodiazepines Scrn Negative (NEGATIVE) 04/11/18 18:28 U Oth Cocaine Metabols Negative (NEGATIVE) 04/11/18 18:28 U Cannabinoids Screen Negative (NEGATIVE) 04/11/18 18:28 Alcohol, Quantitative < 10 mg/dL (0-10) 06/16/18 18:39 Hepatitis A IgM Ab Negative (NEGATIVE) 04/12/18 06:15 Hep Bs Antigen Negative (NEGATIVE) 04/12/18 06:15 Hep B Core IgM Ab Negative (NEGATIVE) 04/12/18 06:15 Hepatitis C Antibody Negative (NEGATIVE) 04/12/18 06:15 HIV 1&2 Ag/Ab, 4th Gen Nonreactive (Nonreactive) 04/12/18 06:00 Discharge Exam - Head Exam Head Exam: NORMAL INSPECTION Discharge Plan - Discharge Medications Prescriptions: Ibuprofen [Motrin Tab] 600 mg PO Q6 #20 tab Ibuprofen [Motrin Tab] 600 mg PO BID #12 tab Ondansetron [Zofran Tab] 1 tab PO BID #14 tab Pantoprazole Sodium [Protonix] 40 mg PO DAILY #7 ect Pregabalin [Lyrica] 100 mg PO TID #21 capsule Venlafaxine [Effexor 50 MG TAB] 100 mg PO BID #14 tab - Follow Up Plan Condition: STABLE Disposition: HOME/ ROUTINE Instructions: Chest Pain, Urinary Tract Infection, Adult (DC), Multiple Sclerosis, Adult (DC) Additional Instructions: Follow up with Neurologist and Primary care physician. Take mediations as prescribed. If you experience any worsening of symptoms contact your primary care Physician and go to the nearest Emergency Room Referrals: FAMILY PROVIDER,NO [Primary Care Provider] -
== END 2018-04-15 16:41 | disposition home or self-care (01) | DRG 690 ==
LOC: ED 17:33 → ERH 19:11 → 2RSO 22:32 → 3RNO 04-13 14:42
PROVIDERS: ADMIT Internal Medicine; ATTEND Internal Medicine
DX: N39.0 Urinary tract infection, site not specified (principal); D61.818 Other pancytopenia; G35 Multiple sclerosis; M79.7 Fibromyalgia; E11.9 Type 2 diabetes mellitus without complications; E66.9 Obesity, unspecified; E78.00 Pure hypercholesterolemia, unspecified; E78.5 Hyperlipidemia, unspecified; F31.9 Bipolar disorder, unspecified; F41.9 Anxiety disorder, unspecified; I10 Essential (primary) hypertension; J44.9 Chronic obstructive pulmonary disease, unspecified; K21.9 Gastro-esophageal reflux disease without esophagitis; K52.9 Noninfective gastroenteritis and colitis, unspecified; Z79.4 Long term (current) use of insulin; Z79.82 Long term (current) use of aspirin; Z82.49 Family history of ischemic heart disease and other diseases of the circulatory system; Z87.440 Personal history of urinary (tract) infections; Z87.442 Personal history of urinary calculi; Z95.0 Presence of cardiac pacemaker; Z95.810 Presence of automatic (implantable) cardiac defibrillator; Z98.84 Bariatric surgery status; Z88.1 Allergy status to other antibiotic agents; Z91.041 Radiographic dye allergy status; Z91.14 Patient's other noncompliance with medication regimen; Z87.81 Personal history of (healed) traumatic fracture; Z68.36 Body mass index [BMI] 36.0-36.9, adult

== ENCOUNTER 2018-05-13 13:44 | Inpatient (IN) | payer MEDICARE, OTHER ==
[2018-05-13 13:52] VITALS: BMI 36.7
--- NOTE | 2018-05-13 14:15 | ED PDOC ---
Arrival/HPI - General Historian: Patient - History of Present Illness Time/Duration: Prior to Arrival Symptom Onset: Sudden Activities at Onset: Light Context: Home <Benito Gr - Last Filed: 05/13/18 21:38> <Enrike Recinos DO - Last Filed: 05/13/18 22:17> - General Time Seen by Provider: 05/13/18 13:46 - History of Present Illness Narrative History of Present Illness (Text): 05/13/18 14:10 This is a 58 year old female with PMH of multiple sclerosis, fibromyalgia, HT, diabetes, chronic anemia and bradycardia s/p AICD presenting to the ER after verbal altercation with her daughter. History is difficult to obtain from patient at this time due to patient responses. She states that she was arguing with adult daughter and her daughter called the ambulance. Patient denies physical harm to herself or daughter. Patient denies desire for self harm or harm to others. She denies CP, SOB, abdominal pain, fevers, chills, urinary complaints and chills. (Benito Gr) Past Medical History - Provider Review Nursing Documentation Reviewed: Yes - Past History Past History: Non-Contributing - Infectious Disease Hx of Infectious Diseases: None - Cardiac Hx Hypertension: Yes - Pulmonary Hx Respiratory Disorders: No - Neurological Hx Neurological Disorder: Yes (MULTIPLE SCLEROSIS,FIBROMYALGIA) - HEENT Hx HEENT Disorder: No - Renal Hx Renal Disorder: No - Endocrine/Metabolic Hx Diabetes Mellitus Type 2: Yes - Hematological/Oncological Hx Blood Disorders: No - Integumentary Hx Dermatological Disorder: No - Musculoskeletal/Rheumatological Hx Back Pain: Yes Hx Falls: Yes - Gastrointestinal Other/Comment: colitis - Genitourinary/Gynecological Hx Genitourinary Disorders: No - Psychiatric Hx Substance Use: No - Surgical History Hx Gastric Bypass Surgery: Yes Other/Comment: pacemaker - Anesthesia Hx Anesthesia: No <Benito Gr - Last Filed: 05/13/18 21:38> Family/Social History - Physician Review Nursing Documentation Reviewed: Yes Family/Social History: Unknown Family HX Smoking Status: Never Smoked Hx Alcohol Use: No Hx Substance Use: No Hx Substance Use Treatment: No <Benito Gr - Last Filed: 05/13/18 21:38> Allergies/Home Meds <Benito Gr - Last Filed: 05/13/18 21:38> <Enrike Recinos DO - Last Filed: 05/13/18 22:17> Allergies/Adverse Reactions: Allergies levofloxacin [From Levaquin] Allergy (Verified 10/04/17 14:45) RASH iv dye Allergy (Uncoded 10/04/17 14:45) RASH Home Medications: Home Meds Medication Instructions Recorded Confirmed Aspirin [Ecotrin] 81 mg PO DAILY 10/04/17 05/13/18 amLODIPine [Norvasc] 10 mg PO DAILY 10/04/17 05/13/18 Acetaminophen/Butalbital/Caf 1 tab PO Q4H PRN 04/11/18 05/13/18 [Fioricet] Lidocaine 5% 1 g TOP DAILY 04/11/18 05/13/18 Review of Systems - Physician Review All systems were reviewed & negative as marked: Yes - Review of Systems Constitutional: Normal. absent: Fevers Eyes: Normal ENT: Normal Respiratory: Normal. absent: SOB Cardiovascular: Normal. absent: Chest Pain Gastrointestinal: Normal. absent: Abdominal Pain Genitourinary Female: Normal. absent: Dysuria Musculoskeletal: Normal Skin: Normal Neurological: Normal Psychiatric: Anxiety <Benito Gr - Last Filed: 05/13/18 21:38> Physical Exam Vital Signs Reviewed: Yes Temperature: Afebrile Blood Pressure: Normal Pulse: Regular Respiratory Rate: Normal Appearance: Positive for: Well-Appearing, Non-Toxic, Comfortable Pain Distress: None Mental Status: Positive for: Alert and Oriented X 3 - Systems Exam Head: Present: Atraumatic, Normocephalic Pupils: Present: PERRL Extroacular Muscles: Present: EOMI Conjunctiva: Present: Normal Mouth: Present: Moist Mucous Membranes Neck: Present: Normal Range of Motion Respiratory/Chest: Present: Clear to Auscultation, Good Air Exchange. No: Respiratory Distress, Accessory Muscle Use Cardiovascular: Present: Regular Rate and Rhythm, Normal S1, S2. No: Murmurs Abdomen: No: Tenderness, Distention, Peritoneal Signs Back: Present: Normal Inspection Upper Extremity: Present: Normal Inspection. No: Cyanosis, Edema Lower Extremity: Present: Normal Inspection. No: Edema Neurological: Present: GCS=15, CN II-XII Intact, Speech Normal Skin: Present: Warm, Dry, Normal Color. No: Rashes Psychiatric: Present: Alert, Anxious, Agitated. No: Normal Insight, Suicidal Ideation, Homicidal Ideation <Benito Gr - Last Filed: 05/13/18 21:38> Vital Signs Temp Pulse Resp BP Pulse Ox 05/13/18 18:44 98.7 F 89 18 126/76 99 05/13/18 14:39 98.9 F 96 H 16 117/44 L 100 Medical Decision Making <Benito Gr - Last Filed: 05/13/18 21:38> - Lab Interpretations I have reviewed the lab results: Yes - RAD Interpretation Picture Frame Maker: Radiologist - EKG Interpretation Interpreted by ED Physician: Yes Type: 12 lead EKG <Tremaynemakedawanda DOEnrike - Last Filed: 05/13/18 22:17> ED Course and Treatment: 05/13/18 14:17 Impression: This is a 58 year old female with PMH of multiple sclerosis, fibromyalgia, HT, diabetes, chronic anemia and bradycardia s/p AICD presenting to the ER after verbal altercation with her daughter. Differential not limited to: Anxiety vs depression vs psychosis Plan: Blood work pending. Will check U/A and drug screen. Progress: 05/13/18 14:20 Patient is agitated and confrontational, given 2mg ativan. 05/13/18 16:[address]: no acute intracranial findings. 05/13/18 21:07 Spoke with daughter who states patient was recently told by physician to stop taking benzodiazepine. Daughter is unsure of stop date, physician name or name of benzodiazepine. (Benito Gr) 05/13/18 Patient Seen With Resident: In agreement with resident note which contains more details about the patient. Patient was seen and evaluated with resident. Came up with plan and treatment together. 05/13/18 14:37 Chest X-ray: Creator : Torie Dyer MD IMPRESSION: No active pulmonary disease. 05/13/18 15:[address] without contrast: Creator : Lion Torres MD IMPRESSION: No acute intracranial findings 05/13/18 17:17 EKG shows NSR at 93 BPM with normal axis and intervals. Interpreted by me. 05/13/18 17:18 Patient has a UTI and can be treated with PO antibiotics. Patient cleared for psychiatric evaluation 05/13/18 19:52 Discussed case with . (Enrike Recinos DO) - Lab Interpretations Lab Results: 05/13/18 14:25 05/13/18 14:25 Lab Results 05/13/18 18:26: pO2 71 H, VBG pH 7.38, VBG pCO2 44.0, VBG HCO3 26.0, VBG Total CO2 27.4, VBG O2 Sat (Calc) 92.2 H, VBG Base Excess 0.5, VBG Potassium 3.8, Glucose 81, Lactate 0.6 L, FiO2 21.0, Sodium 136.0, Chloride 107.0, Venous Blood Potassium 3.8 05/13/18 16:13: Urine Opiates Screen Negative, Urine Methadone Screen Negative, Ur Barbiturates Screen Positive H, Ur Phencyclidine Scrn Negative, Ur Amphetamines Screen Negative, U Benzodiazepines Scrn Negative, U Oth Cocaine Metabols Negative, U Cannabinoids Screen Negative 05/13/18 16:13: Urine Color Yellow, Urine Appearance Sl cloudy, Urine pH 6.0, Ur Specific [place] >= 1.030, Urine Protein Negative, Urine Glucose (UA) Negative, Urine Ketones Negative, Urine Blood Negative, Urine Nitrate Positive H , Urine Bilirubin Negative, Urine Urobilinogen 1.0 H, Ur Leukocyte Esterase Small H, Urine RBC Negative, Urine WBC 10 - 15, Ur Epithelial Cells 6 - 8, Urine Bacteria Many 05/13/18 15:09: Blood Type A POSITIVE, Antibody Screen Negative, BBK History Checked No verified bt 05/13/18 14:30: Iron 35 L, TIBC Pending, % Saturation Pending 05/13/18 14:25: PT 12.6 H, INR 1.10 H, APTT 29.5 05/13/18 14:25: Alcohol, Quantitative < 10 05/13/18 14:25: Salicylates < 1 L, Acetaminophen < 10.0 L 05/13/18 14:25: Sodium 137, Potassium 3.7, Chloride 103, Carbon Dioxide 23, Anion Gap 15, BUN 19, Creatinine 0.8, Est GFR ( Amer) > 60, Est GFR (Non- Af Amer) > 60, Random Glucose 105, Calcium 8.9, Total Bilirubin 0.6, AST 28, ALT 24, Alkaline Phosphatase 129 H, Total Protein 7.1, Albumin 3.7, Globulin 3.4 , Albumin/Globulin Ratio 1.1 05/13/18 14:25: WBC 3.2 L D, RBC 3.35 L, Hgb 10.3 L, Hct 30.9 L, MCV 92.2, MCH 30.7, MCHC 33.3, RDW 13.2, Plt Count 219, MPV 10.0, Gran % 44.9 L, Lymph % (Auto ) 45.1 H, [place] % (Auto) 9.1 H, Eos % (Auto) 0.6 L, Baso % (Auto) 0.3, Gran # 1.43, Lymph # (Auto) 1.4, [place] # (Auto) 0.3, Eos # (Auto) 0.0, Baso # (Auto) 0.01 - RAD Interpretation Radiology Orders: 05/13/18 14:07 CHEST PORTABLE [RAD] Stat 05/13/18 14:30 HEAD W/O CONTRAST [CT] Stat - Medication Orders Current Medication Orders: Sodium Chloride (Sodium Chloride 0.9%) 1,000 mls @ 250 mls/hr IV .Q4H ONE Stop: 05/13/18 23:43 Last Admin: 05/13/18 21:02 Dose: 250 mls/hr eMAR Start Stop Document 05/13/18 21:02 JOL (Rec: 05/13/18 21:03 JO [id number]) Intravenous Solution Start Date 05/13/18 Start Time 21:02 Folic Acid 1 mg/ Thiamine HCl 100 mg/ Multivitamins/Vitamin C 10 ml/ Dextrose 1 ,011.2 mls @ 150 mls/hr IV .Q6H45M [facility] Last Admin: 05/13/18 21:57 Dose: 150 mls/hr eMAR Start Stop Document 05/13/18 21:57 JOL (Rec: 05/13/18 21:57 JO [id number]) Intravenous Solution Start Date 05/13/18 Start Time 21:57 Ceftriaxone Sodium (Rocephin 1 Gram Ivpb) 1 gm in 100 mls @ 100 mls/hr IVPB DAILY HERMINIO PRN Reason: Protocol Lorazepam (Ativan) 2 mg IVP Q4H PRN; Protocol PRN Reason: Agitation Discontinued Medications Clonazepam (Klonopin) 1 mg PO STAT STA PRN Reason: Protocol Stop: 05/13/18 20:07 Last Admin: 05/13/18 21:02 Dose: 1 mg Ceftriaxone Sodium (Rocephin 1 Gram Ivpb) 1 gm in 100 mls @ 100 mls/hr IVPB STAT STA PRN Reason: Protocol Stop: 05/13/18 19:21 Last Admin: 05/13/18 19:00 Dose: 100 mls/hr eMAR Start Stop Document 05/13/18 19:00 MS (Rec: 05/13/18 19:00 MS [id number]) Intravenous Solution Start Date 05/13/18 Start Time 19:00 End Date 05/13/18 End time 20:00 Total Infusion Time 60 Lorazepam (Ativan) 2 mg IM STAT STA PRN Reason: Protocol Stop: 05/13/18 14:26 Last Admin: 05/13/18 14:54 Dose: 2 mg IM Administration Charges Document 05/13/18 14:54 MS (Rec: 05/13/18 17:55 MS [id number]) Injection Site MAR Injection Site Left Deltoid Charges for Administration # of IM Administrations 1 Lorazepam (Ativan) 2 mg IVP STAT STA PRN Reason: Protocol Stop: 05/13/18 14:52 Last Admin: 05/13/18 15:30 Dose: 2 mg IVP Administration Document 05/13/18 15:30 MS (Rec: 05/13/18 18:51 MS [id number]) Charges for Administration # of IVP Administrations 1 Thiamine HCl (Vitamin B1 Tab) 100 mg PO STAT STA Stop: 05/13/18 21:32 - PA / QUARTER SUPERVISOR / Resident Statement ADRIANNA has reviewed & agrees with the documentation as recorded. ADRIANNA has examined the patient and agrees with the treatment plan. <Benito Gr - Last Filed: 05/13/18 21:38> Disposition/Present on Arrival - Present on Arrival Any Indicators Present on Arrival: Yes History of DVT/PE: No History of Uncontrolled Diabetes: Yes Urinary Catheter: No History Surgical Site Infection Following: None - Disposition Have Diagnosis and Disposition been Completed?: Yes Disposition Time: 22:00 Patient Plan: Discharge <Benito Gr - Last Filed: 05/13/18 21:38> - Present on Arrival Any Indicators Present on Arrival: No - Disposition Disposition Time: 18:30 <Enrike Recinos DO - Last Filed: 05/13/18 22:17> - Disposition Diagnosis: UTI (urinary tract infection), Leukopenia Disposition: HOSPITALIZED Patient Problems: Current Active Problems Problem Status Onset UTI (urinary tract infection) Acute Leukopenia Chronic Condition: STABLE
--- NOTE | 2018-05-13 14:25 | RAD ---
Date of service: 05/13/2018 HISTORY: psych eval COMPARISON: 04/11/2018. FINDINGS: The right MediPort terminates at the cavoatrial junction. LUNGS: The lungs are well inflated and clear. PLEURA: No significant pleural effusion identified, no pneumothorax apparent. CARDIOVASCULAR: The heart is normal in size. There is stable position of left-sided pacemaker. OSSEOUS STRUCTURES: No significant abnormalities. VISUALIZED UPPER ABDOMEN: Normal. OTHER FINDINGS: None. IMPRESSION: No active pulmonary disease.
[2018-05-13 14:55] LABS: BASO # 0.01 K/mm3 (0.0-2.0); BASO % 0.3 % (0.0-3.0); EOS % 0.6 % (1.5-5.0); GRAN # 1.43 (1.4-6.5); GRAN % 44.9 % (50.0-68.0); HEMOGLOBIN 10.3 g/dL (12.0-16.0); LYMPH # 1.4 (1.2-3.4); LYMPH % 45.1 % (22.0-35.0); MEAN CELL VOLUME 92.2 fl (80.0-105.0); MEAN CORPUSCULAR HEMOGLOBIN 30.7 pg (25.0-35.0); MEAN CORPUSCULAR HGB CONC 33.3 g/dl (31.0-37.0); MONO # 0.3 (0.1-0.6); MONO % 9.1 % (1.0-6.0); RBC 3.35 10^6/uL (3.5-6.1); RED CELL DISTRIBUTION WIDTH 13.2 % (11.5-14.5); WHITE BLOOD COUNT 3.2 10^3/ul (4.5-11.0)
[2018-05-13 15:07] LABS: INR 1.1 (0.93-1.08); PARTIAL THROMBOPLASTIN TIME 29.5 Seconds (25.1-36.5); PROTHROMBIN TIME 12.6 SECONDS (9.4-12.5)
[2018-05-13 15:35] LABS: ACETAMINOPHEN < 10.0 ug/ml (10.0-20.0); SALICYLATE < 1 mg/dL (2.0-20.0)
[2018-05-13 15:36] LABS: ALB/GLOB RATIO 1.1 (1.1-1.8); ALBUMIN 3.7 g/dL (3.0-4.8); BLOOD UREA NITROGEN 19 mg/dL (7-21); CALCIUM 8.9 mg/dL (8.4-10.5); GFR AFRICAN-AMERICAN > 60; GFR NON-AFRICAN AMERICAN > 60
[2018-05-13 15:37] LABS: ALT/SGPT 24 U/L (7-56); AST/SGOT 28 U/L (14-36)
--- NOTE | 2018-05-13 15:45 | CT ---
Date of service: 05/13/2018 PROCEDURE: CT HEAD WITHOUT CONTRAST. HISTORY: ? fall COMPARISON: 04/12/2018 TECHNIQUE: Axial computed tomography images were obtained through the head/brain without intravenous contrast. Radiation dose: Total exam DLP = 857 mGy-cm. This CT exam was performed using one or more of the following dose reduction techniques: Automated exposure control, adjustment of the mA and/or kV according to patient size, and/or use of iterative reconstruction technique. FINDINGS: HEMORRHAGE: No intracranial hemorrhage. BRAIN: No mass effect or edema. Chronic microvascular changes are seen in the periventricular white matter. 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 VENTRICLES: Unremarkable. No hydrocephalus. CALVARIUM: Unremarkable. PARANASAL SINUSES: There is partial opacification of the right maxillary sinus MASTOID AIR CELLS: Unremarkable as visualized. No inflammatory changes. OTHER FINDINGS: None. IMPRESSION: No acute intracranial findings
[2018-05-13 16:26] LABS: URINE BILIRUBIN NEGATIVE (NEGATIVE); URINE BLOOD NEGATIVE (NEGATIVE); URINE GLUCOSE (UA) NEGATIVE (NEGATIVE); URINE LEUKOCYTE ESTERASE SMALL Leu/uL (NEGATIVE); URINE PROTEIN NEGATIVE mg/dL (<30 mg/dL)
[2018-05-13 16:33] LABS: URINE APPEARANCE SL CLOUDY (CLEAR); URINE COLOR YELLOW (YELLOW)
[2018-05-13 16:41] LABS: URINE RBC NEGATIVE /hpf (0-2)
[2018-05-13 16:42] LABS: URINE BACTERIA MANY (NEG)
[2018-05-13 16:44] LABS: PHENCYCLIDINE, UR NEGATIVE (NEGATIVE)
[2018-05-13 16:53] LABS: BARBITURATES, UR POSITIVE (NEGATIVE); BENZODIAZEPINES, UR NEGATIVE (NEGATIVE); OPIATES, UR NEGATIVE (NEGATIVE)
[2018-05-13] MEDS ORDERED: cefTRIAXone 1 gm 1 GM/100 ML BAG IVPB STA (18:22)
[2018-05-13 18:33] LABS: VENOUS BLOOD GAS BASE EXCESS 0.5 mmol/L (0.0-2.0); VENOUS BLOOD GAS PO2 71 mm/Hg (30-55); VENOUS BLOOD PH 7.38 (7.32-7.43)
--- NOTE | 2018-05-13 19:32 | CARD ---
APPROVED REPORT Date of service: 05/13/2018 EKG Measurement Heart [id number] <Conclusion> Sinus rhythm with marked sinus arrhythmia Nonspecific ST and T wave abnormality Abnormal ECG
[2018-05-13] MEDS ORDERED: Sodium Chloride 0.9% 1,000 ML IV ONE (19:44)
[2018-05-13] MEDS: Folic Acid 1 MG, Thiamine 100 MG, Multivitamin (MVI) 10 ML in Dextrose 5% In Water 1,00... IV SCH (21:57)
[2018-05-13 22:06] LABS: IRON 35 ug/dL (45-180)
[2018-05-13 22:17] LABS: % IRON SATURATION 16 % (20-55); TOTAL IRON BINDING CAPACITY 214 ug/dL (265-497)
--- NOTE | 2018-05-13 22:55 | CP.PCM.HP ---
<Guanaco Perera - Last Filed: 05/13/18 23:36> History of Present Illness - History of Present Illness History of Present Illness: 58F w/ a PMH significant for fibromyalgia, MS, depression, HTN, diabetes, chronic anemia and bradycardia s/p AICD presents to [facility] ED on 05/13 PM via EMS for CC of AMS. Pt was seen in ED however is a poor historian and requires frequent reorientation. Remainder of HPI was supplemented by daughter via telephone. Patient's daughter reported her mother had been altered since friday during which she had an unwitnessed fall. She reported that today the patient was having hallucinations of someone entering the house, and subsequently EMS was called. Daughter reports that patient lives at home with her, and has recently moved from [place] to [place] / increasing episodes of falls. The daughter reported her mother had a previous similar episode ~6 years ago in which that patient went into a coma after an uti. Subsequently, the patient was diagnosed w/ MS 6-7 years ago and has been seen previously here for flare up. Her previous flare up involved R UE/LE numbness. It has been previously noted that the patient does show lesions on her brain. Patient has a port on the R side of her chest for a hematologic condition, however it is unknown to the daughter which condition she is receiving treatment for. Daughter has reported that patient's PMD may have DC'd some of the patient's benzo/ zakia recently; unable to verify at this time. Unable to obtain ROS at this time. In ED pt given Ativan 2mg x2; Clonazepam, Rocephin, and NS@250. CT head: w/o acute intracranial findings CXR: WNl CBC/CMP: Leukopenia; Normocytic Anemia UA: Nitrite+, WBC: 10-15; Bacteria many UTox: Barbituate Present on Admission - Present on Admission Any Indicators Present on Admission: No Review of Systems - Review of Systems Systems not reviewed;Unavailable: Altered Mental Status Past Patient History - Infectious Disease Hx of Infectious Diseases: None - Past Social History Smoking Status: Never Smoked - CARDIAC Hx Hypertension: Yes - PULMONARY Hx Respiratory Disorders: No - NEUROLOGICAL Hx Neurological Disorder: Yes (MULTIPLE SCLEROSIS,FIBROMYALGIA) - HEENT Hx HEENT Problems: No - RENAL Hx Chronic Kidney Disease: No - ENDOCRINE/METABOLIC Hx Diabetes Mellitus Type 2: Yes - HEMATOLOGICAL/ONCOLOGICAL Hx Blood Disorders: No - INTEGUMENTARY Hx Dermatological Problems: No - MUSCULOSKELETAL/RHEUMATOLOGICAL Hx Back Pain: Yes Hx Falls: Yes - GASTROINTESTINAL Other/Comment: colitis - GENITOURINARY/GYNECOLOGICAL Hx Genitourinary Disorders: No - PSYCHIATRIC Hx Substance Use: No - SURGICAL HISTORY Hx Gastric Bypass Surgery: Yes Other/Comment: pacemaker - ANESTHESIA Hx Anesthesia: No Meds Allergies/Adverse Reactions: Allergies Allergy/AdvReac Type Severity Reaction Status Date / Time levofloxacin [From Levaquin] Allergy RASH Verified 10/04/17 14:45 iv dye Allergy RASH Uncoded 10/04/17 14:45 Physical Exam - Constitutional Appears: No Acute Distress, Agitated - Head Exam Head Exam: ATRAUMATIC, NORMOCEPHALIC - Eye Exam Eye Exam: EOMI, PERRL. absent: Scleral icterus - ENT Exam ENT Exam: Mucous Membranes Moist - Respiratory Exam Respiratory Exam: Clear to Auscultation Bilateral, NORMAL BREATHING PATTERN. absent: Rales, Rhonchi, Wheezes - Cardiovascular Exam Cardiovascular Exam: +S1, +S2. absent: REGULAR RHYTHM, RRR - GI/Abdominal Exam GI & Abdominal Exam: Normal Bowel Sounds, Soft, Tenderness (RLQ/ LLQ ). absent : Guarding - Extremities Exam Extremities exam: Positive for: pedal pulses present. Negative for: tenderness - Neurological Exam Neurological exam: Alert Additional comments: Lethargic - Psychiatric Exam Additional comments: Confused, Agitated - Skin Skin Exam: Dry, Intact, Warm Results - Vital Signs Recent Vital Signs: Last Vital Signs Temp 98.7 F 05/13/18 18:44 Pulse 89 05/13/18 18:44 Resp 18 05/13/18 18:44 BP 126/76 05/13/18 18:44 Pulse Ox 99 05/13/18 18:44 - Labs Result Diagrams: 05/13/18 14:25 05/13/18 14:25 Assessment & Plan - Assessment and Plan (Free Text) Assessment: 58F w/ a PMH significant for fibromyalgia, MS, depression, HTN, diabetes, chronic anemia and bradycardia s/p AICD presents to [facility] ED on 05/13 PM via EMS for CC of AMS. AMS Barbituate OD vs Benzo Withdrawal vs MS Exacerbation vs UTI Seizure precaution Aspiration precaution Fall precaution Neurocheck Q4 Thiamine 100 x1 given Banana Bag 150mls/hr Aspiration precaution Blood Cx Urine Cx Cont [place] 1gm Q24 Neuro consulted Hx MS Continue Neurochecks; Neurologic reassessment once patient mentation returns to baseline Leukopenia Appears to be chronic give previous admt WBC HIV pending Hx Chronic Anemia Continue to monitor h/h; pt. currently hemodynamically stable Hx Diabetes Prev A1c 4.8 09/2017 New A1C pending Hx Chronic Anemia: Normocytic in nature; Iron studies pending Hx HTN : Appears to be normotensive at this time; Restart home Norvasc when necessary Hx Bradycardia s/p pacemaker EKG w/ nonspecific ST/T wave abnormalities; no ST Eelevations DVT/GI PPX: Dispo: Admit to med surg for monitoring of AMS and evaluation of underlying etiology Patient seen, examined, and discussed w/ attending physician Dr. Mohr in ED. Guanaco Perera DO PGY1 IM [employer] Press Operator - Date & Time Date: 05/13/18 Time: 23:33 <Narendra Mohr - Last Filed: 05/14/18 00:05> Results - Vital Signs Recent Vital Signs: Last Vital Signs Temp 98.4 F 05/13/18 22:30 Pulse 72 05/13/18 22:30 Resp 20 05/13/18 22:30 BP 108/66 05/13/18 22:30 Pulse Ox 94 L 05/13/18 22:30 - Labs Result Diagrams: 05/13/18 14:25 05/13/18 14:25
[2018-05-14] MEDS: Folic Acid 1 MG, Thiamine 100 MG, Multivitamin (MVI) 10 ML in Dextrose 5% In Water 1,00... IV SCH (06:05)
--- NOTE | 2018-05-14 07:08 | CP.PCM.CON ---
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 She states that she has had more than 3 falls in the past 4 months. She admits to loss of consciousness in the most recent episode which prompted her arrival at the ED. After regaining consciousness, she felt tired and had trouble standing up. She also describes foaming at the mouth. Recently she has been experiencing increased weakness, particularly in her lower extremities bilaterally, as well as tremors. She is also having increased difficulty carrying out her baseline daily activities. Of note, she was [place] [facility] [place] for a multiple sclerosis flare and was treaterd with solu-medrol. She denies any recent changes to her medications. Admits to headache, dizziness. Denies changes in vision or hearing, chest pain, palpitations, shortness of breath, abdominal pain, dysuria, bowel or bladder incontinence. Past medical history: multiple sclerosis, fibromyalgia, anxiety, hypertension, type 2 diabetes, neutropenia, bradycardia s/p pacemaker Past surgical: pacemaker (2015), gastric bypass Social: Lives at home with daughter and grandchildren. Denies alcohol or recreational drug use. Former smoker 1 PPD for 20 years. Quit approximately 25 years ago. Family history: Mother (, osteoporosis), Father (, lung cancer) Home medications: Losartan, norvasc, HCTZ, clonazepam, percocet, gabapentin, copaxone 12 point ROS was benign except as stated above. Past Patient History - Infectious Disease Hx of Infectious Diseases: None - Past Social History Smoking Status: Former Smoker Alcohol: None Drugs: Denies Home Situation {Lives}: With Family - CARDIAC Hx Hypertension: Yes - PULMONARY Hx Respiratory Disorders: No - NEUROLOGICAL Hx Neurological Disorder: Yes (MULTIPLE SCLEROSIS,FIBROMYALGIA) - HEENT Hx HEENT Problems: No - RENAL Hx Chronic Kidney Disease: No - ENDOCRINE/METABOLIC Hx Diabetes Mellitus Type 2: Yes - HEMATOLOGICAL/ONCOLOGICAL Hx Blood Disorders: No - INTEGUMENTARY Hx Dermatological Problems: No - MUSCULOSKELETAL/RHEUMATOLOGICAL Hx Back Pain: Yes Hx Falls: Yes - GASTROINTESTINAL Other/Comment: colitis - GENITOURINARY/GYNECOLOGICAL Hx Genitourinary Disorders: No - PSYCHIATRIC Hx Psychophysiologic Disorder: Yes Hx Anxiety: Yes Hx Bipolar Disorder: Yes Hx Depression: Yes Hx Substance Use: No - SURGICAL HISTORY Hx Gastric Bypass Surgery: Yes Other/Comment: pacemaker - ANESTHESIA Hx Anesthesia: No Meds Allergies/Adverse Reactions: Allergies Allergy/AdvReac Type Severity Reaction Status Date / Time levofloxacin [From Levaquin] Allergy RASH Verified 10/04/17 14:45 iv dye Allergy RASH Uncoded 10/04/17 14:45 - Medications Medications: Current Medications Folic Acid 1 mg/ Thiamine HCl 100 mg/ Multivitamins/Vitamin C 10 ml/ Dextrose 1 ,011.2 mls @ 150 mls/hr IV .Q6H45M [facility] Last Admin: 05/14/18 06:05 Dose: 150 mls/hr Ceftriaxone Sodium (Rocephin 1 Gram Ivpb) 1 gm in 100 mls @ 100 mls/hr IVPB DAILY [facility] PRN Reason: Protocol Insulin Human Regular (Humulin R Low) 0 units SC ACHS [facility] PRN Reason: Protocol Lorazepam (Ativan) 2 mg IVP Q4H PRN; Protocol PRN Reason: Agitation Physical Exam - Constitutional Appears: Non-toxic, No Acute Distress - Head Exam Head Exam: ATRAUMATIC, NORMOCEPHALIC - Eye Exam Eye Exam: EOMI, Normal appearance, PERRL - ENT Exam ENT Exam: Mucous Membranes Moist, Normal External Ear Exam - Neck Exam Neck exam: Positive for: Full Rom, Normal Inspection - Respiratory Exam Respiratory Exam: Clear to Auscultation Bilateral, NORMAL BREATHING PATTERN - Cardiovascular Exam Cardiovascular Exam: REGULAR RHYTHM, +S1, +S2 - GI/Abdominal Exam GI & Abdominal Exam: Normal Bowel Sounds, Soft. absent: Distended, Tenderness - Extremities Exam Extremities exam: Positive for: normal inspection - Back Exam Back exam: NORMAL INSPECTION - Neurological Exam Neurological exam: Alert, CN II-XII Intact, Motor Sensory Deficit, Oriented x3 Additional comments: Unsteady gait. - Expanded Neurological Exam Expanded Patient oriented to: person, place, time Cranial nerves: EOM's Intact: Normal, Tongue Deviation: Normal Ataxia: No Cerebellar Function: Finger to Nose: Normal, Heel to Polanco: Normal Upper motor neuron: Pronator Drift: Normal Sensory exam: Lower Extremity Light Touch: Abnormal Left, Abnormal Right ( Numbness in feet bilaterally) Neuro motor strength exam: Left Upper Extremity: 5, Right Upper Extremity: 5, Left Lower Extremity: 5, Right Lower Extremity: 5 Coma Scale Eye Opening: SPONTANEOUS Coma Scale Motor Response: OBEYS COMMANDS Coma Scale Verbal: Oriented Coma Scale Total: 15 - Psychiatric Exam Psychiatric exam: Normal Affect, Normal Mood - Skin Skin Exam: Dry, Intact, Normal Color Results - Vital Signs Recent Vital Signs: Last Vital Signs Temp 98.4 F 05/14/18 02:46 Pulse 72 05/14/18 02:46 Resp 20 05/14/18 02:46 BP 108/66 05/14/18 02:46 Pulse Ox 94 L 05/13/18 22:30 - Labs Result Diagrams: 05/13/18 14:25 05/13/18 14:25 Assessment & Plan - Assessment and Plan (Free Text) Assessment: Patient is a 58 year old female with past medical history of multiple sclerosis , fibromyalgia, anxiety, hypertension, type 2 diabetes, neutropenia, bradycardia s/p pacemaker placement presenting with chief complaint of weakness and increased frequency of falls and was found to have no acute intracranial findings on head CT. Plan: Syncope - Possibly secondary to seizure - CT head shows no intracranial hemorrhage, mass effect, or edema. Chronic microvascular changes in the periventricular white matter. Old lacunar infarct in right thalamus. - Unable to obtain MRI as patient has pacemaker - Currently on rocephin for UTI - Neurochecks - Fall precaution - PT/OT consulted - Followup EEG to rule out seizures - Followup CTA head and neck for evaluation of posterior circulation - Further recommendations per Dr. Cool Case discussed and plan approved by attending physician Dr. Silvina Mcgrath PGY 1
[2018-05-14 07:42] LABS: HDL CHOLESTEROL 48 mg/dL (29-60)
[2018-05-14 08:30] LABS: LDL CHOLESTEROL 48 mg/dL (0-129)
[2018-05-14] MEDS: Insulin Reg-LOW-Coverage SC SCH ×4 (08:41→22:29)
[2018-05-14] MEDS: Multivitamin Therapeutic Tab PO SCH (10:03)
[2018-05-14] MEDS: cefTRIAXone 1 gm 1 GM/100 ML BAG IVPB SCH (10:03)
--- NOTE | 2018-05-14 12:12 | CON ---
DATE: 05/14/2018 HISTORY OF PRESENT ILLNESS: Shortly, the patient is a 58-year-old female, recently moved from [place], currently lives with her daughter and 5 of her grand kids in [place]. The patient was admitted on the medical site status post argument with her daughter. The patient was found to be confused and possible urinary tract infection. The patient was seen and examined today. The patient presented to be confused. The patient had difficulty to stay focused and concentrate during the interview, obviously in delirium stage, but not psychotic. The patient reported that she had argument with her daughter and she fell, she hit her head. She does not remember how she ended up in the hospital. The patient reported that she ran off her psychotropic medications. She was on Effexor and Klonopin in the past. The patient reported that she was feeling more depressed, but adamantly denied thoughts of harming herself or others. The patient reported that she has future-oriented plans to move back to [place]. The patient reported that she wants to get better. She wants to be medically well and leave [place]. The patient denied hearing voices, denied seeing things. Denied paranoid ideation. The patient reported that she did not follow up with outpatient provider after previous admission to the medical site and this show card writer provided the patient with information about local psychiatrists and outpatient clinics, but the patient said that her daughter was not taking her for appointments and that is why she ran short on the medication for the past month or so. The patient reported also that she is self medicating herself with the Benadryl, which could contribute to the patient's delirium and change in mental status. This show card writer reviewed the vital signs. Vital signs seems to be stable, temp 98.2, pulse of 71, blood pressure 140/87, respirations 20, oxygen saturation is 100. Medications reviewed. The patient is on Rocephin, folic acid, insulin, Ativan 2 mg IV push every 4 hours p.r.n. for agitation, multivitamins, Effexor and Sonata were started. Labs showed no leukocytosis. Hemoglobin and hematocrit 10.3 and 30.9. Coagulation reviewed. Blood gases reviewed. Chemistry reviewed. AST and ALT within normal limits. Iron is low. Total iron-binding capacity 214 and saturation is 16. Urinalysis showed leukocyte esterase and nitrite positive. Toxicology positive for barbiturates and alcohol was less than 10. This show card writer is very familiar with this patient from the previous consultation services here in [place]. The patient was not suicidal back then. Psychiatric history significant for history of depression, history of psychiatric admission, it was more than 3 years back. MENTAL STATUS EXAMINATION: The patient appears to be alert, somewhat confused. The patient was off with the date. Intermittent eye contact. Speech was overproductive, but slow. Thought process, the patient had difficulty to stay focused and concentrate and some circumstantiality, but it is related to the fact that the patient has difficulty to stay focused and concentrate. The patient reported being depressed. Thought content, the patient denied thoughts of harming herself or others. The patient denied hearing voices, denied seeing things. Insight and judgment seems to be fair. Impulses are well controlled. IMPRESSION: As per history, the patient has depression and anxiety, rule out major depressive disorder, rule out adjustment disorder. At present moment, the patient seems to be in delirium stage. PLAN: Effexor will be resumed 37.5. Sonata will be given for insomnia. The patient complained that she was not able to sleep for the past week or so. The patient is on antibiotics for urinary tract infection. The patient has future oriented plans. This show card writer will follow up on this patient just to make sure that the patient tolerates medications well as well as delirium is improving. Thank you very much for letting me participate in the care of your patient. Should you have any questions, give me a call back. Romina Dockery MD
--- NOTE | 2018-05-14 17:21 | CP.PCM.PN ---
<Mauricio Manning - Last Filed: 05/14/18 17:48> Subjective - Date & Time of Evaluation Date of Evaluation: 05/14/18 Time of Evaluation: 07:30 - Subjective Subjective: Mauricio Manning, PGY-1 Progress Note for Hospitalist Service Patient was seen and examined at bedside today and seemed agitated.Patient admitted to neck pain, headaches, and dizziness.Patient had difficulty staying focused and concentrate during interview. Patient admitted to have visual hallucinations while staying with her daughter. Patient complained of pain and numbness in her LE bilaterally but admitted this to be a chronic condition. Objective - Vital Signs/Intake and Output Vital Signs (last 24 hours): Temp Pulse Resp BP Pulse Ox 99.1 F 75 16 133/85 96 05/14/18 14:00 05/14/18 14:00 05/14/18 14:00 05/14/18 14:00 05/14/18 14:00 Intake and Output: 05/14/18 05/14/18 06:59 18:59 Intake Total 120 Balance 120 - Medications Medications: Current Medications Aspirin (Ecotrin) 81 mg PO DAILY [facility] Folic Acid (Folic Acid) 1 mg PO DAILY [facility] Last Admin: 05/14/18 10:03 Dose: 1 mg Ceftriaxone Sodium (Rocephin 1 Gram Ivpb) 1 gm in 100 mls @ 100 mls/hr IVPB DAILY [facility] PRN Reason: Protocol Last Admin: 05/14/18 10:03 Dose: 100 mls/hr Insulin Human Regular (Humulin R Low) 0 units SC ACHS [facility] PRN Reason: Protocol Last Admin: 05/14/18 12:00 Dose: Not Given Lorazepam (Ativan) 2 mg IVP Q4H PRN; Protocol PRN Reason: Agitation Last Admin: 05/14/18 12:30 Dose: 2 mg Multivitamins (Thera Tab) 1 tab PO DAILY [facility] Last Admin: 05/14/18 10:03 Dose: 1 tab Pregabalin (Lyrica) 100 mg PO TID [facility] Thiamine HCl (Vitamin B1 Tab) 100 mg PO DAILY [facility] Last Admin: 05/14/18 10:03 Dose: 100 mg Venlafaxine HCl (Effexor) 37.5 mg PO DAILY [facility] Last Admin: 05/14/18 11:49 Dose: 37.5 mg Zaleplon (Sonata) 5 mg PO HS PRN PRN Reason: Insomnia - Labs Labs: PT 12.6 SECONDS (9.4-12.5) H 05/13/18 14:25 INR 1.10 (0.93-1.08) H 05/13/18 14:25 APTT 29.5 Seconds (25.1-36.5) 05/13/18 14:25 - Constitutional Appears: Well, No Acute Distress - Head Exam Head Exam: ATRAUMATIC, NORMAL INSPECTION, NORMOCEPHALIC - Eye Exam Eye Exam: EOMI, Normal appearance, PERRL Pupil Exam: NORMAL ACCOMODATION, PERRL - ENT Exam ENT Exam: Mucous Membranes Moist, Normal Exam - Neck Exam Neck Exam: Normal Inspection - Respiratory Exam Respiratory Exam: Clear to Ausculation Bilateral, NORMAL BREATHING PATTERN - Cardiovascular Exam Cardiovascular Exam: RRR, +S1, +S2 - GI/Abdominal Exam GI & Abdominal Exam: Soft, Normal Bowel Sounds. absent: Tenderness - Extremities Exam Extremities Exam: Normal Inspection. absent: Pedal Edema - Neurological Exam Neurological Exam: Alert, Awake - Psychiatric Exam Psychiatric exam: Anxious, Flat Affect - Skin Skin Exam: Dry, Intact, Normal Color, Warm Assessment and Plan - Assessment and Plan (Free Text) Assessment: Ms. Diallo is a 58 year old female with past medical history of multiple sclerosis, fibromyalgia, anxiety, hypertension, type 2 diabetes, neutropenia, bradycardia s/p pacemaker placement presenting with chief complaint of increased frequency of falls and weakness. AMS 2/2 seizure vs UTI vs MS - CT head shows no intracranial hemorrhage, mass effect, or edema. Chronic microvascular changes in the periventricular white matter. Old lacunar infarct in right thalamus. Unable to obtain MRI as patient has pacemaker - F/u EEG results - Followup CTA head and neck for evaluation of posterior circulation - Fall precautions in place - PT consulted for further evaluation of gait- f/u recommendations - dexamethasone 10 mg given in advance of CTA head and neck for evaluation of posterior circulation (patient is allergic to IV dye) - f/u further Neuro recommendations - f/u AM labs - f/u blood cultures UTI - Urinalysis: Positive for nitrates and Leukocyte esterase. - Currently on rocephin 1gm for UTI - f/u urine cx Fibromyalgia/anxiety - continued on home med of Venlafaxine and pregabalin - began sonata 5 mg and clonazepam for help sleeping - f/u Psych evaluation and recommendations regarding her orientation and hallucinations - Neurochecks in place Multiple Sclerosis - f/u for continuous care as an outpatient Disposition Patient currently living with daughter locally, but patient plans on moving back to [place] and live with her other daughter there. F/u social work recommendations Patient seen, case reviewed, and plan agreed upon with Dr. Luan Underwood. Mauricio Manning, PGY-1 <Silvia Underwood - Last Filed: 05/14/18 18:24> Objective - Vital Signs/Intake and Output Vital Signs (last 24 hours): Temp Pulse Resp BP Pulse Ox 99.1 F 75 16 133/85 96 05/14/18 14:00 05/14/18 14:00 05/14/18 14:00 05/14/18 14:00 05/14/18 14:00 Intake and Output: 05/14/18 05/14/18 06:59 18:59 Intake Total 120 Balance 120 - Medications Medications: Current Medications Aspirin (Ecotrin) 81 mg PO DAILY [facility] Clonazepam (Klonopin) 1 mg PO BID PRN; Protocol PRN Reason: Anxiety Last Admin: 05/14/18 17:18 Dose: 1 mg Folic Acid (Folic Acid) 1 mg PO DAILY [facility] Last Admin: 05/14/18 10:03 Dose: 1 mg Ceftriaxone Sodium (Rocephin 1 Gram Ivpb) 1 gm in 100 mls @ 100 mls/hr IVPB DAILY [facility] PRN Reason: Protocol Last Admin: 05/14/18 10:03 Dose: 100 mls/hr Insulin Human Regular (Humulin R Low) 0 units SC ACHS [facility] PRN Reason: Protocol Last Admin: 05/14/18 12:00 Dose: Not Given Lorazepam (Ativan) 2 mg IVP Q4H PRN; Protocol PRN Reason: Agitation Last Admin: 05/14/18 12:30 Dose: 2 mg Multivitamins (Thera Tab) 1 tab PO DAILY [facility] Last Admin: 05/14/18 10:03 Dose: 1 tab Pregabalin (Lyrica) 100 mg PO TID [facility] Last Admin: 05/14/18 17:18 Dose: 100 mg Thiamine HCl (Vitamin B1 Tab) 100 mg PO DAILY [facility] Last Admin: 05/14/18 10:03 Dose: 100 mg Venlafaxine HCl (Effexor) 37.5 mg PO DAILY [facility] Last Admin: 05/14/18 11:49 Dose: 37.5 mg Zaleplon (Sonata) 5 mg PO HS PRN PRN Reason: Insomnia - Labs Labs: PT 12.6 SECONDS (9.4-12.5) H 05/13/18 14:25 INR 1.10 (0.93-1.08) H 05/13/18 14:25 APTT 29.5 Seconds (25.1-36.5) 05/13/18 14:25 Attending/Attestation - Attestation I have personally seen and examined this patient.: Yes I have fully participated in the care of the patient.: Yes I have reviewed all pertinent clinical information, including history, physical exam and plan: Yes Notes (Text): 05/14/18 18:19 58 year old female with past medical history of anxiety, hypertension, fibromyalgia, multiple sclerosis, bradycardia s/p PPM and diabetes who presented with complaint of altered mental status, hallucinations and weakness/ falls. CT head was negative for acute findings. UA suggestive of possible UTI. She is on antibiotics. UCx is pending. Neurology and psychiatry evaluations were requested. PT evaluation was requested as well. Silvia Underwood MD Hospitalist.
[2018-05-15 06:56] LABS: GRAN # 1.95 (1.4-6.5); GRAN % 59.4 % (50.0-68.0); HEMOGLOBIN 9.7 g/dL (12.0-16.0); LYMPH # 1.2 (1.2-3.4); LYMPH % 35.1 % (22.0-35.0); MEAN CELL VOLUME 92.2 fl (80.0-105.0); MEAN CORPUSCULAR HEMOGLOBIN 30.2 pg (25.0-35.0); MEAN CORPUSCULAR HGB CONC 32.8 g/dl (31.0-37.0); MEAN PLATELET VOLUME 10.3 fl (7.0-11.0); MONO # 0.2 (0.1-0.6); MONO % 5.5 % (1.0-6.0); RBC 3.21 10^6/uL (3.5-6.1); RED CELL DISTRIBUTION WIDTH 12.9 % (11.5-14.5); WHITE BLOOD COUNT 3.3 10^3/ul (4.5-11.0)
[2018-05-15 07:23] LABS: ALBUMIN 3.2 g/dL (3.0-4.8); ALT/SGPT 27 U/L (7-56); AST/SGOT 24 U/L (14-36); BLOOD UREA NITROGEN 9 mg/dL (7-21); CALCIUM 8.8 mg/dL (8.4-10.5); GFR AFRICAN-AMERICAN > 60; GFR NON-AFRICAN AMERICAN > 60
--- NOTE | 2018-05-15 07:42 | CP.PCM.CON ---
Past Patient History - Infectious Disease Hx of Infectious Diseases: None - Past Social History Smoking Status: Former Smoker Alcohol: None Drugs: Denies Home Situation {Lives}: With Family - CARDIAC Hx Hypertension: Yes - PULMONARY Hx Respiratory Disorders: No - NEUROLOGICAL Hx Neurological Disorder: Yes (MULTIPLE SCLEROSIS,FIBROMYALGIA) - HEENT Hx HEENT Problems: No - RENAL Hx Chronic Kidney Disease: No - ENDOCRINE/METABOLIC Hx Diabetes Mellitus Type 2: Yes - HEMATOLOGICAL/ONCOLOGICAL Hx Blood Disorders: No - INTEGUMENTARY Hx Dermatological Problems: No - MUSCULOSKELETAL/RHEUMATOLOGICAL Hx Back Pain: Yes Hx Falls: Yes - GASTROINTESTINAL Other/Comment: colitis - GENITOURINARY/GYNECOLOGICAL Hx Genitourinary Disorders: No - PSYCHIATRIC Hx Psychophysiologic Disorder: Yes Hx Anxiety: Yes Hx Bipolar Disorder: Yes Hx Depression: Yes Hx Substance Use: No - SURGICAL HISTORY Hx Gastric Bypass Surgery: Yes Other/Comment: pacemaker - ANESTHESIA Hx Anesthesia: No Meds Allergies/Adverse Reactions: Allergies Allergy/AdvReac Type Severity Reaction Status Date / Time levofloxacin [From Levaquin] Allergy RASH Verified 10/04/17 14:45 iv dye Allergy RASH Uncoded 10/04/17 14:45 - Medications Medications: Current Medications Acetaminophen (Tylenol 325mg Tab) 650 mg PO Q6H PRN PRN Reason: Pain, moderate (4-7) Aspirin (Ecotrin) 81 mg PO DAILY [facility] Clonazepam (Klonopin) 1 mg PO BID PRN; Protocol PRN Reason: Anxiety Last Admin: 05/14/18 17:18 Dose: 1 mg Folic Acid (Folic Acid) 1 mg PO DAILY [facility] Last Admin: 05/14/18 10:03 Dose: 1 mg Ceftriaxone Sodium (Rocephin 1 Gram Ivpb) 1 gm in 100 mls @ 100 mls/hr IVPB DAILY [facility] PRN Reason: Protocol Last Admin: 05/14/18 10:03 Dose: 100 mls/hr Insulin Human Regular (Humulin R Low) 0 units SC ACHS [facility] PRN Reason: Protocol Last Admin: 05/14/18 22:29 Dose: Not Given Lorazepam (Ativan) 2 mg IVP Q4H PRN; Protocol PRN Reason: Agitation Last Admin: 05/14/18 12:30 Dose: 2 mg Multivitamins (Thera Tab) 1 tab PO DAILY [facility] Last Admin: 05/14/18 10:03 Dose: 1 tab Pantoprazole Sodium (Protonix Ec Tab) 40 mg PO 0600 [facility] Pregabalin (Lyrica) 100 mg PO TID [facility] Last Admin: 05/14/18 17:18 Dose: 100 mg Thiamine HCl (Vitamin B1 Tab) 100 mg PO DAILY [facility] Last Admin: 05/14/18 10:03 Dose: 100 mg Venlafaxine HCl (Effexor) 37.5 mg PO DAILY [facility] Last Admin: 05/14/18 11:49 Dose: 37.5 mg Zaleplon (Sonata) 5 mg PO HS PRN PRN Reason: Insomnia Last Admin: 05/14/18 23:06 Dose: 5 mg Results - Vital Signs Recent Vital Signs: Last Vital Signs Temp 99 F 05/14/18 21:59 Pulse 77 05/14/18 21:59 Resp 16 05/14/18 21:59 BP 138/86 05/14/18 21:59 Pulse Ox 94 L 05/14/18 21:59 - Labs Result Diagrams: 05/15/18 06:00 05/15/18 06:00 Labs: Laboratory Results - last 24 hr 05/14/18 05/14/18 05/15/18 17:11 21:45 06:00 WBC 3.3 L RBC 3.21 L Hgb 9.7 L Hct 29.6 L MCV 92.2 MCH 30.2 MCHC 32.8 RDW 12.9 Plt Count 223 MPV 10.3 Gran % 59.4 Lymph % (Auto) 35.1 H Waller % (Auto) 5.5 Eos % (Auto) 0.0 L Baso % (Auto) 0.0 Gran # 1.95 Lymph # (Auto) 1.2 Waller # (Auto) 0.2 Eos # (Auto) 0.0 Baso # (Auto) 0.00 Sodium Potassium Chloride Carbon Dioxide Anion Gap BUN Creatinine Est GFR ( Amer) Est GFR (Non-Af Amer) POC Glucose (mg/dL) 127 H 147 H Random Glucose Calcium Total Bilirubin AST ALT Alkaline Phosphatase Total Protein Albumin Globulin Albumin/Globulin Ratio 05/15/18 05/15/18 06:00 06:41 WBC RBC Hgb Hct MCV MCH MCHC RDW Plt Count MPV Gran % Lymph % (Auto) Waller % (Auto) Eos % (Auto) Baso % (Auto) Gran # Lymph # (Auto) Waller # (Auto) Eos # (Auto) Baso # (Auto) Sodium 139 Potassium 3.6 Chloride 106 Carbon Dioxide 25 Anion Gap 12 BUN 9 Creatinine 0.6 L Est GFR ( Amer) > 60 Est GFR (Non-Af Amer) > 60 POC Glucose (mg/dL) 102 Random Glucose 108 Calcium 8.8 Total Bilirubin 0.4 AST 24 ALT 27 Alkaline Phosphatase 103 Total Protein 6.5 Albumin 3.2 Globulin 3.3 Albumin/Globulin Ratio 1.0 L
--- NOTE | 2018-05-15 07:59 | CP.PCM.PN ---
Subjective - Date & Time of Evaluation Date of Evaluation: 05/15/18 Time of Evaluation: 09:30 - Subjective Subjective: Martha Mcgrath PGY-1, Community Relations Specialist, Neurology Consult Progress Note Patient had a headache overnight and was given Tylenol. Patient states she is still experiencing headache and dizziness but feels better overall. Denies loss of consciousness, changes in hearing or vision, changes in weakness or numbness , bowel or bladder incontinence. Objective - Vital Signs/Intake and Output Vital Signs (last 24 hours): Temp Pulse Resp BP Pulse Ox 99 F 77 16 138/86 94 L 05/14/18 21:59 05/14/18 21:59 05/14/18 21:59 05/14/18 21:59 05/14/18 21:59 Intake and Output: 05/15/18 05/15/18 06:59 18:59 Intake Total 700 Output Total 2 Balance 698 - Medications Medications: Current Medications Acetaminophen (Tylenol 325mg Tab) 650 mg PO Q6H PRN PRN Reason: Pain, moderate (4-7) Aspirin (Ecotrin) 81 mg PO DAILY HERMINIO Clonazepam (Klonopin) 1 mg PO BID PRN; Protocol PRN Reason: Anxiety Last Admin: 05/14/18 17:18 Dose: 1 mg Folic Acid (Folic Acid) 1 mg PO DAILY HERMINIO Last Admin: 05/14/18 10:03 Dose: 1 mg Ceftriaxone Sodium (Rocephin 1 Gram Ivpb) 1 gm in 100 mls @ 100 mls/hr IVPB DAILY HERMINIO PRN Reason: Protocol Last Admin: 05/14/18 10:03 Dose: 100 mls/hr Insulin Human Regular (Humulin R Low) 0 units SC ACHS HERMINIO PRN Reason: Protocol Last Admin: 05/14/18 22:29 Dose: Not Given Lorazepam (Ativan) 2 mg IVP Q4H PRN; Protocol PRN Reason: Agitation Last Admin: 05/14/18 12:30 Dose: 2 mg Multivitamins (Thera Tab) 1 tab PO DAILY HERMINIO Last Admin: 05/14/18 10:03 Dose: 1 tab Pantoprazole Sodium (Protonix Ec Tab) 40 mg PO 0600 HERMINIO Pregabalin (Lyrica) 100 mg PO TID HERMINIO Last Admin: 05/14/18 17:18 Dose: 100 mg Thiamine HCl (Vitamin B1 Tab) 100 mg PO DAILY HERMINIO Last Admin: 05/14/18 10:03 Dose: 100 mg Venlafaxine HCl (Effexor) 37.5 mg PO DAILY [facility] Last Admin: 05/14/18 11:49 Dose: 37.5 mg Zaleplon (Sonata) 5 mg PO HS PRN PRN Reason: Insomnia Last Admin: 05/14/18 23:06 Dose: 5 mg - Labs Labs: 05/15/18 06:00 05/15/18 06:00 PT 12.6 SECONDS (9.4-12.5) H 05/13/18 14:25 INR 1.10 (0.93-1.08) H 05/13/18 14:25 APTT 29.5 Seconds (25.1-36.5) 05/13/18 14:25 - Additional Findings Additional findings: - Constitutional Appears: Non-toxic, No Acute Distress - Head Exam Head Exam: ATRAUMATIC, NORMOCEPHALIC - Eye Exam Eye Exam: EOMI, Normal appearance, PERRL - ENT Exam ENT Exam: Mucous Membranes Moist, Normal External Ear Exam - Neck Exam Neck exam: Positive for: Full Rom, Normal Inspection - Respiratory Exam Respiratory Exam: Clear to Auscultation Bilateral, NORMAL BREATHING PATTERN - Cardiovascular Exam Cardiovascular Exam: REGULAR RHYTHM, +S1, +S2 - GI/Abdominal Exam GI & Abdominal Exam: Normal Bowel Sounds, Soft. absent: Distended, Tenderness - Extremities Exam Extremities exam: Positive for: normal inspection - Back Exam Back exam: NORMAL INSPECTION - Neurological Exam Neurological exam: Alert, CN II-XII Intact, Motor Sensory Deficit, Oriented x3 Additional comments: Unsteady gait. - Expanded Neurological Exam Expanded Patient oriented to: person, place, time Cranial nerves: EOM's Intact: Normal, Tongue Deviation: Normal Ataxia: No Cerebellar Function: Finger to Nose: Normal, Heel to Polanco: Normal Upper motor neuron: Pronator Drift: Normal Sensory exam: Lower Extremity Light Touch: Abnormal Left, Abnormal Right ( Numbness in feet bilaterally) Neuro motor strength exam: Left Upper Extremity: 5, Right Upper Extremity: 5, Left Lower Extremity: 5, Right Lower Extremity: 5 Coma Scale Eye Opening: SPONTANEOUS Coma Scale Motor Response: OBEYS COMMANDS Coma Scale Verbal: Oriented Coma Scale Total: 15 - Psychiatric Exam Psychiatric exam: Normal Affect, Normal Mood - Skin Skin Exam: Dry, Intact, Normal Color Assessment and Plan - Assessment and Plan (Free Text) Assessment: Patient is a 58 year old female with past medical history of multiple sclerosis , fibromyalgia, anxiety, hypertension, type 2 diabetes, neutropenia, bradycardia s/p pacemaker placement presenting with chief complaint of weakness and increased frequency of falls and was found to have no acute intracranial findings on head CT. Plan: Syncope - Seizure vs. neurogenic vs. cardiogenic - CT head shows no intracranial hemorrhage, mass effect, or edema. Chronic microvascular changes in the periventricular white matter. Old lacunar infarct in right thalamus - Unable to obtain MRI as patient has pacemaker - EEG preliminary read unremarkable - CTA head and neck unremarkable - PT/OT consulted - Followup outpatient with neurologist - Further recommendations per Dr. Cool Case discussed and plan approved by attending physician Dr. Silvina Mcgrath PGY 1
[2018-05-15] MEDS ORDERED: Pantoprazole 40 mg EC Tab PO SCH (08:00)
[2018-05-15] MEDS: Insulin Reg-LOW-Coverage SC SCH ×2 (08:27→12:00)
[2018-05-15 08:58] VITALS: RESP 20
[2018-05-15] MEDS: cefTRIAXone 1 gm 1 GM/100 ML BAG IVPB SCH (09:13)
[2018-05-15] MEDS: Multivitamin Therapeutic Tab PO SCH (09:14)
--- NOTE | 2018-05-15 10:20 | CT ---
Date of service: 05/15/2018 PROCEDURE: CT Angiography of the neck with contrast HISTORY: r/o aneurysm, carotid stenosis COMPARISON: None available. TECHNIQUE: Contiguous axial images of the neck were obtained from the level of the skull-base to the superior mediastinum in the arteriographic phase of enhancement. Coronal and sagittal reformats or also generated. IV contrast dose: Radiation Dose - DLP: mGy-cm This CT exam was performed using one or more of the following dose reduction techniques: Automated exposure control, adjustment of the mA and/or kV according to patient size, and/or use of iterative reconstruction technique. FINDINGS: RIGHT CAROTID ARTERIES: Calcified plaque in the internal carotid with no stenosis LEFT CAROTID ARTERIES: Calcified plaque in the internal carotid with no stenosis VERTEBRAL ARTERIES: Right Vertebral Artery: Normal. Left Vertebral Artery: Normal. OTHER FINDINGS: None. IMPRESSION: Calcified plaque in the internal carotids with no stenosis PROCEDURE: CT Angiography of the Brain. HISTORY: r/o aneurysm, carotid stenosis COMPARISON: None available. TECHNIQUE: CT angiography of the intracranial arteries was performed. Coronal and sagittal maximum intensity projection reformated images were generated. This CT exam was performed using one or more of the following dose reduction techniques: Automated exposure control, adjustment of the mA and/or kV according to patient size, and/or use of iterative reconstruction technique. FINDINGS: INTERNAL CEREBRAL ARTERIES: Unremarkable. The skull base, petrous, cavernous and supraclinoid segments are bilaterally widely patent. ANTERIOR CEREBRAL ARTERIES: Unremarkable. A1 and A2 segments are widely patent. Smaller distal branches unremarkable, as visualized. MIDDLE CEREBRAL ARTERIES: Unremarkable. M1 and M2 segments are widely patent. Perisylvian branches grossly symmetric. POSTERIOR CIRCULATION: Basilar Artery: Unremarkable. Distal Vertebral Arteries: Unremarkable. Posterior Cerebral Arteries: Unremarkable. Posterior Inferior Cerebellar Arteries: Unremarkable. ANEURYSM/ VASCULAR MALFORMATIONS: None. OTHER FINDINGS: None. IMPRESSION: Unremarkable CT Angiography of the Brain.
[2018-05-15 14:54] VITALS: BP 114/68; PULSE 67; TEMP 98.6; O2SAT 100
[2018-05-15] MEDS ORDERED: Apap-Butalbital-Caffeine 325-50-40mg Tab PO ONE (17:53)
--- NOTE | 2018-05-15 18:06 | CP.PCM.DIS ---
<Mauricio Manning - Last Filed: 05/15/18 18:02> Provider - Provider Date of Admission: 05/14/18 16:21 Attending physician: Silvia Underwood MD Consults: Psychiatry, Neurology, Physical Therapy Time Spent in preparation of Discharge (in minutes): 45 Diagnosis - Discharge Diagnosis (1) UTI (urinary tract infection) Status: Acute Priority: Medium (2) Leukopenia Status: Chronic Priority: Medium (3) Depression Status: Chronic (4) Weakness Status: Chronic Hospital Course - Lab Results Lab Results: Most Recent Lab Values WBC 3.3 10^3/ul (4.5-11.0) L 05/15/18 06:00 RBC 3.21 10^6/uL (3.5-6.1) L 05/15/18 06:00 Hgb 9.7 g/dL (12.0-16.0) L 05/15/18 06:00 Hct 29.6 % (36.0-48.0) L 05/15/18 06:00 MCV 92.2 fl (80.0-105.0) 05/15/18 06:00 MCH 30.2 pg (25.0-35.0) 05/15/18 06:00 MCHC 32.8 g/dl (31.0-37.0) 05/15/18 06:00 RDW 12.9 % (11.5-14.5) 05/15/18 06:00 Plt Count 223 10^3/uL (120.0-450.0) 05/15/18 06:00 MPV 10.3 fl (7.0-11.0) 05/15/18 06:00 Gran % 59.4 % (50.0-68.0) 05/15/18 06:00 Lymph % (Auto) 35.1 % (22.0-35.0) H 05/15/18 06:00 Caldwell % (Auto) 5.5 % (1.0-6.0) 05/15/18 06:00 Eos % (Auto) 0.0 % (1.5-5.0) L 05/15/18 06:00 Baso % (Auto) 0.0 % (0.0-3.0) 05/15/18 06:00 Gran # 1.95 (1.4-6.5) 05/15/18 06:00 Lymph # (Auto) 1.2 (1.2-3.4) 05/15/18 06:00 Caldwell # (Auto) 0.2 (0.1-0.6) 05/15/18 06:00 Eos # (Auto) 0.0 (0.0-0.7) 05/15/18 06:00 Baso # (Auto) 0.00 K/mm3 (0.0-2.0) 05/15/18 06:00 PT 12.6 SECONDS (9.4-12.5) H 05/13/18 14:25 INR 1.10 (0.93-1.08) H 05/13/18 14:25 APTT 29.5 Seconds (25.1-36.5) 05/13/18 14:25 pO2 71 mm/Hg (30-55) H 05/13/18 18:26 VBG pH 7.38 (7.32-7.43) 05/13/18 18:26 VBG pCO2 44.0 (40-60) 05/13/18 18:26 VBG HCO3 26.0 mmol/l (21-28) 05/13/18 18:26 VBG Total CO2 27.4 mmol.L (22-28) 05/13/18 18:26 VBG O2 Sat (Calc) 92.2 % (40-65) H 05/13/18 18:26 VBG Base Excess 0.5 mmol/L (0.0-2.0) 05/13/18 18:26 VBG Potassium 3.8 mmol/L (3.6-5.2) 05/13/18 18:26 Sodium 136.0 mmol/L (132-148) 05/13/18 18:26 Chloride 107.0 mmol/L (98-107) 05/13/18 18: Glucose 81 mg/dl (65-105) 05/13/18 18: Lactate 0.6 mmol/L (0.7-2.1) L 05/13/18 18:26 FiO2 21.0 % 05/13/18 18:26 Sodium 139 mmol/L (132-148) 05/15/18 06:00 Potassium 3.6 mmol/L (3.6-5.0) 05/15/18 06:00 Chloride 106 mmol/L (98-107) 05/15/18 06:00 Carbon Dioxide 25 mmol/L (21-33) 05/15/18 06:00 Anion Gap 12 (10-20) 05/15/18 06:00 BUN 9 mg/dL (7-21) 05/15/18 06:00 Creatinine 0.6 mg/dl (0.7-1.2) L 05/15/18 06:00 Est GFR ( Amer) > 60 05/15/18 06:00 Est GFR (Non-Af Amer) > 60 05/15/18 06:00 POC Glucose (mg/dL) 85 mg/dL (65-110) 05/15/18 11:15 Random Glucose 108 mg/dL (70-110) 05/15/18 06:00 Hemoglobin A1c 5.0 % (4.2-6.5) 05/14/18 07:10 Calcium 8.8 mg/dL (8.4-10.5) 05/15/18 06:00 Iron 35 ug/dL (45-180) L 05/13/18 14:30 TIBC 214 ug/dL (265-497) L 05/13/18 14:30 % Saturation 16 % (20-55) L 05/13/18 14:30 Total Bilirubin 0.4 mg/dL (0.2-1.3) 05/15/18 06:00 AST 24 U/L (14-36) 05/15/18 06:00 ALT 27 U/L (7-56) 05/15/18 06:00 Alkaline Phosphatase 103 U/L (38-126) 05/15/18 06:00 Total Protein 6.5 g/dL (5.8-8.3) 05/15/18 06:00 Albumin 3.2 g/dL (3.0-4.8) 05/15/18 06:00 Globulin 3.3 gm/dL 05/15/18 06:00 Albumin/Globulin Ratio 1.0 (1.1-1.8) L 05/15/18 06:00 Triglycerides 73 mg/dL (35-160) 05/14/18 07:10 Cholesterol 120 mg/dL (130-200) L 05/14/18 07:10 LDL Cholesterol Direct 48 mg/dL (0-129) 05/14/18 07:10 HDL Cholesterol 48 mg/dL (29-60) 05/14/18 07:10 TSH 3rd Generation 1.53 mIU/mL (0.46-4.68) 05/13/18 14:30 Venous Blood Potassium 3.8 mmol/L (3.6-5.2) 05/13/18 18:26 Urine Color Yellow (YELLOW) 05/13/18 16:13 Urine Appearance Sl cloudy (CLEAR) 05/13/18 16:13 Urine pH 6.0 (4.7-8.0) 05/13/18 16:13 Ur Specific [place] >= 1.030 (1.005-1.035) 05/13/18 16:13 Urine Protein Negative mg/dL (<30 mg/dL) 05/13/18 16:13 Urine Glucose (UA) Negative mg/dL (NEGATIVE) 05/13/18 16:13 Urine Ketones Negative mg/dL (NEGATIVE) 05/13/18 16:13 Urine Blood Negative (NEGATIVE) 05/13/18 16:13 Urine Nitrate Positive (NEGATIVE) H 05/13/18 16:13 Urine Bilirubin Negative (NEGATIVE) 05/13/18 16:13 Urine Urobilinogen 1.0 E.U./dL (<1 E.U./dL) H 05/13/18 16:13 Ur Leukocyte Esterase Small Jason/uL (NEGATIVE) H 05/13/18 16:13 Urine RBC Negative /hpf (0-2) 05/13/18 16:13 Urine WBC 10 - 15 /hpf (0-6) 05/13/18 16:13 Ur Epithelial Cells 6 - 8 /hpf (0-5) 05/13/18 16:13 Urine Bacteria Many (NEG) 05/13/18 16:13 Salicylates < 1 mg/dL (2.0-20.0) L 05/13/18 14:25 Urine Opiates Screen Negative (NEGATIVE) 05/13/18 16:13 Urine Methadone Screen Negative (NEGATIVE) 05/13/18 16:13 Acetaminophen < 10.0 ug/ml (10.0-20.0) L 05/13/18 14:25 Ur Barbiturates Screen Positive (NEGATIVE) H 05/13/18 16:13 Ur Phencyclidine Scrn Negative (NEGATIVE) 05/13/18 16:13 Ur Amphetamines Screen Negative (NEGATIVE) 05/13/18 16:13 U Benzodiazepines Scrn Negative (NEGATIVE) 05/13/18 16:13 U Oth Cocaine Metabols Negative (NEGATIVE) 05/13/18 16:13 U Cannabinoids Screen Negative (NEGATIVE) 05/13/18 16:13 Alcohol, Quantitative < 10 mg/dL (0-10) 05/13/18 14:25 HIV 1&2 Ag/Ab, 4th Gen Nonreactive (Nonreactive) 05/14/18 07:10 Blood Type A POSITIVE 05/13/18 15:09 Blood Type Confirm A POSITIVE 05/14/18 07:10 Antibody Screen Negative 05/13/18 15:09 BBK History Checked No verified bt 05/13/18 15:09 - Hospital Course Hospital Course: 58 year old female with a past medical history of multiple sclerosis, fibromyalgia, depression, diabetes, and pacemaker s/p bradycardia who presented with altered mental status and falls at her daughter's home. Patient admitted to having visual and auditory hallucinations. CT head was negative for acute findings. UA was positive for nitrates, urine bilirubin and small leukocyte esterase. Patient admitted to some burning on urination. Patient was placed on Rocephin for UTI. CXR was negative for active disease, and EKG performed showed sinus arrythmia at 93 bpm, likely due to pacemaker. Psychiatry was consulted regarding the etiology of her AMS and patient was started on venlafaxine 37.5 and sonata 5 for sleep. Neuro was consulted and they ordered a CT angiogram of the head along with an EEG. The CT angiogram was unremarkable, and the preliminary EEG was read as unremarkable as well. Urine culture returned positive for gram negative rods >100,000. Patient was evaluated by Physical Therapy, who evaluated her gait and mentioned upon discharge the need to go home with services and follow up 3-5 times a week for outpatient PT. Further inpatient PT sessions were refused. Diabetic education was utilized to help patient learn more about her diabetes and allow her to make decisions accordingly. Social work reviewed patient's case and once patient was deemed medically stable , it was agreed to transfer patient to the psychiatry [facility] for further evaluation and placement once discharged. Discharge Exam - Head Exam Head Exam: ATRAUMATIC, NORMAL INSPECTION, NORMOCEPHALIC - Eye Exam Eye Exam: EOMI, Normal appearance, PERRL Pupil Exam: NORMAL ACCOMODATION - ENT Exam ENT Exam: Mucous Membranes Moist, Normal Exam - Neck Exam Neck exam: Full Rom - Respiratory Exam Respiratory Exam: NORMAL BREATHING PATTERN. absent: Chest Wall Tenderness, Rales, Rhonchi, Wheezes, Respiratory Distress - Cardiovascular Exam Cardiovascular Exam: REGULAR RHYTHM, +S1, +S2 - GI/Abdominal Exam GI & Abdominal Exam: Normal Bowel Sounds, Soft. absent: Guarding, Rebound - Extremities Exam Extremities exam: full ROM - Neurological Exam Neurological exam: Alert - Psychiatric Exam Psychiatric exam: Depressed, Flat Affect - Skin Skin Exam: Dry, Intact, Normal Color Discharge Plan - Follow Up Plan Condition: STABLE Disposition: DISCHARGE TO PSYCH HOSPITAL Instructions: Urinary Tract Infection in Women (DC), Urinary Tract Infection in Men (DC), Depression (DC), Dysuria (GEN), Weakness (GEN) Additional Instructions: 1. Follow guidelines in psychiatry unit. 2. Please take medications as prescribed. 3. Follow up with neurologist within week of discharge. 4. Please return should symptoms persist or worsen. <Silvia Underwood - Last Filed: 05/16/18 08:06> Provider - Provider Date of Admission: 05/14/18 16:21 Attending physician: Silvia Underwood MD [facility] Course - Lab Results Lab Results: Most Recent Lab Values WBC 3.3 10^3/ul (4.5-11.0) L 05/15/18 06:00 RBC 3.21 10^6/uL (3.5-6.1) L 05/15/18 06:00 Hgb 9.7 g/dL (12.0-16.0) L 05/15/18 06:00 Hct 29.6 % (36.0-48.0) L 05/15/18 06:00 MCV 92.2 fl (80.0-105.0) 05/15/18 06:00 MCH 30.2 pg (25.0-35.0) 05/15/18 06:00 MCHC 32.8 g/dl (31.0-37.0) 05/15/18 06:00 RDW 12.9 % (11.5-14.5) 05/15/18 06:00 Plt Count 223 10^3/uL (120.0-450.0) 05/15/18 06:00 MPV 10.3 fl (7.0-11.0) 05/15/18 06:00 Gran % 59.4 % (50.0-68.0) 05/15/18 06:00 Lymph % (Auto) 35.1 % (22.0-35.0) H 05/15/18 06:00 Caldwell % (Auto) 5.5 % (1.0-6.0) 05/15/18 06:00 Eos % (Auto) 0.0 % (1.5-5.0) L 05/15/18 06:00 Baso % (Auto) 0.0 % (0.0-3.0) 05/15/18 06:00 Gran # 1.95 (1.4-6.5) 05/15/18 06:00 Lymph # (Auto) 1.2 (1.2-3.4) 05/15/18 06:00 Caldwell # (Auto) 0.2 (0.1-0.6) 05/15/18 06:00 Eos # (Auto) 0.0 (0.0-0.7) 05/15/18 06:00 Baso # (Auto) 0.00 K/mm3 (0.0-2.0) 05/15/18 06:00 PT 12.6 SECONDS (9.4-12.5) H 05/13/18 14:25 INR 1.10 (0.93-1.08) H 05/13/18 14:25 APTT 29.5 Seconds (25.1-36.5) 05/13/18 14:25 pO2 71 mm/Hg (30-55) H 05/13/18 18:26 VBG pH 7.38 (7.32-7.43) 05/13/18 18:26 VBG pCO2 44.0 (40-60) 05/13/18 18:26 VBG HCO3 26.0 mmol/l (21-28) 05/13/18 18:26 VBG Total CO2 27.4 mmol.L (22-28) 05/13/18 18:26 VBG O2 Sat (Calc) 92.2 % (40-65) H 05/13/18 18:26 VBG Base Excess 0.5 mmol/L (0.0-2.0) 05/13/18 18:26 VBG Potassium 3.8 mmol/L (3.6-5.2) 05/13/18 18:26 Sodium 136.0 mmol/L (132-148) 05/13/18 18:26 Chloride 107.0 mmol/L (98-107) 05/13/18 18:26 Glucose 81 mg/dl (65-105) 05/13/18 18:26 Lactate 0.6 mmol/L (0.7-2.1) L 05/13/18 18:26 FiO2 21.0 % 05/13/18 18: Sodium 139 mmol/L (132-148) 05/15/18 06:00 Potassium 3.6 mmol/L (3.6-5.0) 05/15/18 06:00 Chloride 106 mmol/L (98-107) 05/15/18 06:00 Carbon Dioxide 25 mmol/L (21-33) 05/15/18 06:00 Anion Gap 12 (10-20) 05/15/18 06:00 BUN 9 mg/dL (7-21) 05/15/18 06:00 Creatinine 0.6 mg/dl (0.7-1.2) L 05/15/18 06:00 Est GFR ( Amer) > 60 05/15/18 06:00 Est GFR (Non-Af Amer) > 60 05/15/18 06:00 POC Glucose (mg/dL) 93 mg/dL (65-110) 05/15/18 16:36 Random Glucose 108 mg/dL (70-110) 05/15/18 06:00 Hemoglobin A1c 5.0 % (4.2-6.5) 05/14/18 07:10 Calcium 8.8 mg/dL (8.4-10.5) 05/15/18 06:00 Iron 35 ug/dL (45-180) L 05/13/18 14:30 TIBC 214 ug/dL (265-497) L 05/13/18 14:30 % Saturation 16 % (20-55) L 05/13/18 14:30 Total Bilirubin 0.4 mg/dL (0.2-1.3) 05/15/18 06:00 AST 24 U/L (14-36) 05/15/18 06:00 ALT 27 U/L (7-56) 05/15/18 06:00 Alkaline Phosphatase 103 U/L (38-126) 05/15/18 06:00 Total Protein 6.5 g/dL (5.8-8.3) 05/15/18 06:00 Albumin 3.2 g/dL (3.0-4.8) 05/15/18 06:00 Globulin 3.3 gm/dL 05/15/18 06:00 Albumin/Globulin Ratio 1.0 (1.1-1.8) L 05/15/18 06:00 Triglycerides 73 mg/dL (35-160) 05/14/18 07:10 Cholesterol 120 mg/dL (130-200) L 05/14/18 07:10 LDL Cholesterol Direct 48 mg/dL (0-129) 05/14/18 07:10 HDL Cholesterol 48 mg/dL (29-60) 05/14/18 07:10 TSH 3rd Generation 1.53 mIU/mL (0.46-4.68) 05/13/18 14:30 Venous Blood Potassium 3.8 mmol/L (3.6-5.2) 05/13/18 18:26 Urine Color Yellow (YELLOW) 05/13/18 16:13 Urine Appearance Sl cloudy (CLEAR) 05/13/18 16:13 Urine pH 6.0 (4.7-8.0) 05/13/18 16:13 Ur Specific [place] >= 1.030 (1.005-1.035) 05/13/18 16:13 Urine Protein Negative mg/dL (<30 mg/dL) 05/13/18 16:13 Urine Glucose (UA) Negative mg/dL (NEGATIVE) 05/13/18 16:13 Urine Ketones Negative mg/dL (NEGATIVE) 05/13/18 16:13 Urine Blood Negative (NEGATIVE) 05/13/18 16:13 Urine Nitrate Positive (NEGATIVE) H 05/13/18 16:13 Urine Bilirubin Negative (NEGATIVE) 05/13/18 16:13 Urine Urobilinogen 1.0 E.U./dL (<1 E.U./dL) H 05/13/18 16:13 Ur Leukocyte Esterase Small Jason/uL (NEGATIVE) H 05/13/18 16:13 Urine RBC Negative /hpf (0-2) 05/13/18 16:13 Urine WBC 10 - 15 /hpf (0-6) 05/13/18 16:13 Ur Epithelial Cells 6 - 8 /hpf (0-5) 05/13/18 16:13 Urine Bacteria Many (NEG) 05/13/18 16:13 Salicylates < 1 mg/dL (2.0-20.0) L 05/13/18 14:25 Urine Opiates Screen Negative (NEGATIVE) 05/13/18 16:13 Urine Methadone Screen Negative (NEGATIVE) 05/13/18 16:13 Acetaminophen < 10.0 ug/ml (10.0-20.0) L 05/13/18 14:25 Ur Barbiturates Screen Positive (NEGATIVE) H 05/13/18 16:13 Ur Phencyclidine Scrn Negative (NEGATIVE) 05/13/18 16:13 Ur Amphetamines Screen Negative (NEGATIVE) 05/13/18 16:13 U Benzodiazepines Scrn Negative (NEGATIVE) 05/13/18 16:13 U Oth Cocaine Metabols Negative (NEGATIVE) 05/13/18 16:13 U Cannabinoids Screen Negative (NEGATIVE) 05/13/18 16:13 Alcohol, Quantitative < 10 mg/dL (0-10) 05/13/18 14:25 HIV 1&2 Ag/Ab, 4th Gen Nonreactive (Nonreactive) 05/14/18 07:10 Blood Type A POSITIVE 05/13/18 15:09 Blood Type Confirm A POSITIVE 05/14/18 07:10 Antibody Screen Negative 05/13/18 15:09 BBK History Checked No verified bt 05/13/18 15:09 Attending/Attestation - Attestation I have personally seen and examined this patient.: Yes I have fully participated in the care of the patient.: Yes I have reviewed all pertinent clinical information, including history, physical exam and plan: Yes Notes (Text): 05/15/18 58 year old female with past medical history of anxiety, hypertension, fibromyalgia, multiple sclerosis, bradycardia s/p PPM and diabetes who presented with complaint of altered mental status, hallucinations and weakness/ falls. CT head was negative for acute findings. EEG and CTA head/neck was negative as well. She was seen by neurology and psychiatyr. She is on antibiotics for UTI. UCx is growing gram negative rods. Her mental status has improved to baseline. She is still anxious and agitated at times. Psychiatry recommended inpatient psychiatric evaluation to which patient is agreeable to. Patient is transferred to inpatient psychiatric unit. We will continue to follow. Silvia Underwood MD Hospitalist.
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
== END 2018-05-15 21:40 | DRG 690 ==
LOC: ED 13:44 → ERH 19:56 → 5RSO 22:23 → OBSVTOIN 05-14 16:21
PROVIDERS: ADMIT Internal Medicine; ATTEND Internal Medicine
DX: N39.0 Urinary tract infection, site not specified (principal); D72.819 Decreased white blood cell count, unspecified; F31.9 Bipolar disorder, unspecified; D64.9 Anemia, unspecified; E11.9 Type 2 diabetes mellitus without complications; F41.9 Anxiety disorder, unspecified; G35 Multiple sclerosis; I10 Essential (primary) hypertension; M79.7 Fibromyalgia; W19.XXXA Unspecified fall, initial encounter; Z79.82 Long term (current) use of aspirin; Z80.1 Family history of malignant neoplasm of trachea, bronchus and lung; Z82.62 Family history of osteoporosis; Z86.73 Personal history of transient ischemic attack (TIA), and cerebral infarction without residual deficits; Z87.891 Personal history of nicotine dependence; Z88.1 Allergy status to other antibiotic agents; Z91.041 Radiographic dye allergy status; Z91.14 Patient's other noncompliance with medication regimen; Z95.0 Presence of cardiac pacemaker; Z95.810 Presence of automatic (implantable) cardiac defibrillator; Z98.84 Bariatric surgery status; R44.1 Visual hallucinations; R41.0 Disorientation, unspecified

== ENCOUNTER 2018-05-15 21:46 | Inpatient (IN) | payer MEDICARE ==
[2018-05-16 00:46] VITALS: BMI 36.3
--- NOTE | 2018-05-16 04:50 | PCM.BM ---
<AtilioTodd - Last Filed: 05/16/18 04:47> Treatment Plan Problems - Problems identified on initial assessmt Ineffective Coping Date Initiated: 05/15/18 Time Initiated: 22:00 Assessment reference: NA Status: Active Priority: 1 Hopelessness/Helplessness Date Initiated: 05/15/18 Time Initiated: 22:00 Assessment reference: NA Status: Active Priority: 2 Feelings of Worthlessness Date Initiated: 05/15/18 Time Initiated: 22:00 Assessment reference: NA Status: Active Priority: 3 Self Care Deficit Date Initiated: 05/15/18 Time Initiated: 22:00 Assessment reference: NA Status: Active Priority: 4 Treatment assets and liabiliti Patient Assests: adapts well, cooperative, insightful, motivated, negotiates basic needs, cognitively intact, good interpersonal skills Patient Liabilities: physical pain, relationship conflicts, medical problems, imparied memory - Milieu Protocol Maintain good personal hygiene: daily Encourage regular showers, every shift Remind patient to perform daily oral care, every shift Assist patient to perform ADL's Maintain personal safety: every shift Educate patient to report safety concerns to staff, every shift Monitor environment for contraband/sharps Medication safety: Monitor for expected outcome, potential side effects: every shift, Assess barriers to learning: every shift, Assess readiness for medication education: every shift Family Contact Family involvement: Family/SO is involved Family contact: Patient agrees to contact - Goals for Treatment Patient goals for treatment: "Get my head together then go home. Do my own laundry, take my own meds, and walk with walker." Discharge/Continuing Care - Education Needs Education Needs: Patient Medication, Patient Diagnosis/Disease Process, Patient Coping Skills, Patient Anger Management skills, Patient Placement options, Patient Community resources, Patient Activities of Daily Living, Patient Pain, Patient Nutrition, Patient Uses of Medical Equipment, Patient Health Practices/ Safety, Patient Personal Hygiene/Grooming, Patient Aftercare Safety Plan - Discharge Discharge Criteria: Tolerates medication w/o severe side effects, Ability to care for self <Romina Dockery - Last Filed: 05/16/18 12:21> - Diagnosis (1) MDD (major depressive disorder) Status: Acute Interventions: 05/16/18 12:20 Psychoeducation Psychopharmacology/adjustment of medications as needed/ monitoring possible side effects Evaluate pt on daily basis Compliance with medications and follow up appointments Suicide and homicide risk assessment and prevention Relapse prevention Reduction of symptoms Improve functional status Family involvement As outpatient: cognitive behavioral therapy (2) Panic disorder Status: Acute Interventions: 05/16/18 12:21 Psychoeducation Psychopharmacology/adjustment of medications as needed/ monitoring possible side effects Evaluate pt on daily basis Discussion of importance of being compliant with medications and follow up appointments Suicide and homicide risk assessment and prevention, coping strategies, safety plan Reduction of symptoms Relaxation techniques and breathing exercises Improve functional status Family involvement Cognitive behavioral therapy as outpatient
[2018-05-16 08:05] LABS: GLUCOSE,FASTING 86 mg/dL (65-110); HDL CHOLESTEROL 49 mg/dL (29-60)
[2018-05-16 08:16] LABS: LDL CHOLESTEROL 56 mg/dL (0-129)
[2018-05-16] MEDS ORDERED: Pantoprazole 40 mg EC Tab PO STA (12:25)
[2018-05-16] MEDS: Insulin Reg-LOW-Coverage SC SCH ×3 (12:29→22:12)
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
[2018-05-17] MEDS ORDERED: Pantoprazole 40 mg EC Tab PO SCH (06:00)
[2018-05-17 06:58] VITALS: BP 133/88; PULSE 62; RESP 19; TEMP 98.7
[2018-05-17 07:53] LABS: GLUCOSE,FASTING 92 mg/dL (65-110); HDL CHOLESTEROL 54 mg/dL (29-60)
[2018-05-17 07:54] LABS: BASO # 0.01 K/mm3 (0.0-2.0); BASO % 0.3 % (0.0-3.0); EOS # 0.1 (0.0-0.7); EOS % 1.6 % (1.5-5.0); GRAN # 1.41 (1.4-6.5); GRAN % 45.8 % (50.0-68.0); HEMOGLOBIN 9.7 g/dL (12.0-16.0); LYMPH # 1.4 (1.2-3.4); LYMPH % 46.1 % (22.0-35.0); MEAN CELL VOLUME 93.8 fl (80.0-105.0); MEAN CORPUSCULAR HEMOGLOBIN 29.9 pg (25.0-35.0); MEAN CORPUSCULAR HGB CONC 31.9 g/dl (31.0-37.0); MONO # 0.2 (0.1-0.6); MONO % 6.2 % (1.0-6.0); RBC 3.24 10^6/uL (3.5-6.1); RED CELL DISTRIBUTION WIDTH 13.1 % (11.5-14.5); WHITE BLOOD COUNT 3.1 10^3/ul (4.5-11.0)
[2018-05-17] MEDS ORDERED: Multivitamin With Minerals Tab PO SCH (08:00)
[2018-05-17 08:04] LABS: LDL CHOLESTEROL 50 mg/dL (0-129)
[2018-05-17] MEDS: Insulin Reg-LOW-Coverage SC SCH (08:14)
[2018-05-17 08:18] LABS: FREE T4 0.76 ng/dL (0.78-2.19)
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
[2018-05-17] MEDS ORDERED: Meropenem IV 1 gm in NS 50 ML IVPB SCH (14:00)
--- NOTE | 2018-05-17 15:42 | CON ---
DATE: 05/17/2018 LOCATION: The patient is seen earlier today in psychiatric floor. The patient seen in room 513. CHIEF COMPLAINT: Dysuria, frequency times several days. HISTORY OF PRESENT ILLNESS: This is a 58-year-old female with obesity with BMI of 34, fibromyalgia, multiple sclerosis, depression, anxiety and hypertension, diabetic, anemia, who was admitted to the psychiatric floor after the patient was transferred to the psychiatric floor from the acute care. The patient's urine culture was noted to be positive for an E. coli, which is ESBL. Infectious Disease consultation requested. The patient is complaining of pelvic pain, dysuria or frequency and no fevers and chills. REVIEW OF SYSTEMS: Thirteen-point review of systems performed and negative except for what is in the HPI. PAST MEDICAL HISTORY: Significant for multiple sclerosis, fibromyalgia, anxiety, depression, bipolar, anemia, hypertension, diabetes. PAST SURGICAL HISTORY: Significant for gastric bypass surgery. The patient has a defibrillator placement that was recently placed and right chest wall port placement. ALLERGIES: THE PATIENT IS ALLERGIC TO LEVAQUIN. MEDICATIONS AT HOME: Reviewed and noted. PHYSICAL EXAMINATION: VITAL SIGNS: On exam, the patient's temperature is 98, blood pressure is 120/70, respiratory rate of 18, heart rate of 60. HEENT: Examination of HEENT is unremarkable. NECK: Supple. LUNGS: Have decreased breath sounds. HEART: Normal S1, S2. ABDOMEN: Soft, nontender. No organomegaly. No rebound. No guarding. No masses. LABORATORY DATA: Laboratory examination reveals the patient's white count of 3.1, hemoglobin of 9. The patient does have 46% lymphocytosis. Serology is negative for RPR. The patient has had negative HIV and hepatitis profile. The patient has had a creatinine in the past, which is 0.6. ASSESSMENT AND PLAN: A 58-year-old female with fibromyalgia, multiple sclerosis, depression, anxiety, hypertension, diabetes, anemia, a pacemaker and defibrillator and gastric bypass and a chest wall Port-A-Cath Levaquin. Admitted now with symptomatic extended-spectrum beta-lactamase Escherichia coli urinary tract infection and cystitis. We will treat the patient with meropenem. The patient should be on extended-spectrum beta-lactamase precautions as case discussed with Dr. Vanegas, Dr. Underwood, Dr. Perera, the Medical team and Psychiatric team today and if unable to isolate the patient on psychiatric floor, we will give IV meropenem. If not on option, should be transferred to acute care to treat for symptomatic extended-spectrum beta-lactamase Escherichia coli cystitis. We will follow closely with you. Maurizio Taylor MD
== END 2018-05-17 09:45 | disposition short-term general hospital (02) | DRG 885 ==
LOC: PSYC 21:46
PROVIDERS: ADMIT Psychiatry & Neurology Psychiatry; ATTEND Psychiatry & Neurology Psychiatry
DX: F32.2 Major depressive disorder, single episode, severe without psychotic features (principal); F41.0 Panic disorder [episodic paroxysmal anxiety]; I10 Essential (primary) hypertension; E11.9 Type 2 diabetes mellitus without complications; G35 Multiple sclerosis; N30.90 Cystitis, unspecified without hematuria; B96.20 Unspecified Escherichia coli [E. coli] as the cause of diseases classified elsewhere; Z16.12 Extended spectrum beta lactamase (ESBL) resistance; D64.9 Anemia, unspecified; M79.7 Fibromyalgia; E66.9 Obesity, unspecified; Z68.34 Body mass index [BMI] 34.0-34.9, adult; Z79.4 Long term (current) use of insulin; Z91.14 Patient's other noncompliance with medication regimen; Z95.810 Presence of automatic (implantable) cardiac defibrillator; Z87.891 Personal history of nicotine dependence; Z98.84 Bariatric surgery status; Z88.3 Allergy status to other anti-infective agents

== ENCOUNTER 2018-05-17 09:59 | Inpatient (IN) | payer MEDICARE, MEDICAID ==
[2018-05-17] MEDS ORDERED: Piperacill/Tazo 4.5gm in NS 4.5 GM/100 ML BAG IVPB STA (10:31)
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
[2018-05-17] MEDS ORDERED: Meropenem IV 1 gm in NS 50 ML IVPB SCH (10:45)
[2018-05-17 10:53] LABS: VENOUS BLOOD GAS PO2 127 mm/Hg (30-55)
[2018-05-17 11:26] LABS: ALB/GLOB RATIO 1.1 (1.1-1.8); ALBUMIN 3.5 g/dL (3.0-4.8); ALT/SGPT 26 U/L (7-56); AST/SGOT 34 U/L (14-36); BLOOD UREA NITROGEN 15 mg/dL (7-21); CALCIUM 8.9 mg/dL (8.4-10.5); GFR AFRICAN-AMERICAN > 60; GFR NON-AFRICAN AMERICAN > 60
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
[2018-05-17] MEDS: Venlafaxine 75 mg ER Cap PO SCH (16:08)
[2018-05-17 16:11] VITALS: BMI 34.7
[2018-05-17] MEDS ORDERED: Pneumococcal 23-Valent Vaccine IM ONE (16:11)
[2018-05-17] MEDS: Insulin Reg-LOW-Coverage SC SCH ×2 (16:52→22:57)
[2018-05-17] MEDS: Meropenem IV 1 gm in NS 50 ML IVPB SCH (21:46)
[2018-05-18] MEDS: Meropenem IV 1 gm in NS 50 ML IVPB SCH ×3 (05:31→22:03)
[2018-05-18 06:17] LABS: BASO # 0.01 K/mm3 (0.0-2.0); BASO % 0.4 % (0.0-3.0); EOS # 0.1 (0.0-0.7); EOS % 1.8 % (1.5-5.0); GRAN # 1.31 (1.4-6.5); GRAN % 46.1 % (50.0-68.0); HEMOGLOBIN 8.4 g/dL (12.0-16.0); LYMPH # 1.3 (1.2-3.4); LYMPH % 45.4 % (22.0-35.0); MEAN CELL VOLUME 94.5 fl (80.0-105.0); MEAN CORPUSCULAR HGB CONC 32.8 g/dl (31.0-37.0); MONO # 0.2 (0.1-0.6); MONO % 6.3 % (1.0-6.0); RBC 2.71 10^6/uL (3.5-6.1); RED CELL DISTRIBUTION WIDTH 13.2 % (11.5-14.5)
[2018-05-18] MEDS: Pantoprazole 40 mg EC Tab PO SCH (06:23)
[2018-05-18 06:39] LABS: ALBUMIN 2.9 g/dL (3.0-4.8); ALT/SGPT 29 U/L (7-56); AST/SGOT 30 U/L (14-36); BLOOD UREA NITROGEN 15 mg/dL (7-21); CALCIUM 8.4 mg/dL (8.4-10.5); GFR AFRICAN-AMERICAN > 60; GFR NON-AFRICAN AMERICAN > 60
[2018-05-18 06:43] LABS: WHITE BLOOD COUNT 2.8 10^3/ul (4.5-11.0)
--- NOTE | 2018-05-18 06:49 | CP.PCM.PN ---
<Mauricio Manning - Last Filed: 05/18/18 14:57> Subjective - Date & Time of Evaluation Date of Evaluation: 05/18/18 Time of Evaluation: 06:25 - Subjective Subjective: Mauricio Manning PGY-1 For Hospitalist Service Patient seen and evaluated at bedside. Patient complains of some back pain and headache. Did report some pain on urination. No bowel movements since yesterday morning. No blurry vision. Objective - Vital Signs/Intake and Output Vital Signs (last 24 hours): Temp Pulse Resp BP Pulse Ox 98.5 F 68 20 142/86 100 05/17/18 21:58 05/17/18 21:58 05/17/18 21:58 05/17/18 21:58 05/17/18 21:58 Intake and Output: 05/17/18 05/18/18 18:59 06:59 Intake Total 660 Balance 660 - Medications Medications: Current Medications Acetaminophen (Tylenol 325mg Tab) 650 mg PO Q6H PRN PRN Reason: Pain, Mild (1-3) Last Admin: 05/18/18 02:58 Dose: 650 mg Amlodipine Besylate (Norvasc) 5 mg PO DAILY [facility] Clonazepam (Klonopin) 1 mg PO BID [facility] PRN Reason: Protocol Last Admin: 05/17/18 17:56 Dose: 1 mg Folic Acid (Folic Acid) 1 mg PO DAILY [facility] Meropenem (Merrem Iv 1 Gm Premix) 50 mls @ 100 mls/hr IVPB STAT [facility] PRN Reason: Protocol Last Admin: 05/17/18 11:00 Dose: 100 mls/hr Meropenem (Merrem Iv 1 Gm Premix) 50 mls @ 100 mls/hr IVPB Q8 [facility] PRN Reason: Protocol Stop: 05/26/18 22:01 Last Admin: 05/18/18 05:31 Dose: 100 mls/hr Insulin Human Regular (Humulin R Low) 1 units SC ACHS [facility] PRN Reason: Protocol Last Admin: 05/17/18 22:57 Dose: Not Given Multivitamins/Minerals (Therapeutic-M Tab) 1 tab PO 0800 [facility] Ondansetron HCl (Zofran Tab) 4 mg PO Q8H PRN PRN Reason: Nausea/Vomiting Last Admin: 05/17/18 17:57 Dose: 4 mg Pantoprazole Sodium (Protonix Ec Tab) 40 mg PO 0600 [facility] Last Admin: 05/18/18 06:23 Dose: 40 mg Quetiapine Fumarate (Seroquel) 25 mg PO HS [facility] PRN Reason: Protocol Last Admin: 05/17/18 21:46 Dose: 25 mg Venlafaxine HCl (Effexor Xr) 75 mg PO DAILY [facility] Last Admin: 05/17/18 16:08 Dose: 75 mg Zaleplon (Sonata) 5 mg PO HS PRN PRN Reason: Insomnia Last Admin: 05/17/18 22:23 Dose: 5 mg Ziprasidone (Geodon Cap) 20 mg PO Q6H PRN; Protocol PRN Reason: Agitation - Labs Labs: 05/18/18 06:00 - Constitutional Appears: Well, No Acute Distress - Head Exam Head Exam: ATRAUMATIC, NORMAL INSPECTION, NORMOCEPHALIC - Eye Exam Eye Exam: EOMI, Normal appearance Pupil Exam: NORMAL ACCOMODATION - ENT Exam ENT Exam: Mucous Membranes Moist, Normal Exam - Neck Exam Neck Exam: Full ROM, Normal Inspection - Respiratory Exam Respiratory Exam: Clear to Ausculation Bilateral, NORMAL BREATHING PATTERN. absent: Rales, Wheezes - Cardiovascular Exam Cardiovascular Exam: RRR, +S1, +S2 - GI/Abdominal Exam GI & Abdominal Exam: Soft, Normal Bowel Sounds. absent: Tenderness, Diminished Bowel Sounds - Extremities Exam Extremities Exam: Full ROM, Normal Inspection - Neurological Exam Neurological Exam: Alert, Awake, Normal Gait, Oriented x3 Additional comments: No focal deficits. Ambulating without assistance. - Psychiatric Exam Psychiatric exam: Anxious - Skin Skin Exam: Dry, Intact, Normal Color, Warm Assessment and Plan - Assessment and Plan (Free Text) Assessment: 58 year old female with past medical history of multiple sclerosis, fibromyalgia , anxiety, hypertension, type 2 diabetes, neutropenia, bradycardia s/p pacemaker placement under medical management for treatment of ESBL symptomatic UTI. Plan: ESBL E. coli UTI Urinalysis: Positive for nitrates and Leukocyte esterase, Urine CX shows ESBL E. Coli Formerly on rocephin, then switched to Nitrofurantoin for UTI. Sensitivities returned, resistant to nitrofurantoin, so now on Meropenem 50 q8 day 2 Contact precautions ID consult: Dr. Taylor MG 1.6 today. Will monitor. Normocytic Normochromic Anemia with Leukopenia Chronically anemic, likely 2/2 chronic disease with worsening leukopenia Hgb 8.4 today (9.7 yesterday) and Leukopenic 2.8 Likely 2/2 rocephin and meropenem effects Will continue to monitor Hemodynamically stable, no active bleeding Fibromyalgia/anxiety continue on home med of Venlafaxine and pregabalin continue sonata 5 mg for help sleeping as per Dr. Vanegas Has better response to Ativan - Ativan 1 mg q6h prn added today for anxiety, d/ c klonipin Restarted home Lyrica 100 TID F/u Psych evaluation and recommendations regarding her orientation and hallucinations Multiple Sclerosis f/u for continuous care as an outpatient Prophylaxis Protonix/SCD Patient seen, case reviewed, and plan agreed upon with Dr. Underwood. Mauricio Manning, PGY-1 <Silvia Underwood - Last Filed: 05/18/18 17:10> Objective - Vital Signs/Intake and Output Vital Signs (last 24 hours): Temp Pulse Resp BP Pulse Ox 98 F 70 20 147/96 H 97 05/18/18 06:00 05/18/18 10:04 05/18/18 06:00 05/18/18 10:04 05/18/18 06:00 Intake and Output: 05/18/18 05/18/18 06:59 18:59 Intake Total 660 480 Balance 660 480 - Medications Medications: Current Medications Acetaminophen (Tylenol 325mg Tab) 650 mg PO Q6H PRN PRN Reason: Pain, Mild (1-3) Last Admin: 05/18/18 10:03 Dose: 650 mg Amlodipine Besylate (Norvasc) 5 mg PO DAILY [facility] Last Admin: 05/18/18 10:04 Dose: 5 mg Clonazepam (Klonopin) 1 mg PO BID [facility] PRN Reason: Protocol Last Admin: 05/18/18 10:04 Dose: 1 mg Folic Acid (Folic Acid) 1 mg PO DAILY [facility] Last Admin: 05/18/18 10:04 Dose: 1 mg Gabapentin (Neurontin) 300 mg PO TID [facility] PRN Reason: Protocol Meropenem (Merrem Iv 1 Gm Premix) 50 mls @ 100 mls/hr IVPB Q8 [facility] PRN Reason: Protocol Stop: 05/26/18 22:01 Last Admin: 05/18/18 13:23 Dose: 100 mls/hr Insulin Human Regular (Humulin R Low) 1 units SC ACHS [facility] PRN Reason: Protocol Last Admin: 05/18/18 12:30 Dose: Not Given Lorazepam (Ativan) 1 mg IVP Q6H PRN; Protocol PRN Reason: Anxiety Last Admin: 05/18/18 14:37 Dose: 1 mg Multivitamins/Minerals (Therapeutic-M Tab) 1 tab PO 0800 [facility] Last Admin: 05/18/18 10:04 Dose: 1 tab Ondansetron HCl (Zofran Tab) 4 mg PO Q8H PRN PRN Reason: Nausea/Vomiting Last Admin: 05/18/18 10:02 Dose: 4 mg Pantoprazole Sodium (Protonix Ec Tab) 40 mg PO 0600 [facility] Last Admin: 05/18/18 06:23 Dose: 40 mg Pregabalin (Lyrica) 100 mg PO TID [facility] Last Admin: 05/18/18 13:22 Dose: 100 mg Quetiapine Fumarate (Seroquel) 25 mg PO HS [facility] PRN Reason: Protocol Last Admin: 05/17/18 21:46 Dose: 25 mg Venlafaxine HCl (Effexor Xr) 75 mg PO DAILY [facility] Last Admin: 05/18/18 10:04 Dose: 75 mg Zaleplon (Sonata) 10 mg PO HS PRN PRN Reason: Insomnia Ziprasidone (Geodon Cap) 20 mg PO Q6H PRN; Protocol PRN Reason: Agitation - Labs Labs: 05/18/18 06:00 05/18/18 06:00 Attending/Attestation - Attestation I have personally seen and examined this patient.: Yes I have fully participated in the care of the patient.: Yes I have reviewed all pertinent clinical information, including history, physical exam and plan: Yes Notes (Text): 05/18/18 17:08 58 year old female with past medical history of hypertension, diet controlled diabetes, fibromyalgias, multiple sclerosis, bradycardia s/p PPM and anxiety who initially presented with altered mental status, recent fall and hallucinations per family. She was being managed in inpatient psychiatric unit however urine culture came back as ESBL E Coli so patient was transferred to medical floor to be treated with iv meropenem. ID is following. Will continue to monitor leukopenia. Continue with norvas for hypertension and insulin ss for diabetes. She is currently on seroquel and effexor. Klonopin was switched to ativan prn. Will discuss with psychiatrist. Silvia Underwood MD Hospitalist.
[2018-05-18] MEDS: Insulin Reg-LOW-Coverage SC SCH ×3 (08:30→22:05)
[2018-05-18] MEDS: Multivitamin With Minerals Tab PO SCH (10:04)
[2018-05-18] MEDS: Venlafaxine 75 mg ER Cap PO SCH (10:04)
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
--- NOTE | 2018-05-18 20:47 | PN ---
DATE: 05/18/2018 SUBJECTIVE: The patient was transferred from the psychiatric inpatient unit on the medical site because the patient was found to have ESBL, E. coli urinary tract infection. At present moment, the patient needs to be on IV antibiotics and on contact isolation. Transfer was uneventful. The patient was seen today on the medical site. The patient complained that she did not sleep very well. At the same time, on detailed questioning, the patient fell asleep at 10 p.m. and woke up at 7 a.m. It is altogether 9 hours of night sleep, and this check writer would not consider that there are problems with sleep. At the same time, the patient asked Sonata to be increased, which we will do. The patient also asked Neurontin to be resumed. Other than that, the patient reports that she feels the same depressed. The patient was visited by her daughter and the patient is concerned about her personal belongings and her money which left in the daughter's apartment, and the patient said that purse was not brought in by her. The patient denied being hopeless or helpless. The patient has future oriented plans. VITAL SIGNS: Reviewed. Temperature 98, pulse is 70, blood pressure 147/96, respirations 20, oxygen saturation is 97%. MEDICATIONS: Reviewed. Multivitamin, Zofran, Protonix, Lyrica 100 mg three times a day, Seroquel 25 mg at the nighttime, Effexor 75 mg extended release, Sonata will be increased to 10 mg. LABORATORY DATA: Reviewed. Most recent was from today. WBC is 2.8. Blood gas reviewed. Chemistry reviewed. MENTAL STATUS EXAMINATION: The patient presented to be alert and oriented, depressed, flat affect. Mood described "I don't no feel very good." Thought process: Coherent and goal directed. Thought content: The patient denied visual, auditory, or tactile hallucinations. Denied paranoid ideation. The patient denied thoughts of harming herself or others. feeling of hopelessness, but the patient has future oriented plans. Insight and judgment seem to be improving. Impulses are well controlled. IMPRESSION: Rule out major depressive disorder. The patient has history of posttraumatic stress disorder, generalized anxiety disorder and panic disorder, multiple scleroses; at present moment, urinary tract infection which needs to be on contact isolation and IV antibiotics. PLAN: Continue current management. Medications reviewed. Sonata increased. Neurontin resumed. We will follow up and advise accordingly. Thank you very much for letting me participate in care of your patient. Romina Dockery MD
[2018-05-19] MEDS: Pantoprazole 40 mg EC Tab PO SCH (05:40)
[2018-05-19] MEDS: Meropenem IV 1 gm in NS 50 ML IVPB SCH ×3 (05:41→21:15)
[2018-05-19 06:51] LABS: BASO # 0.01 K/mm3 (0.0-2.0); BASO % 0.3 % (0.0-3.0); EOS % 1.3 % (1.5-5.0); GRAN # 1.44 (1.4-6.5); HEMOGLOBIN 9.5 g/dL (12.0-16.0); LYMPH # 1.4 (1.2-3.4); LYMPH % 44.1 % (22.0-35.0); MEAN CELL VOLUME 94.9 fl (80.0-105.0); MEAN CORPUSCULAR HEMOGLOBIN 30.1 pg (25.0-35.0); MEAN CORPUSCULAR HGB CONC 31.7 g/dl (31.0-37.0); MEAN PLATELET VOLUME 10.1 fl (7.0-11.0); MONO # 0.3 (0.1-0.6); MONO % 8.3 % (1.0-6.0); RBC 3.16 10^6/uL (3.5-6.1); RED CELL DISTRIBUTION WIDTH 13.2 % (11.5-14.5); WHITE BLOOD COUNT 3.1 10^3/ul (4.5-11.0)
[2018-05-19 07:02] LABS: ALBUMIN 3.1 g/dL (3.0-4.8); ALT/SGPT 29 U/L (7-56); AST/SGOT 33 U/L (14-36); BLOOD UREA NITROGEN 13 mg/dL (7-21); CALCIUM 8.6 mg/dL (8.4-10.5); GFR AFRICAN-AMERICAN > 60; GFR NON-AFRICAN AMERICAN > 60
[2018-05-19] MEDS: Insulin Reg-LOW-Coverage SC SCH ×4 (07:53→21:52)
[2018-05-19] MEDS: Multivitamin With Minerals Tab PO SCH (09:56)
[2018-05-19] MEDS: Venlafaxine 75 mg ER Cap PO SCH (09:57)
--- NOTE | 2018-05-19 14:35 | CP.PCM.PN ---
<Mauricio Manning - Last Filed: 05/19/18 15:06> Subjective - Date & Time of Evaluation Date of Evaluation: 05/19/18 Time of Evaluation: 06:20 - Subjective Subjective: Mauricio Manning PGY-1 Progress Note for Hospitalist Service Patient seen and evaluated bedside. Patient admits to some pain on urination. Denies CP, SOB, and abdominal pain. Objective - Vital Signs/Intake and Output Vital Signs (last 24 hours): Temp Pulse Resp BP Pulse Ox 98.4 F 70 20 133/84 97 05/19/18 06:00 05/19/18 09:59 05/19/18 06:00 05/19/18 09:59 05/19/18 06:00 Intake and Output: 05/19/18 05/19/18 06:59 18:59 Intake Total 620 Balance 620 - Medications Medications: Current Medications Acetaminophen (Tylenol 325mg Tab) 650 mg PO Q4H PRN PRN Reason: Pain, Mild (1-3) Amlodipine Besylate (Norvasc) 5 mg PO DAILY HERMINIO Last Admin: 05/19/18 09:59 Dose: 5 mg Clonazepam (Klonopin) 1 mg PO BID HERMINIO PRN Reason: Protocol Last Admin: 05/18/18 10:04 Dose: 1 mg Folic Acid (Folic Acid) 1 mg PO DAILY HERMINIO Last Admin: 05/19/18 09:57 Dose: 1 mg Gabapentin (Neurontin) 300 mg PO TID HERMINIO PRN Reason: Protocol Last Admin: 05/19/18 09:56 Dose: 300 mg Meropenem (Merrem Iv 1 Gm Premix) 50 mls @ 100 mls/hr IVPB Q8 HERMINIO PRN Reason: Protocol Stop: 05/26/18 22:01 Last Admin: 05/19/18 05:41 Dose: 100 mls/hr Insulin Human Regular (Humulin R Low) 1 units SC ACHS HERMINIO PRN Reason: Protocol Last Admin: 05/19/18 12:15 Dose: Not Given Lorazepam (Ativan) 1 mg IVP Q6H PRN; Protocol PRN Reason: Anxiety Last Admin: 05/19/18 10:53 Dose: 1 mg Multivitamins/Minerals (Therapeutic-M Tab) 1 tab PO 0800 HERMINIO Last Admin: 05/19/18 09:56 Dose: 1 tab Ondansetron HCl (Zofran Tab) 4 mg PO Q8H PRN PRN Reason: Nausea/Vomiting Last Admin: 05/19/18 12:38 Dose: 4 mg Pantoprazole Sodium (Protonix Ec Tab) 40 mg PO 0600 [facility] Last Admin: 05/19/18 05:40 Dose: 40 mg Pregabalin (Lyrica) 100 mg PO TID [facility] Last Admin: 05/19/18 09:57 Dose: 100 mg Quetiapine Fumarate (Seroquel) 25 mg PO HS HERMINIO PRN Reason: Protocol Last Admin: 05/18/18 22:03 Dose: 25 mg Venlafaxine HCl (Effexor Xr) 75 mg PO DAILY [facility] Last Admin: 05/19/18 09:57 Dose: 75 mg Zaleplon (Sonata) 10 mg PO HS PRN PRN Reason: Insomnia Last Admin: 05/18/18 22:27 Dose: 10 mg - Labs Labs: 05/19/18 06:20 05/19/18 06:20 - Constitutional Appears: Well, Non-toxic, No Acute Distress - Head Exam Head Exam: ATRAUMATIC, NORMAL INSPECTION, NORMOCEPHALIC - Eye Exam Eye Exam: EOMI, PERRL Pupil Exam: NORMAL ACCOMODATION - ENT Exam ENT Exam: Mucous Membranes Moist - Neck Exam Neck Exam: Normal Inspection - Respiratory Exam Respiratory Exam: Clear to Ausculation Bilateral, NORMAL BREATHING PATTERN. absent: Rales, Rhonchi, Wheezes - Cardiovascular Exam Cardiovascular Exam: RRR, +S1, +S2 - GI/Abdominal Exam GI & Abdominal Exam: Soft, Normal Bowel Sounds. absent: Tenderness - Extremities Exam Extremities Exam: Full ROM - Neurological Exam Neurological Exam: Alert, Awake - Psychiatric Exam Psychiatric exam: Anxious - Skin Skin Exam: Dry, Intact, Normal Color, Warm Assessment and Plan - Assessment and Plan (Free Text) Assessment: Assessment: 58 year old female with past medical history of multiple sclerosis, fibromyalgia , anxiety, hypertension, type 2 diabetes, neutropenia, bradycardia s/p pacemaker placement under medical management for treatment of ESBL symptomatic UTI. Plan: ESBL E. coli UTI Urinalysis: Positive for nitrates and Leukocyte esterase, Urine CX shows ESBL E. Coli Formerly on rocephin, then switched to Nitrofurantoin for UTI. Sensitivities returned, resistant to nitrofurantoin. Now on Meropenem 50 q8 day 3. Would appreciate recommendations regarding the possibility of cutting down length of course of Meropenem based on clinical symptoms, hemodynamic stability, improving luekopenia and improving anemia Contact precautions ID consult: Dr. Taylor MG 1.8 today. Will continue to monitor. Normocytic Normochromic Anemia with Leukopenia - Improving Chronically anemic, likely 2/2 chronic disease with leukopenia Hgb 9.5 today (8.4 yesterday) and Leukopenic 3.1 (2.8 yesterday) Likely 2/2 rocephin and meropenem effects Will continue to monitor Hemodynamically stable, no active bleeding Chest Pain Patient had complaints of chest pain, non-radiating, no N/V, no diaphoresis. EKG showed NSR @68 bpm Trop neg x1. Will trend 2nd troponin Diarrhea Patient complains of a few nonbloody bowel movements over the last few days Ordered c. diff toxin so will follow up on result Fibromyalgia/anxiety continue on home med of Venlafaxine 75 and pregabalin 100 TID. Gabapentin 300 TID added per Psych continue sonata 5 mg for help sleeping as per Dr. Vanegas Has better response to Ativan - Ativan 1 mg q6h prn added today for anxiety, d/ c klonipin F/u Psych evaluation and recommendations regarding her orientation and hallucinations Multiple Sclerosis f/u for continuous care as an outpatient Prophylaxis Protonix/SCD Patient seen, case reviewed, and plan agreed upon with Dr. Corado. Mauricio Manning, PGY-1 <Chandra Corado - Last Filed: 05/21/18 14:47> Objective - Vital Signs/Intake and Output Vital Signs (last 24 hours): Temp Pulse Resp BP Pulse Ox 98.8 F 73 20 136/85 100 05/20/18 14:00 05/20/18 14:00 05/20/18 14:00 05/20/18 14:00 05/20/18 14:00 - Labs Labs: 05/20/18 08:00 05/20/18 06:45 Attending/Attestation - Attestation I have personally seen and examined this patient.: Yes I have fully participated in the care of the patient.: Yes I have reviewed all pertinent clinical information, including history, physical exam and plan: Yes Notes (Text): 05/21/18 14:44 Medical record note made by the resident after discussion with my direction and input after the patient was personally seen and examined by me. I have reviewed the chart and agree that the record accurately reflects by personal performance of the history, physical exam, data review, and medical decision-making, in the course for the patient. I have also personally directed the plan of care. 58-year-old female with PMH of multiple sclerosis, fibromyalgia,Gastric Bypass surgery, bradycardia s/p AICD placement, hypertension, obesity, diabetes, chronic anemia with ESBL UTI.Patient is afebrile, no asymptomatic, blood cultures are negative for any growth on IV antibiotics as per ID. Diarrhea is rersolved. Patient is not having any hallucination. Neutropenia is chronic and is improving. Management plan was discussed in detail with patient Education was provided.
--- NOTE | 2018-05-19 16:17 | CARD ---
APPROVED REPORT Date of service: 05/19/2018 EKG Measurement Heart [id number] <Conclusion> Normal sinus rhythm with sinus arrhythmia A Functioning demand Atrial pacemaker Normal ECG
[2018-05-20] MEDS: Meropenem IV 1 gm in NS 50 ML IVPB SCH ×2 (06:05→14:32)
[2018-05-20] MEDS: Pantoprazole 40 mg EC Tab PO SCH (06:06)
[2018-05-20 07:35] LABS: ALBUMIN 3.1 g/dL (3.0-4.8); ALT/SGPT 31 U/L (7-56); AST/SGOT 30 U/L (14-36); BLOOD UREA NITROGEN 15 mg/dL (7-21); CALCIUM 8.7 mg/dL (8.4-10.5); GFR AFRICAN-AMERICAN > 60; GFR NON-AFRICAN AMERICAN > 60
[2018-05-20 07:48] VITALS: RESP 20
[2018-05-20] MEDS: Insulin Reg-LOW-Coverage SC SCH ×3 (08:00→16:02)
[2018-05-20 08:34] LABS: BASO # 0.01 K/mm3 (0.0-2.0); BASO % 0.3 % (0.0-3.0); EOS # 0.1 (0.0-0.7); EOS % 1.5 % (1.5-5.0); GRAN # 1.61 (1.4-6.5); GRAN % 48.6 % (50.0-68.0); LYMPH # 1.4 (1.2-3.4); LYMPH % 42.3 % (22.0-35.0); MEAN CELL VOLUME 96.1 fl (80.0-105.0); MEAN CORPUSCULAR HEMOGLOBIN 30.1 pg (25.0-35.0); MEAN CORPUSCULAR HGB CONC 31.3 g/dl (31.0-37.0); MEAN PLATELET VOLUME 9.7 fl (7.0-11.0); MONO # 0.2 (0.1-0.6); MONO % 7.3 % (1.0-6.0); RBC 3.32 10^6/uL (3.5-6.1); RED CELL DISTRIBUTION WIDTH 13.1 % (11.5-14.5); WHITE BLOOD COUNT 3.3 10^3/ul (4.5-11.0)
--- NOTE | 2018-05-20 08:49 | CP.PCM.PN ---
Subjective - Date & Time of Evaluation Date of Evaluation: 05/20/18 Time of Evaluation: 06:30 - Subjective Subjective: Mauricio Manning, PGY-1 Progress Note for Hospitalist Service Patient seen and evaluated at bedside. Denies any acute complaints overnight. Pain controlled. Objective - Vital Signs/Intake and Output Vital Signs (last 24 hours): Temp Pulse Resp BP Pulse Ox 98 F 57 L 20 116/78 98 05/20/18 06:00 05/20/18 06:00 05/20/18 06:00 05/20/18 06:00 05/20/18 06:00 Intake and Output: 05/20/18 05/20/18 06:59 18:59 Intake Total 780 Balance 780 - Medications Medications: Current Medications Acetaminophen (Tylenol 325mg Tab) 650 mg PO Q4H PRN PRN Reason: Pain, Mild (1-3) Last Admin: 05/20/18 03:31 Dose: 650 mg Amlodipine Besylate (Norvasc) 5 mg PO DAILY HERMINIO Last Admin: 05/19/18 09:59 Dose: 5 mg Clonazepam (Klonopin) 1 mg PO BID HERMINIO PRN Reason: Protocol Last Admin: 05/18/18 10:04 Dose: 1 mg Folic Acid (Folic Acid) 1 mg PO DAILY HERMINIO Last Admin: 05/19/18 09:57 Dose: 1 mg Gabapentin (Neurontin) 300 mg PO TID HERMINIO PRN Reason: Protocol Last Admin: 05/19/18 18:05 Dose: 300 mg Meropenem (Merrem Iv 1 Gm Premix) 50 mls @ 100 mls/hr IVPB Q8 HERMINIO PRN Reason: Protocol Stop: 05/26/18 22:01 Last Admin: 05/20/18 06:05 Dose: 100 mls/hr Insulin Human Regular (Humulin R Low) 1 units SC ACHS HERMINIO PRN Reason: Protocol Last Admin: 05/19/18 21:52 Dose: Not Given Lorazepam (Ativan) 1 mg IVP Q6H PRN; Protocol PRN Reason: Anxiety Last Admin: 05/20/18 03:32 Dose: 1 mg Multivitamins/Minerals (Therapeutic-M Tab) 1 tab PO 0800 HERMINIO Last Admin: 05/19/18 09:56 Dose: 1 tab Ondansetron HCl (Zofran Tab) 4 mg PO Q8H PRN PRN Reason: Nausea/Vomiting Last Admin: 05/19/18 12:38 Dose: 4 mg Pantoprazole Sodium (Protonix Ec Tab) 40 mg PO 0600 [facility] Last Admin: 05/20/18 06:06 Dose: 40 mg Pregabalin (Lyrica) 100 mg PO TID [facility] Last Admin: 05/19/18 18:06 Dose: 100 mg Quetiapine Fumarate (Seroquel) 25 mg PO HS HERMINIO PRN Reason: Protocol Last Admin: 05/19/18 21:15 Dose: 25 mg Venlafaxine HCl (Effexor Xr) 75 mg PO DAILY [facility] Last Admin: 05/19/18 09:57 Dose: 75 mg Zaleplon (Sonata) 10 mg PO HS PRN PRN Reason: Insomnia Last Admin: 05/20/18 02:26 Dose: 10 mg - Labs Labs: 05/20/18 08:00 05/20/18 06:45 - Constitutional Appears: Well, Non-toxic, No Acute Distress - Head Exam Head Exam: ATRAUMATIC, NORMAL INSPECTION, NORMOCEPHALIC - Eye Exam Eye Exam: EOMI, Normal appearance Pupil Exam: PERRL - ENT Exam ENT Exam: Mucous Membranes Moist - Neck Exam Neck Exam: Normal Inspection - Respiratory Exam Respiratory Exam: Clear to Ausculation Bilateral, NORMAL BREATHING PATTERN. absent: Chest Wall Tenderness, Rales, Rhonchi - Cardiovascular Exam Cardiovascular Exam: RRR, +S1, +S2 Additional comments: Atrial Pacemaker in place in L upper chest - GI/Abdominal Exam GI & Abdominal Exam: Soft, Normal Bowel Sounds. absent: Distended, Guarding, Tenderness - Extremities Exam Extremities Exam: Full ROM - Back Exam Back Exam: paraspinal tenderness - Neurological Exam Neurological Exam: Alert, Awake, Oriented x3 - Psychiatric Exam Psychiatric exam: Anxious - Skin Skin Exam: Dry, Intact, Normal Color, Warm Assessment and Plan - Assessment and Plan (Free Text) Assessment: 58 year old female with past medical history of multiple sclerosis, fibromyalgia , anxiety, hypertension, type 2 diabetes, neutropenia, bradycardia s/p pacemaker placement under medical management for treatment of ESBL symptomatic UTI. Plan: ESBL E. coli UTI Urinalysis: Positive for nitrates and Leukocyte esterase, Urine CX shows ESBL E. Coli Formerly on rocephin, then switched to Nitrofurantoin for UTI. Sensitivities returned, resistant to nitrofurantoin. Now on Meropenem 50 q8 day 3. Would appreciate recommendations regarding the possibility of cutting down length of course of Meropenem based on clinical symptoms, hemodynamic stability, improving luekopenia and improving anemia Contact precautions ID consult: Dr. Taylor MG 1.8 today. Will continue to monitor. Normocytic Normochromic Anemia with Leukopenia - Improving Chronically anemic, likely 2/2 chronic disease with leukopenia Hgb 9.5 today (8.4 yesterday) and Leukopenic 3.1 (2.8 yesterday) Likely 2/2 rocephin and meropenem effects Will continue to monitor Hemodynamically stable, no active bleeding Chest Pain Patient had complaints of chest pain, non-radiating, no N/V, no diaphoresis. EKG showed NSR @68 bpm Trop neg x1. Will trend 2nd troponin Diarrhea Patient complains of a few nonbloody bowel movements over the last few days Ordered c. diff toxin so will follow up on result Fibromyalgia/anxiety continue on home med of Venlafaxine 75 and pregabalin 100 TID. Gabapentin 300 TID added per Psych continue sonata 5 mg for help sleeping as per Dr. Vanegas Has better response to Ativan - Ativan 1 mg q6h prn added today for anxiety, d/ c klonipin F/u Psych evaluation and recommendations regarding her orientation and hallucinations Multiple Sclerosis f/u for continuous care as an outpatient Prophylaxis Protonix/SCD THIS IS A DRAFT Mauricio Manning, PGY-1
[2018-05-20] MEDS: Multivitamin With Minerals Tab PO SCH (09:50)
[2018-05-20] MEDS: Venlafaxine 75 mg ER Cap PO SCH (09:50)
[2018-05-20] MEDS ORDERED: Venlafaxine 75 mg ER Cap PO SCH (11:03)
--- NOTE | 2018-05-20 13:05 | CP.PCM.DIS ---
<Mauricio Manning - Last Filed: 05/20/18 16:02> Provider - Provider Date of Admission: 05/17/18 16:04 Attending physician: Chandra Corado MD Consults: Psychiatry (Nahed), Infectious Diseases (Claudia), Time Spent in preparation of Discharge (in minutes): 35 Hospital Course - Lab Results Lab Results: Most Recent Lab Values WBC 3.3 10^3/ul (4.5-11.0) L 05/20/18 08:00 RBC 3.32 10^6/uL (3.5-6.1) L 05/20/18 08:00 Hgb 10.0 g/dL (12.0-16.0) L 05/20/18 08:00 Hct 31.9 % (36.0-48.0) L 05/20/18 08:00 MCV 96.1 fl (80.0-105.0) 05/20/18 08:00 MCH 30.1 pg (25.0-35.0) 05/20/18 08:00 MCHC 31.3 g/dl (31.0-37.0) 05/20/18 08:00 RDW 13.1 % (11.5-14.5) 05/20/18 08:00 Plt Count 210 10^3/uL (120.0-450.0) 05/20/18 08:00 MPV 9.7 fl (7.0-11.0) 05/20/18 08:00 Gran % 48.6 % (50.0-68.0) L 05/20/18 08:00 Lymph % (Auto) 42.3 % (22.0-35.0) H 05/20/18 08:00 Simpson % (Auto) 7.3 % (1.0-6.0) H 05/20/18 08:00 Eos % (Auto) 1.5 % (1.5-5.0) 05/20/18 08:00 Baso % (Auto) 0.3 % (0.0-3.0) 05/20/18 08:00 Gran # 1.61 (1.4-6.5) 05/20/18 08:00 Lymph # (Auto) 1.4 (1.2-3.4) 05/20/18 08:00 Simpson # (Auto) 0.2 (0.1-0.6) 05/20/18 08:00 Eos # (Auto) 0.1 (0.0-0.7) 05/20/18 08:00 Baso # (Auto) 0.01 K/mm3 (0.0-2.0) 05/20/18 08:00 pO2 127 mm/Hg (30-55) H 05/17/18 10:30 VBG pH 7.40 (7.32-7.43) 05/17/18 10:30 VBG pCO2 44.0 (40-60) 05/17/18 10:30 VBG HCO3 27.3 mmol/l (21-28) 05/17/18 10:30 VBG Total CO2 28.7 mmol.L (22-28) H 05/17/18 10:30 VBG O2 Sat (Calc) 95.1 % (40-65) H 05/17/18 10:30 VBG Base Excess 2.0 mmol/L (0.0-2.0) 05/17/18 10:30 VBG Potassium 3.9 mmol/L (3.6-5.2) 05/17/18 10:30 Sodium 140.0 mmol/L (132-148) 05/17/18 10:30 Chloride 108.0 mmol/L (98-107) H 05/17/18 10:30 Glucose 94 mg/dl (65-105) 05/17/18 10:30 Lactate 0.8 mmol/L (0.7-2.1) 05/17/18 10:30 FiO2 21.0 % 05/17/18 10:30 Sodium 142 mmol/L (132-148) 05/20/18 06:45 Potassium 4.2 mmol/L (3.6-5.0) 05/20/18 06:45 Chloride 104 mmol/L (98-107) 05/20/18 06:45 Carbon Dioxide 32 mmol/L (21-33) 05/20/18 06:45 Anion Gap 10 (10-20) 05/20/18 06:45 BUN 15 mg/dL (7-21) 05/20/18 06:45 Creatinine 0.6 mg/dl (0.7-1.2) L 05/20/18 06:45 Est GFR ( Amer) > 60 05/20/18 06:45 Est GFR (Non-Af Amer) > 60 05/20/18 06:45 POC Glucose (mg/dL) 110 mg/dL (65-110) 05/20/18 11:02 Random Glucose 88 mg/dL (70-110) 05/20/18 06:45 Calcium 8.7 mg/dL (8.4-10.5) 05/20/18 06:45 Phosphorus 3.7 mg/dL (2.5-4.5) 05/20/18 06:45 Magnesium 1.9 mg/dL (1.7-2.2) 05/20/18 06:45 Total Bilirubin 0.2 mg/dL (0.2-1.3) 05/20/18 06:45 AST 30 U/L (14-36) 05/20/18 06:45 ALT 31 U/L (7-56) 05/20/18 06:45 Alkaline Phosphatase 76 U/L (38-126) 05/20/18 06:45 Troponin I < 0.01 ng/mL 05/19/18 17:30 Total Protein 6.2 g/dL (5.8-8.3) 05/20/18 06:45 Albumin 3.1 g/dL (3.0-4.8) 05/20/18 06:45 Globulin 3.1 gm/dL 05/20/18 06:45 Albumin/Globulin Ratio 1.0 (1.1-1.8) L 05/20/18 06:45 Venous Blood Potassium 3.9 mmol/L (3.6-5.2) 05/17/18 10:30 - Hospital Course Hospital Course: Mauricio Manning, PGY-1 Discharge Summary for Hospitalist Service 58 year old female with past medical history of hypertension, diet controlled diabetes, fibromyalgias, multiple sclerosis, bradycardia s/p PPM and anxiety who initially presented with altered mental status, recent fall and hallucinations per family. She was being managed in inpatient psychiatric unit last week on Bactrim for her Urinary Tract Infection, however urine culture came back as ESBL E Coli so patient was transferred to medical floor to be treated with iv meropenem based on sensitivity profile. ID recommendations were to complete 7 days of Antibiotics, currently on day 4 of Meropenem. Patient had leukopenia which is improving based on labs today and is likely secondary to antibiotic effects. For hypertension, patient was on Norvasc. Patient was on insulin ss for diabetes. Per Psych recommendations, patient on seroquel and effexor and Neurontin. Klonopin was switched to ativan. Patient had complaints of chest pain on 05/19- EKG showed NSR @ 68 bpm with atrial pacemaker. Troponins x2 were found to be negative. Patient also complained of diarrhea x2 bowel movements yesterday, but patient was notified that need at least 3 bowel movements on consecutive days to be tested for c. diff toxin, as intermittent diarrhea may be due to antibiotic use in general. Only 1 soft bowel movement was documented today. Physical therapy recommendations were to transfer the patient to TCU for rehab services on IV antibiotics. Patient understood reasons for transfer and all questions were answered to the patient's satisfaction. We will continue medical management and follow up on patient's condition in the TCU tomorrow. Discharge Exam - Head Exam Head Exam: ATRAUMATIC, NORMAL INSPECTION, NORMOCEPHALIC - Eye Exam Eye Exam: EOMI, Normal appearance Pupil Exam: PERRL - ENT Exam ENT Exam: Mucous Membranes Moist - Respiratory Exam Respiratory Exam: NORMAL BREATHING PATTERN, UNREMARKABLE. absent: Rales, Rhonchi - Cardiovascular Exam Cardiovascular Exam: RRR, +S1, +S2 Additional comments: Atrial pacemaker in place. Skin Dry and intact. - GI/Abdominal Exam GI & Abdominal Exam: Normal Bowel Sounds, Soft, Unremarkable. absent: Tenderness - Neurological Exam Neurological exam: Alert - Psychiatric Exam Psychiatric exam: Anxious - Skin Skin Exam: Dry, Intact, Normal Color, Warm Discharge Plan - Follow Up Plan Condition: FAIR Disposition: TRANSF TO SNF Instructions: Urinary Tract Infections in Adults, Generalized Anxiety Disorder , Smoking: Not Just Harmful to Your Lungs and Heart, Extended-Spectrum Beta Lactamase Infection, Depression (DC) Additional Instructions: Please follow all prescription recommendations, including to complete course of antibiotics. Please follow physical therapy recommendations while in rehab in TCU. <Chandra Corado - Last Filed: 05/21/18 14:57> Provider - Provider Date of Admission: 05/17/18 16:04 Attending physician: Chandra Corado MD Hospital Course - Lab Results Lab Results: Most Recent Lab Values WBC 3.3 10^3/ul (4.5-11.0) L 07/25/18 08:00 RBC 3.32 10^6/uL (3.5-6.1) L 05/20/18 08:00 Hgb 10.0 g/dL (12.0-16.0) L 05/20/18 08:00 Hct 31.9 % (36.0-48.0) L 05/20/18 08:00 MCV 96.1 fl (80.0-105.0) 05/20/18 08:00 MCH 30.1 pg (25.0-35.0) 05/20/18 08:00 MCHC 31.3 g/dl (31.0-37.0) 05/20/18 08:00 RDW 13.1 % (11.5-14.5) 05/20/18 08:00 Plt Count 210 10^3/uL (120.0-450.0) 05/20/18 08:00 MPV 9.7 fl (7.0-11.0) 05/20/18 08:00 Gran % 48.6 % (50.0-68.0) L 05/20/18 08:00 Lymph % (Auto) 42.3 % (22.0-35.0) H 05/20/18 08:00 Simpson % (Auto) 7.3 % (1.0-6.0) H 05/20/18 08:00 Eos % (Auto) 1.5 % (1.5-5.0) 05/20/18 08:00 Baso % (Auto) 0.3 % (0.0-3.0) 05/20/18 08:00 Gran # 1.61 (1.4-6.5) 05/20/18 08:00 Lymph # (Auto) 1.4 (1.2-3.4) 05/20/18 08:00 Simpson # (Auto) 0.2 (0.1-0.6) 05/20/18 08:00 Eos # (Auto) 0.1 (0.0-0.7) 05/20/18 08:00 Baso # (Auto) 0.01 K/mm3 (0.0-2.0) 05/20/18 08:00 pO2 127 mm/Hg (30-55) H 05/17/18 10:30 VBG pH 7.40 (7.32-7.43) 05/17/18 10:30 VBG pCO2 44.0 (40-60) 05/17/18 10:30 VBG HCO3 27.3 mmol/l (21-28) 05/17/18 10:30 VBG Total CO2 28.7 mmol.L (22-28) H 05/17/18 10:30 VBG O2 Sat (Calc) 95.1 % (40-65) H 05/17/18 10:30 VBG Base Excess 2.0 mmol/L (0.0-2.0) 05/17/18 10:30 VBG Potassium 3.9 mmol/L (3.6-5.2) 05/17/18 10:30 Sodium 140.0 mmol/L (132-148) 05/17/18 10:30 Chloride 108.0 mmol/L (98-107) H 05/17/18 10:30 Glucose 94 mg/dl (65-105) 05/17/18 10:30 Lactate 0.8 mmol/L (0.7-2.1) 05/17/18 10:30 FiO2 21.0 % 05/17/18 10:30 Sodium 142 mmol/L (132-148) 05/20/18 06:45 Potassium 4.2 mmol/L (3.6-5.0) 05/20/18 06:45 Chloride 104 mmol/L (98-107) 05/20/18 06:45 Carbon Dioxide 32 mmol/L (21-33) 05/20/18 06:45 Anion Gap 10 (10-20) 05/20/18 06:45 BUN 15 mg/dL (7-21) 05/20/18 06:45 Creatinine 0.6 mg/dl (0.7-1.2) L 05/20/18 06:45 Est GFR ( Amer) > 60 05/20/18 06:45 Est GFR (Non-Af Amer) > 60 05/20/18 06:45 POC Glucose (mg/dL) 117 mg/dL (65-110) H 05/20/18 21:14 Random Glucose 88 mg/dL (70-110) 05/20/18 06:45 Calcium 8.7 mg/dL (8.4-10.5) 05/20/18 06:45 Phosphorus 3.7 mg/dL (2.5-4.5) 05/20/18 06:45 Magnesium 1.9 mg/dL (1.7-2.2) 05/20/18 06:45 Total Bilirubin 0.2 mg/dL (0.2-1.3) 05/20/18 06:45 AST 30 U/L (14-36) 05/20/18 06:45 ALT 31 U/L (7-56) 05/20/18 06:45 Alkaline Phosphatase 76 U/L (38-126) 05/20/18 06:45 Troponin I < 0.01 ng/mL 05/19/18 17:30 Total Protein 6.2 g/dL (5.8-8.3) 05/20/18 06:45 Albumin 3.1 g/dL (3.0-4.8) 05/20/18 06:45 Globulin 3.1 gm/dL 05/20/18 06:45 Albumin/Globulin Ratio 1.0 (1.1-1.8) L 05/20/18 06:45 Venous Blood Potassium 3.9 mmol/L (3.6-5.2) 05/17/18 10:30 Attending/Attestation - Attestation I have personally seen and examined this patient.: Yes I have fully participated in the care of the patient.: Yes I have reviewed all pertinent clinical information, including history, physical exam and plan: Yes Notes (Text): 05/21/18 14:53 Medical record note made by the resident after discussion with my direction and input after the patient was personally seen and examined by me. I have reviewed the chart and agree that the record accurately reflects by personal performance of the history, physical exam, data review, and medical decision-making, in the course for the patient. I have also personally directed the plan of care. 58-year-old female with PMH of multiple sclerosis, fibromyalgia,Gastric Bypass surgery, bradycardia s/p AICD placement, hypertension, obesity, diabetes, chronic anemia with ESBL UTI.Patient is afebrile, she is asymptomatic, blood cultures are negative for any growth on IV Meropenem as per ID. Diarrhea is rersolved.Patient is not having any hallucination. Neutropenia is chronic and is improving. Patient will be discharged to TCU for completion of IV antibiotic for ESBL UTI and physical rehabilitation. Management plan was discussed in detail with patient Education was provided.
--- NOTE | 2018-05-20 13:06 | PN ---
DATE: 05/20/2018 SUBJECTIVE: Over the weekend, the patient was transferred to the medical site from the psychiatric inpatient unit for evaluation of ESBL E. coli urinary tract infection. This senior underwriter is following the patient on the medical site for depression and medication management. The patient was seen today. The patient presented to be depressed, flat affect. Speech was normal rate. The patient reported that her daughter came over and brought her belongings and her future plans are to move back to [place] where she originally came from. The patient reported that medications she tolerates well. Denied any side effects. The patient is aware of all of the medication what she is currently on. The patient was educated again about benefits and alternatives of all of the medications. The patient was willing to increase the dose of Effexor. Vital signs are stable. Temperature 98, pulse is 60, blood pressure 116/78, respirations 26, oxygen saturation is 98. Medications reviewed. The patient is on Tylenol, Norvasc, Klonopin 1 mg twice a day, folic acid, Neurontin 300 mg three times a day, multivitamins, Lyrica 100 mg three times a day, Seroquel 25 mg at the nighttime for mood stabilization as well as for psychotic symptoms due to delirium. Effexor was increased to . Sonata 10 mg as needed for insomnia. Labs reviewed, most recent is from today. Hemoglobin and hematocrit 10 and 31.9. Blood gas reviewed. Chemistry reviewed. Microbiology, no growth in the blood so far. MENTAL STATUS EXAMINATION: The patient appears to be alert and oriented, pleasant, cooperative, flat affect. Mood described, hanging in there. Affect was constricted. Thought process, coherent and goal directed. Thought content, the patient denied visual, auditory or tactile hallucinations. Denied paranoid ideation. The patient denied thoughts of harming herself or others, and denied intent or plan, transient feeling of hopelessness and helplessness. IMPRESSION: As per history, major depressive disorder, panic disorder and anxiety spectrum disorder. PLAN: Continue current management. Continue current medication. We will follow up and advise accordingly. Effexor was increased today. The patient is on Neurontin, Seroquel and Klonopin. Discussed with nurse practitioner. Plan is Transitional Care Unit for further IV antibiotics. This senior underwriter will follow up on this patient there. Should you have any questions, give me a call back. Thank you very much for letting me participate in care of your patient. Romina Dockery MD
--- NOTE | 2018-05-20 13:28 | PN ---
DATE: 05/20/2018 SUBJECTIVE: The patient is in bed, in no acute distress, nontoxic. PHYSICAL EXAMINATION: VITAL SIGNS: Temperature is 98, blood pressure is 116/70, respiratory rate of 20. HEENT: Examination of HEENT is unremarkable. NECK: Supple. LUNGS: Have decreased breath sounds. HEART: Normal S1 and S2. ABDOMEN: Soft, nontender. LABORATORY DATA: The laboratory examination reveals a white count of 3.3, hemoglobin of more than 10. Chemistries are noted. Blood cultures are negative. Review of orders reveals the patient to be on meropenem. ASSESSMENT AND PLAN: A 58-year-old female with depression, anxiety, fibromyalgia, morbid obesity, body mass index of 58 that is super morbid obesity, multiple sclerosis, diabetes, hypertension, automatic implantable cardioverter-defibrillator, pacemaker placement, port placement. Admitted from the Psychiatry floor with extended-spectrum beta-lactamase Escherichia coli cystitis, on day #4 of meropenem, would complete 5-7 days. Review of orders reveals the meropenem to be active. Maurizio Taylor MD
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
[2018-05-20 14:58] VITALS: BP 136/85; PULSE 73; TEMP 98.8; O2SAT 100
--- NOTE | 2018-05-20 21:22 | PN ---
DATE: 05/19/2018 SUBJECTIVE: The patient was seen yesterday. No fevers and no chills. No nausea or vomiting. PHYSICAL EXAMINATION: VITAL SIGNS: Temperature of 98, blood pressure is 120/70, respiratory rate 16. HEENT: Unremarkable. NECK: Supple. LUNGS: Have decreased breath sounds. HEART: Normal S1 and S2. ABDOMEN: Soft. LABORATORY EXAMINATION: Noted. ASSESSMENT AND PLAN: This is a 58-year-old female who was seen yesterday, (the date of service is 05/19/2018) who was on meropenem, day #3 of 5-7 days for an extended-spectrum beta-lactamase cystitis Escherichia coli. Maurizio Taylor MD
== END 2018-05-20 16:43 | DRG 690 ==
LOC: ED 09:59 → ERH 10:36 → 5RSO 11:55 → OBSVTOIN 16:04
PROVIDERS: ADMIT Internal Medicine; ATTEND Internal Medicine
DX: N39.0 Urinary tract infection, site not specified (principal); Z16.12 Extended spectrum beta lactamase (ESBL) resistance; B96.1 Klebsiella pneumoniae [K. pneumoniae] as the cause of diseases classified elsewhere; B96.20 Unspecified Escherichia coli [E. coli] as the cause of diseases classified elsewhere; G35 Multiple sclerosis; M79.7 Fibromyalgia; I10 Essential (primary) hypertension; E11.9 Type 2 diabetes mellitus without complications; F32.9 Major depressive disorder, single episode, unspecified; D63.8 Anemia in other chronic diseases classified elsewhere; F41.1 Generalized anxiety disorder; F43.10 Post-traumatic stress disorder, unspecified; D70.9 Neutropenia, unspecified; F41.0 Panic disorder [episodic paroxysmal anxiety]; R19.7 Diarrhea, unspecified; T36.95XA Adverse effect of unspecified systemic antibiotic, initial encounter; Z79.4 Long term (current) use of insulin; Z95.810 Presence of automatic (implantable) cardiac defibrillator; R00.1 Bradycardia, unspecified; Z87.891 Personal history of nicotine dependence; Z98.84 Bariatric surgery status

== ENCOUNTER 2018-05-20 16:35 | Inpatient (IN) | payer OTHER, MEDICAID ==
[2018-05-20 17:00] VITALS: BMI 35.9
[2018-05-20] MEDS: Insulin Reg-LOW-Coverage SC SCH (21:14)
[2018-05-20] MEDS ORDERED: Pneumococcal 23-Valent Vaccine IM ONE (21:35)
[2018-05-20] MEDS: Meropenem IV 1 gm in NS 50 ML IVPB SCH (21:52)
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
[2018-05-21] MEDS: Meropenem IV 1 gm in NS 50 ML IVPB SCH ×3 (06:05→21:31)
[2018-05-21] MEDS: Pantoprazole 40 mg EC Tab PO SCH (06:06)
[2018-05-21] MEDS: Insulin Reg-LOW-Coverage SC SCH ×4 (06:31→22:51)
[2018-05-21] MEDS: Multivitamin With Minerals Tab PO SCH (09:05)
[2018-05-21] MEDS ORDERED: Nystatin 100,000 Units/gm Cream(15 gm) TOP SCH (10:00)
--- NOTE | 2018-05-21 10:26 | PN ---
DATE: 05/21/2018 FOLLOWUP NOTE SUBJECTIVE: The patient was seen today at the morning time at TCU Unit. The patient presented well. At the same time, the patient reported that she would like her Ativan to be increased and she feels more comfortable on IV Ativan. This financial writer explained the patient that she cannot have IV Ativan as long as she is eating and drinking fine. The patient reported that she still feels depressed, but the depression is related to her conflicts with the daughter, but she has future oriented plans to move back to [place] and start living independently as she used to before. The patient denied feeling of hopelessness. Denied feeling of helplessness and denied hearing voices, denied seeing things. The patient reported her sleep is fine. Her appetite is fair. Adamantly denied thoughts of harming herself or others. Vital signs reviewed. Blood pressure is a little bit elevated at 141/94, pulse is 73, temperature 99.4. Medications reviewed. Effexor was increased to 150 mg daily, Seroquel 25 mg, Lyrica as per medical team, Ativan could be given to the patient 1 mg three times a day as needed for anxiety. MENTAL STATUS EXAMINATION: The patient presented to be alert and oriented, pleasant, cooperative, good personal hygiene. Good eye contact. Speech was normal rate, tone, quality and quantity. Thought process coherent and goal directed. Mood described as depressed, but denied feeling of hopelessness or helplessness. The patient adamantly denied thoughts of harming herself or others. Denied intent or plan. Insight and judgment good. Impulses are well controlled. IMPRESSION: As per history, depression and anxiety, rule out adjustment disorder with depressed and anxious mood. PLAN: Continue current management. Continue current medication. Ativan 1 mg three times a day as needed for anxiety, Effexor 150 mg daily extended-release, Sonata as needed for insomnia. This financial writer will sign off as of now because the patient is doing well. The patient pose no imminent danger to self or others. Should you have any questions, give me a call back. Romina Dockery MD [facility] # [phone]
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
[2018-05-21] MEDS: Venlafaxine 75 mg ER Cap PO SCH (14:17)
[2018-05-21] MEDS: Nystatin 100,000 Units/gm Cream(15 gm) TOP SCH ×3 (17:37→21:29)
[2018-05-22] MEDS: Pantoprazole 40 mg EC Tab PO SCH (06:31)
[2018-05-22] MEDS: Meropenem IV 1 gm in NS 50 ML IVPB SCH ×3 (06:31→21:35)
[2018-05-22] MEDS: Insulin Reg-LOW-Coverage SC SCH ×4 (06:31→22:05)
--- NOTE | 2018-05-22 07:11 | CP.PCM.PN ---
Subjective - Date & Time of Evaluation Date of Evaluation: 05/22/18 Time of Evaluation: 06:00 - Subjective Subjective: Mauricio Manning, PGY-1 Progress Note for Hospitalist Service Patient seen and evaluated at bedside. No acute complaints overnight. Slept well per nursing. Admits that pain on urination has improved. Denies CP, SOB, leg pain, abdominal pain and headaches. Objective - Vital Signs/Intake and Output Vital Signs (last 24 hours): Temp Pulse Resp BP Pulse Ox 99.8 F H 75 18 128/92 H 96 05/21/18 16:00 05/21/18 16:00 05/21/18 16:00 05/21/18 16:00 05/21/18 16:00 - Medications Medications: Current Medications Acetaminophen (Tylenol 325mg Tab) 650 mg PO Q4H PRN; Protocol PRN Reason: Pain, Mild (1-3) Last Admin: 05/22/18 02:58 Dose: 650 mg Amlodipine Besylate (Norvasc) 5 mg PO DAILY [facility] PRN Reason: Protocol Last Admin: 05/21/18 09:04 Dose: 5 mg Folic Acid (Folic Acid) 1 mg PO DAILY [facility] PRN Reason: Protocol Last Admin: 05/21/18 09:02 Dose: 1 mg Gabapentin (Neurontin) 300 mg PO TID [facility] PRN Reason: Protocol Last Admin: 05/21/18 17:38 Dose: 300 mg Meropenem (Merrem Iv 1 Gm Premix) 50 mls @ 100 mls/hr IVPB Q8 [facility] PRN Reason: Protocol Stop: 05/29/18 22:01 Last Admin: 05/22/18 06:31 Dose: 100 mls/hr Insulin Human Regular (Humulin R Low) 0 units SC ACHS [facility] PRN Reason: Protocol Last Admin: 05/22/18 06:31 Dose: Not Given Lorazepam (Ativan) 1 mg PO TID PRN; Protocol PRN Reason: Anxiety Last Admin: 05/21/18 21:29 Dose: 1 mg Multivitamins/Minerals (Therapeutic-M Tab) 1 tab PO 0800 [facility] PRN Reason: Protocol Last Admin: 05/21/18 09:05 Dose: 1 tab Nystatin (Mycostatin Cream) 0 ea TOP QID [facility] Last Admin: 05/21/18 21:29 Dose: 1 applic Ondansetron HCl (Zofran Tab) 4 mg PO Q8H PRN; Protocol PRN Reason: Nausea/Vomiting Last Admin: 05/21/18 14:22 Dose: 4 mg Pantoprazole Sodium (Protonix Ec Tab) 40 mg PO 0600 [facility] PRN Reason: Protocol Last Admin: 05/22/18 06:31 Dose: 40 mg Pregabalin (Lyrica) 100 mg PO TID [facility] PRN Reason: Protocol Last Admin: 05/21/18 17:34 Dose: 100 mg Quetiapine Fumarate (Seroquel) 25 mg PO HS [facility] PRN Reason: Protocol Last Admin: 05/21/18 21:30 Dose: 25 mg Venlafaxine HCl (Effexor Xr) 150 mg PO DAILY [facility] Last Admin: 05/21/18 14:17 Dose: Not Given Zaleplon (Sonata) 10 mg PO HS PRN; Protocol PRN Reason: Insomnia Last Admin: 05/21/18 22:24 Dose: 10 mg - Labs Labs: - Constitutional Appears: Well, Non-toxic, No Acute Distress - Head Exam Head Exam: ATRAUMATIC, NORMAL INSPECTION - Eye Exam Eye Exam: EOMI, Normal appearance Pupil Exam: PERRL - ENT Exam ENT Exam: Mucous Membranes Moist, Normal Exam - Neck Exam Neck exam: Positive for: Normal Inspection - Respiratory Exam Respiratory Exam: Clear to Auscultation Bilateral, NORMAL BREATHING PATTERN. absent: Rales, Rhonchi, Wheezes - Cardiovascular Exam Cardiovascular Exam: RRR, +S1, +S2. absent: Gallop, Rubs Additional comments: Pacemaker in place. Skin dry and nonerythematous. - GI/Abdominal Exam GI & Abdominal Exam: Normal Bowel Sounds, Soft. absent: Guarding, Rebound, Tenderness - Neurological Exam Neurological exam: Alert, Oriented x3 - Psychiatric Exam Psychiatric exam: Anxious - Skin Skin Exam: Dry, Intact, Normal Color, Warm Assessment and Plan - Assessment and Plan (Free Text) Assessment: Assessment: 58 year old female with past medical history of multiple sclerosis, fibromyalgia , anxiety, hypertension, type 2 diabetes, neutropenia, bradycardia s/p pacemaker placement under medical management for treatment of ESBL symptomatic UTI. Plan: ESBL E. coli UTI Urinalysis: Positive for nitrates and Leukocyte esterase, Urine CX shows ESBL E. Coli Formerly on rocephin, then switched to Nitrofurantoin for UTI. Sensitivities returned, resistant to nitrofurantoin. Now on Meropenem 50 q8 day 6. Will complete week of ABx course tomorrow while in TCU. Nystatin cream given for vaginal candidiasis Contact precautions ID consult: Dr. Taylor Normocytic Normochromic Anemia with Leukopenia - Improved Chronically anemic, likely 2/2 chronic disease with leukopenia Most recent Hgb 10, Leukopenic 3.3. Follow up AM labs Likely 2/2 rocephin and meropenem effects Will continue to monitor Hemodynamically stable, no active bleeding Diarrhea - resolved will monitor frequency Fibromyalgia/anxiety continue on home med of Venlafaxine 75 and pregabalin 100 TID. Gabapentin 300 TID added per Psych continue sonata 5 mg for help sleeping as per Dr. Vanegas Ativan 1 mg q6h prn added for anxiety Psychiatry has signed off Prophylaxis Protonix/SCD Disposition: Patient transferred from Med-Surg to TCU for rehabilitation and completion of antibiotic course. 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 Patient seen, case reviewed, and plan agreed upon with Dr. Corado. Mauricio Manning, PGY-1
[2018-05-22 07:47] LABS: BASO # 0.01 K/mm3 (0.0-2.0); BASO % 0.3 % (0.0-3.0); EOS # 0.1 (0.0-0.7); EOS % 2.6 % (1.5-5.0); GRAN # 1.43 (1.4-6.5); GRAN % 46.4 % (50.0-68.0); HEMOGLOBIN 9.6 g/dL (12.0-16.0); LYMPH # 1.3 (1.2-3.4); LYMPH % 43.2 % (22.0-35.0); MEAN CELL VOLUME 95.9 fl (80.0-105.0); MEAN CORPUSCULAR HEMOGLOBIN 30.3 pg (25.0-35.0); MEAN CORPUSCULAR HGB CONC 31.6 g/dl (31.0-37.0); MEAN PLATELET VOLUME 10.1 fl (7.0-11.0); MONO # 0.2 (0.1-0.6); MONO % 7.5 % (1.0-6.0); RBC 3.17 10^6/uL (3.5-6.1); WHITE BLOOD COUNT 3.1 10^3/ul (4.5-11.0)
[2018-05-22 07:56] LABS: ALB/GLOB RATIO 1.1 (1.1-1.8); ALBUMIN 3.3 g/dL (3.0-4.8); ALT/SGPT 33 U/L (7-56); AST/SGOT 35 U/L (14-36); BLOOD UREA NITROGEN 15 mg/dL (7-21); GFR AFRICAN-AMERICAN > 60; GFR NON-AFRICAN AMERICAN > 60
[2018-05-22] MEDS: Multivitamin With Minerals Tab PO SCH (08:19)
[2018-05-22] MEDS: Venlafaxine 75 mg ER Cap PO SCH (10:25)
[2018-05-22] MEDS: Nystatin 100,000 Units/gm Cream(15 gm) TOP SCH ×4 (10:28→21:33)
--- NOTE | 2018-05-22 14:35 | CP.PCM.PN ---
Subjective - Date & Time of Evaluation Date of Evaluation: 05/22/18 Time of Evaluation: 12:35 - Subjective Subjective: Comfortable, dysuria is improving, less vaginal itching, no fevers. Objective - Vital Signs/Intake and Output Vital Signs (last 24 hours): Temp Pulse Resp BP Pulse Ox 99.8 F H 75 18 128/92 H 96 05/21/18 16:00 05/21/18 16:00 05/21/18 16:00 05/21/18 16:00 05/21/18 16:00 - Medications Medications: Current Medications Acetaminophen (Tylenol 325mg Tab) 650 mg PO Q4H PRN; Protocol PRN Reason: Pain, Mild (1-3) Last Admin: 05/22/18 02:58 Dose: 650 mg Amlodipine Besylate (Norvasc) 5 mg PO DAILY [facility] PRN Reason: Protocol Last Admin: 05/21/18 09:04 Dose: 5 mg Folic Acid (Folic Acid) 1 mg PO DAILY [facility] PRN Reason: Protocol Last Admin: 05/21/18 09:02 Dose: 1 mg Gabapentin (Neurontin) 300 mg PO TID [facility] PRN Reason: Protocol Last Admin: 05/21/18 17:38 Dose: 300 mg Meropenem (Merrem Iv 1 Gm Premix) 50 mls @ 100 mls/hr IVPB Q8 [facility] PRN Reason: Protocol Stop: 05/29/18 22:01 Last Admin: 05/22/18 06:31 Dose: 100 mls/hr Insulin Human Regular (Humulin R Low) 0 units SC ACHS [facility] PRN Reason: Protocol Last Admin: 05/22/18 06:31 Dose: Not Given Lorazepam (Ativan) 1 mg PO TID PRN; Protocol PRN Reason: Anxiety Last Admin: 05/22/18 08:22 Dose: 1 mg Multivitamins/Minerals (Therapeutic-M Tab) 1 tab PO 0800 [facility] PRN Reason: Protocol Last Admin: 05/22/18 08:19 Dose: 1 tab Nystatin (Mycostatin Cream) 0 ea TOP QID [facility] Last Admin: 05/21/18 21:29 Dose: 1 applic Ondansetron HCl (Zofran Tab) 4 mg PO Q8H PRN; Protocol PRN Reason: Nausea/Vomiting Last Admin: 05/22/18 08:18 Dose: 4 mg Pantoprazole Sodium (Protonix Ec Tab) 40 mg PO 0600 [facility] PRN Reason: Protocol Last Admin: 05/22/18 06:31 Dose: 40 mg Pregabalin (Lyrica) 100 mg PO TID [facility] PRN Reason: Protocol Last Admin: 05/21/18 17:34 Dose: 100 mg Quetiapine Fumarate (Seroquel) 25 mg PO HS [facility] PRN Reason: Protocol Last Admin: 05/21/18 21:30 Dose: 25 mg Venlafaxine HCl (Effexor Xr) 150 mg PO DAILY [facility] Last Admin: 05/21/18 14:17 Dose: Not Given Zaleplon (Sonata) 10 mg PO HS PRN; Protocol PRN Reason: Insomnia Last Admin: 05/21/18 22:24 Dose: 10 mg - Labs Labs: 05/22/18 07:30 05/22/18 07:30 - Constitutional Appears: Chronically Ill - Head Exam Head Exam: NORMAL INSPECTION - Respiratory Exam Respiratory Exam: Decreased Breath Sounds - Cardiovascular Exam Cardiovascular Exam: +S1, +S2 - GI/Abdominal Exam GI & Abdominal Exam: Soft. absent: Tenderness Assessment and Plan - Assessment and Plan (Free Text) Plan: Assessment ESBL E. coli UTI (cystitis) probable vaginal candidiasis morbid obesity with BMI 58 depression anxiety fibromylagia multiple sclerosis DM HTN chronic anemia S/P AICD and pacemaker placement S/P port placement Plan Continue Merrem (Day 6) to complete 7 days of therapy and will monitor clinically, continue contact isolation continue Nystatin for the candidiasis
[2018-05-23] MEDS: Pantoprazole 40 mg EC Tab PO SCH (05:40)
[2018-05-23] MEDS: Meropenem IV 1 gm in NS 50 ML IVPB SCH ×3 (05:40→22:11)
[2018-05-23] MEDS: Insulin Reg-LOW-Coverage SC SCH ×4 (06:34→21:36)
[2018-05-23 07:04] LABS: ALB/GLOB RATIO 1.1 (1.1-1.8); ALBUMIN 3.2 g/dL (3.0-4.8); ALT/SGPT 31 U/L (7-56); AST/SGOT 39 U/L (14-36); BLOOD UREA NITROGEN 16 mg/dL (7-21); CALCIUM 8.9 mg/dL (8.4-10.5); GFR AFRICAN-AMERICAN > 60; GFR NON-AFRICAN AMERICAN > 60
[2018-05-23 07:09] LABS: BASO # 0.01 K/mm3 (0.0-2.0); BASO % 0.3 % (0.0-3.0); EOS # 0.1 (0.0-0.7); EOS % 2.2 % (1.5-5.0); GRAN # 1.56 (1.4-6.5); GRAN % 49.8 % (50.0-68.0); HEMOGLOBIN 9.4 g/dL (12.0-16.0); LYMPH # 1.3 (1.2-3.4); LYMPH % 40.1 % (22.0-35.0); MEAN CELL VOLUME 95.5 fl (80.0-105.0); MEAN CORPUSCULAR HEMOGLOBIN 30.4 pg (25.0-35.0); MEAN CORPUSCULAR HGB CONC 31.9 g/dl (31.0-37.0); MEAN PLATELET VOLUME 10.3 fl (7.0-11.0); MONO # 0.2 (0.1-0.6); MONO % 7.6 % (1.0-6.0); RBC 3.09 10^6/uL (3.5-6.1); RED CELL DISTRIBUTION WIDTH 13.1 % (11.5-14.5); WHITE BLOOD COUNT 3.1 10^3/ul (4.5-11.0)
[2018-05-23] MEDS: Multivitamin With Minerals Tab PO SCH (08:14)
--- NOTE | 2018-05-23 09:18 | PN ---
DATE: 05/23/2018 SUBJECTIVE: The patient is in bed, in no acute distress, nontoxic. PHYSICAL EXAMINATION: VITAL SIGNS: On exam, temperature is 98, blood pressure is 120/70, respiratory rate of 16. HEENT: Examination of HEENT is unremarkable. NECK: Supple. LUNGS: Have decreased breath sounds. HEART: Normal S1, S2. ABDOMEN: Soft. LABORATORY DATA: Laboratory examination reveals a white count of 3.1, hemoglobin of 9, platelets of 196. BUN is 16, creatinine of 0.6. Microbiology is noted. ASSESSMENT AND PLAN: A 58-year-old female with Extended spectrum beta-lactamases Escherichia coli cystitis, vaginal candidiasis, morbid obesity, body mass index of 58, depression, anxiety, fibromyalgia, multiple sclerosis. Today is day #7 of meropenem therapy. Discontinue the antibiotics after today's last dose. Maurizio Taylor MD
[2018-05-23] MEDS: Venlafaxine 75 mg ER Cap PO SCH (09:40)
[2018-05-23] MEDS: Nystatin 100,000 Units/gm Cream(15 gm) TOP SCH ×4 (09:41→22:13)
--- NOTE | 2018-05-23 11:59 | CP.PCM.PN ---
<Ilir Montenegro - Last Filed: 05/23/18 11:56> Subjective - Date & Time of Evaluation Date of Evaluation: 05/23/18 Time of Evaluation: 09:25 - Subjective Subjective: Ilirmel Montenegro DO PGY-1, Bundle Breaker Medicine Progress Note Pt seen and examined at bedside. States she slept well overnight. Tolerating PO diet, ambulating with PT. No acute events reported overnight. Objective - Vital Signs/Intake and Output Vital Signs (last 24 hours): Temp Pulse Resp BP Pulse Ox 99.8 F H 64 18 115/70 96 05/21/18 16:00 05/23/18 09:40 05/21/18 16:00 05/23/18 09:40 05/21/18 16:00 - Medications Medications: Current Medications Acetaminophen (Tylenol 325mg Tab) 650 mg PO Q4H PRN; Protocol PRN Reason: Pain, Mild (1-3) Last Admin: 05/23/18 08:16 Dose: 650 mg Amlodipine Besylate (Norvasc) 5 mg PO DAILY [facility] PRN Reason: Protocol Last Admin: 05/23/18 09:40 Dose: 5 mg Folic Acid (Folic Acid) 1 mg PO DAILY [facility] PRN Reason: Protocol Last Admin: 05/23/18 09:40 Dose: 1 mg Gabapentin (Neurontin) 300 mg PO TID [facility] PRN Reason: Protocol Last Admin: 05/23/18 09:40 Dose: 300 mg Meropenem (Merrem Iv 1 Gm Premix) 50 mls @ 100 mls/hr IVPB Q8 [facility] PRN Reason: Protocol Stop: 05/29/18 22:01 Last Admin: 05/23/18 05:40 Dose: 100 mls/hr Insulin Human Regular (Humulin R Low) 0 units SC ACHS [facility] PRN Reason: Protocol Last Admin: 05/23/18 06:34 Dose: Not Given Lorazepam (Ativan) 1 mg PO TID PRN; Protocol PRN Reason: Anxiety Last Admin: 05/23/18 07:23 Dose: 1 mg Multivitamins/Minerals (Therapeutic-M Tab) 1 tab PO 0800 [facility] PRN Reason: Protocol Last Admin: 05/23/18 08:14 Dose: 1 tab Nystatin (Mycostatin Cream) 0 ea TOP QID [facility] Last Admin: 05/23/18 09:41 Dose: 1 applic Ondansetron HCl (Zofran Tab) 4 mg PO Q8H PRN; Protocol PRN Reason: Nausea/Vomiting Last Admin: 05/23/18 07:25 Dose: 4 mg Pantoprazole Sodium (Protonix Ec Tab) 40 mg PO 0600 [facility] PRN Reason: Protocol Last Admin: 05/23/18 05:40 Dose: 40 mg Pregabalin (Lyrica) 100 mg PO TID [facility] PRN Reason: Protocol Last Admin: 05/23/18 09:41 Dose: 100 mg Quetiapine Fumarate (Seroquel) 25 mg PO HS [facility] PRN Reason: Protocol Last Admin: 05/22/18 21:36 Dose: 25 mg Venlafaxine HCl (Effexor Xr) 150 mg PO DAILY [facility] Last Admin: 05/23/18 09:40 Dose: 150 mg Zaleplon (Sonata) 10 mg PO HS PRN; Protocol PRN Reason: Insomnia Last Admin: 05/22/18 22:36 Dose: 10 mg - Labs Labs: 05/23/18 06:30 05/23/18 06:30 - Constitutional Appears: Non-toxic, No Acute Distress - Head Exam Head Exam: ATRAUMATIC, NORMAL INSPECTION, NORMOCEPHALIC - Eye Exam Eye Exam: EOMI, Normal appearance, PERRL - ENT Exam ENT Exam: Mucous Membranes Moist, Normal Oropharynx - Neck Exam Neck Exam: Full ROM, Normal Inspection - Respiratory Exam Respiratory Exam: Clear to Ausculation Bilateral, NORMAL BREATHING PATTERN - Cardiovascular Exam Cardiovascular Exam: REGULAR RHYTHM, +S1, +S2 - GI/Abdominal Exam GI & Abdominal Exam: Soft, Normal Bowel Sounds - Extremities Exam Extremities Exam: Full ROM, Normal Capillary Refill, Normal Inspection - Back Exam Back Exam: NORMAL INSPECTION Additional comments: no CVA tenderness b/l - Neurological Exam Neurological Exam: Alert, Awake, Oriented x3 - Psychiatric Exam Psychiatric exam: Flat Affect - Skin Skin Exam: Dry, Intact, Normal Color, Warm Assessment and Plan - Assessment and Plan (Free Text) Assessment: 58 year old female with past medical history of multiple sclerosis, fibromyalgia , anxiety, hypertension, type 2 diabetes, neutropenia, bradycardia s/p pacemaker placement under medical management for treatment of ESBL symptomatic UTI. Plan: ESBL E. coli UTI Urinalysis: Positive for nitrates and Leukocyte esterase, Urine CX shows ESBL E. Coli Formerly on rocephin, then switched to Nitrofurantoin for UTI. Sensitivities returned, resistant to nitrofurantoin. Now on Meropenem 50 q8 day 7. Will d/c antibiotics tomorrow as per ID Nystatin cream given for vaginal candidiasis Contact precautions ID consulted, recs appreciated Normocytic Normochromic Anemia with Leukopenia - Improved Chronically anemic, likely 2/2 chronic disease with leukopenia Likely 2/2 rocephin and meropenem effects Will continue to monitor Hemodynamically stable, no active bleeding Fibromyalgia/anxiety continue on home med of Venlafaxine 75 and pregabalin 100 TID. Gabapentin 300 TID added per Psych continue sonata 5 mg for help sleeping as per Dr. Vanegas Ativan 1 mg q6h prn for anxiety F/u Psych recommendations Prophylaxis Protonix/SCD Disposition: Patient transferred from Med-Surg to TCU for rehabilitation and completion of antibiotic course. Plan to be in TCU through 05/28/18. Pt seen, examined with, and plan discussed with Dr. Corado, attending. Ilir Montenegor DO PGY-1, Bundle Breaker Pager #[phone] <Chandra Corado - Last Filed: 05/23/18 16:15> Objective - Vital Signs/Intake and Output Vital Signs (last 24 hours): Temp Pulse Resp BP Pulse Ox 99.8 F H 64 18 115/70 96 05/21/18 16:00 05/23/18 09:40 05/21/18 16:00 05/23/18 09:40 05/21/18 16:00 - Medications Medications: Current Medications Acetaminophen (Tylenol 325mg Tab) 650 mg PO Q4H PRN; Protocol PRN Reason: Pain, Mild (1-3) Last Admin: 05/23/18 08:16 Dose: 650 mg Amlodipine Besylate (Norvasc) 5 mg PO DAILY [facility] PRN Reason: Protocol Last Admin: 05/23/18 09:40 Dose: 5 mg Folic Acid (Folic Acid) 1 mg PO DAILY [facility] PRN Reason: Protocol Last Admin: 05/23/18 09:40 Dose: 1 mg Gabapentin (Neurontin) 300 mg PO TID [facility] PRN Reason: Protocol Last Admin: 05/23/18 13:25 Dose: 300 mg Meropenem (Merrem Iv 1 Gm Premix) 50 mls @ 100 mls/hr IVPB Q8 [facility] PRN Reason: Protocol Stop: 05/29/18 22:01 Last Admin: 05/23/18 13:24 Dose: 100 mls/hr Insulin Human Regular (Humulin R Low) 0 units SC ACHS [facility] PRN Reason: Protocol Last Admin: 05/23/18 12:24 Dose: Not Given Lorazepam (Ativan) 1 mg PO TID PRN; Protocol PRN Reason: Anxiety Last Admin: 05/23/18 13:24 Dose: 1 mg Multivitamins/Minerals (Therapeutic-M Tab) 1 tab PO 0800 [facility] PRN Reason: Protocol Last Admin: 05/23/18 08:14 Dose: 1 tab Nystatin (Mycostatin Cream) 0 ea TOP QID [facility] Last Admin: 05/23/18 13:32 Dose: 1 applic Ondansetron HCl (Zofran Tab) 4 mg PO Q8H PRN; Protocol PRN Reason: Nausea/Vomiting Last Admin: 05/23/18 07:25 Dose: 4 mg Pantoprazole Sodium (Protonix Ec Tab) 40 mg PO 0600 [facility] PRN Reason: Protocol Last Admin: 05/23/18 05:40 Dose: 40 mg Pregabalin (Lyrica) 100 mg PO TID [facility] PRN Reason: Protocol Last Admin: 05/23/18 13:24 Dose: 100 mg Quetiapine Fumarate (Seroquel) 25 mg PO HS [facility] PRN Reason: Protocol Last Admin: 05/22/18 21:36 Dose: 25 mg Venlafaxine HCl (Effexor Xr) 150 mg PO DAILY [facility] Last Admin: 05/23/18 09:40 Dose: 150 mg Zaleplon (Sonata) 10 mg PO HS PRN; Protocol PRN Reason: Insomnia Last Admin: 05/22/18 22:36 Dose: 10 mg - Labs Labs: 05/23/18 06:30 05/23/18 06:30 Attending/Attestation - Attestation I have personally seen and examined this patient.: Yes I have fully participated in the care of the patient.: Yes I have reviewed all pertinent clinical information, including history, physical exam and plan: Yes Notes (Text): 05/23/18 16:11 Medical record note made by the resident after discussion with my direction and input after the patient was personally seen and examined by me. I have reviewed the chart and agree that the record accurately reflects by personal performance of the history, physical exam, data review, and medical decision-making, in the course for the patient. I have also personally directed the plan of care. 58-year-old female with PMH of multiple sclerosis, fibromyalgia,Gastric Bypass surgery, bradycardia s/p AICD placement, hypertension, obesity, diabetes, chronic anemia with ESBL UTI.Patient was initially admitted to medical floor and then transfered to to TCU for completion of IV antibiotic for ESBL UTI and physical rehabilitation.Patient is afebrile, she is asymptomatic, blood cultures are negative for any growth on IV Meropenem as per ID.Patient will finish antibiotics today ( total 7). Diarrhea is resolved.Patient is not having any hallucination. Neutropenia is chronic and is improving. Management plan was discussed in detail with patient Education was provided.
[2018-05-23] MEDS ORDERED: Apap-Butalbital-Caffeine 325-50-40mg Tab PO STA (15:02)
[2018-05-23] MEDS ORDERED: Apap-Butalbital-Caffeine 325-50-40mg Tab PO ONE (15:03)
[2018-05-24] MEDS: Meropenem IV 1 gm in NS 50 ML IVPB SCH (05:28)
[2018-05-24] MEDS: Pantoprazole 40 mg EC Tab PO SCH (05:30)
[2018-05-24] MEDS: Insulin Reg-LOW-Coverage SC SCH ×4 (06:40→22:56)
[2018-05-24 06:59] LABS: ALB/GLOB RATIO 1.1 (1.1-1.8); ALBUMIN 3.4 g/dL (3.0-4.8); ALT/SGPT 36 U/L (7-56); AST/SGOT 47 U/L (14-36); BLOOD UREA NITROGEN 17 mg/dL (7-21); CALCIUM 8.9 mg/dL (8.4-10.5); GFR AFRICAN-AMERICAN > 60; GFR NON-AFRICAN AMERICAN > 60
[2018-05-24 07:05] LABS: EOS # 0.1 (0.0-0.7); EOS % 2.2 % (1.5-5.0); GRAN # 1.83 (1.4-6.5); GRAN % 50.9 % (50.0-68.0); HEMOGLOBIN 9.5 g/dL (12.0-16.0); LYMPH # 1.4 (1.2-3.4); LYMPH % 38.3 % (22.0-35.0); MEAN CELL VOLUME 95.6 fl (80.0-105.0); MEAN CORPUSCULAR HEMOGLOBIN 30.2 pg (25.0-35.0); MEAN CORPUSCULAR HGB CONC 31.6 g/dl (31.0-37.0); MEAN PLATELET VOLUME 10.3 fl (7.0-11.0); MONO # 0.3 (0.1-0.6); MONO % 8.6 % (1.0-6.0); RBC 3.15 10^6/uL (3.5-6.1); RED CELL DISTRIBUTION WIDTH 13.1 % (11.5-14.5); WHITE BLOOD COUNT 3.6 10^3/ul (4.5-11.0)
[2018-05-24] MEDS: Multivitamin With Minerals Tab PO SCH (07:59)
--- NOTE | 2018-05-24 09:31 | PN ---
DATE: 05/24/2018 SUBJECTIVE: The patient is in bed in no acute distress, nontoxic. OBJECTIVE: VITAL SIGNS: On exam, temperature is 98, blood pressure is 130/80, respiratory rate 18, heart rate of 64. HEENT: Examination is unremarkable. NECK: Supple. LUNGS: Have decreased breath sounds. HEART: Normal S1, S2. ABDOMEN: Soft, nontender. DATA: Laboratory examination reveals a white count of 3.6, hemoglobin of 9 and chemistries are noted. ASSESSMENT AND PLAN: This is a 58-year-old female seen at [facility] with extended spectrum beta-lactamases cystitis, vaginal candidiasis, morbid obesity, body mass index of 58, has received 7 days of antibiotics and actually today is day #8. The patient has had adequate antibiotics. We will discontinue the meropenem. No further antibiotics at this point.. Maurizio Taylor MD
[2018-05-24] MEDS: Nystatin 100,000 Units/gm Cream(15 gm) TOP SCH ×4 (09:35→21:19)
[2018-05-24] MEDS: Venlafaxine 75 mg ER Cap PO SCH (10:20)
[2018-05-25] MEDS: Pantoprazole 40 mg EC Tab PO SCH (06:01)
[2018-05-25] MEDS: Insulin Reg-LOW-Coverage SC SCH ×4 (06:32→22:22)
[2018-05-25] MEDS: Multivitamin With Minerals Tab PO SCH (07:49)
[2018-05-25] MEDS: Venlafaxine 75 mg ER Cap PO SCH (09:46)
[2018-05-25] MEDS: Nystatin 100,000 Units/gm Cream(15 gm) TOP SCH ×4 (09:46→22:31)
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
--- NOTE | 2018-05-25 12:28 | CP.PCM.PN ---
<Mauricio Manning - Last Filed: 05/25/18 12:21> Subjective - Date & Time of Evaluation Date of Evaluation: 05/25/18 Time of Evaluation: 09:00 - Subjective Subjective: Mauricio Manning PGY-1 Progress Note for Hospitalist Service Patient seen and evaluated at bedside. Patient complains of a minor headache and improvement of her urinary symptoms. No acute events overnight and slept well per nursing. Objective - Vital Signs/Intake and Output Vital Signs (last 24 hours): Temp Pulse Resp BP Pulse Ox 98.2 F 95 H 22 127/84 100 05/24/18 22:00 05/24/18 16:30 05/24/18 16:30 05/25/18 09:47 05/24/18 16:30 - Medications Medications: Current Medications Acetaminophen (Tylenol 325mg Tab) 650 mg PO Q4H PRN; Protocol PRN Reason: Pain, Mild (1-3) Last Admin: 05/25/18 09:47 Dose: 650 mg Amlodipine Besylate (Norvasc) 5 mg PO DAILY [facility] PRN Reason: Protocol Last Admin: 05/25/18 09:47 Dose: 5 mg Folic Acid (Folic Acid) 1 mg PO DAILY [facility] PRN Reason: Protocol Last Admin: 05/25/18 09:46 Dose: 1 mg Gabapentin (Neurontin) 300 mg PO TID [facility] PRN Reason: Protocol Last Admin: 05/25/18 09:46 Dose: 300 mg Insulin Human Regular (Humulin R Low) 0 units SC ACHS [facility] PRN Reason: Protocol Last Admin: 05/25/18 11:36 Dose: Not Given Lorazepam (Ativan) 1 mg PO TID PRN; Protocol PRN Reason: Anxiety Last Admin: 05/25/18 11:41 Dose: 1 mg Multivitamins/Minerals (Therapeutic-M Tab) 1 tab PO 0800 [facility] PRN Reason: Protocol Last Admin: 05/25/18 07:49 Dose: 1 tab Nystatin (Mycostatin Cream) 0 ea TOP QID [facility] Last Admin: 05/25/18 09:46 Dose: 1 applic Ondansetron HCl (Zofran Tab) 4 mg PO Q8H PRN; Protocol PRN Reason: Nausea/Vomiting Last Admin: 05/25/18 07:27 Dose: 4 mg Pantoprazole Sodium (Protonix Ec Tab) 40 mg PO 0600 [facility] PRN Reason: Protocol Last Admin: 05/25/18 06:01 Dose: 40 mg Pregabalin (Lyrica) 100 mg PO TID [facility] PRN Reason: Protocol Last Admin: 05/25/18 09:46 Dose: 100 mg Quetiapine Fumarate (Seroquel) 25 mg PO HS [facility] PRN Reason: Protocol Last Admin: 05/24/18 21:19 Dose: 25 mg Venlafaxine HCl (Effexor Xr) 150 mg PO DAILY [facility] Last Admin: 05/25/18 09:46 Dose: 150 mg Zaleplon (Sonata) 10 mg PO HS PRN; Protocol PRN Reason: Insomnia Last Admin: 05/24/18 23:04 Dose: 10 mg - Labs Labs: 05/24/18 06:25 05/24/18 06:25 - Constitutional Appears: Non-toxic, No Acute Distress - Head Exam Head Exam: ATRAUMATIC, NORMAL INSPECTION, NORMOCEPHALIC - Eye Exam Eye Exam: EOMI, Normal appearance, PERRL - ENT Exam ENT Exam: Mucous Membranes Moist, Normal Oropharynx - Neck Exam Neck Exam: Full ROM, Normal Inspection - Respiratory Exam Respiratory Exam: Clear to Ausculation Bilateral, NORMAL BREATHING PATTERN - Cardiovascular Exam Cardiovascular Exam: REGULAR RHYTHM, +S1, +S2 - GI/Abdominal Exam GI & Abdominal Exam: Soft, Normal Bowel Sounds - Extremities Exam Extremities Exam: Full ROM, Normal Capillary Refill, Normal Inspection - Back Exam Back Exam: NORMAL INSPECTION Additional comments: no CVA tenderness b/l - Neurological Exam Neurological Exam: Alert, Awake, Oriented x3 - Psychiatric Exam Psychiatric exam: Flat Affect - Skin Skin Exam: Dry, Intact, Normal Color, Warm Assessment and Plan - Assessment and Plan (Free Text) Assessment: Assessment: 58 year old female with past medical history of multiple sclerosis, fibromyalgia , anxiety, hypertension, type 2 diabetes, neutropenia, bradycardia s/p pacemaker placement who completed medical management for treatment of ESBL symptomatic UTI. Plan: ESBL E. coli UTI Urinalysis: Positive for nitrates and Leukocyte esterase, Urine CX showed ESBL E. Coli Formerly on rocephin, then switched to Nitrofurantoin for UTI. Sensitivities returned, resistant to nitrofurantoin. Completed course of Meropenem 50 q8. Nystatin cream given for vaginal candidiasis ID consulted, recs appreciated regarding use of contact precautions and repeating urine studies at this time Normocytic Normochromic Anemia with Leukopenia - Improved Chronically anemic, likely 2/2 chronic disease with leukopenia Likely 2/2 rocephin and meropenem effects Will continue to monitor Hemodynamically stable, no active bleeding Fibromyalgia/anxiety continue on home med of Venlafaxine 75, pregabalin 100 TID and gabapentin 300 TID continue sonata 10 mg for help sleeping as per Dr. Vanegas Ativan 1 mg TID prn for anxiety Prophylaxis Protonix/SCD Disposition: Patient transferred from Med-Surg to TCU for rehabilitation and completion of antibiotic course. Plan to be in TCU through 05/28/18. Patient seen, case reviewed, and plan discussed with Dr. Underwood. Mauricio Manning, PGY-1 <Silvia Underwood - Last Filed: 05/25/18 13:54> Objective - Vital Signs/Intake and Output Vital Signs (last 24 hours): Temp Pulse Resp BP Pulse Ox 98.2 F 95 H 22 127/84 100 05/24/18 22:00 05/24/18 16:30 05/24/18 16:30 05/25/18 09:47 05/24/18 16:30 - Medications Medications: Current Medications Acetaminophen (Tylenol 325mg Tab) 650 mg PO Q4H PRN; Protocol PRN Reason: Pain, Mild (1-3) Last Admin: 05/25/18 09:47 Dose: 650 mg Amlodipine Besylate (Norvasc) 5 mg PO DAILY [facility] PRN Reason: Protocol Last Admin: 05/25/18 09:47 Dose: 5 mg Folic Acid (Folic Acid) 1 mg PO DAILY [facility] PRN Reason: Protocol Last Admin: 05/25/18 09:46 Dose: 1 mg Gabapentin (Neurontin) 300 mg PO TID [facility] PRN Reason: Protocol Last Admin: 05/25/18 09:46 Dose: 300 mg Insulin Human Regular (Humulin R Low) 0 units SC ACHS [facility] PRN Reason: Protocol Last Admin: 05/25/18 11:36 Dose: Not Given Lorazepam (Ativan) 1 mg PO TID PRN; Protocol PRN Reason: Anxiety Last Admin: 05/25/18 11:41 Dose: 1 mg Multivitamins/Minerals (Therapeutic-M Tab) 1 tab PO 0800 [facility] PRN Reason: Protocol Last Admin: 05/25/18 07:49 Dose: 1 tab Nystatin (Mycostatin Cream) 0 ea TOP QID [facility] Last Admin: 05/25/18 09:46 Dose: 1 applic Ondansetron HCl (Zofran Tab) 4 mg PO Q8H PRN; Protocol PRN Reason: Nausea/Vomiting Last Admin: 05/25/18 07:27 Dose: 4 mg Pantoprazole Sodium (Protonix Ec Tab) 40 mg PO 0600 [facility] PRN Reason: Protocol Last Admin: 05/25/18 06:01 Dose: 40 mg Pregabalin (Lyrica) 100 mg PO TID [facility] PRN Reason: Protocol Last Admin: 05/25/18 09:46 Dose: 100 mg Quetiapine Fumarate (Seroquel) 25 mg PO HS [facility] PRN Reason: Protocol Last Admin: 05/24/18 21:19 Dose: 25 mg Venlafaxine HCl (Effexor Xr) 150 mg PO DAILY [facility] Last Admin: 05/25/18 09:46 Dose: 150 mg Zaleplon (Sonata) 10 mg PO HS PRN; Protocol PRN Reason: Insomnia Last Admin: 05/24/18 23:04 Dose: 10 mg - Labs Labs: 05/24/18 06:25 05/24/18 06:25 Attending/Attestation - Attestation I have personally seen and examined this patient.: Yes I have fully participated in the care of the patient.: Yes I have reviewed all pertinent clinical information, including history, physical exam and plan: Yes Notes (Text): 05/25/18 13:51 58 year old female with past medical history of bradycardia s/p AICD, hypertension, diabetes, anxiey and fibromyalgia who was admitted to medicine floor for ESBL UTI. She was transferred to TCU for iv antibiotics and physical therapy. She has now completed iv antibiotics therapy with meropenem. Continue with physical therapy while in TCU. Leukopenia is chronic and stable. Silvia Underwood MD Hospitalist.
--- NOTE | 2018-05-25 16:04 | CP.PCM.PN ---
Subjective - Date & Time of Evaluation Date of Evaluation: 05/25/18 Time of Evaluation: 12:10 - Subjective Subjective: No fevers, not in distress, still with vaginal itching but much better, no dysuria. Objective - Vital Signs/Intake and Output Vital Signs (last 24 hours): Temp Pulse Resp BP Pulse Ox 98.2 F 95 H 22 127/84 100 05/24/18 22:00 05/24/18 16:30 05/24/18 16:30 05/25/18 09:47 05/24/18 16:30 - Medications Medications: Current Medications Acetaminophen (Tylenol 325mg Tab) 650 mg PO Q4H PRN; Protocol PRN Reason: Pain, Mild (1-3) Last Admin: 05/25/18 09:47 Dose: 650 mg Amlodipine Besylate (Norvasc) 5 mg PO DAILY [facility] PRN Reason: Protocol Last Admin: 05/25/18 09:47 Dose: 5 mg Folic Acid (Folic Acid) 1 mg PO DAILY [facility] PRN Reason: Protocol Last Admin: 05/25/18 09:46 Dose: 1 mg Gabapentin (Neurontin) 300 mg PO TID [facility] PRN Reason: Protocol Last Admin: 05/25/18 09:46 Dose: 300 mg Insulin Human Regular (Humulin R Low) 0 units SC ACHS [facility] PRN Reason: Protocol Last Admin: 05/25/18 06:32 Dose: Not Given Lorazepam (Ativan) 1 mg PO TID PRN; Protocol PRN Reason: Anxiety Last Admin: 05/25/18 06:33 Dose: 1 mg Multivitamins/Minerals (Therapeutic-M Tab) 1 tab PO 0800 [facility] PRN Reason: Protocol Last Admin: 05/25/18 07:49 Dose: 1 tab Nystatin (Mycostatin Cream) 0 ea TOP QID [facility] Last Admin: 05/25/18 09:46 Dose: 1 applic Ondansetron HCl (Zofran Tab) 4 mg PO Q8H PRN; Protocol PRN Reason: Nausea/Vomiting Last Admin: 05/25/18 07:27 Dose: 4 mg Pantoprazole Sodium (Protonix Ec Tab) 40 mg PO 0600 [facility] PRN Reason: Protocol Last Admin: 05/25/18 06:01 Dose: 40 mg Pregabalin (Lyrica) 100 mg PO TID [facility] PRN Reason: Protocol Last Admin: 05/25/18 09:46 Dose: 100 mg Quetiapine Fumarate (Seroquel) 25 mg PO HS [facility] PRN Reason: Protocol Last Admin: 05/24/18 21:19 Dose: 25 mg Venlafaxine HCl (Effexor Xr) 150 mg PO DAILY [facility] Last Admin: 05/25/18 09:46 Dose: 150 mg Zaleplon (Sonata) 10 mg PO HS PRN; Protocol PRN Reason: Insomnia Last Admin: 05/24/18 23:04 Dose: 10 mg - Labs Labs: 05/24/18 06:25 05/24/18 06:25 - Constitutional Appears: Non-toxic, Chronically Ill - Head Exam Head Exam: NORMAL INSPECTION - Respiratory Exam Respiratory Exam: Decreased Breath Sounds - Cardiovascular Exam Cardiovascular Exam: +S1, +S2 - GI/Abdominal Exam GI & Abdominal Exam: Soft. absent: Tenderness Assessment and Plan - Assessment and Plan (Free Text) Plan: Assessment ESBL E. coli UTI (cystitis), S/P treatment with antibiotics probable vaginal candidiasis morbid obesity with BMI 58 depression anxiety fibromylagia multiple sclerosis DM HTN chronic anemia S/P AICD and pacemaker placement S/P port placement Plan completed 7 days of Merrem - will continue to monitor off antibiotics continue Nystatin for the candidiasis
[2018-05-26] MEDS: Pantoprazole 40 mg EC Tab PO SCH (06:01)
[2018-05-26] MEDS: Insulin Reg-LOW-Coverage SC SCH ×4 (07:47→22:02)
[2018-05-26] MEDS: Multivitamin With Minerals Tab PO SCH (08:19)
[2018-05-26] MEDS: Venlafaxine 75 mg ER Cap PO SCH (08:19)
[2018-05-26] MEDS: Nystatin 100,000 Units/gm Cream(15 gm) TOP SCH ×4 (10:19→21:18)
--- NOTE | 2018-05-26 14:55 | PN ---
Copied To: Maurizio Taylor MD Attending MD: Maurizio Taylor MD. DATE: 05/26/2018 SUBJECTIVE: The patient is in bed, in no acute distress, nontoxic. PHYSICAL EXAMINATION: VITAL SIGNS: Temperature is 99, blood pressure is 115/60, respiratory rate of 18. HEENT: Examination of HEENT is unremarkable. NECK: Supple. LUNGS: Have decreased breath sounds. HEART: Normal S1, S2. ABDOMEN: Soft, nontender. LABORATORY DATA: Laboratory examination reveals a white count of 3.6, hemoglobin of 9, platelets of 160. Chemistries are noted. Creatinine 0.7. Microbiology is noted. ASSESSMENT AND PLAN: A 58-year-old female with extended-spectrum beta-lactamase Escherichia coli urinary tract infection and cystitis, status post treatment with antibiotics in a patient with morbid obesity, body mass index of 58, depression, anxiety, fibromyalgia, multiple sclerosis, diabetes, hypertension and automatic implantable cardioverter-defibrillator. Has completed antibiotic therapy. Review of orders confirms the patient to be off of antibiotics. Maurizio Taylor MD
[2018-05-26 16:28] VITALS: O2SAT 99
[2018-05-27] MEDS: Pantoprazole 40 mg EC Tab PO SCH (05:58)
[2018-05-27] MEDS: Insulin Reg-LOW-Coverage SC SCH ×4 (06:30→21:57)
[2018-05-27] MEDS: Multivitamin With Minerals Tab PO SCH (07:45)
[2018-05-27] MEDS: Venlafaxine 75 mg ER Cap PO SCH (07:45)
--- NOTE | 2018-05-27 09:32 | PN ---
Copied To: Maurizio Taylor MD Attending MD: Maurizio Taylor MD DATE: 05/27/2018 SUBJECTIVE: The patient is in bed, in no acute distress, nontoxic. PHYSICAL EXAMINATION: VITAL SIGNS: On exam, temperature is 99, blood pressure is 160/90, respiratory rate of 16. HEENT: Examination of HEENT is unremarkable. NECK: Supple. LUNGS: Have decreased breath sounds. HEART: Normal S1, S2. ABDOMEN: Soft, nontender. LABORATORY DATA: Laboratory examination reveals a white count of 3.6. Laboratory examination reveals a hemoglobin of 9 and review of orders reveals the patient to be off of antibiotics. ASSESSMENT AND PLAN: A 58-year-old female was seen in room 317 with extended-spectrum beta-lactamase Escherichia. coli urinary tract infection and cystitis, status post treatment with antibiotics and morbid obesity, body mass index of 58, depression, anxiety, fibromyalgia, multiple sclerosis, diabetes, hypertension, automated implantable cardioverter-defibrillator has completed the antibiotic therapy. The patient is at risk for developing nosocomial infections. We will follow with you. Maurizio Taylor MD
[2018-05-27] MEDS: Nystatin 100,000 Units/gm Cream(15 gm) TOP SCH ×4 (10:00→22:33)
--- NOTE | 2018-05-27 20:00 | PN ---
Copied To: Romina Dockery MD Attending MD: Romina Dockery MD. DATE: 05/27/2018 SUBJECTIVE: This short story writer signed off from this case but medical team called this short story writer back because the patient requested to speak this short story writer. The patient was followed up today. The patient presented to be in anxious mood. The patient reports that she feels anxious. She asked for Ativan to be increased at the nighttime. The patient reports that her plans have changed. The patient needs to stay into [place] for the next year in order to be able to go back to [place]. The patient denied being depressed but also was concerned about her living situation. The patient's daughter is arranging section 8 housing with her daughter. VITAL SIGNS: Seem to be stable. Temperature 99, pulse is 60, blood pressure 108/76, respirations . MEDICATIONS: Reviewed. Tylenol; Norvasc; folic acid; gabapentin; Humulin; Ativan 1 mg three times a day, it is okay to increase by 1 mg at the nighttime; multivitamins; nystatin; Lyrica; Effexor 150 mg daily; Sonata 10 mg at the nighttime as needed. Labs reviewed. Microbiology reviewed. MENTAL STATUS EXAMINATION: The patient presented to be alert and oriented, pleasant, cooperative, socially appropriate. Good eye contact. Speech was normal rate, tone, quality, and quantity. Mood described "I feel better." Affect was constricted, but reactive, mood congruent. The patient appears mildly anxious. Thought process seems to be coherent and goal directed. Thought content, the patient denied visual, auditory, or tactile hallucinations. Denied paranoid ideation. The patient denied thoughts of harming herself or others. Denied intent or plan. Insight and judgment seem to be improving. Impulses are well controlled. IMPRESSION: As per history of depression and anxiety, the patient was in delirium stage, but it is improving. PLAN: The patient should continue on all of her psychotropic medications. The patient was advised to follow up with outpatient clinic including [facility] doctors on the ground floor. The patient pose no imminent danger to self or others. It is okay to increase the dose of Ativan to 4 mg a day. The patient was advised to follow up with outpatient provider. Should you have any questions, give me a call back. Thank you very much for letting me to participate in the care of your patient. Romina Dockery MD
--- NOTE | 2018-05-27 21:05 | CP.PCM.PN ---
<Mauricio Manning - Last Filed: 05/27/18 20:57> Subjective - Date & Time of Evaluation Date of Evaluation: 05/27/18 Time of Evaluation: 08:30 - Subjective Subjective: Mauricio Manning PGY-1 Progress Note for Hospitalist Service Patient seen and evaluated at bedside. Patient denies any acute events overnight. Admits to improving burning on urination and some facial numbness and irritation after self-applying vicks rub to her face. Denies CP, SOB, abdominal pain. Objective - Vital Signs/Intake and Output Vital Signs (last 24 hours): Temp Pulse Resp BP Pulse Ox 98.4 F 70 18 132/92 H 99 05/27/18 16:00 05/27/18 16:00 05/27/18 16:00 05/27/18 16:00 05/27/18 16:00 - Medications Medications: Current Medications Acetaminophen (Tylenol 325mg Tab) 650 mg PO Q4H PRN; Protocol PRN Reason: Pain, Mild (1-3) Last Admin: 05/27/18 04:26 Dose: 650 mg Amlodipine Besylate (Norvasc) 5 mg PO DAILY HERMINIO PRN Reason: Protocol Last Admin: 05/27/18 10:01 Dose: 5 mg Folic Acid (Folic Acid) 1 mg PO DAILY HERMINIO PRN Reason: Protocol Last Admin: 05/27/18 09:59 Dose: 1 mg Gabapentin (Neurontin) 300 mg PO TID HERMINIO PRN Reason: Protocol Last Admin: 05/27/18 17:30 Dose: 300 mg Insulin Human Regular (Humulin R Low) 0 units SC ACHS HERMINIO PRN Reason: Protocol Last Admin: 05/27/18 17:26 Dose: Not Given Lorazepam (Ativan) 1 mg PO TID PRN; Protocol PRN Reason: Anxiety Last Admin: 05/27/18 14:53 Dose: 1 mg Multivitamins/Minerals (Therapeutic-M Tab) 1 tab PO 0800 HERMINIO PRN Reason: Protocol Last Admin: 05/27/18 07:45 Dose: 1 tab Nystatin (Mycostatin Cream) 0 ea TOP QID HERMINIO Last Admin: 05/27/18 17:29 Dose: 1 applic Ondansetron HCl (Zofran Tab) 4 mg PO Q8H PRN; Protocol PRN Reason: Nausea/Vomiting Last Admin: 05/27/18 14:57 Dose: 4 mg Pantoprazole Sodium (Protonix Ec Tab) 40 mg PO 0600 HERMINIO PRN Reason: Protocol Last Admin: 05/27/18 05:58 Dose: 40 mg Pregabalin (Lyrica) 100 mg PO TID HERMINIO PRN Reason: Protocol Last Admin: 05/27/18 18:18 Dose: 100 mg Quetiapine Fumarate (Seroquel) 25 mg PO HS HERMINIO PRN Reason: Protocol Last Admin: 05/26/18 21:18 Dose: 25 mg Venlafaxine HCl (Effexor Xr) 150 mg PO 0800 HERMINIO PRN Reason: Protocol Last Admin: 05/27/18 07:45 Dose: 150 mg Zaleplon (Sonata) 10 mg PO HS PRN; Protocol PRN Reason: Insomnia Last Admin: 05/26/18 22:01 Dose: 10 mg - Labs Labs: 05/24/18 06:25 05/24/18 06:25 - Constitutional Appears: Non-toxic, No Acute Distress - Head Exam Head Exam: ATRAUMATIC, NORMAL INSPECTION, NORMOCEPHALIC - Eye Exam Eye Exam: EOMI, Normal appearance, PERRL - ENT Exam ENT Exam: Mucous Membranes Moist, Normal Oropharynx - Neck Exam Neck Exam: Full ROM, Normal Inspection - Respiratory Exam Respiratory Exam: Clear to Ausculation Bilateral, NORMAL BREATHING PATTERN - Cardiovascular Exam Cardiovascular Exam: REGULAR RHYTHM, +S1, +S2 - GI/Abdominal Exam GI & Abdominal Exam: Soft, Normal Bowel Sounds - Extremities Exam Extremities Exam: Full ROM, Normal Capillary Refill, Normal Inspection - Back Exam Back Exam: NORMAL INSPECTION Additional comments: no CVA tenderness b/l - Neurological Exam Neurological Exam: Alert, Awake, Oriented x2 - Psychiatric Exam Psychiatric exam: Flat Affect - Skin Skin Exam: Dry, Intact, Normal Color, Warm Assessment and Plan - Assessment and Plan (Free Text) Assessment: Assessment: 58 year old female with past medical history of multiple sclerosis, fibromyalgia , anxiety, hypertension, type 2 diabetes, neutropenia, bradycardia s/p pacemaker placement who completed medical management for treatment of ESBL symptomatic UTI. Plan: ESBL E. coli UTI - resolved Urinalysis: Positive for nitrates and Leukocyte esterase, Urine CX showed ESBL E. Coli Formerly on rocephin, then switched to Nitrofurantoin for UTI. Sensitivities returned, resistant to nitrofurantoin. Completed course of Meropenem 50 q8. Nystatin cream given for vaginal candidiasis ID consulted, recs appreciated regarding use of contact precautions and repeating urine studies at this time Normocytic Normochromic Anemia with Leukopenia - Resolved Chronically anemic, likely 2/2 chronic disease with leukopenia Likely 2/2 rocephin and meropenem effects Will continue to monitor Hemodynamically stable, no active bleeding Fibromyalgia/anxiety continue on home med of Venlafaxine 75, pregabalin 100 TID and gabapentin 300 TID continue sonata 10 mg for help sleeping as per Dr. Vanegas Ativan 2 mg BID at night and Ativan 1 BID prn for anxiety Prophylaxis Protonix/SCD Disposition: Patient is medically stable and was given the option to go home today, but patient refused and requested one more day to get her affairs in order and mentally prepared for discharge tomorrow. Patient is already set up with apartment in [place] with daughter's help. Patient's daughter was notified of patient's pending discharge and is prepared for mother's pickup tomorrow. Patient seen, case reviewed, and plan discussed with Dr. Underwood. Mauricio Manning, PGY-1 <Silvia Underwood - Last Filed: 05/28/18 07:03> Objective - Vital Signs/Intake and Output Vital Signs (last 24 hours): Temp Pulse Resp BP Pulse Ox 98.4 F 70 18 132/92 H 99 05/27/18 16:00 05/27/18 16:00 05/27/18 16:00 05/27/18 16:00 05/27/18 16:00 - Medications Medications: Current Medications Acetaminophen (Tylenol 325mg Tab) 650 mg PO Q4H PRN; Protocol PRN Reason: Pain, Mild (1-3) Last Admin: 05/27/18 04:26 Dose: 650 mg Amlodipine Besylate (Norvasc) 5 mg PO DAILY HERMINIO PRN Reason: Protocol Last Admin: 05/27/18 10:01 Dose: 5 mg Folic Acid (Folic Acid) 1 mg PO DAILY HERMINIO PRN Reason: Protocol Last Admin: 05/27/18 09:59 Dose: 1 mg Gabapentin (Neurontin) 300 mg PO TID HERMINIO PRN Reason: Protocol Last Admin: 05/27/18 17:30 Dose: 300 mg Insulin Human Regular (Humulin R Low) 0 units SC ACHS HERMINIO PRN Reason: Protocol Last Admin: 05/28/18 07:01 Dose: Not Given Lorazepam (Ativan) 1 mg PO TID PRN; Protocol PRN Reason: Anxiety Last Admin: 05/27/18 14:53 Dose: 1 mg Multivitamins/Minerals (Therapeutic-M Tab) 1 tab PO 0800 HERMINIO PRN Reason: Protocol Last Admin: 05/27/18 07:45 Dose: 1 tab Nystatin (Mycostatin Cream) 0 ea TOP QID HERMINIO Last Admin: 05/27/18 22:33 Dose: 1 applic Ondansetron HCl (Zofran Tab) 4 mg PO Q8H PRN; Protocol PRN Reason: Nausea/Vomiting Last Admin: 05/27/18 22:34 Dose: 4 mg Pantoprazole Sodium (Protonix Ec Tab) 40 mg PO 0600 HERMINIO PRN Reason: Protocol Last Admin: 05/28/18 05:33 Dose: 40 mg Pregabalin (Lyrica) 100 mg PO TID HERMINIO PRN Reason: Protocol Last Admin: 05/27/18 18:18 Dose: 100 mg Quetiapine Fumarate (Seroquel) 25 mg PO HS HERMINIO PRN Reason: Protocol Last Admin: 05/27/18 22:32 Dose: 25 mg Venlafaxine HCl (Effexor Xr) 150 mg PO 0800 HERMINIO PRN Reason: Protocol Last Admin: 05/27/18 07:45 Dose: 150 mg Zaleplon (Sonata) 10 mg PO HS PRN; Protocol PRN Reason: Insomnia Last Admin: 05/27/18 23:06 Dose: 10 mg - Labs Labs: 05/24/18 06:25 05/24/18 06:25 Attending/Attestation - Attestation I have personally seen and examined this patient.: Yes I have fully participated in the care of the patient.: Yes I have reviewed all pertinent clinical information, including history, physical exam and plan: Yes Notes (Text): 05/27/18 58 year old female with past medical history of bradycardia s/p AICD, hypertension, diabetes, anxiey and fibromyalgia who was admitted to medicine floor for ESBL UTI. She was transferred to TCU for iv antibiotics and physical therapy. She has now completed iv antibiotics therapy with meropenem. She has been doing well with physical therapy. Leukopenia is chronic and stable. Psychiatry follow up was appreciated for anxiety. D/c planning for tomorrow as above. Silvia Underwood MD Hospitalist.
[2018-05-28] MEDS: Pantoprazole 40 mg EC Tab PO SCH (05:33)
[2018-05-28] MEDS: Insulin Reg-LOW-Coverage SC SCH ×2 (07:01→12:21)
[2018-05-28] MEDS: Multivitamin With Minerals Tab PO SCH (07:51)
[2018-05-28] MEDS: Venlafaxine 75 mg ER Cap PO SCH (07:51)
[2018-05-28] MEDS: Nystatin 100,000 Units/gm Cream(15 gm) TOP SCH ×2 (09:29→13:39)
--- NOTE | 2018-05-28 09:40 | PN ---
Copied To: Maurizio Taylor MD Attending MD: Maurizio Taylor MD DATE: 05/28/2018 SUBJECTIVE: The patient is in bed, in no acute distress, nontoxic. PHYSICAL EXAMINATION: VITAL SIGNS: Temperature is 98, blood pressure is 130/90, respiratory rate of 18, heart rate of 67. HEENT: Examination of HEENT is unremarkable. NECK: Supple. LUNGS: Have decreased breath sounds. HEART: Normal S1, S2. ABDOMEN: Soft, nontender. LABORATORY DATA: Laboratory examination reveals a white count of 3.6, hemoglobin of 9, platelets of 160. Chemistries are creatinine is 0.7. Microbiology is noted. ASSESSMENT AND PLAN: A 58-year-old female who was seen earlier this morning in room 317 with an extended-spectrum beta-lactamase Escherichia coli urinary tract infection and cystitis and status post treatment with antibiotics with the patient with morbid obesity with body mass index of 58, depression, anxiety, fibromyalgia, multiple sclerosis, diabetes, hypertension, automatic implantable cardioverter-defibrillator and currently off of antibiotics. The patient is for possible discharge today and the patient is at risk for developing nosocomial infections. Maurizio Taylor MD
[2018-05-28 16:10] VITALS: BP 119/74; PULSE 70; RESP 16; TEMP 99.3
--- NOTE | 2018-05-28 18:52 | CP.PCM.DIS ---
<JorgejonchuckyMauricio - Last Filed: 05/28/18 19:53> Provider - Provider Date of Admission: 05/20/18 16:35 Attending physician: Silvia Underwood MD Primary care physician: None Consults: Psychiatry - Dr. Hudson Infectious Disease -Dr. Berrios /Claudia Podiatry: Dr. Du Time Spent in preparation of Discharge (in minutes): 45 Diagnosis - Discharge Diagnosis (1) Urinary tract infection due to ESBL Klebsiella Status: Resolved Hospital Course - Lab Results Lab Results: Most Recent Lab Values WBC 3.6 10^3/ul (4.5-11.0) L 05/24/18 06:25 RBC 3.15 10^6/uL (3.5-6.1) L 05/24/18 06:25 Hgb 9.5 g/dL (12.0-16.0) L 05/24/18 06:25 Hct 30.1 % (36.0-48.0) L 05/24/18 06:25 MCV 95.6 fl (80.0-105.0) 05/24/18 06:25 MCH 30.2 pg (25.0-35.0) 05/24/18 06:25 MCHC 31.6 g/dl (31.0-37.0) 05/24/18 06:25 RDW 13.1 % (11.5-14.5) 05/24/18 06:25 Plt Count 160 10^3/uL (120.0-450.0) 05/24/18 06:25 MPV 10.3 fl (7.0-11.0) 05/24/18 06:25 Gran % 50.9 % (50.0-68.0) 05/24/18 06:25 Lymph % (Auto) 38.3 % (22.0-35.0) H 05/24/18 06:25 [place] % (Auto) 8.6 % (1.0-6.0) H 05/24/18 06:25 Eos % (Auto) 2.2 % (1.5-5.0) 05/24/18 06:25 Baso % (Auto) 0.0 % (0.0-3.0) 05/24/18 06:25 Gran # 1.83 (1.4-6.5) 05/24/18 06:25 Lymph # (Auto) 1.4 (1.2-3.4) 05/24/18 06:25 [place] # (Auto) 0.3 (0.1-0.6) 05/24/18 06:25 Eos # (Auto) 0.1 (0.0-0.7) 05/24/18 06:25 Baso # (Auto) 0.00 K/mm3 (0.0-2.0) 05/24/18 06:25 Sodium 138 mmol/L (132-148) 05/24/18 06:25 Potassium 4.7 mmol/L (3.6-5.0) 05/24/18 06:25 Chloride 100 mmol/L (98-107) 05/24/18 06:25 Carbon Dioxide 28 mmol/L (21-33) 05/24/18 06:25 Anion Gap 15 (10-20) 05/24/18 06:25 BUN 17 mg/dL (7-21) 05/24/18 06:25 Creatinine 0.7 mg/dl (0.7-1.2) 05/24/18 06:25 Est GFR ( Amer) > 60 05/24/18 06:25 Est GFR (Non-Af Amer) > 60 05/24/18 06:25 POC Glucose (mg/dL) 154 mg/dL (65-110) H 05/28/18 11:09 Random Glucose 114 mg/dL (70-110) H 05/24/18 06:25 Calcium 8.9 mg/dL (8.4-10.5) 05/24/18 06:25 Total Bilirubin 0.3 mg/dL (0.2-1.3) 05/24/18 06:25 AST 47 U/L (14-36) H D 05/24/18 06:25 ALT 36 U/L (7-56) 05/24/18 06:25 Alkaline Phosphatase 71 U/L (38-126) 05/24/18 06:25 Total Protein 6.6 g/dL (5.8-8.3) 05/24/18 06:25 Albumin 3.4 g/dL (3.0-4.8) 05/24/18 06:25 Globulin 3.1 gm/dL 05/24/18 06:25 Albumin/Globulin Ratio 1.1 (1.1-1.8) 05/24/18 06:25 - Hospital Course Hospital Course: Mauricio Manning, PGY-1 Discharge Summary for Hospitalist Service 58 year old female with past medical history of hypertension, diet controlled diabetes, fibromyalgias, multiple sclerosis, bradycardia s/p PPM and anxiety who initially presented with altered mental status, recent fall and hallucinations per family. She was being managed in inpatient psychiatric unit on Bactrim for her Urinary Tract Infection, however urine culture came back as ESBL E Coli so patient was transferred to medical floor to be treated with iv meropenem based on sensitivity profile. ID recommendations were to complete 7 days of Antibiotics. On day 4 of Meropenem, patient had leukopenia which improved based on labs and is likely secondary to antibiotic effects. For hypertension, patient was on Norvasc. Patient was on insulin ss for diabetes. Per Psych recommendations, patient on seroquel and effexor and Neurontin. Klonopin was switched to ativan per patient preference and psychiatry recommendations. Patient had complaints of chest pain on 05/19- EKG showed NSR @ 68 bpm with atrial pacemaker. Troponins x2 were found to be negative. Patient did not complain of chest pain, shortness of breath or palpitations after that time. Patient also complained of multiple bowel movements, but patient was notified that need at least 3 bowel movements on consecutive days to be tested for c. diff toxin, as intermittent diarrhea may be due to antibiotic use in general. Only 1 soft bowel movement was documented at that time. No further documentation of suspected diarrhea subsequent. Physical therapy recommendations at that time were to transfer the patient to TCU for rehab services on IV antibiotics. Patient completed 7 day course on and Infectious Disease consults had no further antibiotic recommendations after that point. Patient subsequently complained of vaginal discomfort and was given Nystatin cream for vaginal candidiasis that improved over her course. Patient received physical therapy and psychiatry consults over the last few days of her course. Seroquel, Venlafaxine and Gabapentin medications were adjusted. Ativan was changed to 2 mg at night and 1 mg BID during the day per psychiatry recommendations. Psychiatry then signed off the patient's case. Patient was medically stabilized for discharge on 05/27/18 but felt unprepared to leave at that time. Patient reported she will go to an apartment in [place] her daughter helped her secure. This morning, patient was in good spirits without acute events overnight. Patient denied chest pain, shortness of breath, palpitations, headache, burning on urination, leg pain, gait unsteadiness, and hallucinations. Psychiatry re- examined the patient and deemed the patient safe and stable for discharge. Patient expressed understanding of her circumstances being discharged and questions regarding her hospital course and follow up were addressed at length to patient's satisfaction. 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 Patient will follow up in [facility] clinic with Dr. Garcia next week. Please refer to chart for further details. Patient seen, case reviewed, and plan discussed with Dr. Underwood. Discharge Exam - Head Exam Head Exam: NORMAL INSPECTION, NORMOCEPHALIC - Eye Exam Eye Exam: EOMI, Normal appearance Pupil Exam: PERRL - ENT Exam ENT Exam: Mucous Membranes Moist, Normal Exam - Neck Exam Neck exam: Normal Inspection - Respiratory Exam Respiratory Exam: Clear to PA & Lateral, NORMAL BREATHING PATTERN, UNREMARKABLE. absent: Accessory Muscle Use, Rhonchi, Wheezes, Respiratory Distress - Cardiovascular Exam Cardiovascular Exam: REGULAR RHYTHM, RRR, +S1, +S2. absent: Rubs, +S4 - GI/Abdominal Exam GI & Abdominal Exam: Normal Bowel Sounds, Soft. absent: Distended, Guarding, Organomegaly, Tenderness - Extremities Exam Extremities exam: normal capillary refill - Back Exam Back exam: absent: CVA tenderness (L), CVA tenderness (R), rash noted - Neurological Exam Neurological exam: Alert, Oriented x3 - Psychiatric Exam Psychiatric exam: Flat Affect - Skin Skin Exam: Dry, Intact, Normal Color, Warm Discharge Plan - Discharge Medications Prescriptions: amLODIPine [Norvasc] 5 mg PO DAILY #30 tab LORazepam [Ativan] 1 mg PO BID #28 tab Pantoprazole [Protonix EC Tab] 40 mg PO 0600 #30 ect Venlafaxine [Effexor XR] 150 mg PO 0800 #14 cer Zaleplon [Sonata] 10 mg PO HS PRN #14 cap PRN Reason: Insomnia - Follow Up Plan Condition: GOOD Disposition: HOME/ ROUTINE Instructions: Urinary Tract Infection, Adult (DC), Anxiety, Adult (DC), Extended-Spectrum Beta Lactamase Infection Additional Instructions: 1. Patient should take her medications as prescribed. Medications prescribed are : Ativan 2 mg PO HS and Ativan 1 mg PO BID Multimineral/Multivitamin 1 tab in AM Folic acid 1 mg PO Amlodipine 5 mg PO Sonata 10 mg PO Venlafaxine 150 mg PO Protonix 40 PO 2. Patient should follow up with psychiatry recommendations. 3. Patient should return to [facility] clinic with Dr. Garcia on FridayJune 05 at 2 pm for outpatient follow up and any outstanding questions. 4. Should symptoms reoccur or worsen, please return to nearest emergency department. <Silvia Underwood - Last Filed: 05/29/18 06:44> Provider - Provider Date of Admission: 05/20/18 16:35 Attending physician: Silvia Underwood MD [facility] Hospital Course - Lab Results Lab Results: Most Recent Lab Values WBC 3.6 10^3/ul (4.5-11.0) L 05/24/18 06:25 RBC 3.15 10^6/uL (3.5-6.1) L 05/24/18 06:25 Hgb 9.5 g/dL (12.0-16.0) L 05/24/18 06:25 Hct 30.1 % (36.0-48.0) L 05/24/18 06:25 MCV 95.6 fl (80.0-105.0) 05/24/18 06:25 MCH 30.2 pg (25.0-35.0) 05/24/18 06:25 MCHC 31.6 g/dl (31.0-37.0) 05/24/18 06:25 RDW 13.1 % (11.5-14.5) 05/24/18 06:25 Plt Count 160 10^3/uL (120.0-450.0) 05/24/18 06:25 MPV 10.3 fl (7.0-11.0) 05/24/18 06:25 Gran % 50.9 % (50.0-68.0) 05/24/18 06:25 Lymph % (Auto) 38.3 % (22.0-35.0) H 05/24/18 06:25 [place] % (Auto) 8.6 % (1.0-6.0) H 05/24/18 06:25 Eos % (Auto) 2.2 % (1.5-5.0) 05/24/18 06:25 Baso % (Auto) 0.0 % (0.0-3.0) 05/24/18 06:25 Gran # 1.83 (1.4-6.5) 05/24/18 06:25 Lymph # (Auto) 1.4 (1.2-3.4) 05/24/18 06:25 [place] # (Auto) 0.3 (0.1-0.6) 05/24/18 06:25 Eos # (Auto) 0.1 (0.0-0.7) 05/24/18 06:25 Baso # (Auto) 0.00 K/mm3 (0.0-2.0) 05/24/18 06:25 Sodium 138 mmol/L (132-148) 05/24/18 06:25 Potassium 4.7 mmol/L (3.6-5.0) 05/24/18 06:25 Chloride 100 mmol/L (98-107) 05/24/18 06:25 Carbon Dioxide 28 mmol/L (21-33) 05/24/18 06:25 Anion Gap 15 (10-20) 05/24/18 06:25 BUN 17 mg/dL (7-21) 05/24/18 06:25 Creatinine 0.7 mg/dl (0.7-1.2) 05/24/18 06:25 Est GFR ( Amer) > 60 05/24/18 06:25 Est GFR (Non-Af Amer) > 60 05/24/18 06:25 POC Glucose (mg/dL) 154 mg/dL (65-110) H 05/28/18 11:09 Random Glucose 114 mg/dL (70-110) H 05/24/18 06:25 Calcium 8.9 mg/dL (8.4-10.5) 05/24/18 06:25 Total Bilirubin 0.3 mg/dL (0.2-1.3) 05/24/18 06:25 AST 47 U/L (14-36) H D 05/24/18 06:25 ALT 36 U/L (7-56) 05/24/18 06:25 Alkaline Phosphatase 71 U/L (38-126) 05/24/18 06:25 Total Protein 6.6 g/dL (5.8-8.3) 05/24/18 06:25 Albumin 3.4 g/dL (3.0-4.8) 05/24/18 06:25 Globulin 3.1 gm/dL 05/24/18 06:25 Albumin/Globulin Ratio 1.1 (1.1-1.8) 05/24/18 06:25 Attending/Attestation - Attestation I have personally seen and examined this patient.: Yes I have fully participated in the care of the patient.: Yes I have reviewed all pertinent clinical information, including history, physical exam and plan: Yes Notes (Text): 05/28/18 58 year old female with past medical history of bradycardia s/p AICD, hypertension, diabetes, anxiey and fibromyalgia who was admitted to medicine floor for ESBL UTI. She was transferred to TCU for iv antibiotics and physical therapy. She has now completed iv antibiotics therapy with meropenem. She has been doing well with physical therapy. She was being followed by psychiatry for anxiety and her medications were adjusted as above. Overall her symptoms have improved. She is discharged home to follow up at [facility] next week. Follow up with psychiatrist or [facility] clinic. Counselled on risks of substance / opiod abuse. Silvia Underwood MD Hospitalist.
== END 2018-05-28 16:56 | disposition home or self-care (01) | DRG 690 ==
LOC: TRCU 16:35
PROVIDERS: ADMIT Internal Medicine; ATTEND Internal Medicine
PROC: F07Z9FZ Gait Training/Functional Ambulation Treatment using Assistive, Adaptive, Supportive or Protective Equipment (ICD-10-PCS; principal; 2018-05-21)
PROC: F07M6ZZ Therapeutic Exercise Treatment of Musculoskeletal System - Whole Body (ICD-10-PCS; 2018-05-21)
PROC: F08Z1ZZ Dressing Techniques Treatment (ICD-10-PCS; 2018-05-21)
PROC: F08Z0ZZ Bathing/Showering Techniques Treatment (ICD-10-PCS; 2018-05-21)
PROC: F08Z2ZZ Grooming/Personal Hygiene Treatment (ICD-10-PCS; 2018-05-21)
PROC: F08Z4ZZ Home Management Treatment (ICD-10-PCS; 2018-05-21)
DX: N30.90 Cystitis, unspecified without hematuria (principal); Z68.43 Body mass index [BMI] 50.0-59.9, adult; Z16.12 Extended spectrum beta lactamase (ESBL) resistance; B37.3 Candidiasis of vulva and vagina; B96.1 Klebsiella pneumoniae [K. pneumoniae] as the cause of diseases classified elsewhere; B96.20 Unspecified Escherichia coli [E. coli] as the cause of diseases classified elsewhere; D64.9 Anemia, unspecified; D70.9 Neutropenia, unspecified; E11.9 Type 2 diabetes mellitus without complications; E66.01 Morbid (severe) obesity due to excess calories; M79.7 Fibromyalgia; I10 Essential (primary) hypertension; G62.9 Polyneuropathy, unspecified; G35 Multiple sclerosis; F41.9 Anxiety disorder, unspecified; F32.89 Other specified depressive episodes; Z79.4 Long term (current) use of insulin; Z79.899 Other long term (current) drug therapy; Z87.440 Personal history of urinary (tract) infections; Z95.0 Presence of cardiac pacemaker; Z95.810 Presence of automatic (implantable) cardiac defibrillator; Z98.84 Bariatric surgery status; Z88.1 Allergy status to other antibiotic agents

== ENCOUNTER 2018-07-31 08:36 | Observation (INO) | payer MEDICAID, MEDICARE, OTHER ==
[2018-07-31 08:54] VITALS: BMI 36.3
--- NOTE | 2018-07-31 11:11 | ED PDOC ---
Arrival/HPI - General Chief Complaint: Trauma Time Seen by Provider: 07/31/18 08:49 Historian: Patient - History of Present Illness Narrative History of Present Illness (Text): 07/31/18 11:04 Patient is a 58 year old female, whose past medical history includes Multiple sclerosis, hypertension, hyperlipidemia, diabetes, pacemaker,and fibromyalgia, presents to the emergency department complaining of MS exacerbation, Patient reports experiencing leg pains and has been frequently falling. Patient note she is feeling unsteady and is experiencing associated dizziness, right leg numbness and left arm numbness for more than a month. Patient also reports experiencing an increased urinary frequency and a general weakness. Patient states her last fall was 2 weeks ago and has noted bruising. Patient denies any fever, chills, shortness of breath, chest pain, diarrhea, nausea, vomiting, back pain, neck pain, headache, or any other complaints. Time/Duration: > month Symptom Onset: Gradual Symptom Course: Unchanged Activities at Onset: Light Context: Home Past Medical History - Provider Review Nursing Documentation Reviewed: Yes - Past History Past History: Non-Contributing - Infectious Disease Hx of Infectious Diseases: None - Cardiac Hx Cardiac Arrhythmia: Yes Hx Hypertension: Yes Hx Pacemaker: Yes - Pulmonary Hx Respiratory Disorders: No - Neurological Hx Migraine: Yes Hx Multiple Sclerosis: Yes - HEENT Hx HEENT Disorder: No - Renal Hx Renal Disorder: No Hx Kidney Stones: Yes - Endocrine/Metabolic Hx Endocrine Disorders: Yes Hx Diabetes Mellitus Type 2: Yes - Hematological/Oncological Hx Anemia: Yes - Integumentary Hx Dermatological Disorder: No - Musculoskeletal/Rheumatological Hx Arthritis: Yes Hx Fractures: Yes (L RIB) Hx Osteoporosis: Yes - Gastrointestinal Hx Gastrointestinal Disorders: Yes (COLITIS) - Genitourinary/Gynecological Hx Genitourinary Disorders: Yes (MULTIPLE UTIS) Hx Reproductive Disorders: Yes (VAGINAL ITCH STILL) - Psychiatric Hx Anxiety: Yes Hx Bipolar Disorder: Yes Hx Depression: Yes Hx Substance Use: No - Surgical History Hx Gastric Bypass Surgery: Yes Hx Hysterectomy: Yes Other/Comment: pacemaker; fibroids removal; benign tumor removed from breast - Anesthesia Hx Anesthesia: Yes Hx Anesthesia Reactions: No Hx Malignant Hyperthermia: No Family/Social History - Physician Review Nursing Documentation Reviewed: Yes Family/Social History: Unknown Family HX Smoking Status: Never Smoked Hx Alcohol Use: No Hx Substance Use: No Hx Substance Use Treatment: No Allergies/Home Meds Allergies/Adverse Reactions: Allergies levofloxacin [From Levaquin] Allergy (Verified 07/17/18 03:03) RASH Review of Systems - Physician Review All systems were reviewed & negative as marked: Yes - Review of Systems Constitutional: absent: Fevers, Night Sweats Respiratory: absent: SOB Cardiovascular: absent: Chest Pain Gastrointestinal: absent: Diarrhea, Nausea, Vomiting Genitourinary Female: Frequency (+increased urinary frequency) Musculoskeletal: Other (+right leg numbness and general leg pain). absent: Back Pain, Neck Pain Skin: Other (+noted bruising) Neurological: Dizziness, Focal Weakness (+feeling unsteady and has generalized weakness). absent: Headache Physical Exam Vital Signs Reviewed: Yes Vital Signs Temp Pulse Resp BP Pulse Ox 07/31/18 08:57 98.8 F 68 18 131/86 100 Temperature: Afebrile Blood Pressure: Normal Pulse: Regular Respiratory Rate: Normal Appearance: Positive for: Well-Appearing, Non-Toxic Pain Distress: None Mental Status: Positive for: Alert and Oriented X 3 - Systems Exam Head: Present: Atraumatic, Normocephalic Pupils: Present: PERRL Extroacular Muscles: Present: EOMI Conjunctiva: Present: Normal Mouth: Present: Moist Mucous Membranes Neck: Present: Normal Range of Motion Respiratory/Chest: Present: Clear to Auscultation, Good Air Exchange. No: Respiratory Distress, Accessory Muscle Use Cardiovascular: Present: Regular Rate and Rhythm, Normal S1, S2. No: Murmurs Abdomen: No: Tenderness, Distention, Peritoneal Signs Back: No: Midline Tenderness Upper Extremity: Present: Normal Inspection. No: Cyanosis, Edema Lower Extremity: Present: Normal ROM. No: Normal Inspection Neurological: Present: GCS=15, CN II-XII Intact, Speech Normal, Motor Func Grossly Intact, Normal Sensory Function, Norm Deep Tendon Reflexes, Memory Normal. No: Gait Normal (unsteady gait.) Skin: Present: Warm, Normal Color, Other (+noted bruises on on knees and right hip). No: Diaphoretic, Erythematous, Induration, Hot, Cold, Pale, Laceration, Abscess, Abrasion Psychiatric: Present: Alert, Oriented x 3, Normal Insight, Normal Concentration Medical Decision Making ED Course and Treatment: 07/31/18 11:06 Impression: 58 year old female presenting to the emergency department for MS exacerbation Plan: -- EKG -- Labs -- Chest X-Ray -- Xray of left knee -- Xray of right knee -- Xray of pelvis -- Urinalysis -- Reassess and disposition Prior Visits: Notes and results from previous visits were reviewed. Progress Notes: 07/31/18 11:24 EKG: Ordered, reviewed, and independently interpreted the EKG. Rate : 72 BPM Rhythm : NSR Interpretation : No ST-segment elevations or depressions, no T-wave inversions, normal intervals. Comparison : No previous EKG for comparison. 07/31/18 12:45 Procedure: Head CT Impression: Moderate nonspecific white matter changes. Chronic right thalamus lacunar infarct. Marked mucosal thickening and fluid involving the right maxillary sinus. Mucosal thickening of the ethmoid air cells. Correlate for sinusitis. Dictator: Darya Díaz MD 07/31/18 13:15 Case was discussed with Dr. Cool, Neurology rayon coner and who previously saw patient on previous admission. He recommended Solumedrol 1000mg IV and admit for MS Evaluation. 07/31/18 13:[address] Huang rayon coner for Medicine who will take admission and agrees patient to be admitted to [facility] observation. She advises consult to Dr. Mata instead of Dr. Cool. Consult placed. - RAD Interpretation Radiology Orders: 07/31/18 10:54 CHEST PORTABLE [RAD] Stat 07/31/18 10:55 KNEE LEFT 2 VIEWS (AP & LAT) [RAD] Stat KNEE RIGHT 2 VIEWS (AP & LAT) [RAD] Stat PELVIS ONE VIEW [RAD] Stat - Scribe Statement The provider has reviewed the documentation as recorded by the Scribnolan Vallecillo All medical record entries made by the Scribe were at my direction and personally dictated by me. I have reviewed the chart and agree that the record accurately reflects my personal performance of the history, physical exam, medical decision making, and the department course for this patient. I have also personally directed, reviewed, and agree with the discharge instructions and disposition. Disposition/Present on Arrival - Present on Arrival Any Indicators Present on Arrival: No History of DVT/PE: No History of Uncontrolled Diabetes: No Urinary Catheter: No History of Decub. Ulcer: No History Surgical Site Infection Following: None - Disposition Have Diagnosis and Disposition been Completed?: Yes Diagnosis: Multiple sclerosis exacerbation Disposition: HOSPITALIZED Disposition Time: 13:34 Patient Plan: Observation Condition: FAIR Forms: [employer] (Grenadian)
[2018-07-31 11:31] LABS: BASO # 0.01 K/mm3 (0.0-2.0); BASO % 0.2 % (0.0-3.0); EOS # 0.1 (0.0-0.7); EOS % 1.8 % (1.5-5.0); GRAN # 3.8 (1.4-6.5); GRAN % 78.1 % (50.0-68.0); HEMOGLOBIN 9.9 g/dL (12.0-16.0); LYMPH # 0.8 (1.2-3.4); LYMPH % 16.4 % (22.0-35.0); MEAN CORPUSCULAR HEMOGLOBIN 30.2 pg (25.0-35.0); MEAN CORPUSCULAR HGB CONC 31.4 g/dl (31.0-37.0); MEAN PLATELET VOLUME 10.7 fl (7.0-11.0); MONO # 0.2 (0.1-0.6); MONO % 3.5 % (1.0-6.0); RBC 3.28 10^6/uL (3.5-6.1); RED CELL DISTRIBUTION WIDTH 13.1 % (11.5-14.5); URINE BILIRUBIN NEGATIVE (NEGATIVE); URINE BLOOD NEGATIVE (NEGATIVE); URINE GLUCOSE (UA) NEGATIVE (NEGATIVE); URINE LEUKOCYTE ESTERASE NEGATIVE Leu/uL (NEGATIVE); URINE PROTEIN TRACE mg/dL (<30 mg/dL); URINE UROBILINOGEN 0.2 E.U./dL (<1 E.U./dL); WHITE BLOOD COUNT 4.9 10^3/ul (4.5-11.0)
[2018-07-31 11:35] LABS: INR 1.04; PARTIAL THROMBOPLASTIN TIME 29.9 Seconds (25.1-36.5); URINE APPEARANCE CLEAR (CLEAR); URINE COLOR YELLOW (YELLOW)
[2018-07-31 11:37] LABS: ALB/GLOB RATIO 1.1 (1.1-1.8); ALBUMIN 3.4 g/dL (3.0-4.8); ALT/SGPT 27 U/L (7-56); AST/SGOT 23 U/L (14-36); BLOOD UREA NITROGEN 20 mg/dL (7-21); CALCIUM 8.6 mg/dL (8.4-10.5); GFR NON-AFRICAN AMERICAN > 60
[2018-07-31 11:59] LABS: URINE AMORPHOUS SEDIMENT FEW; URINE BACTERIA MANY (NEG); URINE FINE GRANULAR CAST 0 - 2 /hpf (0-2); URINE RBC 0 - 2 /hpf (0-2); URINE WBC 0 - 2 /hpf (0-6)
--- NOTE | 2018-07-31 12:00 | CT ---
Date of service: 2018-07-31 11:44:48 PROCEDURE: CT HEAD WITHOUT CONTRAST. HISTORY: fall COMPARISON: None available. TECHNIQUE: Axial computed tomography images were obtained through the head/brain without intravenous contrast. Radiation dose: Total exam DLP = 880.22 mGy-cm. This CT exam was performed using one or more of the following dose reduction techniques: Automated exposure control, adjustment of the mA and/or kV according to patient size, and/or use of iterative reconstruction technique. FINDINGS: HEMORRHAGE: No intracranial hemorrhage. BRAIN: Diffuse atrophy with prominence of the ventricles and sulci noted. No mass effect or edema. Intracranial atherosclerosis. Scattered periventricular and subcortical white matter hypodensities, which are nonspecific, but often seen with chronic microvascular ischemic disease. 7 mm right thalamus lacunar infarct appears chronic. Please note that MRI with diffusion imaging is more sensitive in the detection of acute ischemic event. VENTRICLES: No hydrocephalus. CALVARIUM: Unremarkable. PARANASAL SINUSES: Marked mucosal thickening and fluid involving the right maxillary sinus. Mucosal thickening of the ethmoid air cells. MASTOID AIR CELLS: Unremarkable as visualized. No inflammatory changes. OTHER FINDINGS: None. IMPRESSION: Moderate nonspecific white matter changes. Chronic right thalamus lacunar infarct. Marked mucosal thickening and fluid involving the right maxillary sinus. Mucosal thickening of the ethmoid air cells. Correlate for sinusitis.
[2018-07-31] MEDS ORDERED: methylPREDNISolone 1 GM in Sodium Chloride 0.9% 250 ML IVPB ONE (12:29)
--- NOTE | 2018-07-31 13:10 | RAD ---
Date of service: 07/31/2018 PROCEDURE: CHEST RADIOGRAPH, 1 VIEW HISTORY: fall COMPARISON: None available. FINDINGS: LUNGS: Clear. PLEURA: No pneumothorax or pleural fluid seen. CARDIOVASCULAR: Normal. OSSEOUS STRUCTURES: No significant abnormalities. VISUALIZED UPPER ABDOMEN: Normal. OTHER FINDINGS: Pacemaker. Port-A-Cath IMPRESSION: No active disease.
--- NOTE | 2018-07-31 13:11 | RAD ---
Date of service: 07/31/2018 PROCEDURE: Radiographs of the pelvis. HISTORY: fall r/o fx COMPARISON: None. FINDINGS: BONES: Pelvic Bones: Unremarkable. Hips: Grossly unremarkable. JOINTS: Sacroiliac Joints: Unremarkable. Pubic Symphysis: Unremarkable. OTHER FINDINGS: None. IMPRESSION: Unremarkable radiographs of the pelvis.
--- NOTE | 2018-07-31 13:12 | RAD ---
Date of service: 07/31/2018 PROCEDURE: Bilateral Knee Radiographs. HISTORY: fall r/o fx COMPARISON: None. FINDINGS: BONES: Right Knee: Normal. No fracture. Left Knee: Normal. No fracture. JOINTS: Right Knee: Normal. No osteoarthritis. Left knee: Normal. No osteoarthritis. SOFT TISSUES: Right Knee: Normal. Left Knee: Normal. JOINT EFFUSION: Right Knee: None. Left Knee: None. OTHER FINDINGS: None. IMPRESSION: Normal radiographs of the knees.
--- NOTE | 2018-07-31 14:34 | CARD ---
APPROVED REPORT Date of service: 07/31/2018 EKG Measurement Heart [id number] <Conclusion> Sinus rhythm with premature atrial complexes Nonspecific T wave abnormality Abnormal ECG
--- NOTE | 2018-07-31 17:43 | CP.PCM.CON ---
History of Present Illness - History of Present Illness History of Present Illness: 58 y/o female admitted to [facility] for Multiple sclerosis exacerbation, pt has hx of fibromyalgia, htn, hyperlipidemia and pasemaker. Otolaryngolgoy has been consulted for sinusitis findings on CT. Pt reports hx of 4 sinus surgeries and frequent sinus infections/exacerbation. Pt also attests to living with cats and allergy symptoms. She has chronic cheep pain bilaterally. Denies discharge at present Review of Systems - Constitutional Constitutional: As Per HPI - EENT Eyes: As Per HPI Ears: As Per HPI Nose/Mouth/Throat: As Per HPI - Breasts Breasts: As Per HPI - Cardiovascular Cardiovascular: As Per HPI - Respiratory Respiratory: As Per HPI - Gastrointestinal Gastrointestinal: As Per HPI - Genitourinary Genitourinary: As Per HPI - Reproductive: Female Reproductive:Female: As Per HPI - Menstruation Menstruation: As Per HPI - Musculoskeletal Musculoskeletal: As Per HPI - Integumentary Integumentary: As Per HPI - Neurological Neurological: As Per HPI - Psychiatric Psychiatric: As Per HPI - Endocrine Endocrine: As Per HPI - Hematologic/Lymphatic Hematologic: As Per HPI Past Patient History - Infectious Disease Hx of Infectious Diseases: None - Past Social History Smoking Status: Former Smoker - CARDIAC Hx Congestive Heart Failure: Yes Hx Hypertension: Yes Hx Pacemaker: Yes - PULMONARY Hx Asthma: Yes - NEUROLOGICAL HX Cerebrovascular Accident: Yes (1993) Other/Comment: MS - HEENT Hx HEENT Problems: No - RENAL Hx Chronic Kidney Disease: No Hx Kidney Stones: Yes - ENDOCRINE/METABOLIC Hx Diabetes Mellitus Type 2: Yes - HEMATOLOGICAL/ONCOLOGICAL Hx Anemia: Yes - INTEGUMENTARY Hx Dermatological Problems: No - MUSCULOSKELETAL/RHEUMATOLOGICAL Hx Falls: Yes Hx Unsteady Gait: Yes - GASTROINTESTINAL Hx Gastrointestinal Disorders: Yes (COLITIS) - GENITOURINARY/GYNECOLOGICAL Hx Genitourinary Disorders: Yes (MULTIPLE UTIS) Hx Reproductive Disorders: Yes (VAGINAL ITCH STILL) - PSYCHIATRIC Hx Anxiety: Yes Hx Depression: Yes - SURGICAL HISTORY Hx Surgeries: Yes Hx Cholecystectomy: Yes Hx Gastric Bypass Surgery: Yes - ANESTHESIA Hx Anesthesia: Yes Hx Anesthesia Reactions: No Hx Malignant Hyperthermia: No Meds Allergies/Adverse Reactions: Allergies Allergy/AdvReac Type Severity Reaction Status Date / Time levofloxacin [From Levaquin] Allergy RASH Verified 07/17/18 03:03 - Medications Medications: Current Medications Methylprednisolone 1 gm/ (Sodium Chloride) 250 mls @ 500 mls/hr IV ONCE ONE Stop: 08/01/18 10:29 Ondansetron HCl (Zofran Inj) 4 mg IVP Q4H PRN PRN Reason: Nausea/Vomiting Physical Exam - Constitutional Appears: Well, Non-toxic - Head Exam Head Exam: ATRAUMATIC, NORMAL INSPECTION - Eye Exam Eye Exam: EOMI, Normal appearance, PERRL Pupil Exam: NORMAL ACCOMODATION - ENT Exam ENT Exam: Mucous Membranes Moist Additional comments: Ears; wnl bilaterally canals and tm's Nose mild rhinitis bilaterally Throat: wnl no rhinitis Neck : wnl no mass - Respiratory Exam Respiratory Exam: absent: Respiratory Distress Results - Vital Signs Recent Vital Signs: Last Vital Signs Temp 99.8 F H 07/31/18 14:44 Pulse 75 07/31/18 16:17 Resp 16 07/31/18 17:01 BP 157/105 H 07/31/18 16:17 Pulse Ox 98 07/31/18 14:44 - Labs Result Diagrams: 07/31/18 10:55 07/31/18 10:55 Labs: Laboratory Results - last 24 hr 07/31/18 07/31/18 07/31/18 10:55 10:55 10:55 WBC 4.9 D RBC 3.28 L Hgb 9.9 L Hct 31.5 L MCV 96.0 MCH 30.2 MCHC 31.4 RDW 13.1 Plt Count 197 MPV 10.7 Gran % 78.1 H Lymph % (Auto) 16.4 L [place] % (Auto) 3.5 Eos % (Auto) 1.8 Baso % (Auto) 0.2 Gran # 3.80 Lymph # (Auto) 0.8 L [place] # (Auto) 0.2 Eos # (Auto) 0.1 Baso # (Auto) 0.01 PT 12.0 INR 1.04 APTT 29.9 Sodium Potassium Chloride Carbon Dioxide Anion Gap BUN Creatinine Est GFR ( Amer) Est GFR (Non-Af Amer) POC Glucose (mg/dL) Random Glucose Calcium Magnesium Total Bilirubin AST ALT Alkaline Phosphatase Total Protein Albumin Globulin Albumin/Globulin Ratio Urine Color Yellow Urine Appearance Clear Urine pH 6.0 Ur Specific [place] >= 1.030 Urine Protein Trace H Urine Glucose (UA) Negative Urine Ketones Negative Urine Blood Negative Urine Nitrate Negative Urine Bilirubin Negative Urine Urobilinogen 0.2 Ur Leukocyte Esterase Negative Urine RBC 0 - 2 Urine WBC 0 - 2 Ur Epithelial Cells 4 - 5 Amorphous Sediment Few Urine Bacteria Many Fine Granular Casts 0 - 2 Urine Other Uyeast 07/31/18 07/31/18 10:55 13:04 WBC RBC Hgb Hct MCV MCH MCHC RDW Plt Count MPV Gran % Lymph % (Auto) [place] % (Auto) Eos % (Auto) Baso % (Auto) Gran # Lymph # (Auto) [place] # (Auto) Eos # (Auto) Baso # (Auto) PT INR APTT Sodium 139 Potassium 4.0 Chloride 109 H Carbon Dioxide 24 Anion Gap 10 BUN 20 Creatinine 0.6 L Est GFR ( Amer) > 60 Est GFR (Non-Af Amer) > 60 POC Glucose (mg/dL) 73 Random Glucose 104 Calcium 8.6 Magnesium 1.8 Total Bilirubin 0.2 AST 23 ALT 27 Alkaline Phosphatase 143 H D Total Protein 6.6 Albumin 3.4 Globulin 3.2 Albumin/Globulin Ratio 1.1 Urine Color Urine Appearance Urine pH Ur Specific [place] Urine Protein Urine Glucose (UA) Urine Ketones Urine Blood Urine Nitrate Urine Bilirubin Urine Urobilinogen Ur Leukocyte Esterase Urine RBC Urine WBC Ur Epithelial Cells Amorphous Sediment Urine Bacteria Fine Granular Casts Urine Other - Impressions Impression: CT head reviewed Assessment & Plan (1) Chronic maxillary sinusitis Status: Acute (2) Chronic sinusitis of both maxillary sinuses Status: Acute (3) Multiple sclerosis exacerbation Status: Acute Priority: High (4) Anxiety Status: Acute (5) Chest pain Status: Acute (6) Chest pain with minimal risk for cardiac etiology Status: Acute Priority: Low (7) Multiple sclerosis Status: Acute (8) Pancytopenia Status: Acute (9) UTI (urinary tract infection) Status: Acute Priority: Medium (10) Whole body pain Status: Acute (11) Depression Status: Chronic (12) Leukopenia Status: Chronic Priority: Medium (13) MDD (major depressive disorder) Status: Chronic Priority: High (14) Panic disorder Status: Chronic Priority: Medium (15) Weakness Status: Chronic (16) Urinary tract infection due to ESBL Klebsiella Status: Resolved - Assessment and Plan (Free Text) Plan: Trial of flonase, dedicated CT of the sinuses, F/u in office for out patient further w/u - Date & Time Date: 07/31/18 Time: 17:43
--- NOTE | 2018-07-31 18:12 | CON ---
DATE: 07/31/2018 NEUROLOGY CONSULTATION CHIEF COMPLAINT: Poor balance, falls, right leg numbness, and left arm numbness. HISTORY OF PRESENT ILLNESS: This is a 58-year-old woman with history of multiple scleroses and was on Copaxone diagnosed in [place] 10 years ago; hypertension; hyperlipidemia; diabetes; bradycardia, status post pacemaker; fibromyalgia; came to the ER for having pain in her legs in terms of tingling, numbness, and felt unsteady in her feet and extreme lightheadedness, in addition felt her right leg was more numb than her left arm for the past month and she feels generally weak and fatigued. She cannot have an MRI of the brain since she has a pacemaker, but had a CAT scan of the head which shows some questionable fungal colonization in her right maxillary sinus, otherwise showed diffuse atrophy in the prominence of the ventricles and sulci and scattered periventricular and subcortical white matter hyperintensities which are nonspecific chronic microvascular changes. She has old right thalamic lacunar infarct. She is noncompliant with same physicians or neurologist. She has not seen neurologist in a year. She has an appointment with a neurologist in [place] on 08/13/2018. She was given 1 g of IV Solu-Medrol in the ER and is feeling much better since the 1 g of Solu-Medrol. She also is historic in terms of behavior and has seen Dr. Auguste in regards her anxiety and depression. PAST MEDICAL HISTORY: As above. ALLERGIES: LEVOFLOXACIN. SOCIAL HISTORY: No illicit drug use, smoking, or EtOH abuse. REVIEW OF SYSTEMS: A 14-point review of system is negative except as per the HPI. MEDICATIONS: Reviewed by nurse per reconciliation sheet. LABORATORY DATA: Sodium is 139, potassium 4, chloride 109, carbon dioxide 24. BUN of 20, creatinine 0.6. Random glucose of 73. PHYSICAL EXAMINATION VITAL SIGNS: Temperature of 99.8, pulse rate of 72, blood pressure 128/69, respiratory rate of 18, and oxygen saturation 98% by room air. GENERAL: The patient is sitting up in bed, in no acute distress. HEENT: Atraumatic and normocephalic. PERRLA. Extraocular muscles intact. NECK: Supple. No JVD. No adenopathy noted. LUNGS: Clear to auscultation. No adventitious sounds. HEART: S1 and S2. Normal rate and rhythm. No murmur, rubs, or gallops. ABDOMEN: Soft, nontender, and nondistended. Bowel sounds present. EXTREMITIES: No clubbing. No cyanosis. Peripheral pulses 2+ felt bilaterally. NEUROLOGIC: The patient is alert and oriented to person, place, month, and year. Recall after 5 minutes is 2/3. Poor attention span and slow thought process. Very depressed affect. Cranial nerves II through XII intact. Motor exam: Moves all extremities equally. No pronator drift seen. Sensory exam: Decreased light touch and pinprick up to the calves bilaterally. Decreased vibration of the toes. DTRs are 2+ throughout, 1 at both knees and ankles. Coordination: [id number] intact. No dysmetria noted. Gait is deferred for now. IMPRESSION: This is a 58-year-old woman with history of supposed chronic multiple scleroses and was on Copaxone, is not on any disease modifying therapy, has not seen a neurologist for many years, who has an appointment with a neurologist on 08/13/2018, in [place], history of fibromyalgia, history of diabetes, coronary artery disease, and bradycardia and pacemaker, who came in for generalized weakness, paresthesias in the extremities, right leg numbness, left arm numbness, and frequent falls. She got 1 g of IV Solu-Medrol in the ER, thinking that it was a possible multiple scleroses exacerbation. she is a very poor historian and clinically, based on the exam, I think like her poor balance is most likely secondary to underlying diabetic sensorimotor peripheral neuropathy with multifactorial indicating that she has also some fatigue which is likely related to her underlying multiple scleroses. At this time, we will recommend; 1. Need to see a neurologist that she has an appointment with for disease modifying therapy for actual multiple scleroses. 2. Need to keep her blood sugar between 140 to 180 and needs a diabetic diet. 3. PT/OT as an outpatient from physical therapy for muscle strengthening, coordination, and gait exercises. 4. We will give one more dose of IV Solu-Medrol 1 g and can be discharged home once deemed clinically stable. From my standpoint, she is stable. Most of her treatments are currently as an outpatient. We will also recommend for her to be on aspirin 81 mg daily for stroke prevention in addition to a statin at 40 mg given that she has chronic lacunar infarction on her CAT scan of the head. The CAT scan of the head showed some chronic T2 hypo-intensities making MS questionable diagnosis, but has been told that she has MS over the past 10 years according to her neurologist in [place]. At this time, we will give her one more dose of IV Solu-Medrol after today 1 g and follow up with her neurologist as an outpatient. Thank you for this consult. Michelet Mata MD
[2018-07-31] MEDS ORDERED: Fluticasone Nasal 50 mcg/Spray NS ONE (20:10)
[2018-07-31 22:56] VITALS: RESP 18
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
[2018-08-01] MEDS ORDERED: Pantoprazole 40 mg EC Tab PO STA (05:08)
[2018-08-01 06:30] LABS: IRON 27 ug/dL (45-180)
[2018-08-01 06:39] LABS: % IRON SATURATION 10 % (20-55); TOTAL IRON BINDING CAPACITY 269 ug/dL (265-497)
[2018-08-01 08:12] VITALS: BP 110/68; PULSE 70; TEMP 98.4; O2SAT 95
[2018-08-01] MEDS ORDERED: Fluticasone Nasal 50 mcg/Spray NS SCH (10:00)
[2018-08-01] MEDS ORDERED: methylPREDNISolone 1 GM in Sodium Chloride 0.9% 250 ML IV ONE (10:00)
[2018-08-01] MEDS ORDERED: Insulin Reg-LOW-Coverage SC SCH (11:30)
--- NOTE | 2018-08-01 11:35 | HP ---
DATE OF EXAM: 07/31/2018 HISTORY OF PRESENT ILLNESS: This 58-year-old female was examined at her bedside in the presence of her nurse, Edis Matos, registered nurse and this case was discussed in detail with Dr. Molina Auguste from Psychiatry, Dr. Michelet Mata from Neurology and Dr. Lloyd Gonsalves, medical doctor from [facility]. The patient presented earlier today to the [facility] ER where she was admitted with concerns of a multiple sclerosis flare. She is a 58-year-old female with longstanding history of multiple sclerosis, who states she took Copaxone therapy while residing in [place] 10 years ago. She has history of chronic hypertension, hyperlipidemia, diabetes, bradycardia and is status post a permanent pacemaker placement with comorbidities of obesity, degenerative arthritis, fibromyalgia, anxiety and recurrent depression. In the emergency room, she complained of tingling, numbness and an unsteady gait in her feet and legs as well as associated lightheadedness. She stated that her right leg was more numb than her left and that her left arm felt numb over the past month. The patient cannot have a MRI of the brain due to her pacemaker, but a CT of the head was performed which showed questionable sinusitis in the right maxillary sinus region as well as cerebral atrophy, prominence of her cerebral ventricles and an old right thalamic lacunar infarct. According to her history, she has been noncompliant with medical, psychiatric and neurological followup. According to Neurology, she has not seen a neurologist in the past year, but has a scheduled appointment through her managed care Medicare plan for 08/13/2018. She was given a pulse of IV Solu-Medrol in the emergency room and is ordered to receive one by Dr. Michelet Mata from Neurology and was evaluated by Dr. Auguste for recurrent anxiety and depression. The patient's outpatient medications include Ultram, Norvasc, Sonata, Effexor, Protonix, multivitamin, Cozaar, Ativan, Motrin, Neurontin and folic acid. When I questioned the patient if she was taking any diabetic medication, she said none and states SHE HAS AN ALLERGY TO LEVOFLOXACIN. She is a current nondrinker, nonsmoker, non IV drug misuser and is obese with a BMI of 36.4 kg per meter squared. Family history is noncontributory. REVIEW OF SYSTEMS: Constitutional review, she denied fever or chills. Head review, denied any headache or knowledge, but does have a CT finding of an old thalamic infarct. Eye review, no change in visual acuity. Ear review, no hearing loss. Throat review, no swallowing difficulty. Neck review, no stiffness. Cardiac review, has chronic pacemaker for previous bradycardia. Pulmonary: No cough. No hemoptysis. GI: Has chronic GERD. : No knowledge of renal failure. Vascular: No claudication. Psychological: As per HPI. Neurological: As per HPI. Hematological: Appears to have anemia on current ER blood testing. PHYSICAL EXAMINATION: VITAL SIGNS: Temperature 99.8, respirations 18, pulse 72, blood pressure 126/69. Pulse ox 98% on room air. HEAD: Normocephalic, atraumatic. Eyes, no icterus. Ears clear. Throat: Noninjected. NECK: Supple. HEART: Was regular S1, S2. LUNGS: Clear. ABDOMEN: Obese. EXTREMITIES: No edema. SKIN: Without rash. NEUROLOGICAL: Alert and oriented x3. Cranial nerves II-XII intact. She moves all extremities easily. She has decreased sensory exam to pinprick on both lower extremities. Motor strength was 5/5. VASCULAR: Legs warm to touch. PSYCHOLOGICAL: Alert and anxious. LABORATORY DATA: White count 4900, hemoglobin 9.9, hematocrit 31.5, MCV 96, platelets 197,000. PT/INR 1.04, PTT 29.9. Sodium 139, K 4, chloride 109, bicarb 24, BUN 20, creatinine 0.6, random blood sugar 104, calcium 8.6. Magnesium 1.8. Bilirubin 0.2, AST 23, ALT 27, alk phos 143. Urinalysis showed many bacteria with trace protein. Chest x-ray was reviewed. It showed a pacemaker, a Port-A-Cath. No active disease. There was no evidence of pneumonia, pneumothorax, pleural effusion or congestive heart failure. EKG was reviewed and showed normal sinus rhythm with PACs, nonspecific ST-T wave changes. Bilateral knee x-rays were reviewed. There was no evidence of fracture in either her right or left knee. No degenerative arthritis was noted. Pelvic x-ray was reviewed. Pelvic bones were unremarkable. Hips were grossly unremarkable. Her sacral iliac and pubic symphysis joints were unremarkable. There was no obvious fracture noted. Head CT was reviewed. It showed evidence of proteinaceous material in her right maxillary sinus consistent with sinusitis. Also, she was noted to have diffuse brain atrophy. A chronic right thalamic lacunar infarct. IMPRESSION: An obese 58-year-old female presenting with history of multiple sclerosis for which she takes no medication and has not had any neurological followup within the past year, raising concerns of multiple sclerosis flare versus diabetic neuropathy with comorbidities of anxiety, depression, chronic hypertension. Presume diet-controlled diabetes mellitus, peripheral neuropathy, anemia, peptic ulcer disease with gastroesophageal reflux disease and sinusitis. PLAN: My plans are to outline blood pressure medication continuation including Norvasc 5 mg p.o. daily, Cozaar 100 mg p.o. daily and the patient will have a steroid pulse under the direction of Dr. Michelet Mata as outlined. As discussed with Dr. Auguste from Psychiatry, she will be recommended to the local mental health clinic for her psychiatric needs including chronic anxiety, chronic depression and the patient is not suicidal or homicidal. At present, she can hopefully be discharged to tomorrow after the patient has her second steroid pulse and is evaluated by [facility] and results are noted of her response to steroid pulse. The patient will need followup with her primary care physician within her Medicare advantage plan and she has been strongly advised to complete her scheduled appointment on 08/13/2018 with her neurologist within her Medicare advantage plan. Greater than 75 minutes was spent in the care management, review of labs, orders, x-rays and outlining of care for this patient today as well as discussion of her management with herself, her nurse, Edis Matos, Dr. Auguste and Dr. Michelet Mata. All questions were answered. Salud Huang MD [facility]
[2018-08-01] MEDS ORDERED: Pneumococcal 23-Valent Vaccine IM ONE (12:21)
[2018-08-01 13:25] LABS: FERRITIN 55.6 ng/mL
[2018-08-01 13:55] LABS: FOLATE > 20.0 ng/mL
--- NOTE | 2018-08-04 05:09 | DS ---
DATE OF DISCHARGE: 08/01/2018 HISTORY OF PRESENT ILLNESS: This 58-year-old female was discharged from [facility] on 08/01/2018. This case was reviewed and medications were reviewed with the patient and nurse, Naima Costello, registered nurse. The patient was advised to follow up with her PMD within 48 hours and also to keep her scheduled Neurological appointment with her Managed care, Medicare neurologist on 08/13/2018. Consultants included Dr. Michelet Mata from Neurology, Dr. Auguste from Psychiatry and Dr. Lloyd Gonsalves from [facility]. The patient was also advised she will need a dedicated CT of her sinuses to be performed as an outpatient and was given Dr. Lloyd Gonsalves's office number to schedule follow-up ENT appointment for sinusitis noted on CT of her head. The patient also was reminded to schedule an appointment with Mental Health Clinic as recommended by Dr. Auguste from Psychiatry and discharge medications included Norvasc 5 mg p.o. daily; multivitamin 1 tablet daily; Cozaar 100 mg p.o. daily; Neurontin 300 mg p.o. b.i.d.; folic acid 1 mg daily; regular low-dose Humulin insulin coverage before meals and at bedtime; Flonase one spray to each nostril daily; Klonopin 1 mg p.o. b.i.d., #14, no refill; Lipitor 40 mg p.o. daily; Ecotrin 81 mg p.o. daily. DISCHARGE DIAGNOSES: Will be exacerbation of multiple sclerosis, multiple sclerosis flare, anxiety, chronic depression, recurrent depression, sinusitis, chronic hypertension, type 2 diabetes mellitus, obesity, peripheral neuropathy, hyperlipidemia, peptic ulcer disease with gastroesophageal reflux disease. DISPOSITION: Home. DISCHARGE MEDICATIONS: As above. SUMMARY: This 58-year-old female who presented to [facility], was admitted for multiple sclerosis flare and underwent a steroid pulse x2 under the direction of Dr. Michelet Mata from Neurology. She was seen in consultation by Dr. Auguste from Psychiatry and cleared for discharge with followup in the [facility] and was seen by Dr. Lloyd Gonsalves from [facility] and given clearance for discharge for followup in his medical office as an outpatient. At the time of discharge, her temperature was 98.4, respirations 18, pulse 70 and blood pressure 110/68 with a pulse ox of 95% on room air. White count 4900, hemoglobin 9.9, hematocrit 31.5, platelets 197,000. Sodium 139, K 4, chloride 109, bicarb 24, BUN 20, creatinine 0.6, random blood sugar 73. Her iron level was 27, TIBC 269, percent saturation 10 with a ferritin level of 55.6. Vitamin B12 is 174, folic acid was 20. The patient was advised that she will need a B12 1000 mcg supplement sublingual daily and also to follow up with her PMD to schedule outpatient colonoscopy and endoscopy if not done within the recent past. The patient is aware that these are her responsibilities and hopefully she will be compliant with the above. At the time of discharge, all of these instructions were relayed to the patient in the presence of her nurse and hopefully the patient will be compliant with these recommendations. Greater than 35 minutes was spent in the care management, review of labs and orders and discussion of this patient's care with her today. Salud Huang MD
== END 2018-08-01 13:56 | disposition home or self-care (01) ==
LOC: ED 08:36 → ERH 13:30 → 5RNO 14:51
PROVIDERS: ADMIT Internal Medicine; ATTEND Internal Medicine
DX: G35 Multiple sclerosis (principal); E11.42 Type 2 diabetes mellitus with diabetic polyneuropathy; D61.818 Other pancytopenia; E66.9 Obesity, unspecified; E78.5 Hyperlipidemia, unspecified; F31.9 Bipolar disorder, unspecified; F41.0 Panic disorder [episodic paroxysmal anxiety]; I11.0 Hypertensive heart disease with heart failure; I48.91 Unspecified atrial fibrillation; I50.9 Heart failure, unspecified; J32.0 Chronic maxillary sinusitis; K21.9 Gastro-esophageal reflux disease without esophagitis; K27.9 Peptic ulcer, site unspecified, unspecified as acute or chronic, without hemorrhage or perforation; M79.7 Fibromyalgia; M81.0 Age-related osteoporosis without current pathological fracture; N39.0 Urinary tract infection, site not specified; B96.1 Klebsiella pneumoniae [K. pneumoniae] as the cause of diseases classified elsewhere; Z16.12 Extended spectrum beta lactamase (ESBL) resistance; Z68.36 Body mass index [BMI] 36.0-36.9, adult; Z79.899 Other long term (current) drug therapy; Z86.73 Personal history of transient ischemic attack (TIA), and cerebral infarction without residual deficits; Z87.440 Personal history of urinary (tract) infections; Z87.442 Personal history of urinary calculi; Z87.891 Personal history of nicotine dependence; Z90.49 Acquired absence of other specified parts of digestive tract; Z90.710 Acquired absence of both cervix and uterus; Z91.19 Patient's noncompliance with other medical treatment and regimen; Z95.0 Presence of cardiac pacemaker; Z98.84 Bariatric surgery status; Z88.1 Allergy status to other antibiotic agents; R07.9 Chest pain, unspecified; Z23 Encounter for immunization
CPT/HCPCS: 36415; 70450; 71045; 72170; 73560; 80053; 81001; 82607; 82728; 82746; 82948; 83540; 83550; 83735; 85025; 85610; 85730; 90471; 90732; 93005; 96365; 96375; 96376; 99285; G0378; J2405; J2930

== ENCOUNTER 2018-08-06 09:33 | Inpatient (IN) | payer MEDICARE ==
[2018-08-06 09:33] VITALS: BMI 36.3
--- NOTE | 2018-08-06 11:25 | RAD ---
Date of service: 08/06/2018 HISTORY: chest pain COMPARISON: 07/31/2018 FINDINGS: LUNGS: No active pulmonary disease. PLEURA: No significant pleural effusion identified, no pneumothorax apparent. CARDIOVASCULAR: Normal. OSSEOUS STRUCTURES: No significant abnormalities. VISUALIZED UPPER ABDOMEN: Normal. OTHER FINDINGS: Port-A-Cath and pacemaker IMPRESSION: No active disease.
--- NOTE | 2018-08-06 11:30 | ED PDOC ---
Arrival/HPI - General Historian: Patient - History of Present Illness Narrative History of Present Illness (Text): 08/06/18 11:26 58yo female with pmhx of Diabetes, hypertension, Pacemaker, CHF, asthma, CVA, depression, anxiety present with complaint of depression. States she have not seen a psychiatrist for 4months and the last time she was given medication was last week for a week. States she ran out of her medication and has been having worsening depression. states the depression is causing her to have chest pain from last night. States she thinks is secondary to her depression and anxiety. She denies SOB, diaphoresis, focal weakness, SI/HI, hallucination, drug use, any other complaint. <Fabian Espinoza A - Last Filed: 08/06/18 18:30> <Oscar Kumar - Last Filed: 08/13/18 05:25> - General Chief Complaint: Chest Pain Time Seen by Provider: 08/06/18 10:07 Past Medical History - Provider Review Nursing Documentation Reviewed: Yes - Past History Past History: Non-Contributing - Infectious Disease Hx of Infectious Diseases: None - Reproductive Menopause: Yes - Cardiac Hx Congestive Heart Failure: Yes Hx Hypertension: Yes Hx Pacemaker: Yes - Pulmonary Hx Asthma: Yes - Neurological HX Cerebrovascular Accident: Yes (1993) Other/Comment: MS - HEENT Hx HEENT Disorder: No - Renal Hx Renal Disorder: No Hx Kidney Stones: Yes - Endocrine/Metabolic Hx Diabetes Mellitus Type 2: Yes - Hematological/Oncological Hx Anemia: Yes - Integumentary Hx Dermatological Disorder: No - Musculoskeletal/Rheumatological Hx Falls: Yes Hx Unsteady Gait: Yes - Gastrointestinal Hx Gastrointestinal Disorders: Yes (COLITIS) - Genitourinary/Gynecological Hx Genitourinary Disorders: Yes (MULTIPLE UTIS) Hx Reproductive Disorders: Yes (VAGINAL ITCH STILL) - Psychiatric Hx Anxiety: Yes Hx Depression: Yes Hx Substance Use: No - Surgical History Hx Cholecystectomy: Yes Hx Gastric Bypass Surgery: Yes - Anesthesia Hx Anesthesia: Yes Hx Anesthesia Reactions: No Hx Malignant Hyperthermia: No <AlexisHappiness A - Last Filed: 08/06/18 18:30> Family/Social History - Physician Review Nursing Documentation Reviewed: Yes Family/Social History: Unknown Family HX Smoking Status: Former Smoker Hx Alcohol Use: No Hx Substance Use: No Hx Substance Use Treatment: No <AlexisHappiness A - Last Filed: 08/06/18 18:30> Allergies/Home Meds <Fabian Espinoza A - Last Filed: 08/06/18 18:30> <Oscar Kumar - Last Filed: 08/13/18 05:25> Allergies/Adverse Reactions: Allergies levofloxacin [From Levaquin] Allergy (Verified 08/06/18 16:30) RASH Home Medications: Home Meds Medication Instructions Recorded Confirmed RX: Gabapentin [Neurontin] 300 mg PO BID 07/31/18 08/09/18 RX: Losartan [Cozaar] 100 mg PO DAILY 07/31/18 08/09/18 Review of Systems - Physician Review All systems were reviewed & negative as marked: Yes - Review of Systems Constitutional: Normal Eyes: Normal ENT: Normal Respiratory: Normal Cardiovascular: Chest Pain. absent: Palpitations, Edema, Calf Pain Gastrointestinal: Normal Genitourinary Female: Normal Musculoskeletal: Normal Skin: Normal Neurological: Normal Endocrine: Normal Hemo/Lymphatic: Normal Psychiatric: Depression <Fabian Espinoza A - Last Filed: 08/06/18 18:30> Physical Exam Vital Signs Reviewed: Yes Vital Signs Temp Pulse Resp BP Pulse Ox 08/06/18 09:38 99.3 F 64 18 149/84 98 Temperature: Afebrile Blood Pressure: Normal Pulse: Regular Respiratory Rate: Normal Appearance: Positive for: Well-Appearing, Non-Toxic, Comfortable Pain Distress: None Mental Status: Positive for: Alert and Oriented X 3 - Systems Exam Head: Present: Atraumatic, Normocephalic Pupils: Present: PERRL Extroacular Muscles: Present: EOMI Conjunctiva: Present: Normal Mouth: Present: Moist Mucous Membranes Neck: Present: Normal Range of Motion Respiratory/Chest: Present: Clear to Auscultation, Good Air Exchange. No: Respiratory Distress, Accessory Muscle Use, Wheezes, Decreased Breath Sounds, Rales, Retracting, Rhonchi Cardiovascular: Present: Regular Rate and Rhythm, Normal S1, S2. No: Murmurs Abdomen: No: Tenderness, Distention, Peritoneal Signs Back: Present: Normal Inspection Upper Extremity: Present: Normal Inspection. No: Cyanosis, Edema Lower Extremity: Present: Normal Inspection. No: Edema Neurological: Present: GCS=15, CN II-XII Intact, Speech Normal Skin: Present: Warm, Dry, Normal Color. No: Rashes Psychiatric: Present: Alert, Oriented x 3, Normal Insight, Normal Concentration <Diru,Happiness A - Last Filed: 08/06/18 18:30> Vital Signs Temp Pulse Resp BP Pulse Ox 08/06/18 15:09 98 H 18 142/78 97 08/06/18 13:04 63 18 143/78 98 08/06/18 09:38 99.3 F 64 18 149/84 98 <Oscar Kumar - Last Filed: 08/13/18 05:25> Medical Decision Making ED Course and Treatment: 08/06/18 18:30 PT was seen in ED for stated history. Her lab was reviewed and she was cleared medically for psych evaluation EKG Sinus rhythm with sinus arrhythmia @ 72bpm. N-STEMI CXR NAD Pt was seen in ED by CHERYL Portillo. He DC with the psychiatrist and she was admitted to Dr. Vanegas's service for depression. - RAD Interpretation Radiology Orders: 08/06/18 10:08 CHEST PORTABLE [RAD] Stat <Diru,Happiness A - Last Filed: 08/06/18 18:30> ED Course and Treatment: 08/13/18 05:25 The documented history was done by the physician heat and vent aircraft mechanic. The documented physical exam was done by the physician heat and vent aircraft mechanic. The documented procedures were done by the physician heat and vent aircraft mechanic, I was available for consultation during the PA/BULB WEEDER evaluation. The chart was reviewed by me, and I agree with the management and plan. - Lab Interpretations Microbiology Results: Microbiology Results 08/06/18 12:50 Urine,Clean Catch Urine Culture - Final 10-50,000 CFU/ML. MULTIPLE SPECIES. PROBABLE CONTAMINATION. Lab Results: 08/06/18 11:20 08/06/18 11:20 Lab Results 08/06/18 11:20: Alcohol, Quantitative < 10 08/06/18 11:20: Urine Opiates Screen Negative, Urine Methadone Screen Negative, Ur Barbiturates Screen Positive H, Ur Phencyclidine Scrn Negative, Ur Amphetamines Screen Negative, U Benzodiazepines Scrn Negative, U Oth Cocaine Metabols Negative, U Cannabinoids Screen Negative 08/06/18 11:20: Sodium 139, Potassium 3.9, Chloride 106, Carbon Dioxide 27, Anion Gap 10, BUN 12, Creatinine 0.6 L, Est GFR ( Amer) > 60, Est GFR (Non-Af Amer) > 60, Random Glucose 127 H, Calcium 8.4, Magnesium 1.7, Total Bilirubin 0.2, AST 25, ALT 34, Alkaline Phosphatase 127 H, Lactate Dehydrogenase 384, Total Creatine Kinase 39, Troponin I < 0.01, Total Protein 6.2, Albumin 3.3, Globulin 2.9, Albumin/Globulin Ratio 1.1 08/06/18 11:20: Urine Color Yellow, Urine Appearance Clear, Urine pH 6.0, Ur Specific [place] 1.010, Urine Protein Negative, Urine Glucose (UA) Negative, Urine Ketones Negative, Urine Blood Negative, Urine Nitrate Negative, Urine Bilirubin Negative, Urine Urobilinogen 0.2, Ur Leukocyte Esterase Trace H, Urine RBC 0 - 2, Urine WBC 1 - 3, Ur Epithelial Cells 4 - 5, Urine Bacteria Few 08/06/18 11:20: PT 12.2, INR 1.06, APTT 29.2 08/06/18 11:20: WBC 5.1, RBC 3.39 L, Hgb 10.2 L, Hct 32.1 L, MCV 94.7, MCH 30.1, MCHC 31.8, RDW 12.9, Plt Count 206, MPV 10.4, Gran % 68.3 H, Lymph % (Auto) 23.5, [place] % (Auto) 3.5, Eos % (Auto) 4.5, Baso % (Auto) 0.2, Gran # 3.49, Lymph # (Auto) 1.2, [place] # (Auto) 0.2, Eos # (Auto) 0.2, Baso # (Auto) 0.01 - RAD Interpretation Radiology Orders: 08/06/18 10:08 CHEST PORTABLE [RAD] Stat - Medication Orders Current Medication Orders: Albuterol (Ventolin Hfa 90 Mcg/Actuation (8 G)) 2 puff IH [id number] PRN PRN Reason: Shortness of Breath Last Admin: 08/11/18 22:43 Dose: 2 puff Amlodipine Besylate (Norvasc) 5 mg PO DAILY [facility] Last Admin: 08/12/18 09:00 Dose: 5 mg MAR Pulse and Blood Pressure Document 08/12/18 09:00 CV (Rec: 08/12/18 09:34 CV [id number]) Pulse Pulse Rate (60-90) 62 Blood Pressure Blood Pressure (100/60-150/90) 132/75 Aspirin (Ecotrin) 81 mg PO DAILY [facility] Last Admin: 08/12/18 09:33 Dose: 81 mg Atorvastatin Calcium (Lipitor) 40 mg PO DIN [facility] Last Admin: 08/12/18 17:51 Dose: 40 mg Clonazepam (Klonopin) 1 mg PO BID [facility]; Protocol Last Admin: 08/12/18 16:25 Dose: 1 mg Behavioural Document 08/12/18 16:25 CV (Rec: 08/12/18 16:25 CV [id number]) Maintenance Maintenance Dose Yes Nonmedicinal Nonmedicinal Interventions Therapeutic Communication Re-Assess: Reassess Psych Meds Document 08/12/18 17:25 CV (Rec: 08/12/18 17:41 CV [id number]) Reassess Psych Med Effective Fluticasone Propionate (Flonase) 1 actuation NS DAILY [facility] Last Admin: 08/12/18 09:37 Dose: 1 spr Folic Acid (Folic Acid) 1 mg PO DAILY [facility] Last Admin: 08/12/18 09:35 Dose: 1 mg Gabapentin (Neurontin) 300 mg PO TID [facility]; Protocol Last Admin: 08/12/18 17:48 Dose: 300 mg Behavioural Document 08/12/18 17:48 CV (Rec: 08/12/18 17:49 CV [id number]) Maintenance Maintenance Dose Yes Nonmedicinal Nonmedicinal Interventions Therapeutic Communication Re-Assess: Reassess Psych Meds Document 08/12/18 18:48 CV (Rec: 08/12/18 18:49 CV [id number]) Reassess Psych Med Effective Hydroxyzine Pamoate (Vistaril) 50 mg PO Q8 PRN; Protocol PRN Reason: Anxiety Last Admin: 08/12/18 22:06 Dose: 50 mg Behavioural Document 08/12/18 22:06 DC (Rec: 08/12/18 22:06 DC [id number]) Maintenance Maintenance Dose No Nonmedicinal Nonmedicinal Interventions Redirect Behavior Behavior for Medication: Anxiety Re-Assess: Reassess Psych Meds Document 08/12/18 23:06 DC (Rec: 08/13/18 00:26 DC [id number]) Reassess Psych Med Effective Ibuprofen (Motrin Tab) 800 mg PO Q6H PRN PRN Reason: Pain, moderate (4-7) Last Admin: 08/12/18 22:56 Dose: 800 mg Insulin Human Regular (Humulin R Low) 0 units SC ACHS [facility]; Protocol Last Admin: 08/12/18 21:17 Dose: Not Given Non-Admin Reason: Blood Sugar Parameter MAR Blood Glucose Document 08/12/18 21:17 DC (Rec: 08/12/18 21:17 DC [id number]) Blood Glucose Finger Stick Blood Glucose (70-120) 88 Lidocaine (Lidoderm) 1 ea TD DAILY [facility] Last Admin: 08/12/18 09:46 Dose: 1 ea MAR Transdermal Patch Site Document 08/12/18 09:46 CV (Rec: 08/12/18 09:47 CV [id number]) Transdermal Patch Site Transdermal Patch Site Left Lower Back Re-Assess: MAR Transdermal Patch Removal Document 08/12/18 21:46 DC (Rec: 08/12/18 22:04 DC [id number]) Transdermal Patch Removal Removal of Transdermal Patch done? Yes Loperamide HCl (Imodium) 4 mg PO DAILY [facility] Last Admin: 08/12/18 08:34 Dose: 4 mg Lorazepam (Ativan) 1 mg IM Q6H PRN; Protocol PRN Reason: Agitation Lorazepam (Ativan) 1 mg PO Q6H PRN; Protocol PRN Reason: Anxiety Losartan Potassium (Cozaar) 100 mg PO DAILY [facility] Last Admin: 08/12/18 09:33 Dose: 100 mg Multivitamins (Thera Tab) 1 tab PO 0800 [facility] Last Admin: 08/12/18 09:35 Dose: 1 tab Ondansetron HCl (Zofran Tab) 4 mg PO Q8H PRN PRN Reason: Nausea/Vomiting Last Admin: 08/10/18 18:02 Dose: 4 mg Pantoprazole Sodium (Protonix Ec Tab) 40 mg PO 0600 [facility] Last Admin: 08/12/18 05:57 Dose: 40 mg Quetiapine Fumarate (Seroquel) 25 mg PO HS [facility]; Protocol Last Admin: 08/12/18 21:21 Dose: 25 mg Behavioural Document 08/12/18 21:21 DC (Rec: 08/12/18 21:21 DC [id number]) Maintenance Maintenance Dose Yes Re-Assess: Reassess Psych Meds Document 08/12/18 22:21 DC (Rec: 08/13/18 00:26 DC [id number]) Reassess Psych Med Effective Venlafaxine HCl (Effexor) 75 mg PO DAILY [facility] Last Admin: 08/12/18 09:35 Dose: 75 mg Discontinued Medications Clonazepam (Klonopin) 0.5 mg PO BID [facility]; Protocol Last Admin: 08/07/18 09:37 Dose: 0.5 mg Behavioural Document 08/07/18 09:37 ABO (Rec: 08/07/18 09:37 ABO [id number]) Maintenance Maintenance Dose Yes Re-Assess: Reassess Psych Meds Document 08/07/18 10:37 ABO (Rec: 08/07/18 11:16 ABO [id number]) Reassess Psych Med Effective Gabapentin (Neurontin) 100 mg PO TID [facility]; Protocol Last Admin: 08/07/18 09:38 Dose: 100 mg Behavioural Document 08/07/18 09:38 ABO (Rec: 08/07/18 09:38 ABO [id number]) Maintenance Maintenance Dose Yes Re-Assess: Reassess Psych Meds Document 08/07/18 10:38 ABO (Rec: 08/07/18 11:16 ABO [id number]) Reassess Psych Med Effective Ibuprofen (Motrin Tab) 600 mg PO Q6H PRN PRN Reason: Pain, moderate (4-7) Last Admin: 08/10/18 02:14 Dose: 600 mg Re-Assess: MAR Pain/Vitals Document 08/10/18 03:09 NG (Rec: 08/10/18 03:10 NG [facility] [place] Pain Reassessment Is This A Pain ReAssessment? Yes Sleep Is patient sleeping during reassessment? Yes Ibuprofen (Motrin Tab) 800 mg PO Q6H PRN PRN Reason: Pain, moderate (4-7) Lorazepam (Ativan) 1 mg PO Q6H PRN; Protocol PRN Reason: Anxiety Last Admin: 08/12/18 04:55 Dose: 1 mg Behavioural Document 08/12/18 04:55 NG (Rec: 08/12/18 04:55 NG [id number]) Maintenance Maintenance Dose No Nonmedicinal Nonmedicinal Interventions Therapeutic Communication Behavior Behavior for Medication: Anxiety Re-Assess: Reassess Psych Meds Document 08/12/18 05:55 NG (Rec: 08/12/18 05:59 NG [id number]) Reassess Psych Med Effective Lorazepam (Ativan) 1 mg PO Q6H PRN; Protocol PRN Reason: Anxiety Ondansetron HCl (Zofran Odt) 4 mg PO STAT STA Stop: 08/06/18 12:56 Last Admin: 08/06/18 13:04 Dose: 4 mg Venlafaxine HCl (Effexor) 37.5 mg PO DAILY [facility] Last Admin: 08/09/18 09:20 Dose: Not Given Non-Admin Reason: discontinue Zaleplon (Sonata) 5 mg PO HS PRN PRN Reason: Insomnia Last Admin: 08/06/18 22:23 Dose: 5 mg <Oscar Kumar - Last Filed: 08/13/18 05:25> Disposition/Present on Arrival - Present on Arrival Any Indicators Present on Arrival: No History of DVT/PE: No History of Uncontrolled Diabetes: No Urinary Catheter: No History of Decub. Ulcer: No History Surgical Site Infection Following: None - Disposition Have Diagnosis and Disposition been Completed?: Yes Disposition Time: 13:25 Patient Plan: Admission <Fabian Espinoza - Last Filed: 08/06/18 18:30> <Oscar Kumar - Last Filed: 08/13/18 05:25> - Disposition Diagnosis: Chest pain, MDD (major depressive disorder) Disposition: HOSPITALIZED Patient Problems: Current Active Problems Problem Status Onset Chest pain Acute Depression Chronic MDD (major depressive disorder) Chronic Condition: STABLE
[2018-08-06 11:32] LABS: BASO # 0.01 K/mm3 (0.0-2.0); BASO % 0.2 % (0.0-3.0); EOS # 0.2 (0.0-0.7); EOS % 4.5 % (1.5-5.0); GRAN # 3.49 (1.4-6.5); GRAN % 68.3 % (50.0-68.0); HEMOGLOBIN 10.2 g/dL (12.0-16.0); LYMPH # 1.2 (1.2-3.4); LYMPH % 23.5 % (22.0-35.0); MEAN CELL VOLUME 94.7 fl (80.0-105.0); MEAN CORPUSCULAR HEMOGLOBIN 30.1 pg (25.0-35.0); MEAN CORPUSCULAR HGB CONC 31.8 g/dl (31.0-37.0); MEAN PLATELET VOLUME 10.4 fl (7.0-11.0); MONO # 0.2 (0.1-0.6); MONO % 3.5 % (1.0-6.0); RBC 3.39 10^6/uL (3.5-6.1); RED CELL DISTRIBUTION WIDTH 12.9 % (11.5-14.5); WHITE BLOOD COUNT 5.1 10^3/ul (4.5-11.0)
[2018-08-06 11:33] LABS: URINE BILIRUBIN NEGATIVE (NEGATIVE); URINE BLOOD NEGATIVE (NEGATIVE); URINE GLUCOSE (UA) NEGATIVE (NEGATIVE); URINE LEUKOCYTE ESTERASE TRACE Leu/uL (NEGATIVE); URINE PROTEIN NEGATIVE mg/dL (<30 mg/dL); URINE UROBILINOGEN 0.2 E.U./dL (<1 E.U./dL)
[2018-08-06 11:40] LABS: URINE APPEARANCE CLEAR (CLEAR); URINE COLOR YELLOW (YELLOW)
[2018-08-06 11:41] LABS: INR 1.06; PARTIAL THROMBOPLASTIN TIME 29.2 Seconds (25.1-36.5); PROTHROMBIN TIME 12.2 SECONDS (9.4-12.5)
[2018-08-06 11:43] LABS: ALB/GLOB RATIO 1.1 (1.1-1.8); ALBUMIN 3.3 g/dL (3.0-4.8); ALT/SGPT 34 U/L (7-56); AST/SGOT 25 U/L (14-36); BLOOD UREA NITROGEN 12 mg/dL (7-21); CALCIUM 8.4 mg/dL (8.4-10.5); GFR NON-AFRICAN AMERICAN > 60
[2018-08-06 11:45] LABS: URINE BACTERIA FEW (NEG); URINE RBC 0 - 2 /hpf (0-2)
[2018-08-06 11:53] LABS: TROPONIN I < 0.01 ng/mL
[2018-08-06 11:55] LABS: BARBITURATES, UR POSITIVE (NEGATIVE); BENZODIAZEPINES, UR NEGATIVE (NEGATIVE); OPIATES, UR NEGATIVE (NEGATIVE); PHENCYCLIDINE, UR NEGATIVE (NEGATIVE)
--- NOTE | 2018-08-06 15:01 | CARD ---
APPROVED REPORT Date of service: 08/06/2018 EKG Measurement Heart [id number] <Conclusion> Sinus rhythm with marked sinus arrhythmia Low voltage QRS Nonspecific ST and T wave abnormality Abnormal ECG
[2018-08-06 15:40] VITALS: O2SAT 97
--- NOTE | 2018-08-06 18:33 | PCM.BM ---
<Jorge Catherine - Last Filed: 08/06/18 18:30> Treatment Plan Problems - Problems identified on initial assessmt hopelessness/Helplessness Date Initiated: 08/06/18 Time Initiated: 18:00 Assessment reference: NA Status: Active Priority: 1 Comment: feeling depressed Ineffective coping skills. Date Initiated: 08/06/18 Time Initiated: 18:00 Assessment reference: NA Status: Active Priority: 2 Comment: having problem dealing with living situation. Medication noandherenace Date Initiated: 08/06/18 Time Initiated: 18:00 Assessment reference: NA Status: Active Priority: 3 Comment: Unable to obtain medications Activity intolerance Date Initiated: 08/06/18 Time Initiated: 18:00 Assessment reference: NA Status: Active Priority: 4 Comment: Medical condition Altered sleep Patter Date Initiated: 08/06/18 Time Initiated: 18:00 Assessment reference: NA Status: Active Priority: 5 Treatment assets and liabiliti Patient Assests: adapts well, cooperative, insightful, motivated, negotiates basic needs, cognitively intact, good interpersonal skills Patient Liabilities: live alone, physical pain, dietary restrictions, medical problems - Milieu Protocol Maintain good personal hygiene: daily Encourage regular showers, daily Assist patient to perform ADL's, every shift Remind patient to perform daily oral care Maintain personal safety: every shift Educate patient to report safety concerns to staff, every shift Monitor environment for contraband/sharps Medication safety: Monitor for expected outcome, potential side effects: every shift, Assess barriers to learning: every shift, Assess readiness for medication education: every shift Discharge/Continuing Care - Education Needs Education Needs: Patient Medication, Patient Diagnosis/Disease Process, Patient Coping Skills, Patient Community resources, Patient Activities of Daily Living, Patient Pain, Patient Nutrition, Patient Uses of Medical Equipment, Patient Health Practices/Safety, Patient Personal Hygiene/Grooming, Patient Aftercare Safety Plan - Discharge Discharge Criteria: Tolerates medication w/o severe side effects, Normal sleep pattern, Ability to care for self, Reduction of target symptoms Discharge to:: Home <Romina Dockery - Last Filed: 08/07/18 13:42> - Diagnosis (1) MDD (major depressive disorder) Status: Chronic Interventions: 08/07/18 14:02 Psychoeducation Psychopharmacology/adjustment of medications as needed/ monitoring possible side effects Evaluate pt on daily basis Compliance with medications and follow up appointments Suicide and homicide risk assessment and prevention Relapse prevention Reduction of symptoms Improve functional status Family involvement As outpatient: cognitive behavioral therapy (2) Anxiety Status: Acute Interventions: 08/07/18 14:03 Psychoeducation Psychopharmacology/adjustment of medications as needed/ monitoring possible side effects Evaluate pt on daily basis Discussion of importance of being compliant with medications and follow up appointments Suicide and homicide risk assessment and prevention, coping strategies, safety plan Reduction of symptoms Relaxation techniques and breathing exercises Improve functional status Family involvement Cognitive behavioral therapy as outpatient <Laura Maurer - Last Filed: 08/07/18 16:26>
--- NOTE | 2018-08-06 18:48 | PCM.BM ---
<Jorge Catherine - Last Filed: 08/06/18 18:45> Treatment Plan Problems - Problems identified on initial assessmt hopelessness/Helplessness Date Initiated: 08/06/18 Time Initiated: 18:00 Assessment reference: NA Status: Active Priority: 1 Comment: feeling depressed Ineffective coping skills. Date Initiated: 08/06/18 Time Initiated: 18:00 Assessment reference: NA Status: Active Priority: 2 Comment: having problem dealing with living situation. Medication noandherenace Date Initiated: 08/06/18 Time Initiated: 18:00 Assessment reference: NA Status: Active Priority: 3 Comment: Unable to obtain medications Activity intolerance Date Initiated: 08/06/18 Time Initiated: 18:00 Assessment reference: NA Status: Active Priority: 4 Comment: Medical condition Altered sleep Patter Date Initiated: 08/06/18 Time Initiated: 18:00 Assessment reference: NA Status: Active Priority: 5 Treatment assets and liabiliti Patient Assests: adapts well, cooperative, insightful, motivated, negotiates basic needs, cognitively intact, good interpersonal skills Patient Liabilities: live alone, physical pain, dietary restrictions, medical problems - Milieu Protocol Maintain good personal hygiene: daily Encourage regular showers, daily Assist patient to perform ADL's, every shift Remind patient to perform daily oral care Maintain personal safety: every shift Educate patient to report safety concerns to staff, every shift Monitor environment for contraband/sharps Medication safety: Monitor for expected outcome, potential side effects: every shift, Assess barriers to learning: every shift, Assess readiness for medication education: every shift Discharge/Continuing Care - Education Needs Education Needs: Patient Medication, Patient Diagnosis/Disease Process, Patient Coping Skills, Patient Community resources, Patient Activities of Daily Living, Patient Pain, Patient Nutrition, Patient Uses of Medical Equipment, Patient Health Practices/Safety, Patient Personal Hygiene/Grooming, Patient Aftercare Safety Plan - Discharge Discharge Criteria: Tolerates medication w/o severe side effects, Normal sleep pattern, Ability to care for self, Reduction of target symptoms Discharge to:: Home <Vicki Alvarez - Last Filed: 08/07/18 13:46> Family Contact Family involvement: Famliy/SO not involved <Laura Maurer - Last Filed: 08/07/18 16:26>
[2018-08-06] MEDS: Insulin Reg-LOW-Coverage SC SCH (21:51)
[2018-08-07] MEDS: Pantoprazole 40 mg EC Tab PO SCH (06:21)
[2018-08-07] MEDS: Insulin Reg-LOW-Coverage SC SCH ×4 (07:30→21:58)
[2018-08-07 08:26] LABS: GLUCOSE,FASTING 94 mg/dL (65-110); HDL CHOLESTEROL 46 mg/dL (29-60)
[2018-08-07 08:37] LABS: LDL CHOLESTEROL 46 mg/dL (0-129)
[2018-08-07 08:42] LABS: FREE T4 1.05 ng/dL (0.78-2.19)
[2018-08-07] MEDS: Multivitamin Therapeutic Tab PO SCH (09:36)
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
--- NOTE | 2018-08-08 00:16 | CON ---
DATE: 08/07/2018 HISTORY OF PRESENT ILLNESS: I came to see her today. She is resting comfortably in bed. She is a 58-year-old female who presents with being out of her medication for few weeks. They have not seen a psychiatrist in 4 months. She is feeling very depressed, worsening of her depression, also some anxiety. She has a past medical history of diabetes, hypertension, pacemaker implantation, CHF, asthma, CVA history, depression, anxiety, congestive heart failure, kidney stones, anemia, falls, unsteady gait. I will get Physical Therapy to see her. She has a history of colitis. She had multiple urinary tract infections, multiple vaginal itching at times, anxiety, depression. No substance abuse. She has had a cholecystectomy. She had gastric bypass surgery, permanent pacemaker. She is also telling me she wants Imodium on a regular basis. I will get GI consult for evaluation of her constant diarrhea, I do not know if that is true or not. The nurses said she did not have any bowel movements at that time, so I am not sure if that is real or not. ALLERGIES: SHE HAS ALLERGIES TO LEVOFLOXACIN. MEDICATIONS: She does take Ativan, Cozaar, Ecotrin, Effexor, Flonase, folic acid, Klonopin, Lipitor, Motrin, Norvasc, Protonix, Sonata, multivitamins, and Ultram at home. PHYSICAL EXAMINATION GENERAL: She is well appearing, comfortable, nontoxic, talking to me. VITAL SIGNS: She has a 99.3 temperature, 64 pulse, 18 respiratory rate, 149/84 blood pressure, 98% O2 sat. HEENT: Head is atraumatic and normocephalic. Extraocular muscles are intact. Pupils are equal and reactive to light. Throat is moist.. NECK: Supple. HEART: Regular rate. Normal S1 and S2.. LUNGS: Decreased breath sounds. Poor inspiration, but clear to auscultation. No wheezes, no rhonchi, no rales. ABDOMEN: Soft and nontender. Positive bowel sounds. No guarding, no rebound, no CVA tenderness. EXTREMITIES: No edema. NEUROLOGIC: GCS is 15. Cranial nerves II through XII grossly intact. Normal speech. She could stick her tongue midline. She could raise her arms overhead. She could close her eyes tight. Neurologically, she seems intact. SKIN: Warm and dry. No apparent rashes or ulcers appreciated. PSYCHIATRIC: Alert and oriented x3. LYMPHATICS: Thyroid midline. No appreciable lymphadenopathy to palpation. LABORATORY DATA: She had tests done. She has a sodium 139, potassium 3.9, BUN 12, creatinine 0.6, GFR is greater than 60. Blood sugar is 94. Calcium is 8.4, magnesium 1.7. Total bilirubin is 0.28, AST is 25, ALT is 34, alk phos 127, lactate dehydrogenase is 384. Total creatine kinase is 39, troponin I less than 0.01, total protein 6.2, cholesterol is 120, triglycerides are 107. TSH is 1.4. White count is 5.1, hemoglobin 10.2, hematocrit 32.1, platelets of 206. INR is 1.06. She was positive for barbiturates. Urine with trace leukocytes, few bacteria. ASSESSMENT AND PLAN: She will be on her medications. The chest x-ray was clear. The EKG was clear. I will check her labs tomorrow. I will call in Gastrointestinal for this chronic diarrhea that she told me that she has, physical therapy and hopefully we will continue aggressive treatment and care. Thank you for allowing me to participate in her care. Meet Layton DO
--- NOTE | 2018-08-08 06:40 | CON ---
DATE: 08/07/2018 REASON FOR CONSULTATION: Abnormal EKG, history of a pacemaker, cardiac evaluation and followup. BRIEF MEDICAL HISTORY: This is a 58-year-old female with past medical history significant for pacemaker done three years ago in [place], admitted to the psych floor with depression. She had an episode of chest pain earlier at home, so cardiac consult was called. The patient is currently in psych floor with past medical history significant for diabetes, hypertension, hyperlipidemia, pacemaker, and depression. Denies any chest pain now, but on admission, the patient was complaining of some chest pain. PAST MEDICAL HISTORY: Significant for multiple sclerosis; fibromyalgia; hyperlipidemia; colitis; obesity, status post bariatric surgery for obesity; status post permanent pacemaker, [employer], done in [place]; diabetes; hypertension; hyperlipidemia; COPD. SOCIAL HISTORY: Denies smoking. Denies any history of alcohol abuse. ALLERGIES: LEVAQUIN. CURRENT MEDICATIONS: The patient is taking at home tramadol, amlodipine 5 mg daily, Effexor, multivitamin, losartan 100 mg daily, insulin, ibuprofen, folic acid, atorvastatin, and aspirin. PAST SURGICAL HISTORY: Significant for pacemaker secondary to bradycardia in [place], history of permanent pacemaker three years ago, history of gastric bypass couple of years ago in [place] also. The patient states that he is being followed in [place] and had a stress test done before she came in here and was told negative. REVIEW OF SYSTEMS: As per HPI. PHYSICAL EXAMINATION: As follows: VITAL SIGNS: Height of the patient is 5 feet, weight of the patient 180 pounds, body mass index 36.4 kg/m2. LABORATORY DATA: EKG shows normal sinus rhythm, nonspecific ST-T changes. Blood workup, WBC 5.1, hemoglobin 10.2, hematocrit 32.1, platelet count 206. Chemistry shows sodium 139, potassium 3.9, chloride 106, carbon dioxide 27, anion gap of 10, BUN 12, creatinine 0.6. Troponin 0.01. Total cholesterol 120, triglycerides 107, LDL 46, HDL 46. TSH 1.4. 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 The patient had echocardiography done on 03/07/2018 that showed normal left ventricular size, normal left ventricular wall thickness, normal left ventricular function. Reported normal mitral and tricuspid valve structure. Calculated ejection fraction 57%, dated 03/06/2018. RECOMMENDATION: Continue psych evaluation. So far, no evidence of acute CO. EKG essentially did not show any acute ST-T changes. History of pacemaker made of [employer]. History of evaluation of the pacemaker six months ago. Continue current treatment. We will follow with you. Thank you, Dr. Dockery for providing us the opportunity in taking care of the patient Imani Mason. We will get lipid profile, TSH, hemoglobin A1c. Further recommendation depending upon hospital course. We will follow with you. Chandra Caro MD <>
[2018-08-08] MEDS: Pantoprazole 40 mg EC Tab PO SCH (07:11)
[2018-08-08 08:26] LABS: HEMOGLOBIN 11.2 g/dL (12.0-16.0); MEAN CELL VOLUME 94.9 fl (80.0-105.0); MEAN CORPUSCULAR HEMOGLOBIN 30.3 pg (25.0-35.0); MEAN CORPUSCULAR HGB CONC 31.9 g/dl (31.0-37.0); MEAN PLATELET VOLUME 10.4 fl (7.0-11.0); RBC 3.7 10^6/uL (3.5-6.1); RED CELL DISTRIBUTION WIDTH 12.9 % (11.5-14.5); WHITE BLOOD COUNT 4.9 10^3/ul (4.5-11.0)
[2018-08-08] MEDS: Insulin Reg-LOW-Coverage SC SCH ×4 (08:33→23:17)
[2018-08-08 08:53] LABS: ALB/GLOB RATIO 1.1 (1.1-1.8); ALBUMIN 3.4 g/dL (3.0-4.8); ALT/SGPT 24 U/L (7-56); AST/SGOT 21 U/L (14-36); BLOOD UREA NITROGEN 16 mg/dL (7-21); CALCIUM 8.8 mg/dL (8.4-10.5); GFR NON-AFRICAN AMERICAN > 60
[2018-08-08] MEDS: Multivitamin Therapeutic Tab PO SCH (09:14)
--- NOTE | 2018-08-08 11:05 | CP.PCM.CON ---
<Florin Miranda - Last Filed: 08/08/18 14:43> History of Present Illness - History of Present Illness History of Present Illness: PGY-4 GI Fellow Consult Note Pt is a 58 yo Hisp Female with "Colitis" (chronic per patient with last CSPY in early 2018 @ [facility], unknown details), h/o gastric bypass and cholecystectomy, Major Depression, Anxiety, Panic disorder, DM, HTN, CHF, Asthma, who was a dmitted to psych [facility] for management of depression symptoms. GI consult for diarrhea. Pt states that she had been dealing with diarrhea for years, ever since she had her gastric bypass+cholecystectomy. She states that she would have 3-4 loose watery brown stools per day. But, when she took two tabs of an anti-diarrheal (she thinks it's loperamide), she states that symptoms would resolve with just 1 formed brown bowel movement per day. She denies any weight loss, melena, hematochezia, recent travel nor dietary changes/uncooked foods. She does report multiple course of antibiotics for UTIs, but states that her stool habits have not changed since that time. 12 point ROS negative other than stated above MHx: See above SurgHx: Gastric bypass, cholecystectomy, pacemaker Meds: Reviewed in Mar FamHx: Denied GI problems SocHx: Denied x3 All: Levofloxacin Past Patient History - Infectious Disease Hx of Infectious Diseases: None - Tetanus Immunizations Tetanus Immunization: Unknown - Past Social History Home Situation {Lives}: Alone - CARDIAC Hx Congestive Heart Failure: Yes Hx Hypertension: Yes Hx Pacemaker: Yes - PULMONARY Hx Asthma: Yes - NEUROLOGICAL HX Cerebrovascular Accident: Yes (1993) Other/Comment: MS - HEENT Hx HEENT Problems: No - RENAL Hx Chronic Kidney Disease: No Hx Kidney Stones: Yes - ENDOCRINE/METABOLIC Hx Diabetes Mellitus Type 2: Yes - HEMATOLOGICAL/ONCOLOGICAL Hx Anemia: Yes - INTEGUMENTARY Hx Dermatological Problems: No - MUSCULOSKELETAL/RHEUMATOLOGICAL Hx Falls: Yes Hx Unsteady Gait: Yes - GASTROINTESTINAL Hx Gastrointestinal Disorders: Yes (COLITIS) - GENITOURINARY/GYNECOLOGICAL Hx Genitourinary Disorders: Yes (MULTIPLE UTIS) Hx Reproductive Disorders: Yes (VAGINAL ITCH STILL) - PSYCHIATRIC Hx Anxiety: Yes Hx Depression: Yes Hx Substance Use: Yes (see HPI) - SURGICAL HISTORY Hx Cholecystectomy: Yes Hx Gastric Bypass Surgery: Yes - ANESTHESIA Hx Anesthesia: Yes Hx Anesthesia Reactions: No Hx Malignant Hyperthermia: No Meds Allergies/Adverse Reactions: Allergies Allergy/AdvReac Type Severity Reaction Status Date / Time levofloxacin [From Levaquin] Allergy RASH Verified 08/06/18 16:30 - Medications Medications: Current Medications Amlodipine Besylate (Norvasc) 5 mg PO DAILY [facility] Last Admin: 08/08/18 09:13 Dose: 5 mg Aspirin (Ecotrin) 81 mg PO DAILY [facility] Last Admin: 08/08/18 09:13 Dose: 81 mg Atorvastatin Calcium (Lipitor) 40 mg PO DIN [facility] Last Admin: 08/07/18 17:55 Dose: 40 mg Clonazepam (Klonopin) 1 mg PO BID [facility]; Protocol Last Admin: 08/08/18 09:14 Dose: 1 mg Folic Acid (Folic Acid) 1 mg PO DAILY [facility] Last Admin: 08/08/18 09:13 Dose: 1 mg Gabapentin (Neurontin) 300 mg PO TID [facility]; Protocol Last Admin: 08/08/18 09:12 Dose: 300 mg Hydroxyzine Pamoate (Vistaril) 50 mg PO Q8 PRN; Protocol PRN Reason: Anxiety Last Admin: 08/08/18 07:37 Dose: 50 mg Ibuprofen (Motrin Tab) 600 mg PO Q6H PRN PRN Reason: Pain, moderate (4-7) Last Admin: 08/07/18 22:27 Dose: 600 mg Insulin Human Regular (Humulin R Low) 0 units SC [facility]; Protocol Last Admin: 08/08/18 08:33 Dose: Not Given Lorazepam (Ativan) 1 mg PO Q6H PRN; Protocol PRN Reason: Anxiety Last Admin: 08/06/18 18:20 Dose: 1 mg Lorazepam (Ativan) 1 mg IM Q6H PRN; Protocol PRN Reason: Agitation Losartan Potassium (Cozaar) 100 mg PO DAILY [facility] Last Admin: 08/08/18 09:14 Dose: 100 mg Multivitamins (Thera Tab) 1 tab PO 0800 [facility] Last Admin: 08/08/18 09:14 Dose: 1 tab Pantoprazole Sodium (Protonix Ec Tab) 40 mg PO 0600 [facility] Last Admin: 08/08/18 07:11 Dose: 40 mg Venlafaxine HCl (Effexor) 37.5 mg PO DAILY [facility] Last Admin: 08/08/18 09:13 Dose: 37.5 mg Zaleplon (Sonata) 5 mg PO HS PRN PRN Reason: Insomnia Last Admin: 08/06/18 22:23 Dose: 5 mg Physical Exam - Constitutional Appears: Well, No Acute Distress - Head Exam Head Exam: ATRAUMATIC, NORMAL INSPECTION - Eye Exam Eye Exam: EOMI. absent: Conjunctival injection, Scleral icterus - ENT Exam ENT Exam: Mucous Membranes Moist, Normal External Ear Exam. absent: Mucous Membranes Dry - Respiratory Exam Respiratory Exam: Clear to Auscultation Bilateral, NORMAL BREATHING PATTERN. absent: Accessory Muscle Use - Cardiovascular Exam Cardiovascular Exam: REGULAR RHYTHM, RRR - GI/Abdominal Exam GI & Abdominal Exam: Normal Bowel Sounds, Soft. absent: Diminished Bowel Sounds, Distended, Firm, Guarding, Mass, Organomegaly, Pulsatile Mass, Rebound, Rigid, Tenderness - Rectal Exam Rectal Exam: Deferred - Extremities Exam Extremities exam: Positive for: normal inspection, pedal edema (trace bilateral) - Neurological Exam Neurological exam: Alert, CN II-XII Intact - Skin Skin Exam: Normal Color, Warm Results - Vital Signs Recent Vital Signs: Last Vital Signs Temp 98.3 F 08/08/18 07:24 Pulse 59 L 08/08/18 09:13 Resp 20 08/08/18 07:24 BP 122/80 08/08/18 09:13 Pulse Ox 97 08/06/18 15:09 - Labs Result Diagrams: 08/08/18 08:00 08/08/18 08:00 Labs: Laboratory Results - last 24 hr 08/07/18 08/08/18 08/08/18 07:55 08:00 08:00 WBC 4.9 RBC 3.70 Hgb 11.2 L Hct 35.1 L MCV 94.9 MCH 30.3 MCHC 31.9 RDW 12.9 Plt Count 235 MPV 10.4 Sodium 139 Potassium 4.2 Chloride 105 Carbon Dioxide 27 Anion Gap 12 BUN 16 Creatinine 0.6 L Est GFR ( Amer) > 60 Est GFR (Non-Af Amer) > 60 Random Glucose 99 Calcium 8.8 Total Bilirubin 0.3 AST 21 ALT 24 Alkaline Phosphatase 130 H Total Protein 6.6 Albumin 3.4 Globulin 3.1 Albumin/Globulin Ratio 1.1 RPR Nonreactive Assessment & Plan - Assessment and Plan (Free Text) Assessment: 58 yo Hisp Female with "colitis" and h/o gastric bypass, cholecystectomy admitted to psych for depression. GI consulted for diarrhea. # Chronic diarrhea: ~10 years per pt report since gastric bypass and cholecystectomy. No red flag symptoms such as weight loss or signs of bleeding. Reassuringly, she reports complete relief with loperamide. As far as cause, b ile induced should have resolved about 6 months post-op. "Colitis" history could suggest possible microscopic colitis which would present with chronic diarrhea. Plan: - Start loperamide - F/u with outpatient GI doctors at [facility] for further treatment of "colitis" - Supportive care - Restarted home ondansetron per patient request Thank you for the consult. Will sign off. Please page if questions. Pt discused with Dr. Fajardo. See attestation for further recs/changes. <Arslan Fajardo - Last Filed: 08/08/18 16:03> Meds - Medications Medications: Current Medications Amlodipine Besylate (Norvasc) 5 mg PO DAILY [facility] Last Admin: 08/08/18 09:13 Dose: 5 mg Aspirin (Ecotrin) 81 mg PO DAILY [facility] Last Admin: 08/08/18 09:13 Dose: 81 mg Atorvastatin Calcium (Lipitor) 40 mg PO DIN [facility] Last Admin: 08/07/18 17:55 Dose: 40 mg Clonazepam (Klonopin) 1 mg PO BID [facility]; Protocol Last Admin: 08/08/18 09:14 Dose: 1 mg Folic Acid (Folic Acid) 1 mg PO DAILY [facility] Last Admin: 08/08/18 09:13 Dose: 1 mg Gabapentin (Neurontin) 300 mg PO TID [facility]; Protocol Last Admin: 08/08/18 13:16 Dose: 300 mg Hydroxyzine Pamoate (Vistaril) 50 mg PO Q8 PRN; Protocol PRN Reason: Anxiety Last Admin: 08/08/18 07:37 Dose: 50 mg Ibuprofen (Motrin Tab) 600 mg PO Q6H PRN PRN Reason: Pain, moderate (4-7) Last Admin: 08/07/18 22:27 Dose: 600 mg Insulin Human Regular (Humulin R Low) 0 units SC [facility]; Protocol Last Admin: 08/08/18 13:02 Dose: Not Given Loperamide HCl (Imodium) 4 mg PO DAILY [facility] Last Admin: 08/08/18 13:16 Dose: 4 mg Lorazepam (Ativan) 1 mg PO Q6H PRN; Protocol PRN Reason: Anxiety Last Admin: 08/06/18 18:20 Dose: 1 mg Lorazepam (Ativan) 1 mg IM Q6H PRN; Protocol PRN Reason: Agitation Losartan Potassium (Cozaar) 100 mg PO DAILY [facility] Last Admin: 08/08/18 09:14 Dose: 100 mg Multivitamins (Thera Tab) 1 tab PO 0800 [facility] Last Admin: 08/08/18 09:14 Dose: 1 tab Ondansetron HCl (Zofran Tab) 4 mg PO Q8H PRN PRN Reason: Nausea/Vomiting Pantoprazole Sodium (Protonix Ec Tab) 40 mg PO 0600 [facility] Last Admin: 08/08/18 07:11 Dose: 40 mg Quetiapine Fumarate (Seroquel) 25 mg PO HS [facility]; Protocol Venlafaxine HCl (Effexor) 37.5 mg PO DAILY [facility] Last Admin: 08/08/18 09:13 Dose: 37.5 mg Results - Vital Signs Recent Vital Signs: Last Vital Signs Temp 98.3 F 08/08/18 07:24 Pulse 59 L 08/08/18 09:13 Resp 20 08/08/18 07:24 BP 122/80 08/08/18 09:13 Pulse Ox 97 08/06/18 15:09 - Labs Result Diagrams: 08/08/18 08:00 08/08/18 08:00 Labs: Laboratory Results - last 24 hr 08/07/18 08/07/18 08/07/18 07:55 12:32 16:07 WBC RBC Hgb Hct MCV MCH MCHC RDW Plt Count MPV Sodium Potassium Chloride Carbon Dioxide Anion Gap BUN Creatinine Est GFR ( Amer) Est GFR (Non-Af Amer) POC Glucose (mg/dL) 85 108 Random Glucose Calcium Total Bilirubin AST ALT Alkaline Phosphatase Total Protein Albumin Globulin Albumin/Globulin Ratio RPR Nonreactive 08/07/18 08/08/18 08/08/18 21:04 07:16 08:00 WBC 4.9 RBC 3.70 Hgb 11.2 L Hct 35.1 L MCV 94.9 MCH 30.3 MCHC 31.9 RDW 12.9 Plt Count 235 MPV 10.4 Sodium Potassium Chloride Carbon Dioxide Anion Gap BUN Creatinine Est GFR ( Amer) Est GFR (Non-Af Amer) POC Glucose (mg/dL) 89 94 Random Glucose Calcium Total Bilirubin AST ALT Alkaline Phosphatase Total Protein Albumin Globulin Albumin/Globulin Ratio RPR 08/08/18 08:00 WBC RBC Hgb Hct MCV MCH MCHC RDW Plt Count MPV Sodium 139 Potassium 4.2 Chloride 105 Carbon Dioxide 27 Anion Gap 12 BUN 16 Creatinine 0.6 L Est GFR ( Amer) > 60 Est GFR (Non-Af Amer) > 60 POC Glucose (mg/dL) Random Glucose 99 Calcium 8.8 Total Bilirubin 0.3 AST 21 ALT 24 Alkaline Phosphatase 130 H Total Protein 6.6 Albumin 3.4 Globulin 3.1 Albumin/Globulin Ratio 1.1 RPR Attending/Attestation - Attestation I have personally seen and examined this patient.: Yes I have fully participated in the care of the patient.: Yes I have reviewed all pertinent clinical information: Yes Notes (Text): 08/08/18 16:00 Chart reviewed. Patient interviewed and examined. Assessment and recommendations, as above, discussed with Dr. Miranda.
--- NOTE | 2018-08-08 12:48 | PCM.PYCHPN ---
Psychiatric Progress Note - Psychiatric Progress Note Patient seen today, length of contact: 30min Patient Chief Complaint: "I'm not feeling good, I cannot concentrate, I need to relax, I feel very angry, my mind is racing" Problems Identified/Issues Discussed: Suicide/ homicide prevention, past psychiatric h/o, current psychiatric symptoms, medical problems, risk/benefits and alternatives of medications, medications compliance, coping strategies, substance abuse h/o, relapse prevention, importance of follow up with psychiatrist and therapist, discharge plan. Medical Problems: see HPI Diagnostic Results: 08/08/18 08:00 08/08/18 08:00 Lab Results 08/08/18 08:00: Sodium 139, Potassium 4.2, Chloride 105, Carbon Dioxide 27, Anion Gap 12, BUN 16, Creatinine 0.6 L, Est GFR ( Amer) > 60, Est GFR (Non-Af Amer) > 60, Random Glucose 99, Calcium 8.8, Total Bilirubin 0.3, AST 21, ALT 24, Alkaline Phosphatase 130 H, Total Protein 6.6, Albumin 3.4, Globulin 3.1, Albumin/Globulin Ratio 1.1 08/08/18 08:00: WBC 4.9, RBC 3.70, Hgb 11.2 L, Hct 35.1 L, MCV 94.9, MCH 30.3, MCHC 31.9, RDW 12.9, Plt Count 235, MPV 10.4 08/08/18 07:16: POC Glucose (mg/dL) 94 08/07/18 21:04: POC Glucose (mg/dL) 89 08/07/18 16:07: POC Glucose (mg/dL) 108 08/07/18 12:32: POC Glucose (mg/dL) 85 08/07/18 07:55: RPR Nonreactive 08/07/18 07:55: Free T4 1.05, TSH 3rd Generation 1.40 08/07/18 07:55: Fasting Glucose 94, Triglycerides 107, Cholesterol 120 L, LDL Cholesterol Direct 46, HDL Cholesterol 46 08/07/18 07:10: POC Glucose (mg/dL) 92 08/06/18 21:49: POC Glucose (mg/dL) 103 08/06/18 11:20: Alcohol, Quantitative < 10 08/06/18 11:20: Urine Opiates Screen Negative, Urine Methadone Screen Negative, Ur Barbiturates Screen Positive H, Ur Phencyclidine Scrn Negative, Ur Amphetami jose Screen Negative, U Benzodiazepines Scrn Negative, U Oth Cocaine Metabols Negative, U Cannabinoids Screen Negative 08/06/18 11:20: Sodium 139, Potassium 3.9, Chloride 106, Carbon Dioxide 27, Anion Gap 10, BUN 12, Creatinine 0.6 L, Est GFR ( Amer) > 60, Est GFR (Non-Af Amer) > 60, Random Glucose 127 H, Calcium 8.4, Magnesium 1.7, Total Bilirubin 0.2, AST 25, ALT 34, Alkaline Phosphatase 127 H, Lactate Dehydrogenase 384, Total Creatine Kinase 39, Troponin I < 0.01, Total Protein 6.2, Albumin 3.3, Globulin 2.9, Albumin/Globulin Ratio 1.1 08/06/18 11:20: Urine Color Yellow, Urine Appearance Clear, Urine pH 6.0, Ur Specific Dennis 1.010, Urine Protein Negative, Urine Glucose (UA) Negative, Urine Ketones Negative, Urine Blood Negative, Urine Nitrate Negative, Urine Bilirubin Negative, Urine Urobilinogen 0.2, Ur Leukocyte Esterase Trace H, Urine RBC 0 - 2, Urine WBC 1 - 3, Ur Epithelial Cells 4 - 5, Urine Bacteria Few 08/06/18 11:20: PT 12.2, INR 1.06, APTT 29.2 08/06/18 11:20: WBC 5.1, RBC 3.39 L, Hgb 10.2 L, Hct 32.1 L, MCV 94.7, MCH 30.1, MCHC 31.8, RDW 12.9, Plt Count 206, MPV 10.4, Gran % 68.3 H, Lymph % (Auto) 23.5, Bradley % (Auto) 3.5, Eos % (Auto) 4.5, Baso % (Auto) 0.2, Gran # 3.49, Lymph # (Auto) 1.2, Bradley # (Auto) 0.2, Eos # (Auto) 0.2, Baso # (Auto) 0.01 Vital Signs Temp Pulse Pulse Resp BP Pulse Ox 08/08/18 09:13 59 L 122/80 08/08/18 07:24 98.3 F 59 L 20 122/80 08/07/18 15:59 72 142/79 08/07/18 07:13 97.8 F 61 20 155/93 H 08/07/18 07:00 61 155/93 H 08/06/18 17:33 65 18 08/06/18 15:09 98 H 18 142/78 97 08/06/18 13:04 63 18 143/78 98 08/06/18 09:38 99.3 F 64 18 149/84 98 DSM 5 Symptoms Update: shortly pt is shortly, patient is 58 year old female, long history of depression as well as anxiety, 3 previous hospitalizations at age of 52, 54, 58, denied history of suicidal attempts, recently moved to [place] from [place] to live with her daughter who has 5 kids, pt recently moved out from her daughter's apartment because of the conflict with her, pt currently lives independently in [place], pt has multiple medical issues including MS,Diabetes, hypertension, Pacemaker, CHF, asthma, CVA, pt brought herself to the hospital for evaluation and stabilization of depressive symptoms, feeling of hopelessness, passive wish to be , patient reported that she was noncompliant with the medications Effexor/Klonopin because she was not sure if she has insurance or not, patient requires further evaluation and stabilization and medication resumption and titration. pt was seen next to the nursing station. patient presented depressed today, patient reported that she was not able to sleep, patient reported difficulty to concentrate and "mind racing", patient requested Seroquel to be resumed because she was doing well on that medication before, patient reported that she doesn't feel like eating, patient complain of upsets,, patient reported that she was taking Imodium in the past. Patient was seen by gastroenterology team today, briefly discussed with network and threat support specialist. patient reported that she does not hear any voices or seeing things, but reports feeling very anxious. So far patient tolerates medications well, no side effects observed or reported, aims 0, no EPS. As per staff patient complain of the pain, patient is concerned about her medical issues,no agitation, no aggression, patient is socially appropriate, but self isolating. Impression: DSM 5 Diagnosis: as per h/o: MDD EMMIE panic disorder PTSD Medication Change: Yes (Seroquel 25 mg at the nighttime started, sonata discontinue) Medical Record Reviewed: Yes Consults ordered or reviewed: medical consult appreciated Gastroenterology consultation appreciated Mental Status Examination - Cognitive Function Orientation: Person, Place, Situation, Time Memory: Intact Attention: Poor Concentration: Poor Association: Loose Fund of Knowledge: Poor - Mood Mood: Depressed, Anxious - Affect Affect: Flat - Formal Thought Process Formal Thought Process: No Impairment - Suicidal Ideation Suicidal Ideation: No - Homicidal Ideation Homicidal Ideation: No Goal/Treatment Plan - Goal/Treatment Plan Need for Continued Stay: Remain at risks for inpatient hospitalization, Severe depression anxiety, Discharge may exacerbated symptoms, Severe functional impairment Progress Toward Problem(s) and Goals/Treatment Plan: Milieu/structure/supportive therapy Medical consult appreciated will call cardiology consult EKG changes, h/o chest pain and CVA SW consultation for discharge plan and social issues Med list was confirmed by [facility] pharmacy clonazepam 1mg po bid for anxiety atorvastatin 40mg daily ASA 81mg po daily zofran 8mg po daily Lyrica 100mg po daily filled April 15, 2018 neurontin 300mg po tid sonata d/c seroquel 25mg po hs for mood stablization effexor 37.5mg po daily for depression adn anxiety Family involvement Follow up on labs Will monitor closely Pt was educated about risk/benefits and alternatives of medications, coping strategies (safety plan, suicide prevention), relapse prevention, importance of follow up with psychiatrist and therapist, stay away from drugs/alcohol/smoking Estimated Date of D/C: 08/14/18
[2018-08-09] MEDS: Pantoprazole 40 mg EC Tab PO SCH (06:03)
[2018-08-09] MEDS: Multivitamin Therapeutic Tab PO SCH (09:11)
[2018-08-09] MEDS: Insulin Reg-LOW-Coverage SC SCH ×4 (09:13→21:34)
--- NOTE | 2018-08-09 10:32 | PCM.PYCHPN ---
Psychiatric Progress Note - Psychiatric Progress Note Patient seen today, length of contact: 30min Patient Chief Complaint: "can you increase my antidepressant?" Problems Identified/Issues Discussed: Suicide/ homicide prevention, past psychiatric h/o, current psychiatric sym ptoms, medical problems, risk/benefits and alternatives of medications, medications compliance, coping strategies, substance abuse h/o, relapse prevention, importance of follow up with psychiatrist and therapist, discharge plan. Medical Problems: see HPI Diagnostic Results: 08/08/18 08:00 08/08/18 08:00 Lab Results 08/08/18 08:00: Sodium 139, Potassium 4.2, Chloride 105, Carbon Dioxide 27, Anion Gap 12, BUN 16, Creatinine 0.6 L, Est GFR ( Amer) > 60, Est GFR (Non-Af Amer) > 60, Random Glucose 99, Calcium 8.8, Total Bilirubin 0.3, AST 21, ALT 24, Alkaline Phosphatase 130 H, Total Protein 6.6, Albumin 3.4, Globulin 3.1, Albumin/Globulin Ratio 1.1 08/08/18 08:00: WBC 4.9, RBC 3.70, Hgb 11.2 L, Hct 35.1 L, MCV 94.9, MCH 30.3, MCHC 31.9, RDW 12.9, Plt Count 235, MPV 10.4 08/08/18 07:16: POC Glucose (mg/dL) 94 08/07/18 21:04: POC Glucose (mg/dL) 89 08/07/18 16:07: POC Glucose (mg/dL) 108 08/07/18 12:32: POC Glucose (mg/dL) 85 08/07/18 07:55: RPR Nonreactive 08/07/18 07:55: Free T4 1.05, TSH 3rd Generation 1.40 08/07/18 07:55: Fasting Glucose 94, Triglycerides 107, Cholesterol 120 L, LDL Cholesterol Direct 46, HDL Cholesterol 46 08/07/18 07:10: POC Glucose (mg/dL) 92 08/06/18 21:49: POC Glucose (mg/dL) 103 08/06/18 11:20: Alcohol, Quantitative < 10 08/06/18 11:20: Urine Opiates Screen Negative, Urine Methadone Screen Negative, Ur Barbiturates Screen Positive H, Ur Phencyclidine Scrn Negative, Ur Amphetamines Screen Negative, U Benzodiazepines Scrn Negative, U Oth Cocaine Metabols Negative, U Cannabinoids Screen Negative 08/06/18 11:20: Sodium 139, Potassium 3.9, Chloride 106, Carbon Dioxide 27, Anion Gap 10, BUN 12, Creatinine 0.6 L, Est GFR ( Amer) > 60, Est GFR (Non-Af Amer) > 60, Random Glucose 127 H, Calcium 8.4, Magnesium 1.7, Total Bilirubin 0.2, AST 25, ALT 34, Alkaline Phosphatase 127 H, Lactate Dehydrogenase 384, Total Creatine Kinase 39, Troponin I < 0.01, Total Protein 6.2, Albumin 3.3, Globulin 2.9, Albumin/Globulin Ratio 1.1 08/06/18 11:20: Urine Color Yellow, Urine Appearance Clear, Urine pH 6.0, Ur Specific [place] 1.010, Urine Protein Negative, Urine Glucose (UA) Negative, Urine Ketones Negative, Urine Blood Negative, Urine Nitrate Negative, Urine Bilirubin Negative, Urine Urobilinogen 0.2, Ur Leukocyte Esterase Trace H, Urine RBC 0 - 2, Urine WBC 1 - 3, Ur Epithelial Cells 4 - 5, Urine Bacteria Few 08/06/18 11:20: PT 12.2, INR 1.06, APTT 29.2 08/06/18 11:20: WBC 5.1, RBC 3.39 L, Hgb 10.2 L, Hct 32.1 L, MCV 94.7, MCH 30.1, MCHC 31.8, RDW 12.9, Plt Count 206, MPV 10.4, Gran % 68.3 H, Lymph % (Auto) 23.5, [place] % (Auto) 3.5, Eos % (Auto) 4.5, Baso % (Auto) 0.2, Gran # 3.49, Lymph # (Auto) 1.2, [place] # (Auto) 0.2, Eos # (Auto) 0.2, Baso # (Auto) 0.01 Vital Signs Temp Pulse Pulse Resp BP Pulse Ox 08/08/18 09:13 59 L 122/80 08/08/18 07:24 98.3 F 59 L 20 122/80 08/07/18 15:59 72 142/79 08/07/18 07:13 97.8 F 61 20 155/93 H 08/07/18 07:00 61 155/93 H 08/06/18 17:33 65 18 08/06/18 15:09 98 H 18 142/78 97 08/06/18 13:04 63 18 143/78 98 08/06/18 09:38 99.3 F 64 18 149/84 98 DSM 5 Symptoms Update: shortly pt is shortly, patient is 58 year old female, long history of depression as well as anxiety, 3 previous hospitalizations at age of 52, 54, 58, denied history of suicidal attempts, recently moved to [place] from [place] to live with her daughter who has 5 kids, pt recently moved out from her daughter's apartment because of the conflict with her, pt currently lives independently in [place], pt has multiple medical issues including MS,Diabetes, hypertension, Pacemaker, CHF, asthma, CVA, pt brought herself to the hospital for evaluation and stabilization of depressive symptoms, feeling of hopelessness, passive wish to be , patient reported that she was noncompliant with the medications Effexor/Klonopin because she was not sure if she has insurance or not, patient requires further evaluation and stabilization and medication resumption and titration. pt was seen next to the nursing station. patient presented depressed today, asked her effexor to be increased. pt reported that she slept little better. pt was seen by GI team. patient reported that she does not hear any voices or seeing things, but reports feeling very anxious. So far patient tolerates medications well, no side effects observed or reported, aims 0, no EPS. As per staff patient complain of the pain, patient is concerned about her medical issues,no agitation, no aggression, patient is socially appropriate, but self isolating. Impression: DSM 5 Diagnosis: as per h/o: MDD EMMIE panic disorder PTSD Medication Change: Yes (effexor increased) Medical Record Reviewed: Yes Consults ordered or reviewed: medical consult appreciated Gastroenterology consultation appreciated Mental Status Examination - Cognitive Function Orientation: Person, Place, Situation, Time Memory: Intact Attention: Poor Concentration: Poor Association: Loose Fund of Knowledge: Poor - Mood Mood: Depressed, Anxious - Affect Affect: Flat - Formal Thought Process Formal Thought Process: No Impairment - Suicidal Ideation Suicidal Ideation: No - Homicidal Ideation Homicidal Ideation: No Goal/Treatment Plan - Goal/Treatment Plan Need for Continued Stay: Remain at risks for inpatient hospitalization, Severe depression anxiety, Discharge may exacerbated symptoms, Severe functional impairment Progress Toward Problem(s) and Goals/Treatment Plan: Milieu/structure/supportive therapy Medical consult appreciated will call cardiology consult EKG changes, h/o chest pain and CVA SW consultation for discharge plan and social issues Med list was confirmed by [facility] pharmacy clonazepam 1mg po bid for anxiety atorvastatin 40mg daily ASA 81mg po daily zofran 8mg po daily Lyrica 100mg po daily filled April 15, 2018 neurontin 300mg po tid sonata d/c seroquel 25mg po hs for mood stablization effexor 75mg po daily for depression and anxiety Family involvement Follow up on labs Will monitor closely Pt was educated about risk/benefits and alternatives of medications, coping strategies (safety plan, suicide prevention), relapse prevention, importance of follow up with psychiatrist and therapist, stay away from drugs/alcohol/smoking Estimated Date of D/C: 08/14/18
[2018-08-09] MEDS: Lidocaine 5% Patch TD SCH (11:02)
--- NOTE | 2018-08-09 13:37 | PN ---
DATE: 08/09/2018 SUBJECTIVE: I saw her eating breakfast today. She is doing better. She is back on the Imodium as per GI, now she is telling me she is having low back pain and she has used Lidoderm cream. I will give her Lidoderm patch. She is feeling better emotionally. She is on Ativan, Cozaar, Ecotrin, Effexor, folic acid, Imodium, now Klonopin. I added Lidoderm patch, Lipitor, Motrin, Neurontin, Norvasc, Protonix, Seroquel, Thera-Tabs, Vistaril and Zofran. PHYSICAL EXAMINATION: VITAL SIGNS: Temperature 97.8, 59 pulse, 110/56 blood pressure, 18 respiratory rate. HEAD: Atraumatic, normocephalic. HEART: Regular rate. LUNGS: Clear to auscultation. ABDOMEN: Soft, obese. EXTREMITIES: No edema. LABORATORY DATA: Last labs on 08/08/2018, she has a 4.9 white count, 11.2 hemoglobin, 235 platelets. Sodium 139, potassium 4.2, BUN 16, creatinine 0.6, GFR greater than 60. Last blood sugar was 96. AST is 21, ALT is 24, alk phos of 130. Hopefully, she will continue to improve. She is on insulin coverage. I want to watch her low sugar diet as per Psychiatry and GI was appreciated. I gave her Lidoderm patch for the low back pain. We will follow. Meet Layton DO
[2018-08-10] MEDS: Pantoprazole 40 mg EC Tab PO SCH (06:40)
[2018-08-10] MEDS: Multivitamin Therapeutic Tab PO SCH (09:26)
[2018-08-10] MEDS: Insulin Reg-LOW-Coverage SC SCH ×4 (09:27→22:30)
[2018-08-10] MEDS: Lidocaine 5% Patch TD SCH (09:27)
--- NOTE | 2018-08-10 10:13 | PN ---
DATE: 08/08/2018 SUBJECTIVE: I saw her sitting out of bed to a chair, drawing on a piece of paper. She tells me she is feeling a bit better. She is less depressed. MEDICATIONS: She is on Ativan, Cozaar, Ecotrin, Effexor, folic acid, insulin, Klonopin, Lipitor, Motrin, Neurontin, Norvasc, Protonix, Sonata, Thera-Tabs, PHYSICAL EXAMINATION: VITAL SIGNS: She has a 98.3 temp; 59 pulse; 122/80 blood pressure, good; 20 respiratory rate. HEENT: Head is atraumatic, normocephalic. HEART: Regular rate. LUNGS: Clear to auscultation. ABDOMEN: Soft. EXTREMITIES: No edema. LABORATORY DATA: Blood test with 4.9 white count, 11.2 hemoglobin, 35.1 hematocrit with 235 platelets. 139 sodium, potassium 4.2, BUN 16, creatinine 0.6, GFR is greater than 60, sugar is 99, calcium is 8.8, total bili is 0.3, AST is 21, ALT is 24, alk phos is 130, total protein 6.6, albumin is 3.4. TSH is 1.4, which is good. ASSESSMENT AND PLAN: She has been seen by Psychiatry. I encouraged her to participate in groups, eat the food, take the medication. I do think she is starting to improve. I will continue to follow. We will continue with aggressive treatment and care on Isabella Diallo. Meet Layton DO MTDD
--- NOTE | 2018-08-10 10:59 | PN ---
DATE: 08/10/2018 REASON FOR CONSULTATION AND FOLLOWUP: Abnormal EKG, history of pacemaker, cardiac evaluation and followup. SUBJECTIVE: The patient denies any chest pain, shortness of breath or any palpitation. OBJECTIVE: GENERAL: Not in any apparent distress, lying flat in the bed in the Psych floor. VITAL SIGNS: Temperature afebrile, heart rate 62, blood pressure 112/66. HEENT: PERRLA. Extraocular muscles intact. NECK: Supple. No carotid bruit. No thyromegaly. CHEST: Clear to auscultation. HEART: S1 and S2 regular. ABDOMEN: Soft. EXTREMITIES: Clubbing and cyanosis negative. LABORATORY DATA: Blood workup; WBC 4.9, hemoglobin 11.8, hematocrit 35.1, platelet count 235. Chemistry shows sodium 130, potassium 4.2, chloride 105, carbon dioxide 27, anion gap of 12, BUN 16, creatinine 0.6, AST 21, ALT 24, alkaline phosphatase 130, total protein 6.6, albumin 3.4, albumin and globulin ratio 1.1. TSH 1.4. Total triglyceride 107, cholesterol 120, LDL 46, HDL 46. 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 Admitted with depression. The patient had a pacemaker done in [place] and has a stress test was negative. Last echocardiogram here on 02/25/2018 shows left ventricular size normal. Normal wall thickness. Normal left ventricular function. Normal tricuspid and mitral valve reported. Calculated ejection fraction 57% dated 03/06/2018. RECOMMENDATION: No evidence of acute TN. The patient had [employer] pacemaker and being evaluated 6 months ago, normal. Continue current medication. CVS status is stable. We will see periodically. Thank you, Dr. Dockery for providing us the opportunity in taking care of the patient, Isabella Diallo. Chandra Caro MD
--- NOTE | 2018-08-10 14:46 | PN ---
DATE: 08/10/2018 SUBJECTIVE: She is in her room in the psych floor. She is still having back pain, eventually on the Motrin 600, I will increase it to 800. She is on Ativan, Cozaar for blood pressure, Ecotrin, Effexor, folic acid, insulin coverage, Imodium, Klonopin, Lidoderm for the back pain, Lipitor for cholesterol. I bumped up her Motrin to 800 mg from 600 mg,hoping to help her. She is also on Neurontin, Norvasc, Protonix, Seroquel, vitamin, Zestril, and Zofran. PHYSICAL EXAMINATION: VITAL SIGNS: She has a 97.8 temperature, 59 pulse, 107/68 blood pressure, 18 respiratory rate. ASSESSMENT AND PLAN: She is here for multiple issues, hypertension, low back pain, diabetes, congestive heart failure, asthma, depression. I have increased her medications, hopefully, she will start to improve. Meet Layton DO
--- NOTE | 2018-08-10 16:02 | PCM.PYCHPN ---
Psychiatric Progress Note - Psychiatric Progress Note Patient seen today, length of contact: 30min Patient Chief Complaint: "I am not very well" Problems Identified/Issues Discussed: Suicide/ homicide prevention, past psychiatric h/o, current psychiatric symptoms, medical problems, risk/benefits and alternatives of medications, medications compliance, coping strategies, substance abuse h/o, relapse prevention, importance of follow up with psychiatrist and therapist, discharge plan. Medical Problems: see HPI Diagnostic Results: 08/08/18 08:00 08/08/18 08:00 Lab Results 08/08/18 08:00: Sodium 139, Potassium 4.2, Chloride 105, Carbon Dioxide 27, Anion Gap 12, BUN 16, Creatinine 0.6 L, Est GFR ( Amer) > 60, Est GFR (Non-Af Amer) > 60, Random Glucose 99, Calcium 8.8, Total Bilirubin 0.3, AST 21, ALT 24, Alkaline Phosphatase 130 H, Total Protein 6.6, Albumin 3.4, Globulin 3.1, Albumin/Globulin Ratio 1.1 08/08/18 08:00: WBC 4.9, RBC 3.70, Hgb 11.2 L, Hct 35.1 L, MCV 94.9, MCH 30.3, MCHC 31.9, RDW 12.9, Plt Count 235, MPV 10.4 08/08/18 07:16: POC Glucose (mg/dL) 94 08/07/18 21:04: POC Glucose (mg/dL) 89 08/07/18 16:07: POC Glucose (mg/dL) 108 08/07/18 12:32: POC Glucose (mg/dL) 85 08/07/18 07:55: RPR Nonreactive 08/07/18 07:55: Free T4 1.05, TSH 3rd Generation 1.40 08/07/18 07:55: Fasting Glucose 94, Triglycerides 107, Cholesterol 120 L, LDL Cholesterol Direct 46, HDL Cholesterol 46 08/07/18 07:10: POC Glucose (mg/dL) 92 08/06/18 21:49: POC Glucose (mg/dL) 103 08/06/18 11:20: Alcohol, Quantitative < 10 08/06/18 11:20: Urine Opiates Screen Negative, Urine Methadone Screen Negative, Ur Barbiturates Screen Positive H, Ur Phencyclidine Scrn Negative, Ur Amphetamines Screen Negative, U Benzodiazepines Scrn Negative, U Oth Cocaine Metabols Negative, U Cannabinoids Screen Negative 08/06/18 11:20: Sodium 139, Potassium 3.9, Chloride 106, Carbon Dioxide 27, Anion Gap 10, BUN 12, Creatinine 0.6 L, Est GFR ( Amer) > 60, Est GFR (Non-Af Amer) > 60, Random Glucose 127 H, Calcium 8.4, Magnesium 1.7, Total Bilirubin 0.2, AST 25, ALT 34, Alkaline Phosphatase 127 H, Lactate Dehydrogenase 384, Total Creatine Kinase 39, Troponin I < 0.01, Total Protein 6.2, Albumin 3.3, Globulin 2.9, Albumin/Globulin Ratio 1.1 08/06/18 11:20: Urine Color Yellow, Urine Appearance Clear, Urine pH 6.0, Ur Specific [place] 1.010, Urine Protein Negative, Urine Glucose (UA) Negative, Urine Ketones Negative, Urine Blood Negative, Urine Nitrate Negative, Urine Bilirubin Negative, Urine Urobilinogen 0.2, Ur Leukocyte Esterase Trace H, Urine RBC 0 - 2, Urine WBC 1 - 3, Ur Epithelial Cells 4 - 5, Urine Bacteria Few 08/06/18 11:20: PT 12.2, INR 1.06, APTT 29.2 08/06/18 11:20: WBC 5.1, RBC 3.39 L, Hgb 10.2 L, Hct 32.1 L, MCV 94.7, MCH 30.1, MCHC 31.8, RDW 12.9, Plt Count 206, MPV 10.4, Gran % 68.3 H, Lymph % (Auto) 23.5, [place] % (Auto) 3.5, Eos % (Auto) 4.5, Baso % (Auto) 0.2, Gran # 3.49, Lymph # (Auto) 1.2, [place] # (Auto) 0.2, Eos # (Auto) 0.2, Baso # (Auto) 0.01 Vital Signs Temp Pulse Pulse Resp BP Pulse Ox 08/08/18 09:13 59 L 122/80 08/08/18 07:24 98.3 F 59 L 20 122/80 08/07/18 15:59 72 142/79 08/07/18 07:13 97.8 F 61 20 155/93 H 08/07/18 07:00 61 155/93 H 08/06/18 17:33 65 18 08/06/18 15:09 98 H 18 142/78 97 08/06/18 13:04 63 18 143/78 98 08/06/18 09:38 99.3 F 64 18 149/84 98 DSM 5 Symptoms Update: shortly pt is shortly, patient is 58 year old female, long history of depression as well as anxiety, 3 previous hospitalizations at age of 52, 54, 58, denied history of suicidal attempts, recently moved to [place] from [place] to live with her daughter who has 5 kids, pt recently moved out from her daughter's apartment because of the conflict with her, pt currently lives independently in [place], pt has multiple medical issues including MS,Diabetes, hypertension, Pacemaker, CHF, asthma, CVA, pt brought herself to the hospital for evaluation and stabilization of depressive symptoms, feeling of hopelessness, passive wish to be , patient reported that she was noncompliant with the medications Effexor/Klonopin because she was not sure if she has insurance or not, patient requires further evaluation and stabilization and medication resumption and titration. pt was seen at the dinning area pt reported that she feels little better, but "I am not well at all", pt reported transient feeling of hopelessness. reported that she slept relatively well. patient reported that she does not hear any voices or seeing things, but reports feeling very anxious. So far patient tolerates medications well, no side effects observed or reported, aims 0, no EPS. As per staff,no agitation, no aggression, patient is socially appropriate, but self isolating. Impression: DSM 5 Diagnosis: as per h/o: MDD EMMIE panic disorder PTSD Medication Change: Yes (effexor increased 08/09/18) Medical Record Reviewed: Yes Mental Status Examination - Cognitive Function Orientation: Person, Place, Situation, Time Memory: Intact Attention: Poor Concentration: Poor Association: Loose Fund of Knowledge: Poor - Mood Mood: Depressed, Anxious - Affect Affect: Flat - Formal Thought Process Formal Thought Process: No Impairment - Suicidal Ideation Suicidal Ideation: No - Homicidal Ideation Homicidal Ideation: No Goal/Treatment Plan - Goal/Treatment Plan Need for Continued Stay: Remain at risks for inpatient hospitalization, Severe depression anxiety, Discharge may exacerbated symptoms, Severe functional impairment Progress Toward Problem(s) and Goals/Treatment Plan: Milieu/structure/supportive therapy Medical consult appreciated will call cardiology consult EKG changes, h/o chest pain and CVA SW consultation for discharge plan and social issues Med list was confirmed by [facility] pharmacy clonazepam 1mg po bid for anxiety atorvastatin 40mg daily ASA 81mg po daily zofran 8mg po daily Lyrica 100mg po daily filled April 15, 2018 neurontin 300mg po tid sonata d/c seroquel 25mg po hs for mood stablization effexor 75mg po daily for depression and anxiety Family involvement Follow up on labs Will monitor closely Pt was educated about risk/benefits and alternatives of medications, coping strategies (safety plan, suicide prevention), relapse prevention, importance of follow up with psychiatrist and therapist, stay away from drugs/alcohol/smoking Estimated Date of D/C: 08/14/18
[2018-08-11] MEDS: Pantoprazole 40 mg EC Tab PO SCH (06:50)
[2018-08-11] MEDS: Insulin Reg-LOW-Coverage SC SCH ×4 (08:24→21:46)
[2018-08-11] MEDS: Multivitamin Therapeutic Tab PO SCH (08:25)
[2018-08-11] MEDS: Lidocaine 5% Patch TD SCH (08:27)
--- NOTE | 2018-08-11 08:31 | PN ---
DATE: 08/11/2018 SUBJECTIVE: I see her resting comfortably in bed. She slept well last night. She is here for multiple reasons; depression, asthma, CHF, diabetes. She had low back pain. Presently she is asking for her ProAir and a Flonase to be put back on her medication list. She is on Ativan, Cozaar, Ecotrin, Effexor, Flonase now, folic acid, insulin coverage, Imodium, Klonopin, Lidoderm, Lipitor, Motrin, Neurontin, Norvasc, Protonix, Seroquel, multivitamins. I added Ventolin, Vistaril and Zofran. PHYSICAL EXAMINATION: VITAL SIGNS: She has a 98.5 temp, 62 pulse, 122/79 blood pressure, 20 respiratory rate. HEAD: Atraumatic, normocephalic. HEART: Regular rate. LUNGS: Decreased breath sounds but clear. No wheezes or rhonchi today. ABDOMEN: Soft, obese, nontender. EXTREMITIES: No edema. LABORATORY DATA: Last labs on the 08/08/2018, CBC with 4.9 white count, 11.2 hemoglobin, 235 platelets. Last blood sugar was 140 on the 08/08/2018. Sodium 139, potassium 4.2, BUN 16, creatinine 0.6. Alk phos was 130. RPR was nonreactive. ASSESSMENT AND PLAN: She is being seen by Psychiatry, Cardiology. No changes from Cardiology evaluation of the EKG. We will continue as per Psychiatry. I will put her back on medications for her asthma. Meet Layton DO
[2018-08-11] MEDS: Fluticasone Nasal 50 mcg/Spray NS SCH (08:36)
--- NOTE | 2018-08-11 10:37 | PCM.PYCHPN ---
Psychiatric Progress Note - Psychiatric Progress Note Patient seen today, length of contact: 30min Problems Identified/Issues Discussed: I reviewed assessment and recent notes. Patient was interviewed at bedside. She is groomed and oriented x3. Appears cooperative and calm though reports that she still has periods of nervousness. Patient remains depressed and she appears depressed though seems to be improving a little sinced admission. Denies hopelessness or SI. She also denies any perceptual disturbance. Patient has been compliant with her medications and denies any new s/e discomfort or pain. Sleep and appetite have been good. She has been more visible on the unit and attending groups. There were no behavioral issues overnight. Diagnostic Results: as per h/o: MDD EMMIE panic disorder PTSD Medication Change: No ( ) Medical Record Reviewed: Yes Mental Status Examination - Cognitive Function Orientation: Person, Place, Situation, Time Memory: Intact Attention: Poor Concentration: Poor Association: Loose Fund of Knowledge: Poor - Mood Mood: Depressed, Anxious - Affect Affect: Flat - Formal Thought Process Formal Thought Process: No Impairment - Suicidal Ideation Suicidal Ideation: No - Homicidal Ideation Homicidal Ideation: No Goal/Treatment Plan - Goal/Treatment Plan Need for Continued Stay: Remain at risks for inpatient hospitalization, Severe depression anxiety, Discharge may exacerbated symptoms, Severe functional impairment Progress Toward Problem(s) and Goals/Treatment Plan: * c/w current tx and plan * Appreciate f/u by Dr. Layton on 08/11/18~putting patient back on her asthma medications. Cardiology is following. * No new lab results thus far * Vitals reviewed and noted below: Selected Entries 08/10/18 08/10/18 06:44 15:38 Temperature 97.8 F Pulse Rate 59 L 62 Respiratory 18 Rate Blood Pressure 107/68 112/69 Estimated Date of D/C: 08/14/18
--- NOTE | 2018-08-11 11:32 | PN ---
DATE: 08/11/2018 REASON FOR THE CONSULTATION: Followup abnormal EKG, history of pacemaker, cardiac evaluation. SUBJECTIVE: The patient denies any chest pain, shortness of breath or any palpitation. OBJECTIVE: GENERAL: Not in any apparent distress. VITAL SIGNS: Temperature afebrile, heart rate 62, blood pressure 122/74. HEENT: PERRLA. Extraocular muscles intact. NECK: Supple. No carotid bruit. No thyromegaly. CHEST: Clear to auscultation. HEART: S1 and S2 regular. ABDOMEN: Soft. EXTREMITIES: Clubbing and cyanosis negative. LABORATORY DATA: Blood workup as follows; WBC 4.9, hemoglobin 11.2, hematocrit 35.1, platelet count 235 as of 08/08/2018. IMPRESSION: A 58-year-old female with past medical history of obesity, admitted with depression, history of pacemaker, hypertension, diabetic, status post permanent pacemaker secondary to bradycardia, history of gastric bypass and pacemaker in the past. Last echocardiogram on 02/25/2018 shows normal left ventricular function. Normal wall thickness. Normal ventricular function. Tricuspid mitral valve reported normal. Ejection fraction 57%. RECOMMENDATIONS: Continue current therapy. CVS status is stable. Thank you, Dr. Dockery for providing us the opportunity in taking care of the patient, Isabella Diallo. Chandra Caro MD
[2018-08-11] MEDS: Albuterol HFA 90 mcg/actuation (8 g) IH PRN (22:43)
[2018-08-12] MEDS: Pantoprazole 40 mg EC Tab PO SCH (05:57)
[2018-08-12] MEDS: Insulin Reg-LOW-Coverage SC SCH ×4 (09:33→21:17)
[2018-08-12] MEDS: Multivitamin Therapeutic Tab PO SCH (09:35)
[2018-08-12] MEDS: Fluticasone Nasal 50 mcg/Spray NS SCH (09:37)
[2018-08-12] MEDS: Lidocaine 5% Patch TD SCH (09:46)
--- NOTE | 2018-08-12 12:12 | PN ---
DATE: 08/12/2018 SUBJECTIVE: I saw her this morning resting comfortably in bed. She slept well. No complaints this morning. She is on Ativan, Cozaar, Ecotrin, Effexor, Flonase, folic acid, insulin, , Imodium, Klonopin, Lipitor, Lidoderm, Motrin, Neurontin, Norvasc, Protonix, Seroquel, Thera-Tabs, Ventolin, Vistaril and Zofran. I have given all the medications that she requested. She has no back pain this morning. She is trying to get better with psychological issues. PHYSICAL EXAMINATION: VITAL SIGNS: 98.5 temperature, 62 pulse, 136/75 blood pressure, 20 respiratory rate. HEAD: Atraumatic, normocephalic. HEART: Regular rate. LUNGS: Clear to auscultation. ABDOMEN: Soft, nontender. Positive bowel sounds. Obese. EXTREMITIES: No edema. She is doing fairly well this morning. I encouraged her to participate in groups and take the medication and eat the foods. The last blood sugar was 209, but she is comfortable this morning. She did not complain of any back pain today. She was seen by the deicer tester this morning. Continue therapy and stable. We will continue aggressive treatment and care. We will follow as per Psychiatry. Thank you very much. Meet Layton DO [email or web address]
--- NOTE | 2018-08-12 13:01 | PN ---
DATE: 08/12/2018 REASON FOR CONSULTATION AND FOLLOWUP: In the psychiatric floor, history of coronary artery disease, history of pacemaker. SUBJECTIVE: The patient denies any chest pain, shortness of breath, or any palpitation. PHYSICAL EXAMINATION: GENERAL: Not in any apparent distress. VITAL SIGNS: Temperature afebrile, heart rate 62, blood pressure 133/75. HEENT: PERRLA. Extraocular muscles are intact. NECK: Supple. No carotid bruits or thyromegaly. CHEST: Clear to auscultation. HEART: S1 and S2 regular. ABDOMEN: Soft. EXTREMITIES: Clubbing and cyanosis negative. LABORATORY DATA: Blood workup as follows: WBC of 4.9, hemoglobin 11, hematocrit 35.1, and platelet count 235. Chemistry shows sodium 139, potassium 4.2, chloride 105, carbon dioxide 27, anion gap of 12, BUN 16, and creatinine 0.6 as of 08/08/2018. IMPRESSION: A 58-year-old obese female with past medical history significant for depression, history of pacemaker, hypertension, diabetes, status post pacemaker secondary to bradycardia, history of gastric bypass. Pacemaker interrogated two months ago by [facility], functioning normal; history of recent echo on 02/25/2018, normal left ventricular function, normal wall thickness, tricuspid valve reported normal, ejection fraction 57%. RECOMMENDATIONS: Continue current treatment. CVS status is stable. Continue atorvastatin. Continue amlodipine. Thank you, Dr. Dockery, for providing us the opportunity in taking care of the patient, Isabella Diallo. Chandra Caro MD
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
[2018-08-13] MEDS: Pantoprazole 40 mg EC Tab PO SCH (05:40)
--- NOTE | 2018-08-13 09:09 | PCM.PYCHPN ---
Psychiatric Progress Note - Psychiatric Progress Note Patient seen today, length of contact: 30min Patient Chief Complaint: "I am alright, hanging in there" Problems Identified/Issues Discussed: Suicide/ homicide prevention, past psychiatric h/o, current psychiatric symptoms , medical problems, risk/benefits and alternatives of medications, medications compliance, coping strategies, substance abuse h/o, relapse prevention, importance of follow up with psychiatrist and therapist, discharge plan. Medical Problems: see HPI Diagnostic Results: 08/08/18 08:00 08/08/18 08:00 Lab Results 08/08/18 08:00: Sodium 139, Potassium 4.2, Chloride 105, Carbon Dioxide 27, Anion Gap 12, BUN 16, Creatinine 0.6 L, Est GFR ( Amer) > 60, Est GFR (Non-Af Amer) > 60, Random Glucose 99, Calcium 8.8, Total Bilirubin 0.3, AST 21, ALT 24, Alkaline Phosphatase 130 H, Total Protein 6.6, Albumin 3.4, Globulin 3.1, Albumin/Globulin Ratio 1.1 08/08/18 08:00: WBC 4.9, RBC 3.70, Hgb 11.2 L, Hct 35.1 L, MCV 94.9, MCH 30.3, MCHC 31.9, RDW 12.9, Plt Count 235, MPV 10.4 08/08/18 07:16: POC Glucose (mg/dL) 94 08/07/18 21:04: POC Glucose (mg/dL) 89 08/07/18 16:07: POC Glucose (mg/dL) 108 08/07/18 12:32: POC Glucose (mg/dL) 85 08/07/18 07:55: RPR Nonreactive 08/07/18 07:55: Free T4 1.05, TSH 3rd Generation 1.40 08/07/18 07:55: Fasting Glucose 94, Triglycerides 107, Cholesterol 120 L, LDL Cholesterol Direct 46, HDL Cholesterol 46 08/07/18 07:10: POC Glucose (mg/dL) 92 08/06/18 21:49: POC Glucose (mg/dL) 103 08/06/18 11:20: Alcohol, Quantitative < 10 08/06/18 11:20: Urine Opiates Screen Negative, Urine Methadone Screen Negative, Ur Barbiturates Screen Positive H, Ur Phencyclidine Scrn Negative, Ur Amphetamines Screen Negative, U Benzodiazepines Scrn Negative, U Oth Cocaine Metabols Negative, U Cannabinoids Screen Negative 08/06/18 11:20: Sodium 139, Potassium 3.9, Chloride 106, Carbon Dioxide 27, Anion Gap 10, BUN 12, Creatinine 0.6 L, Est GFR ( Amer) > 60, Est GFR (Non-Af Amer) > 60, Random Glucose 127 H, Calcium 8.4, Magnesium 1.7, Total Bilirubin 0.2, AST 25, ALT 34, Alkaline Phosphatase 127 H, Lactate Dehydrogenase 384, Total Creatine Kinase 39, Troponin I < 0.01, Total Protein 6.2, Albumin 3.3, Globulin 2.9, Albumin/Globulin Ratio 1.1 08/06/18 11:20: Urine Color Yellow, Urine Appearance Clear, Urine pH 6.0, Ur Specific [place] 1.010, Urine Protein Negative, Urine Glucose (UA) Negative, Urine Ketones Negative, Urine Blood Negative, Urine Nitrate Negative, Urine Bilirubin Negative, Urine Urobilinogen 0.2, Ur Leukocyte Esterase Trace H, Urine RBC 0 - 2, Urine WBC 1 - 3, Ur Epithelial Cells 4 - 5, Urine Bacteria Few 08/06/18 11:20: PT 12.2, INR 1.06, APTT 29.2 08/06/18 11:20: WBC 5.1, RBC 3.39 L, Hgb 10.2 L, Hct 32.1 L, MCV 94.7, MCH 30.1, MCHC 31.8, RDW 12.9, Plt Count 206, MPV 10.4, Gran % 68.3 H, Lymph % (Auto) 23.5, Bartholomew % (Auto) 3.5, Eos % (Auto) 4.5, Baso % (Auto) 0.2, Gran # 3.49, Lymph # (Auto) 1.2, Bartholomew # (Auto) 0.2, Eos # (Auto) 0.2, Baso # (Auto) 0.01 Vital Signs Temp Pulse Pulse Resp BP Pulse Ox 08/08/18 09:13 59 L 122/80 08/08/18 07:24 98.3 F 59 L 20 122/80 08/07/18 15:59 72 142/79 08/07/18 07:13 97.8 F 61 20 155/93 H 08/07/18 07:00 61 155/93 H 08/06/18 17:33 65 18 08/06/18 15:09 98 H 18 142/78 97 08/06/18 13:04 63 18 143/78 98 08/06/18 09:38 99.3 F 64 18 149/84 98 Temp Pulse Resp BP Pulse Ox 97.7 F 60 106 H 106/68 97 08/13/18 07:23 08/13/18 07:23 08/13/18 07:23 08/13/18 07:23 08/06/18 15:09 Abnormal Lab Results 08/12/18 08/12/18 08/12/18 07:15 11:00 16:36 POC Glucose (mg/dL) 73 87 101 08/12/18 21:13 POC Glucose (mg/dL) 88 DSM 5 Symptoms Update: shortly pt is shortly, patient is 58 year old female, long history of depression as well as anxiety, 3 previous hospitalizations at age of 52, 54, 58, denied history of suicidal attempts, recently moved to [place] from [place] to live with her daughter who has 5 kids, pt recently moved out from her daughter's apartment because of the conflict with her, pt currently lives independently in [place], pt has multiple medical issues including MS,Diabetes, hypertension, Pacemaker, CHF, asthma, CVA, pt brought herself to the hospital for evaluation and stabilization of depressive symptoms, feeling of hopelessness, passive wish to be , patient reported that she was noncompliant with the medications Effexor/Klonopin because she was not sure if she has insurance or not, patient requires further evaluation and stabilization and medication resumption and titration. pt was seen in her room, pt reported that she feels "so-so, just handing in there". pt reported that she feels little better, but "I am not well at all", pt reported transient feeling of hopelessness. reported that she slept relatively well. patient reported that she does not hear any voices or seeing things, but reports feeling very anxious. So far patient tolerates medications well, no side effects observed or reported, aims 0, no EPS. As per staff,no agitation, no aggression, patient is socially appropriate, but self isolating. Impression: DSM 5 Diagnosis: as per h/o: MDD EMMIE panic disorder PTSD Medication Change: Yes (effexor increased) Medical Record Reviewed: Yes Consults ordered or reviewed: medical consult appreciated Gastroenterology consultation appreciated Mental Status Examination - Cognitive Function Orientation: Person, Place, Situation, Time Memory: Intact Attention: Poor Concentration: Poor Association: Loose Fund of Knowledge: Poor - Mood Mood: Depressed, Anxious - Affect Affect: Flat - Formal Thought Process Formal Thought Process: No Impairment - Suicidal Ideation Suicidal Ideation: No - Homicidal Ideation Homicidal Ideation: No Goal/Treatment Plan - Goal/Treatment Plan Need for Continued Stay: Remain at risks for inpatient hospitalization, Severe depression anxiety, Discharge may exacerbated symptoms, Severe functional impairment Progress Toward Problem(s) and Goals/Treatment Plan: Milieu/structure/supportive therapy Medical consult appreciated will call cardiology consult EKG changes, h/o chest pain and CVA SW consultation for discharge plan and social issues Med list was confirmed by [facility] pharmacy clonazepam 1mg po bid for anxiety atorvastatin 40mg daily ASA 81mg po daily zofran 8mg po daily Lyrica 100mg po daily filled April 15, 2018 neurontin 300mg po tid sonata d/c seroquel 25mg po hs for mood stablization effexor 150mg po daily for depression and anxiety Family involvement Follow up on labs Will monitor closely Pt was educated about risk/benefits and alternatives of medications, coping strategies (safety plan, suicide prevention), relapse prevention, importance of follow up with psychiatrist and therapist, stay away from drugs/alcohol/smoking Estimated Date of D/C: 08/17/18
[2018-08-13] MEDS: Multivitamin Therapeutic Tab PO SCH (09:29)
[2018-08-13] MEDS: Lidocaine 5% Patch TD SCH (09:33)
[2018-08-13] MEDS: Fluticasone Nasal 50 mcg/Spray NS SCH (09:34)
[2018-08-13] MEDS: Albuterol HFA 90 mcg/actuation (8 g) IH PRN (09:35)
[2018-08-13] MEDS: Insulin Reg-LOW-Coverage SC SCH ×3 (09:50→17:19)
--- NOTE | 2018-08-13 22:41 | PN ---
DATE: 08/13/2018 LOCATION: The patient is in room 514, bed 1. REASON FOR CONSULTATION AND FOLLOWUP: Status post pacemaker insertion, hypertension, diabetes. SUBJECTIVE: The patient is sitting in chair without any chest pain, shortness of breath, palpitation. PHYSICAL EXAMINATION: VITAL SIGNS: Blood pressure 102/62, respirations 18, pulse 60, temperature 97.7. HEENT: Head is normocephalic. Eyes: Pupils normal. Conjunctivae normal. NECK: JVP low, carotid equal. THORAX: AP diameter normal. LUNGS: Clear. CARDIOVASCULAR: S1, S2. ABDOMEN: Soft, nontender. No organomegaly. Bowel sounds normal. EXTREMITIES: No clubbing. No cyanosis. LABORATORY DATA: WBC 4.9, hemoglobin 11.2, hematocrit 35.1, platelet 235. Random sugar 73. DIAGNOSES: Status post pacemaker insertion, depression, hypertension, diabetes mellitus, history of gastric bypass surgery. Patient's pacemaker had interrogation done two months ago by [employer] [employer] and the functioning was normal. Echo on 02/25/2018 showed normal left ventricular function, ejection fraction 57%. PLAN: Patient is on losartan 100 mg daily, aspirin 81 mg daily, Effexor 150 daily, amlodipine 5 mg daily, Protonix 40 daily, Seroquel 50 mg p.o. at bedtime, albuterol hand nebulizer therapy. Clinically, cardiac status is stable. We will follow with you. Chandra Soliz MD
[2018-08-14] MEDS: Insulin Reg-LOW-Coverage SC SCH ×6 (00:39→22:21)
[2018-08-14] MEDS: Pantoprazole 40 mg EC Tab PO SCH (06:44)
[2018-08-14] MEDS: Multivitamin Therapeutic Tab PO SCH (09:13)
[2018-08-14] MEDS: Lidocaine 5% Patch TD SCH (09:13)
[2018-08-14] MEDS: Fluticasone Nasal 50 mcg/Spray NS SCH (09:16)
[2018-08-14] MEDS: Albuterol HFA 90 mcg/actuation (8 g) IH PRN (09:16)
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
--- NOTE | 2018-08-14 16:31 | PCM.PYCHPN ---
Psychiatric Progress Note - Psychiatric Progress Note Patient seen today, length of contact: 30min Patient Chief Complaint: "I am alright, hanging in there, increase my dose of Klonopin because and very anxious" Problems Identified/Issues Discussed: Suicide/ homicide prevention, past psychiatric h/o, current psychiatric symptoms, medical problems, risk/benefits and alternatives of medications, medications compliance, coping strategies, substance abuse h/o, relapse preven tion, importance of follow up with psychiatrist and therapist, discharge plan. Medical Problems: see HPI Diagnostic Results: 08/08/18 08:00 08/08/18 08:00 Lab Results 08/08/18 08:00: Sodium 139, Potassium 4.2, Chloride 105, Carbon Dioxide 27, Anion Gap 12, BUN 16, Creatinine 0.6 L, Est GFR ( Amer) > 60, Est GFR (Non-Af Amer) > 60, Random Glucose 99, Calcium 8.8, Total Bilirubin 0.3, AST 21, ALT 24, Alkaline Phosphatase 130 H, Total Protein 6.6, Albumin 3.4, Globulin 3.1, Albumin/Globulin Ratio 1.1 08/08/18 08:00: WBC 4.9, RBC 3.70, Hgb 11.2 L, Hct 35.1 L, MCV 94.9, MCH 30.3, MCHC 31.9, RDW 12.9, Plt Count 235, MPV 10.4 08/08/18 07:16: POC Glucose (mg/dL) 94 08/07/18 21:04: POC Glucose (mg/dL) 89 08/07/18 16:07: POC Glucose (mg/dL) 108 08/07/18 12:32: POC Glucose (mg/dL) 85 08/07/18 07:55: RPR Nonreactive 08/07/18 07:55: Free T4 1.05, TSH 3rd Generation 1.40 08/07/18 07:55: Fasting Glucose 94, Triglycerides 107, Cholesterol 120 L, LDL Cholesterol Direct 46, HDL Cholesterol 46 08/07/18 07:10: POC Glucose (mg/dL) 92 08/06/18 21:49: POC Glucose (mg/dL) 103 08/06/18 11:20: Alcohol, Quantitative < 10 08/06/18 11:20: Urine Opiates Screen Negative, Urine Methadone Screen Negative, Ur Barbiturates Screen Positive H, Ur Phencyclidine Scrn Negative, Ur Amphetamines Screen Negative, U Benzodiazepines Scrn Negative, U Oth Cocaine Metabols Negative, U Cannabinoids Screen Negative 08/06/18 11:20: Sodium 139, Potassium 3.9, Chloride 106, Carbon Dioxide 27, Anion Gap 10, BUN 12, Creatinine 0.6 L, Est GFR ( Amer) > 60, Est GFR (Non-Af Amer) > 60, Random Glucose 127 H, Calcium 8.4, Magnesium 1.7, Total Bilirubin 0.2, AST 25, ALT 34, Alkaline Phosphatase 127 H, Lactate Dehydrogenase 384, Total Creatine Kinase 39, Troponin I < 0.01, Total Protein 6.2, Albumin 3.3, Globulin 2.9, Albumin/Globulin Ratio 1.1 08/06/18 11:20: Urine Color Yellow, Urine Appearance Clear, Urine pH 6.0, Ur Specific Ethan 1.010, Urine Protein Negative, Urine Glucose (UA) Negative, Urine Ketones Negative, Urine Blood Negative, Urine Nitrate Negative, Urine Bilirubin Negative, Urine Urobilinogen 0.2, Ur Leukocyte Esterase Trace H, Urine RBC 0 - 2, Urine WBC 1 - 3, Ur Epithelial Cells 4 - 5, Urine Bacteria Few 08/06/18 11:20: PT 12.2, INR 1.06, APTT 29.2 08/06/18 11:20: WBC 5.1, RBC 3.39 L, Hgb 10.2 L, Hct 32.1 L, MCV 94.7, MCH 30.1, MCHC 31.8, RDW 12.9, Plt Count 206, MPV 10.4, Gran % 68.3 H, Lymph % (Auto) 23.5, Haskell % (Auto) 3.5, Eos % (Auto) 4.5, Baso % (Auto) 0.2, Gran # 3.49, Lymph # (Auto) 1.2, Haskell # (Auto) 0.2, Eos # (Auto) 0.2, Baso # (Auto) 0.01 Vital Signs Temp Pulse Pulse Resp BP Pulse Ox 08/08/18 09:13 59 L 122/80 08/08/18 07:24 98.3 F 59 L 20 122/80 08/07/18 15:59 72 142/79 08/07/18 07:13 97.8 F 61 20 155/93 H 08/07/18 07:00 61 155/93 H 08/06/18 17:33 65 18 08/06/18 15:09 98 H 18 142/78 97 08/06/18 13:04 63 18 143/78 98 08/06/18 09:38 99.3 F 64 18 149/84 98 Temp Pulse Resp BP Pulse Ox 97.7 F 60 106 H 106/68 97 08/13/18 07:23 08/13/18 07:23 08/13/18 07:23 08/13/18 07:23 08/06/18 15:09 Abnormal Lab Results 08/12/18 08/12/18 08/12/18 07:15 11:00 16:36 POC Glucose (mg/dL) 73 87 101 08/12/18 21:13 POC Glucose (mg/dL) 88 DSM 5 Symptoms Update: shortly pt is shortly, patient is 58 year old female, long history of depression as well as anxiety, 3 previous hospitalizations at age of 52, 54, 58, denied history of suicidal attempts, recently moved to [place] from [place] to live with her daughter who has 5 kids, pt recently moved out from her daughter's apartment because of the conflict with her, pt currently lives independently in [place], pt has multiple medical issues including MS,Diabetes, hypertension, Pacemaker, CHF, asthma, CVA, pt brought herself to the hospital for evaluation and stabilization of depressive symptoms, feeling of hopelessness, passive wish to be , patient reported that she was noncompliant with the medications Effexor/Klonopin because she was not sure if she has insurance or not, patient requires further evaluation and stabilization and medication resumption and titration. pt was seen at the treatment team meeting, patient presented to be depressed, reported that she feels "a little bit better", patient reported that her main problem is anxiety) asked for Klonopin to be increased, patient was educated about dangerousness off increasing benzodiazepines for patient of her age, patient ambulates with a walker, patient verbalized understanding. pt reported that she feels little better, but "I am not well enough", pt reported transient feeling of hopelessness. reported that she slept relatively well. So far patient tolerates medications well, no side effects observed or reported, aims 0, no EPS. As per staff,no agitation, no aggression, patient is socially appropriate, started to attend groups. Impression: DSM 5 Diagnosis: as per h/o: MDD EMMIE panic disorder PTSD Medication Change: Yes (effexor increased) Medical Record Reviewed: Yes Mental Status Examination - Cognitive Function Orientation: Person, Place, Situation, Time Memory: Intact Attention: Poor (some improvement) Concentration: Poor (ome improvements) Association: Loose (some improvements) Fund of Knowledge: Poor - Mood Mood: Depressed (I feel little better), Anxious (I still very anxious) - Affect Affect: Flat - Formal Thought Process Formal Thought Process: No Impairment - Suicidal Ideation Suicidal Ideation: No - Homicidal Ideation Homicidal Ideation: No Goal/Treatment Plan - Goal/Treatment Plan Need for Continued Stay: Remain at risks for inpatient hospitalization, Severe depression anxiety, Discharge may exacerbated symptoms, Severe functional impairment Progress Toward Problem(s) and Goals/Treatment Plan: Milieu/structure/supportive therapy Medical consult appreciated will call cardiology consult EKG changes, h/o chest pain and CVA SW consultation for discharge plan and social issues Med list was confirmed by [facility] pharmacy clonazepam 1mg po bid for anxiety atorvastatin 40mg daily ASA 81mg po daily zofran 8mg po daily Lyrica 100mg po daily filled April 15, 2018 neurontin 300mg po tid sonata d/c seroquel 25mg po hs for mood stablization effexor 150mg po daily for depression and anxiety Family involvement Follow up on labs Will monitor closely Pt was educated about risk/benefits and alternatives of medications, coping st rategies (safety plan, suicide prevention), relapse prevention, importance of follow up with psychiatrist and therapist, stay away from drugs/alcohol/smoking Estimated Date of D/C: 08/17/18
--- NOTE | 2018-08-14 22:39 | CP.PCM.CON ---
<MonroeCliffordjoshua Monroy - Last Filed: 08/14/18 22:48> History of Present Illness - History of Present Illness History of Present Illness: Pt is 58 yo female with PMH of DM, HTN, permanent pacemaker, CHF, CVA, depression, anxiety who presents with complaint of depression. Medicine has been consulted to manage her medical conditions. Review of Systems - Constitutional Constitutional: absent: Chills, Fever, Headache - EENT Eyes: absent: Blurred Vision Nose/Mouth/Throat: absent: Nasal Congestion, Sore Throat - Cardiovascular Cardiovascular: absent: Chest Pain, Dyspnea, Palpitations - Respiratory Respiratory: absent: Cough, Dyspnea, Hemoptysis - Gastrointestinal Gastrointestinal: absent: Abdominal Pain, Diarrhea, Nausea, Vomiting - Genitourinary Genitourinary: absent: Hematuria, Urinary Frequency, Urinary Urgency - Musculoskeletal Musculoskeletal: absent: Abnormal Gait, Muscle Weakness, Numbness - Integumentary Integumentary: absent: Rash, Swelling - Neurological Neurological: absent: Dizziness, Headaches, Loss of Vision - Psychiatric Psychiatric: Depression. absent: Anxiety - Endocrine Endocrine: absent: Fatigue, Polydipsia, Polyphagia, Polyuria - Hematologic/Lymphatic Hematologic: absent: Easy Bleeding, Easy Bruising Past Patient History - Infectious Disease Hx of Infectious Diseases: None - Tetanus Immunizations Tetanus Immunization: Unknown - Past Social History Home Situation {Lives}: Alone - CARDIAC Hx Cardiac Disorders: Yes (pacemaker) Hx Congestive Heart Failure: Yes Hx Hypertension: Yes - PULMONARY Hx Asthma: Yes - NEUROLOGICAL HX Cerebrovascular Accident: Yes - HEENT Hx HEENT Problems: No - RENAL Hx Chronic Kidney Disease: No Hx Kidney Stones: Yes - ENDOCRINE/METABOLIC Hx Diabetes Mellitus Type 2: Yes - HEMATOLOGICAL/ONCOLOGICAL Hx Anemia: Yes - INTEGUMENTARY Hx Dermatological Problems: No - MUSCULOSKELETAL/RHEUMATOLOGICAL Hx Falls: Yes Hx Unsteady Gait: Yes - GASTROINTESTINAL Hx Gastrointestinal Disorders: Yes (COLITIS) - GENITOURINARY/GYNECOLOGICAL Hx Genitourinary Disorders: Yes (MULTIPLE UTIS) Hx Reproductive Disorders: Yes (VAGINAL ITCH STILL) - PSYCHIATRIC Hx Anxiety: Yes Hx Depression: Yes Hx Substance Use: Yes (see HPI) - SURGICAL HISTORY Hx Cholecystectomy: Yes Hx Gastric Bypass Surgery: Yes - ANESTHESIA Hx Anesthesia: Yes Hx Anesthesia Reactions: No Hx Malignant Hyperthermia: No Meds Allergies/Adverse Reactions: Allergies Allergy/AdvReac Type Severity Reaction Status Date / Time levofloxacin [From Levaquin] Allergy RASH Verified 08/06/18 16:30 - Medications Medications: Current Medications Albuterol (Ventolin Hfa 90 Mcg/Actuation (8 G)) 2 puff IH [id number] PRN PRN Reason: Shortness of Breath Last Admin: 08/14/18 09:16 Dose: 2 puff Amlodipine Besylate (Norvasc) 5 mg PO DAILY [facility] Last Admin: 08/14/18 09:13 Dose: 5 mg Aspirin (Ecotrin) 81 mg PO DAILY [facility] Last Admin: 08/14/18 09:13 Dose: 81 mg Atorvastatin Calcium (Lipitor) 40 mg PO DIN [facility] Last Admin: 08/14/18 16:11 Dose: 40 mg Clonazepam (Klonopin) 1 mg PO BID [facility]; Protocol Last Admin: 08/14/18 18:09 Dose: 1 mg Fluticasone Propionate (Flonase) 1 actuation NS DAILY [facility] Last Admin: 08/14/18 09:16 Dose: 1 spr Folic Acid (Folic Acid) 1 mg PO DAILY [facility] Last Admin: 08/14/18 09:14 Dose: 1 mg Gabapentin (Neurontin) 300 mg PO TID [facility]; Protocol Last Admin: 08/14/18 18:09 Dose: 300 mg Hydroxyzine Pamoate (Vistaril) 50 mg PO Q8 PRN; Protocol PRN Reason: Anxiety Last Admin: 08/14/18 06:55 Dose: 50 mg Ibuprofen (Motrin Tab) 800 mg PO Q6H PRN PRN Reason: Pain, moderate (4-7) Last Admin: 08/14/18 21:18 Dose: 800 mg Insulin Human Regular (Humulin R Low) 0 units [facility]; Protocol Last Admin: 08/14/18 22:21 Dose: Not Given Lidocaine (Lidoderm) 1 ea TD DAILY [facility] Last Admin: 08/14/18 09:13 Dose: 1 ea Loperamide HCl (Imodium) 4 mg PO DAILY [facility] Last Admin: 08/14/18 09:14 Dose: 4 mg Lorazepam (Ativan) 1 mg IM Q6H PRN; Protocol PRN Reason: Agitation Lorazepam (Ativan) 1 mg PO Q6H PRN; Protocol PRN Reason: Anxiety Last Admin: 08/14/18 20:15 Dose: 1 mg Losartan Potassium (Cozaar) 75 mg PO DAILY [facility] Multivitamins (Thera Tab) 1 tab PO 0800 [facility] Last Admin: 08/14/18 09:13 Dose: 1 tab Ondansetron HCl (Zofran Tab) 4 mg PO Q8H PRN PRN Reason: Nausea/Vomiting Last Admin: 08/14/18 16:11 Dose: 4 mg Pantoprazole Sodium (Protonix Ec Tab) 40 mg PO 0600 [facility] Last Admin: 08/14/18 06:44 Dose: 40 mg Quetiapine Fumarate (Seroquel) 50 mg PO HS [facility]; Protocol Last Admin: 08/14/18 21:18 Dose: 50 mg Venlafaxine HCl (Effexor) 150 mg PO DAILY [facility] Last Admin: 08/14/18 09:14 Dose: 150 mg Physical Exam - Constitutional Appears: No Acute Distress - Head Exam Head Exam: ATRAUMATIC, NORMAL INSPECTION, NORMOCEPHALIC - Eye Exam Eye Exam: EOMI. absent: Scleral icterus - ENT Exam ENT Exam: Mucous Membranes Moist, Normal Exam - Respiratory Exam Respiratory Exam: Clear to Auscultation Bilateral, NORMAL BREATHING PATTERN. absent: Rales, Rhonchi, Wheezes - Cardiovascular Exam Cardiovascular Exam: RRR, +S1, +S2. absent: Diastolic murmur, Systolic Murmur - GI/Abdominal Exam GI & Abdominal Exam: Normal Bowel Sounds, Soft. absent: Tenderness - Extremities Exam Extremities exam: Positive for: full ROM, normal inspection. Negative for: calf tenderness, pedal edema - Neurological Exam Neurological exam: Alert, CN II-XII Intact, Oriented x3 - Psychiatric Exam Psychiatric exam: Normal Affect, Normal Mood - Skin Skin Exam: Dry, Intact, Warm Results - Vital Signs Recent Vital Signs: Last Vital Signs Temp 98.5 F 08/14/18 07:22 Pulse 64 08/14/18 16:30 Resp 20 08/14/18 07:22 BP 99/63 L 08/14/18 16:30 Pulse Ox 97 08/06/18 15:09 - Labs Result Diagrams: 08/08/18 08:00 08/08/18 08:00 Labs: Laboratory Results - last 24 hr 08/13/18 08/13/18 08/13/18 13:13 17:14 21:47 POC Glucose (mg/dL) 147 H 73 98 08/14/18 08/14/18 08/14/18 07:25 11:04 11:59 POC Glucose (mg/dL) 156 H 67 79 08/14/18 16:25 POC Glucose (mg/dL) 94 Assessment & Plan - Assessment and Plan (Free Text) Assessment: Pt is 58 yo female with PMH of DM, HTN, permanent pacemaker, CHF, CVA, depre ssion, anxiety who presents with complaint of depression. Medicine has been consulted to manage her medical conditions. Plan: DM - ISS low HTN - losartan, reduce dose from 100mg to 75mg daily - amlodipine 5mg daily Depression - continue to follow with psychiatry Thank you for allowing us to participate in the care of this patient. No further medical intervention indicated at this time. Will sign off. Pt seen and examined. Assessment and plan discussed Dr. Corado. Clifford Childress PGY1 - Date & Time Date: 08/14/18 Time: 12:00 <Chandra Corado - Last Filed: 08/15/18 13:27> Meds - Medications Medications: Current Medications Albuterol (Ventolin Hfa 90 Mcg/Actuation (8 G)) 2 puff IH [id number] PRN PRN Reason: Shortness of Breath Last Admin: 08/14/18 09:16 Dose: 2 puff Amlodipine Besylate (Norvasc) 5 mg PO DAILY [facility] Last Admin: 08/15/18 08:40 Dose: 5 mg Aspirin (Ecotrin) 81 mg PO DAILY [facility] Last Admin: 08/15/18 08:40 Dose: 81 mg Atorvastatin Calcium (Lipitor) 40 mg PO DIN [facility] Last Admin: 08/14/18 16:11 Dose: 40 mg Clonazepam (Klonopin) 1 mg PO BID [facility]; Protocol Last Admin: 08/15/18 08:43 Dose: 1 mg Fluticasone Propionate (Flonase) 1 actuation NS DAILY [facility] Last Admin: 08/15/18 08:45 Dose: 1 spr Folic Acid (Folic Acid) 1 mg PO DAILY [facility] Last Admin: 08/15/18 08:42 Dose: 1 mg Gabapentin (Neurontin) 300 mg PO TID [facility]; Protocol Last Admin: 08/15/18 12:41 Dose: 300 mg Hydroxyzine Pamoate (Vistaril) 50 mg PO Q8 PRN; Protocol PRN Reason: Anxiety Last Admin: 08/14/18 06:55 Dose: 50 mg Ibuprofen (Motrin Tab) 800 mg PO Q6H PRN PRN Reason: Pain, moderate (4-7) Last Admin: 08/14/18 21:18 Dose: 800 mg Insulin Human Regular (Humulin R Low) 0 units [facility]; Protocol Last Admin: 08/15/18 12:44 Dose: Not Given Lidocaine (Lidoderm) 1 ea TD DAILY [facility] Last Admin: 08/15/18 08:40 Dose: 1 ea Loperamide HCl (Imodium) 4 mg PO DAILY [facility] Last Admin: 08/15/18 08:43 Dose: 4 mg Lorazepam (Ativan) 1 mg IM Q6H PRN; Protocol PRN Reason: Agitation Lorazepam (Ativan) 1 mg PO Q6H PRN; Protocol PRN Reason: Anxiety Last Admin: 08/15/18 12:40 Dose: 1 mg Losartan Potassium (Cozaar) 75 mg PO DAILY [facility] Last Admin: 08/15/18 08:41 Dose: 75 mg Multivitamins (Thera Tab) 1 tab PO 0800 [facility] Last Admin: 08/15/18 08:42 Dose: 1 tab Ondansetron HCl (Zofran Tab) 4 mg PO Q8H PRN PRN Reason: Nausea/Vomiting Last Admin: 08/14/18 16:11 Dose: 4 mg Pantoprazole Sodium (Protonix Ec Tab) 40 mg PO 0600 [facility] Last Admin: 08/15/18 07:23 Dose: 40 mg Quetiapine Fumarate (Seroquel) 50 mg PO HS [facility]; Protocol Last Admin: 08/14/18 21:18 Dose: 50 mg Venlafaxine HCl (Effexor) 150 mg PO DAILY [facility] Last Admin: 08/15/18 08:42 Dose: 150 mg Results - Vital Signs Recent Vital Signs: Last Vital Signs Temp 97.3 F L 08/15/18 07:00 Pulse 61 08/15/18 08:41 Resp 17 08/15/18 07:00 BP 117/83 08/15/18 08:41 Pulse Ox 97 08/06/18 15:09 - Labs Result Diagrams: 08/08/18 08:00 08/08/18 08:00 Labs: Laboratory Results - last 24 hr 08/14/18 08/14/18 08/14/18 11:59 16:25 22:10 POC Glucose (mg/dL) 79 94 102 08/15/18 07:58 POC Glucose (mg/dL) 76 Attending/Attestation - Attestation I have personally seen and examined this patient.: Yes I have fully participated in the care of the patient.: Yes I have reviewed all pertinent clinical information: Yes Notes (Text): 08/15/18 13:15 Patient was seen and examined with medical collector. HTN. Systolic Blood pressure is less than 100.Patient is asymptometic.Agreed with decreasing dose of Losartan to 75 mg po daily. Hb1AC is 5.4, no need for any diabetic medication. There is no active medical issue at this time.We will sign off. Please call us back if any question. Management plan was discussed in detail with patient. Education was provided 08/15/18 13:18
[2018-08-15] MEDS: Pantoprazole 40 mg EC Tab PO SCH (07:23)
[2018-08-15] MEDS: Lidocaine 5% Patch TD SCH (08:40)
[2018-08-15] MEDS: Multivitamin Therapeutic Tab PO SCH (08:42)
[2018-08-15] MEDS: Insulin Reg-LOW-Coverage SC SCH ×3 (08:44→16:52)
[2018-08-15] MEDS: Fluticasone Nasal 50 mcg/Spray NS SCH (08:45)
--- NOTE | 2018-08-15 09:09 | PCM.PYCHPN ---
Psychiatric Progress Note - Psychiatric Progress Note Patient seen today, length of contact: 30min Problems Identified/Issues Discussed: I reviewed recent notes and met with patient at bedside. She is familiar to me from our prior interview x4 days ago. She appears the same and indicates that she has improved "only a little". Indicates that she remains depressed, anxious and hopeless. Denies suicidal thoughts. Grooming is fair and patient remains oriented x3. Her affect is constricted and congruent to reported mood. Patient has been compliant with her medications and denies any new s/e discomfort or pain. Staff have noted that she is more visible on the unit, attending groups. Requested Ativan and Zofran for anxiety and nausea, respectively yesterday. There were no behavioral issues overnight. Diagnostic Results: as per h/o: MDD EMMIE panic disorder PTSD Medication Change: Yes (effexor increased) Medical Record Reviewed: Yes Mental Status Examination - Cognitive Function Orientation: Person, Place, Situation, Time Memory: Intact Attention: Poor (some improvement) Concentration: Poor (ome improvements) Association: Loose (some improvements) Fund of Knowledge: Poor - Mood Mood: Depressed (I feel little better), Anxious (I still very anxious) - Affect Affect: Constricted, Flat - Formal Thought Process Formal Thought Process: No Impairment - Suicidal Ideation Suicidal Ideation: No - Homicidal Ideation Homicidal Ideation: No Goal/Treatment Plan - Goal/Treatment Plan Need for Continued Stay: Remain at risks for inpatient hospitalization, Severe depression anxiety, Discharge may exacerbated symptoms, Severe functional impairment Progress Toward Problem(s) and Goals/Treatment Plan: * c/w current tx and plan * No new lab results thus far * Vitals reviewed and noted below: Selected Entries 08/14/18 08/14/18 08/14/18 07:22 09:13 16:30 Temperature 98.5 F Pulse Rate 69 69 64 Respiratory 20 Rate Blood Pressure 98/64 L 98/64 L 99/63 L Estimated Date of D/C: 08/17/18
--- NOTE | 2018-08-15 12:17 | PN ---
DATE: 08/15/2018 LOCATION: The patient is in room 514, bed 1. REASON FOR CONSULTATION AND FOLLOWUP: Status post pacemaker insertion, hypertension, diabetes mellitus. SUBJECTIVE: The patient denies chest pain, shortness of breath, palpitation. The patient is ambulating on psychiatric floor without any cardiac symptoms. PHYSICAL EXAMINATION: VITAL SIGNS: Blood pressure 117/83, respirations 18, pulse 61, temperature 97.9. HEENT: Head is normocephalic. Eyes: Pupils normal. Conjunctivae slightly pale. NECK: JVP low. Carotids equal. THORAX: AP diameter normal. LUNGS: Clear. CARDIOVASCULAR: S1 and S2. ABDOMEN: Soft. No tenderness. No organomegaly. Bowel sounds normal. EXTREMITIES: No clubbing. No cyanosis. LABORATORY DATA: WBC 4.9, hemoglobin 11.2, hematocrit 35.1, platelets 235. Random sugar 102. lab was done on 08/08/2018 shows sodium 139, potassium 4.2, BUN 16, creatinine 0.6. Total protein, albumin normal. AST, ALT normal. DIAGNOSES: Status post permanent pacemaker insertion, depression, hypertension, diabetes mellitus, history of gastric bypass surgery. The patient's pacemaker had interrogation performed 2 months ago by [employer] and it was functioning normal. Echocardiogram on 02/25/2018 showed normal left ventricular function with ejection fraction of 57%. PLAN: Continue physical therapy. The patient continue on the psychiatric medication, losartan 75 mg daily, aspirin 81 mg daily, Effexor at 150 mg p.o. daily, atorvastatin 40 p.o. daily, gabapentin 300 mg t.i.d., amlodipine 5 mg daily, Klonopin 1 mg p.o. b.i.d. Clinically, cardiac status is stable. Continue psychiatric therapy. Continue physical therapy. We will follow with you. Chandra Soliz MD
[2018-08-16] MEDS: Insulin Reg-LOW-Coverage SC SCH ×5 (05:04→21:17)
[2018-08-16] MEDS: Pantoprazole 40 mg EC Tab PO SCH ×2 (07:10→07:15)
[2018-08-16] MEDS: Lidocaine 5% Patch TD SCH (08:36)
[2018-08-16] MEDS: Multivitamin Therapeutic Tab PO SCH (08:39)
--- NOTE | 2018-08-16 09:02 | PCM.PYCHPN ---
Psychiatric Progress Note - Psychiatric Progress Note Patient seen today, length of contact: 30min Problems Identified/Issues Discussed: I reviewed recent notes and met with patient at bedside. She is familiar to me from our prior interview x5 days ago. She appears the same and indicates that she has improved "only a little". Indicates that she remains depressed, anxious and hopeless. Patient doesn't feel ready for discharge. She denies suicidal or homicidal thoughts. Grooming is fair and patient remains oriented x3. Her affect is constricted and congruent to reported mood. Patient has been compliant with her medications and denies any new s/e. She reports some back discomfort starting yesterday which she fears may be related to kidney stones. She doesn't appear to be in any acute distress at this time. Staff have noted that she is more visible on the unit, attending groups. Req uested Ativan and Zofran for anxiety and nausea, respectively on Friday and ativan prn on Friday for anxiety. There were no behavioral issues over the weekend. Diagnostic Results: as per h/o: MDD EMMIE panic disorder PTSD Medication Change: No ( ) Medical Record Reviewed: Yes Mental Status Examination - Cognitive Function Orientation: Person, Place, Situation, Time Memory: Intact Attention: Poor (some improvement) Concentration: Poor (ome improvements) Association: Loose (some improvements) Fund of Knowledge: Poor - Mood Mood: Depressed (I feel little better), Anxious (I still very anxious) - Affect Affect: Constricted, Flat - Formal Thought Process Formal Thought Process: No Impairment - Suicidal Ideation Suicidal Ideation: No - Homicidal Ideation Homicidal Ideation: No Goal/Treatment Plan - Goal/Treatment Plan Need for Continued Stay: Remain at risks for inpatient hospitalization, Severe depression anxiety, Discharge may exacerbated symptoms, Severe functional impairment Progress Toward Problem(s) and Goals/Treatment Plan: * c/w current tx and plan * Appreciate f/u by Dr. Soliz on 08/15/18~clinically, cardiac status is stable * Medicine to f/u complaints of lower back pain, starting 08/15/18 * No new weekend lab results * Vitals reviewed and noted below: Selected Entries 08/15/18 08/15/18 07:00 19:51 Temperature 97.3 F L Pulse Rate 61 60 Respiratory 17 Rate Blood Pressure 117/83 94/57 L Estimated Date of D/C: 08/17/18
[2018-08-16] MEDS: Fluticasone Nasal 50 mcg/Spray NS SCH (10:34)
--- NOTE | 2018-08-16 12:51 | PN ---
DATE: 08/16/2018 LOCATION: The patient in room 514, bed 1. REASON FOR CONSULTATION: Followup status post pacemaker insertion, hypertension, diabetes mellitus. SUBJECTIVE: The patient denies any chest pain, shortness of breath, palpitation. The patient is getting psychiatric treatment. She is ambulatory without any cardiac symptoms. PHYSICAL EXAMINATION: VITAL SIGNS: Blood pressure 111/78, respirations 20, pulse 60, temperature 98.2. HEENT: Head is normocephalic. Eyes: Pupils normal. Conjunctivae normal. Nose and throat normal. NECK: JVP low. Carotids equal. THORAX: AP diameter normal. LUNGS: Clear. CARDIOVASCULAR: S1 and S2. ABDOMEN: Soft. No tenderness. No organomegaly. Bowel sounds normal. EXTREMITIES: No clubbing. No cyanosis. LABORATORY DATA: Sugar 112. Other laboratory data already reported on the previous notes. DIAGNOSES: Status post permanent pacemaker insertion, depression, hypertension, diabetes mellitus, history of gastric bypass surgery. The patient's pacemaker had been interrogated 2 months ago by [employer] and it was functioning normal. Echocardiogram on 02/25/2018 showed normal left ventricular ejection fraction of 57%. PLAN: We will continue present therapy and along with continue psychiatric therapy. The patient is getting losartan 75 mg daily, aspirin 81 mg daily, Effexor 150 mg p.o. daily, Imodium 4 mg p.o. daily, Klonopin 1 mg p.o. b.i.d., Lipitor 40 daily, amlodipine 5 daily, Seroquel 50 mg at bedtime, hand nebulizer therapy. We will follow with you. Chandra Soliz MD
--- NOTE | 2018-08-16 16:43 | PN ---
DATE: 08/16/2018 SUBJECTIVE: She tells me that she is having back pain above both kidneys and she wants her kidneys checked out. She is on Lidoderm patch and she is on ibuprofen. We will do a blood test and ultrasound of the kidneys. She is on Ativan, Cozaar, Ecotrin, Effexor, Flonase, folic acid, insulin, Imodium, Klonopin, Lidoderm, Lipitor, Motrin, Neurontin, Norvasc, Protonix, Seroquel, Thera-Tabs, Tylenol, Ventolin, Zestril, and Zofran. PHYSICAL EXAMINATION: VITAL SIGNS: Temperature 98.2, pulse 60, blood pressure 111/78, respiratory rate 20. HEENT: Head is atraumatic, normocephalic. HEART: Regular rate. LUNGS: Clear to auscultation. ABDOMEN: Soft, obese, nontender. EXTREMITIES: No edema. Last labs on the 08/08/2018 in which she did well. We will recheck labs tomorrow. Also, get an ultrasound of her kidneys. Continue with aggressive treatment and care as per Psychiatry and hopefully, we will see if there is anything going on with her kidneys or not. We will follow up. Meet Layton DO
[2018-08-17] MEDS: Pantoprazole 40 mg EC Tab PO SCH (06:30)
[2018-08-17 07:31] LABS: HEMOGLOBIN 10.5 g/dL (12.0-16.0); MEAN CELL VOLUME 95.3 fl (80.0-105.0); MEAN CORPUSCULAR HEMOGLOBIN 30.7 pg (25.0-35.0); MEAN CORPUSCULAR HGB CONC 32.2 g/dl (31.0-37.0); RBC 3.42 10^6/uL (3.5-6.1); RED CELL DISTRIBUTION WIDTH 12.6 % (11.5-14.5); WHITE BLOOD COUNT 4.5 10^3/ul (4.5-11.0)
[2018-08-17 07:52] LABS: ALB/GLOB RATIO 1.1 (1.1-1.8); ALBUMIN 3.3 g/dL (3.0-4.8); ALT/SGPT 24 U/L (7-56); AST/SGOT 26 U/L (14-36); BLOOD UREA NITROGEN 30 mg/dL (7-21); CALCIUM 8.7 mg/dL (8.4-10.5); GFR NON-AFRICAN AMERICAN 57
[2018-08-17] MEDS: Fluticasone Nasal 50 mcg/Spray NS SCH (08:40)
[2018-08-17] MEDS: Lidocaine 5% Patch TD SCH (08:40)
[2018-08-17] MEDS: Multivitamin Therapeutic Tab PO SCH (08:44)
--- NOTE | 2018-08-17 09:55 | PN ---
DATE: 08/14/2018 LOCATION: The patient is in room 514, bed 1. REASON FOR CONSULTATION AND FOLLOWUP: Status post pacemaker insertion, hypertension, diabetes mellitus. SUBJECTIVE: The patient denies any chest pain, shortness of breath, palpitation. The patient is walking around without any cardiac symptoms. PHYSICAL EXAMINATION: VITAL SIGNS: Blood pressure 98/64, respirations 20, pulse 69, temperature 98.5. HEENT: Head is normocephalic. Eyes: Pupils normal. Conjunctivae slightly pale. NECK: JVP low. Carotids equal. THORAX: AP diameter normal. LUNGS: Clear. CARDIOVASCULAR: S1 and S2. ABDOMEN: Soft. No tenderness. No organomegaly. Bowel sounds normal. EXTREMITIES: No clubbing. No cyanosis. LABORATORY DATA: WBC 4.9, hemoglobin 11.2, hematocrit 35.1, platelets 235. Random sugar 94. DIAGNOSES: Status post permanent pacemaker insertion, depression, hypertension, diabetes mellitus, history of gastric bypass surgery. Pacemaker interrogation was done 2 months ago by [employer] and the function was normal. Echocardiogram on 02/25/2018 showed normal left ventricular function with ejection fraction of 57%. PLAN: Clinically, the patient's cardiac status is stable. We will continue aspirin 81 mg daily, losartan 100 daily, amlodipine 5 mg daily, Protonix 40 daily, Seroquel 50 mg p.o. at bedtime, albuterol hand nebulizer therapy, Protonix 40 daily. Clinically, cardiac status is stable. The patient is ambulatory without any cardiac symptoms. Chandra Soliz MD
--- NOTE | 2018-08-17 10:23 | PN ---
DATE: 08/15/2018 SUBJECTIVE: I saw her sitting out of bed to chair. She is currently doing a crossword puzzle. She is feeling better but not 100% yet. She still needs a medication she tells me. OBJECTIVE: VITAL SIGNS: She has 97.9 temperature, 60 pulse, 117/83 blood pressure, 18 respiratory rate. HEENT: Head is atraumatic, normocephalic. HEART: Regular rate. LUNGS: Decreased breath sounds but clear. ABDOMEN: Soft, obese. EXTREMITIES: No edema. MEDICATIONS: She is on Ativan, Cozaar, Ecotrin, Effexor, Flonase, folic acid, Imodium, Klonopin, Lidoderm patch, Lipitor, Motrin, Neurontin, Norvasc, Protonix, Seroquel, Thera-Tabs, Ventolin, Vistaril and Zofran. ASSESSMENT AND PLAN: She is overall doing well. I encouraged to participate with her psychiatric medications and her groups in the psychiatrist to get better and hoping that she will improve with her depression and anxiety. She also has diabetes. She had diarrhea, allergies, back pain, high cholesterol, hypertension, gastroesophageal reflux disease, and also some asthma. I will continue aggressive treatment and care for her. Meet Layton DO
--- NOTE | 2018-08-17 10:27 | PN ---
DATE: 08/17/2018 SUBJECTIVE: I saw her in her room in psychiatric floor. She has medication complaints. She is trying to eat. She is trying to get better, but tells me she is not any near getting better. PHYSICAL EXAMINATION: VITAL SIGNS: She has 97.5 temperature, 59 pulse, 110/71 blood pressure, 20 respiratory rate, 97% O2 sat on room air. HEAD: Atraumatic, normocephalic. HEART: Regular rate. LUNGS: Decreased breath sounds, but clear. ABDOMEN: Soft, obese. EXTREMITIES: No edema. She is currently on Ativan, Cozaar, Ecotrin, Effexor, Flonase, folic acid, insulin coverage, Imodium, Klonopin, Lidoderm, Lipitor, Motrin, Neurontin, Norvasc, Protonix, Seroquel, Thera-Tabs, Tylenol, Ventolin, Vistaril, Zofran. She had lab today. Sodium 135, potassium 4.9, BUN 30, creatinine 1. She has to drink little more water. GFR is 57. Last blood sugar is 78, calcium is 8.7, total bili is 0.4, AST is 26, ALT is 24, alk phos 87, total protein 6.4. She is being seen by Cardiology and Psychiatry. Continue with aggressive treatment and care as per Psychiatry and we will encourage her to drink more water. She has multiple issues, depression, anxiety, cholesterol, gastroesophageal reflux disease, diabetes, hypertension, back pain. Hopefully she will continue to improve as per Psychiatry. I went over the labs, she did well. Increase more water intake. Meet Layton DO
--- NOTE | 2018-08-17 10:31 | US ---
Date of service: 08/17/2018 PROCEDURE: Ultrasound of the Kidneys HISTORY: back pain COMPARISON: Comparison made with prior abdominal ultrasound 03/06/2018 the. TECHNIQUE: Sonogram of the kidneys. FINDINGS: RIGHT KIDNEY: Measures approximately 9 x 5.4 x 5.2 cm. Normal in size, contour and echogenicity. No stone, solid mass lesion or hydronephrosis visualized. LEFT KIDNEY: Measures: 11.5 x 6.2 x 5.6 cm. Normal in size, contour and echogenicity. No stone, solid mass lesion or hydronephrosis visualized. OTHER FINDINGS: None. IMPRESSION: Unremarkable renal sonogram.
--- NOTE | 2018-08-17 10:46 | PN ---
DATE: 08/17/2018 REASON FOR THE CONSULTATION: Followup cardiac evaluation and followup, history of pacemaker, diabetes, hypertension, obesity, admitted depression on the Psych floor. SUBJECTIVE: The patient denies any chest pain, shortness of breath or any palpitation. PHYSICAL EXAMINATION: VITAL SIGNS: Temperature afebrile, heart rate 51, blood pressure 112/68. HEENT: PERRLA. Extraocular muscles intact. NECK: Supple. No carotid bruit. No thyromegaly. CHEST: Clear to auscultation. HEART: S1 and S2 regular. ABDOMEN: Soft. EXTREMITIES: Clubbing and cyanosis negative. LABORATORY DATA: Blood workup as follows; WBC 4.5, hemoglobin 10.9, hematocrit 32.6, platelet count 138. Chemistry shows sodium 135, potassium 4.9, chloride 102, carbon dioxide 27, anion gap of 11, BUN 30, creatinine 1. IMPRESSION: A 58-year-old obese female, admitted with depression to the Psychiatry floor. History of diabetes; hypertension; hyperlipidemia; obesity; history of gastric bypass surgery; history of pacemaker, [employer], status post interrogation 2 months ago, normal functioning. Recent echocardiogram on 02/25/2018 shows normal left ventricular function, ejection fraction 57%. RECOMMENDATIONS: Continue aggressive medical treatment. CVS status is stable. Continue antihypertensive medication. Blood pressure is fairly stable. Yesterday, blood pressure one episode was 94/57 because according to the nurse the patient was sleeping. We will cut down the losartan to 50 mg from 75. Continue atorvastatin and monitor the blood pressure. We will follow with you. We will change to 50 mg with holding parameters, so hold for systolic less than 120. Thank you, Dr. Dockery for providing us the opportunity in taking care of the patient, Isabella Diallo. Chandra Caro MD
[2018-08-17] MEDS: Insulin Reg-LOW-Coverage SC SCH ×4 (11:39→21:18)
--- NOTE | 2018-08-17 15:11 | PCM.PYCHPN ---
Psychiatric Progress Note - Psychiatric Progress Note Patient seen today, length of contact: 30min Patient Chief Complaint: "I am very depressed doctor, I am not ready to be discharged yet" Problems Identified/Issues Discussed: Suicide/ homicide prevention, past psychiatric h/o, current psychiatric symptoms, medical problems, risk/benefits and alternatives of medications, medications compliance, coping strategies, substance abuse h/o, relapse prevention, importance of follow up with psychiatrist and therapist, discharge plan. Medical Problems: see HPI Diagnostic Results: 08/08/18 08:00 08/08/18 08:00 Lab Results 08/08/18 08:00: Sodium 139, Potassium 4.2, Chloride 105, Carbon Dioxide 27, Anion Gap 12, BUN 16, Creatinine 0.6 L, Est GFR ( Amer) > 60, Est GFR (Non-Af Amer) > 60, Random Glucose 99, Calcium 8.8, Total Bilirubin 0.3, AST 21, ALT 24, Alkaline Phosphatase 130 H, Total Protein 6.6, Albumin 3.4, Globulin 3.1, Albumin/Globulin Ratio 1.1 08/08/18 08:00: WBC 4.9, RBC 3.70, Hgb 11.2 L, Hct 35.1 L, MCV 94.9, MCH 30.3, MCHC 31.9, RDW 12.9, Plt Count 235, MPV 10.4 08/08/18 07:16: POC Glucose (mg/dL) 94 08/07/18 21:04: POC Glucose (mg/dL) 89 08/07/18 16:07: POC Glucose (mg/dL) 108 08/07/18 12:32: POC Glucose (mg/dL) 85 08/07/18 07:55: RPR Nonreactive 08/07/18 07:55: Free T4 1.05, TSH 3rd Generation 1.40 08/07/18 07:55: Fasting Glucose 94, Triglycerides 107, Cholesterol 120 L, LDL Cholesterol Direct 46, HDL Cholesterol 46 08/07/18 07:10: POC Glucose (mg/dL) 92 08/06/18 21:49: POC Glucose (mg/dL) 103 08/06/18 11:20: Alcohol, Quantitative < 10 08/06/18 11:20: Urine Opiates Screen Negative, Urine Methadone Screen Negative, Ur Barbiturates Screen Positive H, Ur Phencyclidine Scrn Negative, Ur Amphetamines Screen Negative, U Benzodiazepines Scrn Negative, U Oth Cocaine Metabols Negative, U Cannabinoids Screen Negative 08/06/18 11:20: Sodium 139, Potassium 3.9, Chloride 106, Carbon Dioxide 27, Anion Gap 10, BUN 12, Creatinine 0.6 L, Est GFR ( Amer) > 60, Est GFR (Non-Af Amer) > 60, Random Glucose 127 H, Calcium 8.4, Magnesium 1.7, Total Bilirubin 0.2, AST 25, ALT 34, Alkaline Phosphatase 127 H, Lactate Dehydrogenase 384, Total Creatine Kinase 39, Troponin I < 0.01, Total Protein 6.2, Albumin 3.3, Globulin 2.9, Albumin/Globulin Ratio 1.1 08/06/18 11:20: Urine Color Yellow, Urine Appearance Clear, Urine pH 6.0, Ur Specific [place] 1.010, Urine Protein Negative, Urine Glucose (UA) Negative, Urine Ketones Negative, Urine Blood Negative, Urine Nitrate Negative, Urine Bilirubin Negative, Urine Urobilinogen 0.2, Ur Leukocyte Esterase Trace H, Urine RBC 0 - 2, Urine WBC 1 - 3, Ur Epithelial Cells 4 - 5, Urine Bacteria Few 08/06/18 11:20: PT 12.2, INR 1.06, APTT 29.2 08/06/18 11:20: WBC 5.1, RBC 3.39 L, Hgb 10.2 L, Hct 32.1 L, MCV 94.7, MCH 30.1, MCHC 31.8, RDW 12.9, Plt Count 206, MPV 10.4, Gran % 68.3 H, Lymph % (Auto) 23.5, [place] % (Auto) 3.5, Eos % (Auto) 4.5, Baso % (Auto) 0.2, Gran # 3.49, Lymph # (Auto) 1.2, [place] # (Auto) 0.2, Eos # (Auto) 0.2, Baso # (Auto) 0.01 Vital Signs Temp Pulse Pulse Resp BP Pulse Ox 08/08/18 09:13 59 L 122/80 08/08/18 07:24 98.3 F 59 L 20 122/80 08/07/18 15:59 72 142/79 08/07/18 07:13 97.8 F 61 20 155/93 H 08/07/18 07:00 61 155/93 H 08/06/18 17:33 65 18 08/06/18 15:09 98 H 18 142/78 97 08/06/18 13:04 63 18 143/78 98 08/06/18 09:38 99.3 F 64 18 149/84 98 Temp Pulse Resp BP Pulse Ox 97.7 F 60 106 H 106/68 97 08/13/18 07:23 08/13/18 07:23 08/13/18 07:23 08/13/18 07:23 08/06/18 15:09 Abnormal Lab Results 08/12/18 08/12/18 08/12/18 07:15 11:00 16:36 POC Glucose (mg/dL) 73 87 101 08/12/18 21:13 POC Glucose (mg/dL) 88 DSM 5 Symptoms Update: shortly pt is shortly, patient is 58 year old female, long history of depression as well as anxiety, 3 previous hospitalizations at age of 52, 54, 58, denied history of suicidal attempts, recently moved to [place] from [place] to live with her daughter who has 5 kids, pt recently moved out from her daughter's apartment because of the conflict with her, pt currently lives independently in [place], pt has multiple medical issues including MS,Diabetes, hypertension, Pacemaker, CHF, asthma, CVA, pt brought herself to the hospital for evaluation and stabilization of depressive symptoms, feeling of hopelessness, passive wish to be , patient reported that she was noncompliant with the medications Effexor/Klonopin because she was not sure if she has insurance or not, patient requires further evaluation and stabilization and medication resumption and titration. pt was seen at the day treatment area, as per staff pt is constantly asking for benzos and vistaril, almost fall, this singer songwriter address this fact with pt, pt agreed to d/c ativan, agreed to decreased vistaril, agreed to increase effexor. pt reported not feeling ready to leave the hospital because of depression and feeling of hopelessness. So far patient tolerates medications well, no side effects observed or reported, aims 0, no EPS. As per staff,no agitation, no aggression, patient is socially appropriate, started to attend groups. Impression: DSM 5 Diagnosis: as per h/o: MDD EMMIE panic disorder PTSD Medication Change: Yes (ativan d/c, vistaril decreased, effexor increased) Medical Record Reviewed: Yes Consults ordered or reviewed: medical consult appreciated Gastroenterology consultation appreciated medical f/u appreciated over the weekend august 05-08/16/18 Mental Status Examination - Cognitive Function Orientation: Person, Place, Situation, Time Memory: Intact Attention: Poor (some improvement) Concentration: Poor (ome improvements) Association: Loose (some improvements) Fund of Knowledge: Poor - Mood Mood: Depressed ("I am very depressed"), Anxious (I still very anxious) - Affect Affect: Constricted, Flat - Formal Thought Process Formal Thought Process: No Impairment - Suicidal Ideation Suicidal Ideation: No - Homicidal Ideation Homicidal Ideation: No Goal/Treatment Plan - Goal/Treatment Plan Need for Continued Stay: Remain at risks for inpatient hospitalization, Severe depression anxiety, Discharge may exacerbated symptoms, Severe functional im pairment Progress Toward Problem(s) and Goals/Treatment Plan: Milieu/structure/supportive therapy Medical consult appreciated will call cardiology consult EKG changes, h/o chest pain and CVA SW consultation for discharge plan and social issues Med list was confirmed by [facility] [place] clonazepam 1mg po bid for anxiety atorvastatin 40mg daily ASA 81mg po daily zofran 8mg po daily Lyrica 100mg po daily filled April 15, 2018 neurontin 300mg po tid sonata d/c seroquel 50mg po hs for mood stablization effexor 150+37.5mg po daily for depression and anxiety vistaril decreased 25mg bid prn for anxiety ativan d/c Family involvement Follow up on labs Will monitor closely Pt was educated about risk/benefits and alternatives of medications, coping strategies (safety plan, suicide prevention), relapse prevention, importance of follow up with psychiatrist and therapist, stay away from drugs/alcohol/smoking Estimated Date of D/C: 08/20/18
[2018-08-18] MEDS: Pantoprazole 40 mg EC Tab PO SCH (06:17)
[2018-08-18] MEDS: Insulin Reg-LOW-Coverage SC SCH ×4 (08:09→21:37)
[2018-08-18] MEDS: Multivitamin Therapeutic Tab PO SCH (09:13)
[2018-08-18] MEDS: Fluticasone Nasal 50 mcg/Spray NS SCH (09:27)
[2018-08-18] MEDS: Lidocaine 5% Patch TD SCH (09:28)
--- NOTE | 2018-08-18 13:10 | PN ---
DATE: 08/18/2018 REASON FOR CONSULTATION AND FOLLOWUP: Cardiac evaluation and followup, history of pacemaker, diabetes, hypertension, hyperlipidemia, obesity, admitted with depression on the Psych floor. SUBJECTIVE: The patient denies any chest pain, shortness of breath or any palpitations. OBJECTIVE: GENERAL: Not in apparent distress, lying flat in the bed. VITAL SIGNS: Temperature afebrile, heart rate 66, blood pressure 113/71. HEENT: PERRLA. Extraocular muscles intact. NECK: Supple. No carotid bruits or thyromegaly. CHEST: Clear to auscultation. HEART: S1 and S2 regular. ABDOMEN: Soft. EXTREMITIES: Clubbing and cyanosis negative. LABORATORY DATA: Blood workup as follows; WBC 4.5, hemoglobin 10.5, hematocrit 32.6 and platelet count 138. Chemistry shows sodium 135, potassium 4.9, chloride 102, carbon dioxide 27, anion gap of 11, BUN 30, creatinine 1. IMPRESSION: A 58-year-old female with past medical history of obesity admitted with depression on the Psychiatry floor, history of diabetes, hypertension, hyperlipidemia, obesity, history of gastric bypass in the past, history of pacemaker [employer], status post interrogation 2 months ago, normal. Recent echocardiogram on 02/25/2018 shows normal left ventricular function, ejection fraction 57%. RECOMMENDATIONS: Continue aggressive medical treatment. CVS status is stable. Continue antihypertensive medication with holding parameters as ordered yesterday and CVS status is stable. Continue psych medications. We will sign off and glad to follow p.r.n. Thank you, Dr. Dockery, for providing us the opportunity in taking care of the patient, Isabella Diallo. We will glad to follow p.r.n. Chandra Caro MD
--- NOTE | 2018-08-18 14:13 | PN ---
DATE: 08/18/2018 SUBJECTIVE: I saw her resting comfortably in bed this morning. She slept well. Good spirits, feeling well. She tells me she is being discharged tomorrow , but she is eating well, participating, feeling better mentally. She is on Ativan, Cozaar, Ecotrin, Effexor, Flonase, folic acid, Imodium, Klonopin, Lidoderm, Lipitor, Motrin, Neurontin, Norvasc, Protonix, Seroquel, Thera-Tabs, Tylenol, Ventolin, Vistaril and Zofran. PHYSICAL EXAMINATION: VITAL SIGNS: Temperature 97.8, 59 pulse, 99/59 blood pressure, 19 respiratory rate. HEENT: Head is atraumatic, normocephalic. HEART: Regular rate. LUNGS: Clear to auscultation. ABDOMEN: Soft, obese, nontender. No abdominal pain this morning. EXTREMITIES: No edema. No back pain. LABORATORY DATA: Last labs on 08/17/2018, she has a 4.5 white count, 10.5 hemoglobin, 32.6 hematocrit with 138 platelets. She had a chemistry which showed a 135 sodium, potassium 4.9, BUN 30, creatinine 1, GFR is 57, last blood sugar is 131, calcium is 8.7, total bilirubin is 0.4, AST is 26, ALT is 24, alkaline phosphatase 87, total protein 6.4. She is doing better overall I feel as per Cardiology and Psychiatry. I encouraged her participate in groups, take the medications, eat the food, go for walks and I hope she can be discharged soon as per Psychiatry. We will follow. Meet Layton DO KARMEN
--- NOTE | 2018-08-18 16:18 | PCM.PYCHPN ---
Psychiatric Progress Note - Psychiatric Progress Note Patient seen today, length of contact: 30min Patient Chief Complaint: "I feel shaky" Problems Identified/Issues Discussed: Suicide/ homicide prevention, past psychiatric h/o, current psychiatric symptoms, medical problems, risk/benefits and alternatives of medications, medications compliance, coping strategies, substance abuse h/o, relapse prevention, importance of follow up with psychiatrist and therapist, discharge plan. Medical Problems: see HPI Diagnostic Results: 08/08/18 08:00 08/08/18 08:00 Lab Results 08/08/18 08:00: Sodium 139, Potassium 4.2, Chloride 105, Carbon Dioxide 27, Anion Gap 12, BUN 16, Creatinine 0.6 L, Est GFR ( Amer) > 60, Est GFR (Non-Af Amer) > 60, Random Glucose 99, Calcium 8.8, Total Bilirubin 0.3, AST 21, ALT 24, Alkaline Phosphatase 130 H, Total Protein 6.6, Albumin 3.4, Globulin 3.1, Albumin/Globulin Ratio 1.1 08/08/18 08:00: WBC 4.9, RBC 3.70, Hgb 11.2 L, Hct 35.1 L, MCV 94.9, MCH 30.3, MCHC 31.9, RDW 12.9, Plt Count 235, MPV 10.4 08/08/18 07:16: POC Glucose (mg/dL) 94 08/07/18 21:04: POC Glucose (mg/dL) 89 08/07/18 16:07: POC Glucose (mg/dL) 108 08/07/18 12:32: POC Glucose (mg/dL) 85 08/07/18 07:55: RPR Nonreactive 08/07/18 07:55: Free T4 1.05, TSH 3rd Generation 1.40 08/07/18 07:55: Fasting Glucose 94, Triglycerides 107, Cholesterol 120 L, LDL Cholesterol Direct 46, HDL Cholesterol 46 08/07/18 07:10: POC Glucose (mg/dL) 92 08/06/18 21:49: POC Glucose (mg/dL) 103 08/06/18 11:20: Alcohol, Quantitative < 10 08/06/18 11:20: Urine Opiates Screen Negative, Urine Methadone Screen Negative, Ur Barbiturates Screen Positive H, Ur Phencyclidine Scrn Negative, Ur Amphetamines Screen Negative, U Benzodiazepines Scrn Negative, U Oth Cocaine Metabols Negative, U Cannabinoids Screen Negative 08/06/18 11:20: Sodium 139, Potassium 3.9, Chloride 106, Carbon Dioxide 27, Anion Gap 10, BUN 12, Creatinine 0.6 L, Est GFR ( Amer) > 60, Est GFR (Non-Af Amer) > 60, Random Glucose 127 H, Calcium 8.4, Magnesium 1.7, Total Bilirubin 0.2, AST 25, ALT 34, Alkaline Phosphatase 127 H, Lactate Dehydrogenase 384, Total Creatine Kinase 39, Troponin I < 0.01, Total Protein 6.2, Albumin 3.3, Globulin 2.9, Albumin/Globulin Ratio 1.1 08/06/18 11:20: Urine Color Yellow, Urine Appearance Clear, Urine pH 6.0, Ur Specific [place] 1.010, Urine Protein Negative, Urine Glucose (UA) Negative, Urine Ketones Negative, Urine Blood Negative, Urine Nitrate Negative, Urine Bilirubin Negative, Urine Urobilinogen 0.2, Ur Leukocyte Esterase Trace H, Urine RBC 0 - 2, Urine WBC 1 - 3, Ur Epithelial Cells 4 - 5, Urine Bacteria Few 08/06/18 11:20: PT 12.2, INR 1.06, APTT 29.2 08/06/18 11:20: WBC 5.1, RBC 3.39 L, Hgb 10.2 L, Hct 32.1 L, MCV 94.7, MCH 30.1, MCHC 31.8, RDW 12.9, Plt Count 206, MPV 10.4, Gran % 68.3 H, Lymph % (Auto) 23.5, [place] % (Auto) 3.5, Eos % (Auto) 4.5, Baso % (Auto) 0.2, Gran # 3.49, Lymph # (Auto) 1.2, [place] # (Auto) 0.2, Eos # (Auto) 0.2, Baso # (Auto) 0.01 Vital Signs Temp Pulse Pulse Resp BP Pulse Ox 08/08/18 09:13 59 L 122/80 08/08/18 07:24 98.3 F 59 L 20 122/80 08/07/18 15:59 72 142/79 08/07/18 07:13 97.8 F 61 20 155/93 H 08/07/18 07:00 61 155/93 H 08/06/18 17:33 65 18 08/06/18 15:09 98 H 18 142/78 97 08/06/18 13:04 63 18 143/78 98 08/06/18 09:38 99.3 F 64 18 149/84 98 Temp Pulse Resp BP Pulse Ox 97.7 F 60 106 H 106/68 97 08/13/18 07:23 08/13/18 07:23 08/13/18 07:23 08/13/18 07:23 08/06/18 15:09 Abnormal Lab Results 08/12/18 08/12/18 08/12/18 07:15 11:00 16:36 POC Glucose (mg/dL) 73 87 101 08/12/18 21:13 POC Glucose (mg/dL) 88 DSM 5 Symptoms Update: shortly pt is shortly, patient is 58 year old female, long history of depression as well as anxiety, 3 previous hospitalizations at age of 52, 54, 58, denied history of suicidal attempts, recently moved to [place] from [place] to live with her daughter who has 5 kids, pt recently moved out from her daughter's apartment because of the conflict with her, pt currently lives independently in [place], pt has multiple medical issues including MS,Diabetes, hypertension, Pacemaker, CHF, asthma, CVA, pt brought herself to the hospital for evaluation and stabilization of depressive symptoms, feeling of hopelessness, passive wish to be , patient reported that she was noncompliant with the medications Effexor/Klonopin because she was not sure if she has insurance or not, patient requires further evaluation and stabilization and medication resumption and t itration. pt was seen today next to the Nursing station, patient complain of worsening of anxiety, patient reported that she feels "shaky", patient complain about decreased the doses of benzodiazepines, but agreed to increase dose of Vistaril to 50 mg twice a day, patient presented to be depressed, anxious,, but visible in the unit, denied any thoughts of harming herself or others pt reported not feeling ready to leave the hospital because of depression and feeling of hopelessness. So far patient tolerates medications well, no side effects observed or reported, aims 0, no EPS. As per staff,no agitation, no aggression, patient is socially appropriate, started to attend groups. Impression: DSM 5 Diagnosis: as per h/o: MDD EMMIE panic disorder PTSD Medication Change: Yes (ativan d/c, vistaril decreased, effexor increased) Medical Record Reviewed: Yes Mental Status Examination - Cognitive Function Orientation: Person, Place, Situation, Time Memory: Intact Attention: Poor (some improvement) Concentration: Poor (ome improvements) Association: Loose (some improvements) Fund of Knowledge: Poor - Mood Mood: Depressed ("I am very depressed"), Anxious (I still very anxious) - Affect Affect: Constricted, Flat - Formal Thought Process Formal Thought Process: No Impairment - Suicidal Ideation Suicidal Ideation: No - Homicidal Ideation Homicidal Ideation: No Goal/Treatment Plan - Goal/Treatment Plan Need for Continued Stay: Remain at risks for inpatient hospitalization, Severe depression anxiety, Discharge may exacerbated symptoms, Severe functional impairment Progress Toward Problem(s) and Goals/Treatment Plan: Milieu/structure/supportive therapy Medical consult appreciated will call cardiology consult EKG changes, h/o chest pain and CVA SW consultation for discharge plan and social issues Med list was confirmed by [facility] pharmacy clonazepam 1mg po bid for anxiety atorvastatin 40mg daily ASA 81mg po daily zofran 8mg po daily Lyrica 100mg po daily filled April 15, 2018 neurontin 300mg po tid sonata d/c seroquel 50mg po hs for mood stablization effexor 150+37.5mg po daily for depression and anxiety vistaril 50mg bid prn for anxiety ativan d/c Family involvement Follow up on labs Will monitor closely Pt was educated about risk/benefits and alternatives of medications, coping strategies (safety plan, suicide prevention), relapse prevention, importance of follow up with psychiatrist and therapist, stay away from drugs/alcohol/smoking Estimated Date of D/C: 08/20/18
[2018-08-19] MEDS: Pantoprazole 40 mg EC Tab PO SCH (06:01)
[2018-08-19] MEDS: Lidocaine 5% Patch TD SCH (08:12)
[2018-08-19] MEDS: Multivitamin Therapeutic Tab PO SCH (08:12)
[2018-08-19] MEDS: Insulin Reg-LOW-Coverage SC SCH ×2 (08:12→12:01)
[2018-08-19] MEDS: Fluticasone Nasal 50 mcg/Spray NS SCH (09:11)
[2018-08-19 11:06] VITALS: BP 104/64; PULSE 60; RESP 20; TEMP 98.1
--- NOTE | 2018-08-19 14:15 | PN ---
DATE: 08/19/2018 SUBJECTIVE: I saw her sitting out of bed to chair. She is getting ready for breakfast. She is in good spirits. No complaints today. She is doing well. She tells us she is being discharged from the psychiatric floor. She got her medications here, the same as it was in the hospital and at home. Nothing is going to change medically. PHYSICAL EXAMINATION: VITAL SIGNS: She has a 98.1 temperature, 60 pulse, 104/64 blood pressure, 20 respiratory rate. HEENT: Head is atraumatic, normocephalic. HEART: Regular rate. LUNGS: Clear to auscultation. ABDOMEN: Soft, obese, and nontender. EXTREMITIES: No edema. LABORATORY DATA: She had a 4.5 white count, 10.5 hemoglobin, 32.6 hematocrit with 138 platelets on 08/17/2018. Last blood sugar was 100. She will drink more water. Follow up with Psychiatry on the outpatient. Take her medications . Thank you for letting me participate . Meet Layton DO MTDLeslee
--- NOTE | 2018-08-19 16:29 | PCM.PYCHDC ---
Mental Status Examination - Mental Status Examination Orientation: Person, Place, Situation, Time Memory: Intact Mood: Neutral Affect: Broad Speech: Soft Attention: WNL Concentration: WNL Association: WNL Fund of Knowledge: WNL Formal Thought Process: No Impairment Description of patient's judgement and insight: Pt has improved insight into mental and medical illness, pt was compliant with medications and unit rules and regulations, pt was going to groups, was calm, cooperative, socially appropriate, no behavioral incidents, no agitation, no aggression. Psychotic Thoughts and Behaviors: Pt denied v/a/t hallucinations, denied paranoid ideations, pt does not appear to be psychotic, and thought process is goal directed. Suicidal Ideation: No Current Homicidal Ideation?: No Plan: pt adamantly denied thoughts of harming self or others denied intent or plan. Discharge Summary - Discharge Note Reason for Hospitalization: pt was admitted for evaluation and stabilization of depressive symptoms, hopelessness, inability to function. Psychiatric History (includes Medical, Family, Personal Hx): see HPI Laboratory Data: Abnormal Lab Results 08/18/18 08/19/18 08/19/18 21:16 07:34 11:16 POC Glucose (mg/dL) 125 H 79 79 Consultations:: List each consultation separately and include: 1. Reason for request. 2. Findings. 3. Follow-up Consultations: medical consult appreciated Gastroenterology consultation appreciated medical f/u appreciated over the weekend august 05-08/16/18 Summary of Hospital Course include:: 1. Description of specific treatment plan utilized for patients during their course of treatmen. 2. Summarize the time- course for resolution of acute symptoms and/or regressed behaviors. 3. Describe issues identified and worked on during hospitalization. 4. Describe medication utilized. 5. Describe medical problems identified and treated. 6. Reassessment of suicide risk Summary of Hospital Course: shortly pt is shortly, patient is 58 year old female, long history of depression as well as anxiety, 3 previous hospitalizations at age of 52, 54, 58, denied history of suicidal attempts, recently moved to [place] from [place] to live with her daughter who has 5 kids, pt recently moved out from her daughter's apartment because of the conflict with her, pt currently lives independently in [place], pt has multiple medical issues including MS,Diabetes, hypertension, Pacemaker, CHF, asthma, CVA, pt brought herself to the hospital for evaluation and stabilization of depressive symptoms, feeling of hopelessness, passive wish to be , patient reported that she was noncompliant with the medications Effe xor/Klonopin because she was not sure if she has insurance or not, patient requires further evaluation and stabilization and medication resumption and titration. this technical document writer is very familiar with this pt from the previous psych admission which took place here in [place] in April 2018. as per record pt was in the ED multiple times with multiple somatic complaints of chest pain, body pain, headaches, pt said that "I know that my chest pain was due to my anxiety", since the last admission pt was in ED 10times, obviously pt was not doing well. please see admission notes for more detailed information. 08/06/18 11:20 08/06/18 11:20 Lab Results 08/07/18 07:55: Free T4 1.05, TSH 3rd Generation 1.40 08/07/18 07:55: Fasting Glucose 94, Triglycerides 107, Cholesterol 120 L, LDL Cholesterol Direct 46, HDL Cholesterol 46 08/07/18 07:10: POC Glucose (mg/dL) 92 08/06/18 21:49: POC Glucose (mg/dL) 103 08/06/18 11:20: Alcohol, Quantitative < 10 08/06/18 11:20: Urine Opiates Screen Negative, Urine Methadone Screen Negative, Ur Barbiturates Screen Positive H, Ur Phencyclidine Scrn Negative, Ur Amphetamines Screen Negative, U Benzodiazepines Scrn Negative, U Oth Cocaine Metabols Negative, U Cannabinoids Screen Negative 08/06/18 11:20: Sodium 139, Potassium 3.9, Chloride 106, Carbon Dioxide 27, Anion Gap 10, BUN 12, Creatinine 0.6 L, Est GFR ( Amer) > 60, Est GFR (Non-Af Amer) > 60, Random Glucose 127 H, Calcium 8.4, Magnesium 1.7, Total Bilirubin 0.2, AST 25, ALT 34, Alkaline Phosphatase 127 H, Lactate Dehydrogenase 384, Total Creatine Kinase 39, Troponin I < 0.01, Total Protein 6.2, Albumin 3.3, Globulin 2.9, Albumin/Globulin Ratio 1.1 08/06/18 11:20: Urine Color Yellow, Urine Appearance Clear, Urine pH 6.0, Ur Specific [place] 1.010, Urine Protein Negative, Urine Glucose (UA) Negative, Urine Ketones Negative, Urine Blood Negative, Urine Nitrate Negative, Urine Bilirubin Negative, Urine Urobilinogen 0.2, Ur Leukocyte Esterase Trace H, Urine RBC 0 - 2, Urine WBC 1 - 3, Ur Epithelial Cells 4 - 5, Urine Bacteria Few 08/06/18 11:20: PT 12.2, INR 1.06, APTT 29.2 08/06/18 11:20: WBC 5.1, RBC 3.39 L, Hgb 10.2 L, Hct 32.1 L, MCV 94.7, MCH 30.1, MCHC 31.8, RDW 12.9, Plt Count 206, MPV 10.4, Gran % 68.3 H, Lymph % (Auto) 23.5, [place] % (Auto) 3.5, Eos % (Auto) 4.5, Baso % (Auto) 0.2, Gran # 3.49, Lymph # (Auto) 1.2, Person # (Auto) 0.2, Eos # (Auto) 0.2, Baso # (Auto) 0.01 Vital Signs Temp Pulse Pulse Resp BP Pulse Ox 08/07/18 07:13 97.8 F 61 20 155/93 H 08/07/18 07:00 61 155/93 H 08/06/18 17:33 65 18 08/06/18 15:09 98 H 18 142/78 97 08/06/18 13:04 63 18 143/78 98 08/06/18 09:38 99.3 F 64 18 149/84 98 patient was stabilized on the following medications: clonazepam 1mg po bid for anxiety atorvastatin 40mg daily ASA 81mg po daily zofran 8mg po daily neurontin 300mg po tid sonata d/c,ativan d/c seroquel 50mg po hs for mood stablization effexor 150+37.5mg po daily for depression and anxiety vistaril 50mg bid prn for anxiety patient tolerated medications well, no side effects observed or reported, but patient has tendency of asking for more benzodiazepines, vistaril, this technical document writer discontinue Ativan as well as decrease dose of Vistaril due to patient somnolence. aims 0, no EPS. Over the course of this hospitalization pt was attending groups, pt also had medication management, had therapeutic milieu. Overall pt improved significantly, pt's affect became brighter, pt was less depressed, has realistic future oriented plans, pt also does not appear to be psychotic, or anxious, pt was socially appropriate, no behavioral issues, pts insight improved as well and soon pt deemed to be ready for discharge. At the time of the discharge pt denied been depressed, denied thoughts of harming self or others, denied psychotic symptoms, and pt does not appeared to be psychotic, denied been anxious, pt is not in imminent danger to self or others, pt was referred for outpatient treatment, information about follow up appointment, time and address provided to the pt, it is patient responsibility to follow up with outpatient clinic, PMD as well as specialists (see note for more detailed information). In case pt will need to obtain results of studies pending at discharge pt was provided with contact information of Psychiatric Inpatient unit [phone] as well as Medical Record Department [phone]. Naltrexone treatment not indicated at this time. Counseling about smoking and alcohol cessation provided AA meetings as well as smoking cessation treatment program information was provided by the pt was provided with prescriptions for all of medications (please see medication reconciliation form) Pt was educated about safety plan in case of worsening of symptoms or in case of suicidal or homicidal ideation call 911 or go to the nearest ER, also was educated to take meds as prescribed and stay away from drugs, pt verbalized understanding. - Diagnosis (1) MDD (major depressive disorder) Current Visit: Yes Status: Chronic Priority: High (2) Anxiety Current Visit: No Status: Acute Priority: High - Final Diagnosis (DSM 5) Condition upon Discharge: IMPROVED Disposition: HOME/ ROUTINE Follow-up Treatment Plan: At the time of the discharge pt denied been depressed, denied thoughts of harming self or others, denied psychotic symptoms, and pt does not appeared to be psychotic, denied been anxious, pt is not in imminent danger to self or others, pt was referred for outpatient treatment, information about follow up appointment, time and address provided to the pt, it is patient responsibility to follow up with outpatient clinic, PMD as well as specialists (see note for more detailed information). In case pt will need to obtain results of studies pending at discharge pt was provided with contact information of Psychiatric Inpatient unit [phone] as well as Medical Record Department [phone]. Naltrexone treatment not indicated at this time. Counseling about smoking and alcohol cessation provided AA meetings as well as smoking cessation treatment program information was provided by the pt was provided with prescriptions for all of medications (please see medication reconciliation form) Pt was educated about safety plan in case of worsening of symptoms or in case of suicidal or homicidal ideation call 911 or go to the nearest ER, also was educated to take meds as prescribed and stay away from drugs, pt verbalized understanding. Prescriptions/Medication Reconciliation: amLODIPine [Norvasc] 5 mg PO DAILY #7 tab Aspirin [Ecotrin] 81 mg PO DAILY #7 tabec Atorvastatin [Lipitor] 40 mg PO DIN #7 tab clonazePAM [Klonopin] 1 mg PO BID #30 tab Fluticasone Nasal [Flonase] 1 actuation NS DAILY #1 spr Folic Acid 1 mg PO DAILY #14 tab Gabapentin [Neurontin] 300 mg PO TID #45 cap hydrOXYzine Pamoate [Vistaril] 50 mg PO BID PRN #30 cap PRN Reason: Anxiety Ibuprofen [Motrin Tab] 800 mg PO Q6H PRN #30 tab PRN Reason: Pain, Moderate (4-7) Lidocaine 5% [Lidoderm] 1 ea TD DAILY #7 patch Loperamide [Imodium] 4 mg PO DAILY #7 cap Losartan [Cozaar] 50 mg PO DAILY #7 tab Multivitamin Therapeutic Tab [Thera Tab] 1 tab PO 0800 #14 tab Pantoprazole [Protonix EC Tab] 40 mg PO 0600 #7 ect Quetiapine Fumarate [Seroquel] 50 mg PO HS #14 tablet Venlafaxine [Effexor] 150 mg PO DAILY #14 tab Venlafaxine [Effexor] 37.5 mg PO DAILY #14 tab - Smoking Cessation Smoking Cessation Medication prescribed: No Reason for not providing: denied smoking - Antipsychotic Medications Pt discharged on 2 or more routine antipsychotic medications: No
== END 2018-08-19 16:53 | disposition home or self-care (01) | DRG 881 ==
LOC: ED 09:33 → ERH 13:28 → PSYC 15:51
PROVIDERS: ADMIT Psychiatry & Neurology Psychiatry; ATTEND Psychiatry & Neurology Psychiatry
DX: F32.9 Major depressive disorder, single episode, unspecified (principal); F41.9 Anxiety disorder, unspecified; E11.9 Type 2 diabetes mellitus without complications; E66.9 Obesity, unspecified; E78.00 Pure hypercholesterolemia, unspecified; E78.5 Hyperlipidemia, unspecified; F12.90 Cannabis use, unspecified, uncomplicated; F41.0 Panic disorder [episodic paroxysmal anxiety]; F43.10 Post-traumatic stress disorder, unspecified; G35 Multiple sclerosis; I11.0 Hypertensive heart disease with heart failure; I25.10 Atherosclerotic heart disease of native coronary artery without angina pectoris; I50.9 Heart failure, unspecified; J44.9 Chronic obstructive pulmonary disease, unspecified; K21.9 Gastro-esophageal reflux disease without esophagitis; K52.9 Noninfective gastroenteritis and colitis, unspecified; M79.7 Fibromyalgia; Z86.73 Personal history of transient ischemic attack (TIA), and cerebral infarction without residual deficits; Z87.440 Personal history of urinary (tract) infections; Z87.442 Personal history of urinary calculi; Z90.49 Acquired absence of other specified parts of digestive tract; Z98.84 Bariatric surgery status; Z95.0 Presence of cardiac pacemaker; Z91.14 Patient's other noncompliance with medication regimen; Z68.36 Body mass index [BMI] 36.0-36.9, adult

== ENCOUNTER 2018-09-06 20:09 | Inpatient (IN) | payer MEDICARE, OTHER ==
[2018-09-06 20:40] VITALS: BMI 38.0
[2018-09-06 21:26] LABS: BASO # 0.01 K/mm3 (0.0-2.0); BASO % 0.2 % (0.0-3.0); EOS # 0.1 (0.0-0.7); EOS % 1.6 % (1.5-5.0); GRAN # 3.24 (1.4-6.5); GRAN % 71.9 % (50.0-68.0); HEMOGLOBIN 9.6 g/dL (12.0-16.0); LYMPH # 0.9 (1.2-3.4); LYMPH % 20.8 % (22.0-35.0); MEAN CELL VOLUME 91.1 fl (80.0-105.0); MEAN CORPUSCULAR HEMOGLOBIN 29.4 pg (25.0-35.0); MEAN CORPUSCULAR HGB CONC 32.3 g/dl (31.0-37.0); MEAN PLATELET VOLUME 9.5 fl (7.0-11.0); MONO # 0.3 (0.1-0.6); MONO % 5.5 % (1.0-6.0); RBC 3.26 10^6/uL (3.5-6.1); RED CELL DISTRIBUTION WIDTH 12.7 % (11.5-14.5); WHITE BLOOD COUNT 4.5 10^3/uL (4.5-11.0)
[2018-09-06 21:33] LABS: INR 1.13; PARTIAL THROMBOPLASTIN TIME 29.9 Seconds (25.1-36.5); PROTHROMBIN TIME 12.9 SECONDS (9.4-12.5)
[2018-09-06 21:42] LABS: ALB/GLOB RATIO 1.1 (1.1-1.8); ALBUMIN 3.7 g/dL (3.0-4.8); ALT/SGPT 29 U/L (7-56); AST/SGOT 38 U/L (14-36); BLOOD UREA NITROGEN 30 mg/dL (7-21); CALCIUM 8.9 mg/dL (8.4-10.5); GFR NON-AFRICAN AMERICAN 31
--- NOTE | 2018-09-06 21:51 | ED PDOC ---
Arrival/HPI - General Chief Complaint: Chest Pain Time Seen by Provider: 09/06/18 20:23 Historian: Patient - History of Present Illness Narrative History of Present Illness (Text): 09/06/18 20:25 Isabella Diallo is a 58 year old female, whose past medical history includes hypertension, pacemaker, and diabetes, who presents to the Emergency department complaining of left-sided chest pain today. Patient denies any fever, chills, s hortness of breath, nausea, vomiting, diarrhea, urinary symptoms, back pain, neck pain, headache, dizziness, or any other complaints. Symptom Onset: Gradual Symptom Course: Unchanged Activities at Onset: Light Context: Home Past Medical History - Provider Review Nursing Documentation Reviewed: Yes - Past History Past History: Non-Contributing - Infectious Disease Hx of Infectious Diseases: None - Tetanus Immunization Tetanus Immunization: Unknown - Cardiac Hx Cardiac Disorders: No Hx Hypertension: Yes - Pulmonary Hx Tuberculosis: No - Neurological HX Cerebrovascular Accident: No Hx Seizures: No - HEENT Hx HEENT Disorder: No - Renal Hx Renal Disorder: No Hx Kidney Stones: Yes - Endocrine/Metabolic Hx Diabetes Mellitus Type 2: Yes - Hematological/Oncological Hx Cancer: No - Integumentary Hx Dermatological Disorder: No - Musculoskeletal/Rheumatological Hx Arthritis: Yes Hx Fractures: Yes (L RIB) Hx Osteoporosis: Yes - Gastrointestinal Hx Gastrointestinal Disorders: Yes (COLITIS) - Genitourinary/Gynecological Hx Sexually Transmitted Diseases: No - Psychiatric Hx Anxiety: Yes Hx Bipolar Disorder: Yes Hx Depression: Yes Hx Substance Use: Yes (see HPI) - Surgical History Hx Cholecystectomy: Yes - Anesthesia Hx Anesthesia: Yes Hx Anesthesia Reactions: No Hx Malignant Hyperthermia: No Family/Social History - Physician Review Nursing Documentation Reviewed: Yes Family/Social History: Unknown Family HX Smoking Status: Former Smoker Hx Alcohol Use: No Hx Substance Use: Yes (see HPI) Hx Substance Use Treatment: No Allergies/Home Meds Allergies/Adverse Reactions: Allergies levofloxacin [From Levaquin] Allergy (Verified 08/27/18 14:21) RASH Review of Systems - Physician Review All systems were reviewed & negative as marked: Yes - Review of Systems Constitutional: Normal. absent: Fevers Eyes: Normal ENT: Normal Respiratory: Normal. absent: SOB, Cough Cardiovascular: Chest Pain Gastrointestinal: Normal. absent: Abdominal Pain, Diarrhea, Nausea, Vomiting Genitourinary Female: Normal. absent: Dysuria, Frequency, Hematuria, Urine Output Changes Musculoskeletal: Normal. absent: Back Pain, Neck Pain Skin: Normal. absent: Rash Neurological: Normal. absent: Headache, Dizziness Endocrine: Normal Hemo/Lymphatic: Normal Psychiatric: Normal Physical Exam Vital Signs Reviewed: Yes Vital Signs Temp Pulse Resp BP Pulse Ox 09/06/18 21:44 98.5 F 78 18 116/69 97 09/06/18 20:30 98.1 F 74 18 125/87 96 Temperature: Afebrile Blood Pressure: Normal Pulse: Regular Respiratory Rate: Normal Appearance: Positive for: Well-Appearing, Non-Toxic, Comfortable Pain Distress: None Mental Status: Positive for: Alert and Oriented X 3 - Systems Exam Head: Present: Atraumatic, Normocephalic Pupils: Present: PERRL Extroacular Muscles: Present: EOMI Conjunctiva: Present: Normal Mouth: Present: Moist Mucous Membranes Neck: Present: Normal Range of Motion Respiratory/Chest: Present: Clear to Auscultation, Good Air Exchange. No: Respiratory Distress, Accessory Muscle Use Cardiovascular: Present: Regular Rate and Rhythm, Normal S1, S2. No: Murmurs Abdomen: No: Tenderness, Distention, Peritoneal Signs Back: Present: Normal Inspection Upper Extremity: Present: Normal Inspection. No: Cyanosis, Edema Lower Extremity: Present: Normal Inspection. No: Edema Neurological: Present: GCS=15, CN II-XII Intact, Speech Normal Skin: Present: Warm, Dry, Normal Color. No: Rashes Psychiatric: Present: Alert, Oriented x 3, Normal Insight, Normal Concentration Medical Decision Making ED Course and Treatment: 09/06/18 20:25 Impression: 58 year old female complaining of left-sided chest pain. Plan: -- EKG -- Chest X-ray -- Labs, cardiac enzymes, D-dimer -- Urinalysis -- Reassess and disposition Progress Notes: Reviewed EKG, NSR at [address] LV[address]. Non-specific ST/T wave changes. 09/06/18 21:45 Chest X-ray reviewed, shows pacemaker and chest [id number], no acute processes. 09/08/18 22:[address] Huang's service. 09/07/18 23:55 Multiple calls placed to Dr. Huang's service. 09/07/18 00:[address] Hay, who is aware and agrees with plan. Accepts pt in to his service. Pt will be admitted to Telemetry for chest pain. residential property manager notified. - Lab Interpretations Lab Results: 09/06/18 21:16 09/06/18 21:16 Lab Results 09/06/18 21:16: PT 12.9 H, INR 1.13, APTT 29.9 09/06/18 21:16: Sodium 136, Potassium 4.5, Chloride 105, Carbon Dioxide 23, Anion Gap 13, BUN 30 H, Creatinine 1.7 H, Est GFR ( Amer) 37, Est GFR (Non-Af Amer) 31, Random Glucose 113 H, Calcium 8.9, Magnesium 1.9, Total Bilirubin 0.4, AST 38 H D, ALT 29, Alkaline Phosphatase 127 H D, Lactate Dehydrogenase 494, Total Creatine Kinase 739 H, CK-MB (CK-2) Pending, CK-MB (CK- 2) % Pending, Troponin I Pending, Total Protein 7.1, Albumin 3.7, Globulin 3.4, Albumin/Globulin Ratio 1.1 09/06/18 21:16: WBC 4.5, RBC 3.26 L, Hgb 9.6 L, Hct 29.7 L, MCV 91.1 D, MCH 29.4, MCHC 32.3, RDW 12.7, Plt Count 165, MPV 9.5, Gran % 71.9 H, Lymph % (Auto) 20.8 L, [place] % (Auto) 5.5, Eos % (Auto) 1.6, Baso % (Auto) 0.2, Gran # 3.24, Lymph # (Auto) 0.9 L, [place] # (Auto) 0.3, Eos # (Auto) 0.1, Baso # (Auto) 0.01 I have reviewed the lab results: Yes - RAD Interpretation Radiology Orders: 09/06/18 20:27 CHEST PORTABLE [RAD] Stat Cultural Anthropology Professor: ED Physician - EKG Interpretation Interpreted by ED Physician: Yes Type: 12 lead EKG - Scribe Statement The provider has reviewed the documentation as recorded by the Serafin Menchaca Provider Scribe Attestation: All medical record entries made by the Scribe were at my direction and personally dictated by me. I have reviewed the chart and agree that the record accurately reflects my personal performance of the history, physical exam, medical decision making, and the department course for this patient. I have also personally directed, reviewed, and agree with the discharge instructions and disposition. Disposition/Present on Arrival - Present on Arrival Any Indicators Present on Arrival: No History of DVT/PE: No History of Uncontrolled Diabetes: No Urinary Catheter: No History of Decub. Ulcer: No History Surgical Site Infection Following: None - Disposition Have Diagnosis and Disposition been Completed?: Yes Diagnosis: Chest pain Disposition: HOSPITALIZED Disposition Time: 00:10 Condition: FAIR
[2018-09-06 21:52] LABS: TROPONIN I < 0.01 ng/mL
[2018-09-06 22:01] LABS: CK-MB 1.5 ng/mL (0.0-3.6)
[2018-09-07] MEDS ORDERED: Enoxaparin 80 mg Syringe SC STA (00:01)
--- NOTE | 2018-09-07 00:48 | CP.PCM.HP ---
History of Present Illness - History of Present Illness History of Present Illness: Segun Rivero DO, PGY-1 Hospitalist Admission History and Physical for Dr. Hay's service CC: chest pain HPI: Ms. Diallo is a 58 year old female with PMH of HTN, DM2, and PPM placement who presents to ED with chest pain that has been worsening over the past day. She describes the pain as a sharp, intermittent, burning type pain that is mid- sternal and does not radiate. She notices that the pain is worse with movement and the area is not tender to palpation. She denies any prior episodes of chest pain. She endorses feeling nauseated and having chills with diaphoresis since the pain started. She reports she was sick with a URI recently and she believes the chest pain may be from chest congestion. She denies fever, SOB, dyspnea on exertion, orthopnea, cough, and sore throat. Past Medical Hx: HTN, DM2, PPM placement Past Surgical Hx: gastric bypass Allergies: Levaquin Home medications: reviewed, as per MAR Family Hx: mother and father both had HTN and DM2 Social Hx: denies current or prior tobacco, alcohol, or drug use. Present on Admission - Present on Admission Any Indicators Present on Admission: No History of DVT/PE: No History of Uncontrolled Diabetes: No Urinary Catheter: No Decubitus Ulcer Present: No Review of Systems - Constitutional Constitutional: Chills. absent: Fever, Headache, Night Sweats - EENT Eyes: absent: Blurred Vision - Cardiovascular Cardiovascular: Chest Pain, Chest Pain with Activity, Diaphoresis. absent: Dyspnea, Dyspnea on Exertion, Edema, Palpitations - Respiratory Respiratory: absent: Cough, Dyspnea - Gastrointestinal Gastrointestinal: Abdominal Pain, Nausea. absent: Diarrhea, Melena, Vomiting - Genitourinary Genitourinary: absent: Change in Urinary Stream, Difficulty Urinating Past Patient History - Infectious Disease Hx of Infectious Diseases: None - Tetanus Immunizations Tetanus Immunization: Unknown - Past Social History Smoking Status: Former Smoker - CARDIAC Hx Cardiac Disorders: No Hx Hypertension: Yes - PULMONARY Hx Tuberculosis: No - NEUROLOGICAL HX Cerebrovascular Accident: No Hx Seizures: No - HEENT Hx HEENT Problems: No - RENAL Hx Chronic Kidney Disease: No Hx Kidney Stones: Yes - ENDOCRINE/METABOLIC Hx Diabetes Mellitus Type 2: Yes - HEMATOLOGICAL/ONCOLOGICAL Hx Cancer: No - INTEGUMENTARY Hx Dermatological Problems: No - MUSCULOSKELETAL/RHEUMATOLOGICAL Hx Arthritis: Yes Hx Fractures: Yes (L RIB) Hx Osteoporosis: Yes - GASTROINTESTINAL Hx Gastrointestinal Disorders: Yes (COLITIS) - GENITOURINARY/GYNECOLOGICAL Hx Sexually Transmitted Disorders: No - PSYCHIATRIC Hx Anxiety: Yes Hx Bipolar Disorder: Yes Hx Depression: Yes Hx Substance Use: Yes (see HPI) - SURGICAL HISTORY Hx Cholecystectomy: Yes - ANESTHESIA Hx Anesthesia: Yes Hx Anesthesia Reactions: No Hx Malignant Hyperthermia: No Meds Allergies/Adverse Reactions: Allergies Allergy/AdvReac Type Severity Reaction Status Date / Time levofloxacin [From Levaquin] Allergy RASH Verified 08/27/18 14:21 Physical Exam - Constitutional Appears: Non-toxic, No Acute Distress - Head Exam Head Exam: ATRAUMATIC, NORMOCEPHALIC - Eye Exam Eye Exam: EOMI, Normal appearance, PERRL - ENT Exam ENT Exam: Mucous Membranes Moist - Neck Exam Neck exam: Positive for: Full Rom, Normal Inspection - Respiratory Exam Respiratory Exam: Clear to Auscultation Bilateral, NORMAL BREATHING PATTERN. absent: Rales, Rhonchi, Wheezes - Cardiovascular Exam Cardiovascular Exam: REGULAR RHYTHM, RRR, +S1, +S2. absent: Diastolic murmur, Gallop, Rubs, Systolic Murmur Additional comments: no chest wall tendereness to palpation - GI/Abdominal Exam GI & Abdominal Exam: Normal Bowel Sounds, Soft. absent: Guarding, Rebound, Tenderness - Extremities Exam Extremities exam: Positive for: normal inspection. Negative for: pedal edema - Back Exam Back exam: FULL ROM, NORMAL INSPECTION - Neurological Exam Neurological exam: Alert, Oriented x3 - Psychiatric Exam Psychiatric exam: Normal Affect, Normal Mood - Skin Skin Exam: Dry, Intact, Warm Results - Vital Signs Recent Vital Signs: Last Vital Signs Temp 97.8 F 09/07/18 00:42 Pulse 81 09/07/18 00:42 Resp 15 09/07/18 00:42 BP 128/62 09/07/18 00:42 Pulse Ox 100 09/07/18 00:42 - Labs Result Diagrams: 09/06/18 21:16 09/06/18 21:16 Labs: Laboratory Results - last 24 hr 09/06/18 09/06/18 09/06/18 21:16 21:16 21:16 WBC 4.5 RBC 3.26 L Hgb 9.6 L Hct 29.7 L MCV 91.1 D MCH 29.4 MCHC 32.3 RDW 12.7 Plt Count 165 MPV 9.5 Gran % 71.9 H Lymph % (Auto) 20.8 L [place] % (Auto) 5.5 Eos % (Auto) 1.6 Baso % (Auto) 0.2 Gran # 3.24 Lymph # (Auto) 0.9 L [place] # (Auto) 0.3 Eos # (Auto) 0.1 Baso # (Auto) 0.01 PT 12.9 H INR 1.13 APTT 29.9 D-Dimer, Quantitative Sodium 136 Potassium 4.5 Chloride 105 Carbon Dioxide 23 Anion Gap 13 BUN 30 H Creatinine 1.7 H Est GFR ( Amer) 37 Est GFR (Non-Af Amer) 31 Random Glucose 113 H Calcium 8.9 Magnesium 1.9 Total Bilirubin 0.4 AST 38 H D ALT 29 Alkaline Phosphatase 127 H D Lactate Dehydrogenase 494 Total Creatine Kinase 739 H CK-MB (CK-2) 1.5 CK-MB (CK-2) % Cancelled Troponin I < 0.01 Total Protein 7.1 Albumin 3.7 Globulin 3.4 Albumin/Globulin Ratio 1.1 09/06/18 21:44 WBC RBC Hgb Hct MCV MCH MCHC RDW Plt Count MPV Gran % Lymph % (Auto) [place] % (Auto) Eos % (Auto) Baso % (Auto) Gran # Lymph # (Auto) [place] # (Auto) Eos # (Auto) Baso # (Auto) PT INR APTT D-Dimer, Quantitative 419 H Sodium Potassium Chloride Carbon Dioxide Anion Gap BUN Creatinine Est GFR ( Amer) Est GFR (Non-Af Amer) Random Glucose Calcium Magnesium Total Bilirubin AST ALT Alkaline Phosphatase Lactate Dehydrogenase Total Creatine Kinase CK-MB (CK-2) CK-MB (CK-2) % Troponin I Total Protein Albumin Globulin Albumin/Globulin Ratio Assessment & Plan - Assessment and Plan (Free Text) Assessment: 58 yo F with PMH of HTN, DM2, PPM placement is admitted for chest pain and subsequent ACS r/o. Plan: 1. Chest pain May be 2/2 GERD vs stable angina Low suspicion for ACS D-dimer elevated, will get VQ scan in AM Trend troponin q6h x 2 Repeat EKG in AM Continue home ASA, lipitor Will start plavix 2. SERGEY Likely 2/2 dehydration Patient admits to poor oral intake today as she has felt nauseated CK also elevated Will start NS at 125 cc/hr for replacement Continue to monitor BUN/Cr 3. Hx HTN D/c cozaar for now given SERGEY Will start lopressor 25 mg BID 4. Hx DM2 ISS while admitted Point of care fingerstick glucose ACHS DVT/GI PPX: SC heparin, protonix Full Code HH, consistent CHO diet Monitor on telemetry Case and plan reviewed and discussed with my attending Dr. Bharti Rivero, DO IM Resident PGY-1
[2018-09-07 04:56] LABS: BASO # 0.01 K/mm3 (0.0-2.0); BASO % 0.3 % (0.0-3.0); EOS # 0.1 (0.0-0.7); EOS % 2.5 % (1.5-5.0); GRAN # 2.2 (1.4-6.5); GRAN % 59.9 % (50.0-68.0); HEMOGLOBIN 9.3 g/dL (12.0-16.0); LYMPH # 1.2 (1.2-3.4); LYMPH % 31.3 % (22.0-35.0); MEAN CORPUSCULAR HEMOGLOBIN 29.6 pg (25.0-35.0); MEAN CORPUSCULAR HGB CONC 32.2 g/dl (31.0-37.0); MEAN PLATELET VOLUME 9.3 fl (7.0-11.0); MONO # 0.2 (0.1-0.6); RBC 3.14 10^6/uL (3.5-6.1); RED CELL DISTRIBUTION WIDTH 12.9 % (11.5-14.5); WHITE BLOOD COUNT 3.7 10^3/uL (4.5-11.0)
[2018-09-07 05:43] LABS: ALB/GLOB RATIO 1.1 (1.1-1.8); ALBUMIN 3.4 g/dL (3.0-4.8); CALCIUM 8.8 mg/dL (8.4-10.5)
[2018-09-07] MEDS: Pantoprazole 40 mg EC Tab PO SCH (05:52)
[2018-09-07 06:04] LABS: IRON 59 ug/dL (45-180)
[2018-09-07 06:13] LABS: % IRON SATURATION 22 % (20-55); TOTAL IRON BINDING CAPACITY 272 ug/dL (265-497)
[2018-09-07] MEDS: Insulin Reg-MEDIUM-Coverage SC SCH ×4 (08:32→21:56)
--- NOTE | 2018-09-07 09:15 | CARD ---
APPROVED REPORT Date of service: 09/06/2018 EKG Measurement Heart [id number] <Conclusion> Normal sinus rhythm Minimal voltage criteria for LVH, may be normal variant Nonspecific ST and T wave abnormality Abnormal ECG
--- NOTE | 2018-09-07 09:19 | RAD ---
Date of service: 09/06/2018 HISTORY: cp COMPARISON: 08/06/2018 FINDINGS: LUNGS: No active pulmonary disease. PLEURA: No significant pleural effusion identified, no pneumothorax apparent. CARDIOVASCULAR: Mild aortic calcification Mild cardiomegaly no pulmonary vascular congestion. OSSEOUS STRUCTURES: No significant abnormalities. VISUALIZED UPPER ABDOMEN: Normal. OTHER FINDINGS: Port-A-Cath and dual lead pacemaker present IMPRESSION: No active disease.
[2018-09-07] MEDS: Fluticasone Nasal 50 mcg/Spray NS SCH (09:33)
[2018-09-07 11:36] LABS: HEPATITIS A IGM NEGATIVE (NEGATIVE); HEPATITIS B CORE AB NEGATIVE (NEGATIVE)
[2018-09-07 11:48] LABS: HEPATITIS C ANTIBODY NEGATIVE (NEGATIVE)
[2018-09-07 12:32] LABS: HEPATITIS B SURFACE AG Negative (NEGATIVE)
--- NOTE | 2018-09-07 13:45 | CARD ---
APPROVED REPORT Date of service: 09/07/2018 EKG Measurement Heart [id number] <Conclusion> Normal sinus rhythm with sinus arrhythmia Nonspecific T wave abnormality Abnormal ECG
[2018-09-07 14:52] LABS: BENZODIAZEPINES, UR NEGATIVE (NEGATIVE); PHENCYCLIDINE, UR NEGATIVE (NEGATIVE)
[2018-09-07 14:54] LABS: BARBITURATES, UR NEGATIVE (NEGATIVE); OPIATES, UR NEGATIVE (NEGATIVE)
--- NOTE | 2018-09-07 16:33 | NM ---
Date of service: 09/07/2018 COMPARISON: September 06, 2018. Single-view chest TECHNIQUE: 31.3 mCi technetium 99-m DTPA aerosol. 3.4 mCI technetium 99-m MAA administered intravenously. FINDINGS: VENTILATION COMPONENT: Heterogeneous ventilation. Retention of radionuclide in the tracheobronchial tree and ingestion of radionuclide in the stomach, incidental findings PERFUSION COMPONENT: Heterogeneous distribution of radionuclide. No geographic, segmental, lobar abnormalities apparent on the present examination. Incidental finding(s): Photon deficient area corresponds to the [id number] in the right forest thorax IMPRESSION: Low probability ventilation perfusion scan for pulmonary embolism.
[2018-09-07] MEDS: Sodium Chloride 0.9% 1,000 ML IV SCH (17:35)
[2018-09-07] MEDS: Lidocaine 5% Patch TD SCH (18:47)
--- NOTE | 2018-09-07 20:16 | CON ---
DATE: 09/07/2018 CARDIOLOGY FOLLOWUP HISTORY OF PRESENT ILLNESS: The patient is a 58-year-old woman who presented with chest pain. The patient cannot give adequate history right now. The patient is currently sedated on her antidepressant medications. She does suffer from hypertension, diabetes mellitus and hypercholesterolemia. REVIEW OF SYSTEMS: Not available. PHYSICAL EXAMINATION: VITAL SIGNS: Blood pressure 138/75 and heart rates in the 80s. NECK: Negative JVD. LUNGS: Without rales. HEART: S1 and S2. EXTREMITIES: Without edema. LABORATORY DATA: EKG shows no acute changes. Hemoglobin is 9.3. Troponins are negative x3. IMPRESSION: 1. Reported chest pain. 2. No evidence for acute coronary syndrome. 3. Hypertension. 4. Hypercholesterolemia. 5. Diabetes mellitus. 6. Depression. 7. Lethargy secondary to her medications. PLAN: Given these findings, there is no evidence for acute coronary syndrome. I have discussed with the nurses who will contact Psychiatry about altering her medications to avoid the heavy sedation medications currently causing her. Philip Sorenson MD
--- NOTE | 2018-09-07 20:36 | CON ---
DATE: 09/07/2018 SUBJECTIVE: The patient is a 58-year-old female who was admitted on the medical side for evaluation of left-sided chest pain. The patient has history of depression, . Discharge summary reviewed. The patient was discharged on the following medications: The patient was on Klonopin 1 mg twice a day. The patient was on Neurontin 300 mg three times a day, Vistaril 50 mg twice a day. The patient was on Seroquel 50 mg at nighttime and Effexor 150 mg daily plus 37.5. The patient reported that she was feeling okay and her mood was fine. At the same time, the patient reported that she had verbal altercation with her younger daughter, who requested to have access to her medical record, but the patient declined that request and the patient was feeling very upset over that request from the daughter. The patient reported that she feels depressed because of personal conflict with the daughter. The patient reported that over nighttime she is not sure if she saw some girl or not. The patient reported that her sleep is off. The patient reported that she feels very anxious. The patient reported that she fills her medication in [facility], but at present moment [facility] is closed. We will call them back and confirm medication and when was the last time the patient filled that medication. The patient reported that she did not follow up with outpatient psychiatrist for unknown reason, but the patient was referred to [facility]. VITAL SIGNS: Reviewed. Temperature 98, pulse is 64, blood pressure 97/62, respirations 18, oxygen saturation is 96%. MEDICATIONS: Reviewed. The patient is on Tylenol, aspirin, Lipitor, Klonopin 1 mg twice a day, Plavix, Colace, Flonase, folic acid, gabapentin 300 mg three times a day, heparin, Vistaril 50 mg twice a day, insulin, Lopressor, Zofran, Protonix, Seroquel 50 mg at nighttime, and sodium chloride. LABORATORY DATA: Labs reviewed. Toxicology was not done as that order took place, reports reviewed. MENTAL STATUS EXAM: The patient appears to be somewhat confused, intermittent eye contact. Mood described I was doing fine, but now I am not. Affect was constricted. Thought process is somewhat circumstantial, sometimes the patient was answering inappropriate. Thought content: The patient is not sure if she had visual hallucinations overnight. The patient reported feeling of hopelessness. Denied any intent or plan to kill herself, but the patient was making vague statements, I need to make decisions. Insight and judgment seem to be limited. Impulses are well controlled. IMPRESSION: As per history, the patient has major depressive disorder, posttraumatic stress disorder, rule out bipolar disorder. The patient has history of misusing and abusing benzodiazepines and substance abuse in the past. PLAN: Continue current management. Continue current medications. We will call and confirm medication from [facility]. The patient did not follow up with outpatient psychiatrist. Klonopin as well as Neurontin, as well as Vistaril were started by primary care team. The patient was on Effexor. We will ask medical team if any contraindication for that medication and that is why it was stopped. If not, we will resume that medication. So far, the patient is not in any acute distress. We will follow up and advise accordingly. Thank you very much for letting me participate in the care of your patient. Romina Dockery MD
--- NOTE | 2018-09-07 21:56 | HP ---
HISTORY OF PRESENT ILLNESS: The patient is a 58-year-old obese female presented to the [facility] emergency room complaining of chest pain, left axillary pain, left arm pain. The patient came to the emergency room by the [facility] ambulance. The patient was examined and seen. The patient's vital signs, diagnostic data reviewed. Please refer to the detailed history and physical examination by the medical coding specialist for further details. The patient was seen and examined with the medical coding specialist. IMPRESSION AND PLAN: 1. Left-sided chest wall pain which is palpable and reproducible. 2. History of multiple sclerosis. 3. History of hypertension. 4. Leukopenia, anemia. 5. Elevated D-dimer of 419. 6. Acute kidney injury with underlying chronic kidney disease stage 3. 7. Mild transaminitis. 8. Cardiomegaly. 9. Questionable left ventricular hypertrophy. 10. Morbid obesity. 11. History of iron-deficiency anemia. 12. History of depression. 13. History of vitamin B12 deficiency. 14. History of positive homogeneous type. 15. History of Escherichia coli urinary tract infection. 16. History of Klebsiella pneumoniae urinary tract infection. 17. History of positive , homogeneous titer. 18. History of cholecystectomy. 19. History of fatty liver and hepatic steatosis. 20. Status post permanent pacemaker implant and right upper chest Port-A-Cath placement. 21. Bibasilar atelectasis. 22. 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 23. Mild splenomegaly. 24. History of neutropenia. 25. History of left ventricular ejection fraction of 57%. 26. History of depression and anxiety. 27. History of multiple sclerosis exacerbation. 28. History of extended-spectrum beta-lactamase urinary tract infection. 29. History of atypical musculoskeletal chest pain. 30. History of questionable congestive heart failure but normal ejection fraction on echocardiogram. 31. History of type 2 diabetes mellitus. 32. History of colitis. 33. History of gastric bypass surgery. 34. History of gastroesophageal reflux. 35. History of recurrent urinary tract infection. 36. History of left rib fracture. 37. History of osteoporosis. 38. History of fibromyalgia. 39. History of hysterectomy. 40. History of former smoker. PLAN: At this time, the patient is to be admitted to Telemetry. The patient has been consulted with Cardiology, Neurology, Psychiatry. The patient has been ordered hepatitis panel because of multiple tattoos on the skin. Drug screen ordered. Vitamin D, iron, ferritin, hemoglobin A1c. Repeat CMP, CBC, erythropoietin, hepatitis C titers ordered. Hepatitis A, B, C serologies ordered. The patient has been ordered Colace 100 three times a day, aspirin 81 daily, Flonase 1 puff daily, folic acid 1 mg daily, heparin 5000 subcutaneously every 8, regular insulin, medium dose sliding scale coverage, Klonopin 1 mg twice a day, Lipitor 40 mg daily, Lopressor 25 twice a day, Lovenox 80 mg subcutaneously one dose was given, Neurontin 300 three times a day, Plavix 75 mg daily, Protonix 40 mg daily, Seroquel 50 mg at bedtime, IV fluid 0.9 normal saline at 125 mL an hour, Tylenol p.o. and suppository p.r.n., Vistaril 50 mg b.i.d. p.r.n., and Zofran 4 mg IV every 4 p.r.n. The patient has been ordered V/Q scan, which is pending, which is ordered for elevated D-dimer of 419. The patient has been ordered Neurology, Psychiatry, Cardiology consultation, oxygen 2 liters nasal cannula has been ordered, Incentive spirometry, SHMUEL stockings, SCDs, physical therapy, occupational therapy, out of bed ordered. At present, the patient's further management will be dependent upon the patient's clinical condition, hemodynamic status and as per patient's response to therapeutic intervention and as per patient's diagnostic test results and recommendation by all the physicians involved in the care of the patient. Dom Hay MD
[2018-09-08] MEDS: Sodium Chloride 0.9% 1,000 ML IV SCH ×2 (02:11→02:14)
[2018-09-08 05:51] VITALS: RESP 20; O2SAT 97
[2018-09-08] MEDS: Pantoprazole 40 mg EC Tab PO SCH (06:15)
[2018-09-08 07:04] LABS: EOS # 0.1 (0.0-0.7); EOS % 3.5 % (1.5-5.0); GRAN # 1.47 (1.4-6.5); GRAN % 50.8 % (50.0-68.0); HEMOGLOBIN 9.3 g/dL (12.0-16.0); LYMPH # 1.1 (1.2-3.4); LYMPH % 39.1 % (22.0-35.0); MEAN CELL VOLUME 92.8 fl (80.0-105.0); MEAN CORPUSCULAR HEMOGLOBIN 29.2 pg (25.0-35.0); MEAN CORPUSCULAR HGB CONC 31.5 g/dl (31.0-37.0); MEAN PLATELET VOLUME 9.5 fl (7.0-11.0); MONO # 0.2 (0.1-0.6); MONO % 6.6 % (1.0-6.0); RBC 3.18 10^6/uL (3.5-6.1); RED CELL DISTRIBUTION WIDTH 12.7 % (11.5-14.5); WHITE BLOOD COUNT 2.9 10^3/uL (4.5-11.0)
[2018-09-08 07:24] LABS: URINE BILIRUBIN NEGATIVE (NEGATIVE); URINE BLOOD NEGATIVE (NEGATIVE); URINE GLUCOSE (UA) NEGATIVE (NEGATIVE); URINE LEUKOCYTE ESTERASE NEGATIVE Leu/uL (NEGATIVE); URINE PROTEIN NEGATIVE mg/dL (<30 mg/dL); URINE UROBILINOGEN 0.2 E.U./dL (<1 E.U./dL)
[2018-09-08 07:26] LABS: URINE APPEARANCE CLEAR (CLEAR); URINE COLOR YELLOW (YELLOW)
[2018-09-08] MEDS ORDERED: Ergocalciferol 50,000 Intl Units Cap PO SCH (07:30)
[2018-09-08 07:42] LABS: ALBUMIN 3.3 g/dL (3.0-4.8); ALT/SGPT 24 U/L (7-56); AST/SGOT 34 U/L (14-36); BILIRUBIN,DIRECT 0.3 mg/dL (0.0-0.4); BLOOD UREA NITROGEN 20 mg/dL (7-21); CALCIUM 8.4 mg/dL (8.4-10.5); GFR NON-AFRICAN AMERICAN > 60
--- NOTE | 2018-09-08 08:24 | RAD ---
Date of service: 09/07/2018 PROCEDURE: Right Knee Radiographs. HISTORY: R knee pain COMPARISON: None. FINDINGS: BONES: Normal. No fracture. JOINTS: Normal. No osteoarthritis. JOINT EFFUSION: None. OTHER FINDINGS: None. IMPRESSION: Normal radiographs of the right knee.
[2018-09-08] MEDS: Insulin Reg-MEDIUM-Coverage SC SCH ×2 (08:25→12:00)
--- NOTE | 2018-09-08 08:27 | RAD ---
Date of service: 09/07/2018 PROCEDURE: Radiographs of the chest and bilateral ribs HISTORY: pain (ribs) COMPARISON: None available. TECHNIQUE: Frontal radiograph of the chest and multiple oblique radiographs of the bilateral ribs were obtained. FINDINGS: RIGHT RIBS: No fracture or focal lesion visualized. LEFT RIBS: No fracture or focal lesion visualized. LUNGS: Clear. PLEURA: No pneumothorax or pleural fluid. CARDIOVASCULAR: Normal cardiac size. No pulmonary vascular congestion. Aortic calcification and tortuosity OTHER FINDINGS: None. IMPRESSION: Unremarkable radiographs of the chest and bilateral ribs. No rib fracture.
--- NOTE | 2018-09-08 08:58 | CON ---
DATE OF CONSULTATION: 09/07/2018 NEUROLOGY CONSULTATION CHIEF COMPLAINT: History of MS. HISTORY OF PRESENT ILLNESS: This is a 58-year-old woman, whom I recently saw on 08/01/2018 for questionable MS exacerbation and generalized weakness and fatigue. She supposedly has history of chronic multiple sclerosis, was on Copaxone, was not on any disease modifying therapy and has not seen Neurology for many years, has an appointment with neurologist in [place], has history of fibromyalgia, diabetic peripheral neuropathy, diabetes, coronary artery disease, bradycardia, status post pacemaker. At this time, she comes in for intermittent chest pain over the past week, sharp in nature, burning type, in the midsternal area, does not radiate and undergoing evaluation by Cardiology. She was recently sick, had upper respiratory tract infection. Currently, she is seen up in bed, following commands, moving all extremities. She does have features of neuropathy. On neuro examination, her attention span and thought process are mildly slow, but otherwise has very flat affect. We recommend that she goes to see her neurologist, as she has an appointment in [place] for her to be placed on disease modifying therapy for questionable multiple sclerosis and needs an EMG and nerve condition as an outpatient to assess the degree of diabetic peripheral neuropathy. Continue with cardiology workup. PAST MEDICAL HISTORY: As above. ALLERGIES: SHE IS ALLERGIC TO LEVOFLOXACIN. SOCIAL HISTORY: No illicit drug use, smoking, or EtOH abuse. REVIEW OF SYSTEMS: A 14-point review of system is negative except as per the HPI. MEDICATIONS: Reviewed by nurse per reconciliation sheet. LABORATORY DATA: Sodium is 138, potassium 4.3, chloride 106, carbon dioxide 26. BUN of 28, creatinine 1.6. Random glucose of 85. PHYSICAL EXAMINATION VITAL SIGNS: Temperature 98.3, pulse rate 78, blood pressure 138/75, respiratory rate . GENERAL: The patient is sitting up in bed, in no acute distress. HEENT: Atraumatic and normocephalic. PERRLA. Extraocular muscles intact. NECK: Supple. No JVD. No adenopathy noted. LUNGS: Clear to auscultation. No adventitious sounds. HEART: S1 and S2. Normal rate and rhythm. No murmur, rubs, or gallops. ABDOMEN: Soft, nontender, and nondistended. Bowel sounds present. EXTREMITIES: No clubbing. No cyanosis. Peripheral pulses 2+ felt bilaterally. NEUROLOGIC: The patient is alert and oriented to person, place, month, and year. Recall after 5 minutes is 2/3. Poor attention span and slow thought process. Flat affect. Cranial nerves II through XII intact. Motor exam: Moves all extremities equally. No pronator drift seen. Sensory exam: Decreased light touch and pinprick up to the calves bilaterally. Decreased vibration of the toes. DTRs are 2+ throughout, 1 at both knees and ankles. Coordination: [id number] intact. No dysmetria noted. Gait is deferred for now. IMPRESSION: This is a 58-year-old woman with past medical history of supposed chronic multiple sclerosis, was on Copaxone in the past, not on any disease modifying therapy for now, has not seen Neurology for many years, has an appointment with a neurologist in [place], history of fibromyalgia, history of type 2 diabetes mellitus, coronary artery disease, bradycardia, status post pacemaker, who came in for chest pain. I was called to consult since history of multiple sclerosis. It is unlikely to assess the degree of multiple sclerosis since she cannot have an MRI due to her pacemaker, possibly not MRI compatible, though she has features of diabetic sensorimotor peripheral neuropathy, multifactorial indicating some fatigue and some possible underlying multiple sclerosis given her poor balance. At this time, we will recommend: 1. Continue with her Cardiology workup for intermittent chest pain. 2. Keep her blood sugar between 140 to 180 and needs a diabetic diet. Recommend weight reduction. 3. PT/OT as an outpatient for muscle strengthening, coordination, and gait exercises and follow up with neurologist, since she has an appointment in [place] for disease modifying therapy. Her CAT scan of the head did show some chronic T2 hyperintensities making multiple sclerosis questionable diagnosis, which was seen on her last CAT scan on her last admission, but was told that she does. At this time, continue with current workup. Thank you for this consult. Michelet Mata MD
--- NOTE | 2018-09-08 09:23 | US ---
HISTORY: Leg pain and swelling. Evaluate for DVT PHYSICIAN(S): Philip Bowens MD. TECHNIQUE: Duplex sonography and color-flow Doppler with graded compression were used to evaluate the deep venous systems of both lower extremities. The exam is somewhat limited by edema and body habitus FINDINGS: The visualized deep venous systems of both lower extremities are sonographically normal and compressible. Normal wave forms and augmentation are seen. There is no sonographic evidence for deep venous thrombosis in the visualized segments of both lower extremities. IMPRESSION: No sonographic evidence for deep venous thrombosis in the visualized segments of both lower extremities.
[2018-09-08] MEDS ORDERED: Venlafaxine 75 mg ER Cap PO SCH (10:00)
[2018-09-08] MEDS: Magnesium Sulfate 2 gm/50 ml 2 GM/50 ML BAG IVPB SCH ×2 (10:38→13:20)
[2018-09-08] MEDS: Fluticasone Nasal 50 mcg/Spray NS SCH (10:39)
[2018-09-08] MEDS: Lidocaine 5% Patch TD SCH (10:50)
--- NOTE | 2018-09-08 13:47 | PN ---
DATE: 09/08/2018 CARDIOLOGY FOLLOWUP SUBJECTIVE: The patient is free of chest pain. PHYSICAL EXAMINATION: VITAL SIGNS: Blood pressure is 146/95, heart rate is in the 60s. NECK: Negative JVD. LUNGS: Without rales. HEART: Reveals S1, S2. EXTREMITIES: Without edema. LABORATORY DATA: Magnesium is 1.6, the potassium is 4.3, the hemoglobin is 9.3. IMPRESSION: 1. No evidence for acute coronary syndrome. 2. Hypertension. 3. Diabetes mellitus. 4. History of depression. PLAN: Given her findings, the patient's cardiac status is stable. She states she had a stress test done within the past 6 months that was unremarkable. Given these findings, there is no further cardiac workup is necessary at this time. Philip Sorenson MD
--- NOTE | 2018-09-08 15:47 | DS ---
HISTORY OF PRESENT ILLNESS: The patient's overnight nurse's notes were reviewed.. The patient is in room 275 bed two. Telemetry monitoring shows normal sinus rhythm. PHYSICAL EXAMINATION: VITAL SIGNS: T-max 98.3, heart rate 59-65, blood pressure 155/87, respirations 20, O2 sat 97%. GENERAL: The patient is seen lying in the bed. HEENT: Head: Normocephalic, atraumatic. HEENT examination shows pinkish pale conjunctivae. Anicteric sclerae. No oropharyngeal lesion. No neck rigidity. CHEST: Kyphosis. Positive left upper chest pacemaker. Positive right upper chest Port-A-Cath. LUNGS: Shows no audible crackles, rales or wheezing. Questionable decreased breath sound at the bases, left more than the right. CARDIOVASCULAR: S1, S2, regular rhythm. No audible murmur, gallop or rub at this time. Questionable soft systolic murmur left sternal border, right second intercostal space, left second intercostal space. ABDOMEN: Soft, protuberant. Positive bowel sounds. Obese abdomen. No palpable hepatosplenomegaly. GENITALIA: Female. RECTAL: Deferred. EXTREMITIES: Shows no pitting edema of the lower extremity. No calf tenderness. No Homans' sign. NEUROLOGIC: The patient is alert, awake, oriented x3, is able to move upper and lower extremities without assistance. GAIT: Not tested. MUSCULOSKELETAL: Shows elevated body mass index. The patient overnight in the last 24 hours complained of right knee pain, leg pain, rib cage pain for which the patient underwent x-rays of the ribs, knee x-rays and venous Doppler of the both lower extremities, the results of which are reviewed. DIAGNOSTICS: From 09/08, WBC 2.9, hemoglobin/hematocrit 9.3 and 29.5, platelet 145,000. CMP, LFTs are within normal limit except magnesium is 1.6. Vitamin D 25-hydroxy 17.1. Hepatitis A, B, C serologies are negative. The patient was seen by debridging machine operator and psychiatrist. Their recommendations were noted. The patient was cleared for discharge by Cardiology and Psychiatry. Venous Doppler of the both lower extremities negative for DVT. X-ray of the right knee and the rib series and chest x-ray was negative for any acute pathology. FINAL IMPRESSION PLAN AND DISCHARGE DIAGNOSES: 1. Chest pain, etiology undetermined versus musculoskeletal chest pain versus rib cage and chest wall pain with palpable chest wall tenderness. 2. Leukopenia. 3. Anemia. 4. Hypovitaminosis D. 5. Hypokalemia. 6. Hypomagnesemia. 7. History of permanent pacemaker implant and right upper chest Port-A-Cath. 8. History of multiple sclerosis. 9. Acute kidney injury. 10. Chronic kidney disease stage III. 11. Major depression. 12. History of post-traumatic stress disorder. 13. Questionable bipolar disorder. 14. History of benzodiazepine abuse and misuse. 15. History of substance abuse. 16. Hypertensive cardiovascular disease. 17 Hypertension. 18 Morbid obesity. 19. History of . PLAN: At this time, the patient is seen and cleared by Cardiology and Psychiatry. The patient will be considered for discharge after cleared by Cardiology, Neurology, Psychiatry. The patient will be discharged home. DISCHARGE MEDICATIONS: The patient's discharge medications are as per the updated ambulatory orders plus new prescriptions. The patient will be given magnesium sulfate rider prior to discharge. The patient will be discharged home after cleared by Cardiology, Neurology, Psychiatry. DISCHARGE FOLLOWUP: With Dr. Hay within 1 week. Discharge followup with Neurology within 1 week. Discharge by medic follow up with Dr. Hay within 1 week. During this hospitalization, the patient was extensively explained about the details of her medical condition, diagnostic test results, recommendation by all the physicians involved in the care of the patient was extensively explained to the patient in layman's language. All questions concerned answered. Time spent in the discharge process 45 minutes. Dictated and electronically signed, note read. Dom Hay MD
[2018-09-08 17:34] VITALS: BP 158/97; PULSE 60
[2018-09-08 17:43] VITALS: TEMP 99.9
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
== END 2018-09-08 18:26 | disposition home or self-care (01) | DRG 313 ==
LOC: ED 20:09 → ERH 09-07 00:02 → 2RSO 09-07 00:50
PROVIDERS: ADMIT Internal Medicine; ATTEND Internal Medicine
DX: R07.2 Precordial pain (principal); N17.9 Acute kidney failure, unspecified; J98.11 Atelectasis; E11.9 Type 2 diabetes mellitus without complications; F31.9 Bipolar disorder, unspecified; R68.83 Chills (without fever); R61 Generalized hyperhidrosis; R11.0 Nausea; Z87.891 Personal history of nicotine dependence; E86.0 Dehydration; I10 Essential (primary) hypertension; D64.9 Anemia, unspecified; D72.819 Decreased white blood cell count, unspecified; E11.22 Type 2 diabetes mellitus with diabetic chronic kidney disease; E11.42 Type 2 diabetes mellitus with diabetic polyneuropathy; E66.01 Morbid (severe) obesity due to excess calories; E78.00 Pure hypercholesterolemia, unspecified; F43.10 Post-traumatic stress disorder, unspecified; G35 Multiple sclerosis; I25.10 Atherosclerotic heart disease of native coronary artery without angina pectoris; I51.7 Cardiomegaly; J06.9 Acute upper respiratory infection, unspecified; K21.9 Gastro-esophageal reflux disease without esophagitis; K76.0 Fatty (change of) liver, not elsewhere classified; M47.814 Spondylosis without myelopathy or radiculopathy, thoracic region; M79.7 Fibromyalgia; M81.0 Age-related osteoporosis without current pathological fracture; N18.3 Chronic kidney disease, stage 3 (moderate); R79.1 Abnormal coagulation profile; Z82.49 Family history of ischemic heart disease and other diseases of the circulatory system; Z83.3 Family history of diabetes mellitus; Z87.440 Personal history of urinary (tract) infections; Z87.442 Personal history of urinary calculi; Z90.49 Acquired absence of other specified parts of digestive tract; Z90.710 Acquired absence of both cervix and uterus; Z95.0 Presence of cardiac pacemaker; Z98.84 Bariatric surgery status